=== PATIENT | female | born 1935 | race Caucasian/White ===

== ENCOUNTER 2019-12-19 10:36 | Outpatient (REF) | payer MEDICARE, OTHER, SELFPAY ==
[2019-12-19 11:14] LABS: MANUAL DIFF FLAG NO
[2019-12-19 11:33] LABS: Basophils Percent Auto 0.5 % (0-2); Eosinophils Absolute Auto 0.2 X10*3/uL (0.0-0.4); Eosinophils Percent Auto 2.1 % (0-4); Hematocrit 44.5 % (37-47); Hemoglobin 14.2 g/dl (12.0-16.0); Imm Gran Abs Auto 0.01 X10*3/uL (0.00-0.03); Imm Gran Pct Auto 0.1 % (0.0-0.4); Lymphocytes Absolute Auto 1.2 X10*3/uL (1.2-4.9); Lymphocytes Percent Auto 16.3 % (20-40); Mean Corpuscular HGB Conc 31.9 g/dl (31.0-35.0); Mean Corpuscular Hemoglobin 27.1 pg (27.0-33.0); Mean Corpuscular Volume 84.9 fL (80-98); Mean Platelet Volume 10.5 fL (9.4-12.3); Monocytes Absolute Auto 0.9 X10*3/uL (0.1-1.2); Monocytes Percent Auto 11.7 % (2-11); Neutrophils Absolute Auto 5.2 X10*3/uL (2.0-8.3); Neutrophils Percent Auto 69.3 % (45-73); Platelet Count 261 X10*3/uL (160-400); Red Blood Count 5.24 X10*6/uL (4.20-5.50); Red Cell Distribution Width 17.6 % (11.0-16.0); White Blood Count 7.5 X10*3/uL (4.8-10.8)
[2019-12-19 11:38] LABS: Glucose Urine UA NEG (NEG); Leukocyte Esterase Urine NEG (NEG); Nitrite Urine NEG (NEG); Specific Gravity - Urine 1.015 (1.005-1.025); Urine Blood NEG (NEG); Urine Ketones NEG (NEG); Urine Protein NEG (NEG-TRACE)
[2019-12-19 11:39] LABS: Appearance Urine CLEAR; Color Urine YELLOW
[2019-12-19 11:52] LABS: Alanine Aminotransferase 11 U/L (0-31); Albumin Level 3.8 g/dL (3.5-5.0); Alkaline Phosphatase 82 U/L (39-117); Anion Gap 15 (12-20); Aspartate Amino Transferase 18 U/L (5-31); Bilirubin Total 0.5 mg/dL (0.0-1.0); Blood Urea Nitrogen 15 mg/dL (9-16); Calcium 8.4 mg/dL (8.4-10.2); Carbon Dioxide 28 mmol/L (22-29); Chloride 102 mmol/L (96-108); Cholesterol 169 mg/dL; Estimated Glomerular Filt Rate > 60; Glucose Random 112 mg/dL (60-115); HDL Cholesterol 61 mg/dL; LDL Cholesterol Calculated 93 mg/dl; Potassium 4.5 mmol/l (3.3-5.1); Sodium 140 mmol/L (135-145); Total Protein 6.7 g/dL (6.5-8.0); Triglycerides 76 mg/dL
[2019-12-19 12:13] LABS: TSH reflex Free T4 1.93 mIU/mL (0.32-4.0); Vitamin D 25-OH Total 38.7 ng/mL (>30)
== END 2019-12-19 10:37 | disposition home or self-care (01) ==
LOC: HO.LAB 10:36
PROVIDERS: PCP Internal Medicine; Visit Provider Internal Medicine
DX: E78.00 Pure hypercholesterolemia, unspecified (principal); I10 Essential (primary) hypertension; J30.2 Other seasonal allergic rhinitis; E55.9 Vitamin D deficiency, unspecified; E66.01 Morbid (severe) obesity due to excess calories
CPT/HCPCS: 36415; 80053; 80061; 81003; 82306; 84443; 85025; 87086

== ENCOUNTER 2020-01-27 13:59 | Outpatient (REF) | payer MEDICARE, OTHER, SELFPAY | END 2020-01-27 14:00 | disposition home or self-care (01) | LOC: HO.LAB 13:59 | PROVIDERS: Visit Provider Internal Medicine | DX: Z20.828 Contact with and (suspected) exposure to other viral communicable diseases (principal) | CPT/HCPCS: C9803; U0003 ==

== ENCOUNTER 2020-04-23 10:48 | Outpatient (REF) | payer MEDICARE, OTHER, SELFPAY ==
[2020-04-23 11:39] LABS: MANUAL DIFF FLAG NO
[2020-04-23 11:45] LABS: Basophils Absolute Auto 0.1 X10*3/uL (0.0-0.2); Basophils Percent Auto 0.5 % (0-2); Eosinophils Absolute Auto 0.2 X10*3/uL (0.0-0.4); Eosinophils Percent Auto 2.3 % (0-4); Hematocrit 45.5 % (37-47); Hemoglobin 14.8 g/dl (12.0-16.0); Imm Gran Abs Auto 0.04 X10*3/uL (0.00-0.03); Imm Gran Pct Auto 0.4 % (0.0-0.4); Lymphocytes Absolute Auto 1.3 X10*3/uL (1.2-4.9); Mean Corpuscular HGB Conc 32.5 g/dl (31.0-35.0); Mean Corpuscular Hemoglobin 29.1 pg (27.0-33.0); Mean Corpuscular Volume 89.4 fL (80-98); Mean Platelet Volume 10.9 fL (9.4-12.3); Monocytes Absolute Auto 1.1 X10*3/uL (0.1-1.2); Monocytes Percent Auto 11.2 % (2-11); Neutrophils Absolute Auto 6.8 X10*3/uL (2.0-8.3); Neutrophils Percent Auto 71.6 % (45-73); Platelet Count 262 X10*3/uL (160-400); Red Blood Count 5.09 X10*6/uL (4.20-5.50); Red Cell Distribution Width 14.6 % (11.0-16.0); White Blood Count 9.4 X10*3/uL (4.8-10.8)
[2020-04-23 11:58] LABS: Glucose Urine UA NEG (NEG); Leukocyte Esterase Urine TRACE (NEG); Nitrite Urine NEG (NEG); PH 5.5 (5.0-8.0); UACC Culture Trigger YES; Urine Blood NEG (NEG); Urine Ketones NEG (NEG); Urine Protein NEG (NEG-TRACE)
[2020-04-23 12:00] LABS: Appearance Urine CLEAR; Color Urine YELLOW
[2020-04-23 12:12] LABS: Bacteria Urine TRACE /LPF; RBC Urine 0-2 /HPF (0); Squamous Epithelial Cell Urine 1+ /LPF
[2020-04-23 12:39] LABS: Alanine Aminotransferase 11 U/L (0-31); Albumin Level 3.9 g/dL (3.5-5.0); Alkaline Phosphatase 86 U/L (39-117); Anion Gap 16 (12-20); Aspartate Amino Transferase 16 U/L (5-31); Bilirubin Total 0.5 mg/dL (0.0-1.0); Blood Urea Nitrogen 21 mg/dL (9-16); Calcium 9.2 mg/dL (8.4-10.2); Carbon Dioxide 26 mmol/L (22-29); Chloride 103 mmol/L (96-108); Cholesterol 170 mg/dL; Estimated Glomerular Filt Rate > 60; Glucose Fasting 97 mg/dL (60-99); HDL Cholesterol 56 mg/dL; LDL Cholesterol Calculated 97 mg/dl; Sodium 141 mmol/L (135-145); Total Protein 6.9 g/dL (6.5-8.0); Triglycerides 88 mg/dL
[2020-04-23 12:44] LABS: TSH reflex Free T4 1.85 uIU/mL (0.32-4.0)
== END 2020-04-23 10:49 | disposition home or self-care (01) ==
LOC: HO.LAB 10:48
PROVIDERS: Visit Provider Internal Medicine
DX: I10 Essential (primary) hypertension (principal); E55.9 Vitamin D deficiency, unspecified; J30.2 Other seasonal allergic rhinitis; E78.00 Pure hypercholesterolemia, unspecified; R73.01 Impaired fasting glucose; E66.01 Morbid (severe) obesity due to excess calories; Z68.42 Body mass index [BMI] 45.0-49.9, adult
CPT/HCPCS: 36415; 80053; 80061; 81001; 81003; 82306; 84443; 85025; 87086

== ENCOUNTER 2020-09-28 11:02 | Outpatient (REF) | payer MEDICARE, OTHER, SELFPAY ==
[2020-09-28 11:44] LABS: MANUAL DIFF FLAG NO
[2020-09-28 11:51] LABS: Basophils Percent Auto 0.3 % (0-2); Eosinophils Absolute Auto 0.1 X10*3/uL (0.0-0.4); Eosinophils Percent Auto 1.6 % (0-4); Hematocrit 42.8 % (37-47); Hemoglobin 13.6 g/dl (12.0-16.0); Imm Gran Abs Auto 0.03 X10*3/uL (0.00-0.03); Imm Gran Pct Auto 0.3 % (0.0-0.4); Lymphocytes Percent Auto 10.6 % (20-40); Mean Corpuscular HGB Conc 31.8 g/dl (31.0-35.0); Mean Corpuscular Hemoglobin 28.8 pg (27.0-33.0); Mean Corpuscular Volume 90.5 fL (80-98); Mean Platelet Volume 10.5 fL (9.4-12.3); Monocytes Absolute Auto 1.1 X10*3/uL (0.1-1.2); Monocytes Percent Auto 12.5 % (2-11); Neutrophils Absolute Auto 6.7 X10*3/uL (2.0-8.3); Neutrophils Percent Auto 74.7 % (45-73); Platelet Count 282 X10*3/uL (160-400); Red Blood Count 4.73 X10*6/uL (4.20-5.50); Red Cell Distribution Width 14.2 % (11.0-16.0)
[2020-09-28 12:15] LABS: Alanine Aminotransferase 12 U/L (0-31); Albumin Level 3.6 g/dL (3.5-5.0); Alkaline Phosphatase 74 U/L (39-117); Anion Gap 16 (12-20); Aspartate Amino Transferase 16 U/L (5-31); Bilirubin Total 0.3 mg/dL (0.0-1.0); Blood Urea Nitrogen 14 mg/dL (9-16); Calcium 9.1 mg/dL (8.4-10.2); Carbon Dioxide 24 mmol/L (22-29); Chloride 105 mmol/L (96-108); Estimated Glomerular Filt Rate > 60; Glucose Random 115 mg/dL (60-115); Potassium 4.1 mmol/L (3.3-5.1); Sodium 141 mmol/L (135-145); Total Protein 6.3 g/dL (6.5-8.0)
[2020-09-28 12:30] LABS: Erythrocyte Sedimentation Rate 33 MM/HR (0-20)
[2020-09-28 13:07] LABS: Uric Acid 6.9 mg/dL (2.4-5.7)
== END 2020-09-28 11:03 | disposition home or self-care (01) ==
LOC: HO.LAB 11:02
PROVIDERS: PCP Internal Medicine; Visit Provider Internal Medicine
DX: M79.675 Pain in left toe(s) (principal); M79.89 Other specified soft tissue disorders
CPT/HCPCS: 36415; 80053; 84550; 85025; 85652

== ENCOUNTER 2020-12-10 10:49 | Outpatient (REF) | payer MEDICARE, OTHER, SELFPAY ==
[2020-12-10 11:00] LABS: MANUAL DIFF FLAG NO
[2020-12-10 11:30] LABS: Basophils Percent Auto 0.4 % (0-2); Eosinophils Absolute Auto 0.3 X10*3/uL (0.0-0.4); Eosinophils Percent Auto 2.6 % (0-4); Hematocrit 45.3 % (37-47); Hemoglobin 14.3 g/dl (12.0-16.0); Imm Gran Abs Auto 0.04 X10*3/uL (0.00-0.03); Imm Gran Pct Auto 0.4 % (0.0-0.4); Lymphocytes Absolute Auto 1.2 X10*3/uL (1.2-4.9); Lymphocytes Percent Auto 12.6 % (20-40); Mean Corpuscular HGB Conc 31.6 g/dl (31.0-35.0); Mean Corpuscular Hemoglobin 27.5 pg (27.0-33.0); Mean Corpuscular Volume 87.1 fL (80-98); Mean Platelet Volume 10.2 fL (9.4-12.3); Monocytes Absolute Auto 1.2 X10*3/uL (0.1-1.2); Monocytes Percent Auto 12.5 % (2-11); Neutrophils Absolute Auto 6.8 X10*3/uL (2.0-8.3); Neutrophils Percent Auto 71.5 % (45-73); Platelet Count 285 X10*3/uL (160-400); Red Cell Distribution Width 14.6 % (11.0-16.0); White Blood Count 9.5 X10*3/uL (4.8-10.8)
[2020-12-10 11:40] LABS: Estimated Average Glucose 100 mg/dL; Hemoglobin A1c % 5.1 %
[2020-12-10 11:52] LABS: Alanine Aminotransferase 12 U/L (0-31); Albumin Level 3.8 g/dL (3.5-5.0); Alkaline Phosphatase 77 U/L (39-117); Anion Gap 14 (12-20); Aspartate Amino Transferase 18 U/L (5-31); Bilirubin Total 0.4 mg/dL (0.0-1.0); Blood Urea Nitrogen 21 mg/dL (9-16); Calcium 9.8 mg/dL (8.4-10.2); Carbon Dioxide 30 mmol/L (22-29); Chloride 100 mmol/L (96-108); Cholesterol 187 mg/dL; Estimated Glomerular Filt Rate > 60; Glucose Fasting 121 mg/dL (60-99); HDL Cholesterol 57 mg/dL; LDL Cholesterol Calculated 113 mg/dl; Potassium 4.5 mmol/L (3.3-5.1); Sodium 139 mmol/L (135-145); Total Protein 6.7 g/dL (6.5-8.0); Triglycerides 85 mg/dL
[2020-12-10 11:54] LABS: Appearance Urine CLEAR; Color Urine YELLOW; Glucose Urine UA NEG (NEG); PH 5.5 (5.0-8.0); Specific Gravity - Urine > 1.030 (1.005-1.025); Urine Blood NEG (NEG)
[2020-12-10 11:55] LABS: Leukocyte Esterase Urine NEG (NEG); Nitrite Urine NEG (NEG); Urine Ketones NEG (NEG); Urine Protein NEG (NEG-TRACE)
[2020-12-10 12:13] LABS: TSH reflex Free T4 1.49 uIU/mL (0.32-4.0)
== END 2020-12-10 10:50 | disposition home or self-care (01) ==
LOC: HO.LAB 10:49
PROVIDERS: PCP Internal Medicine; Visit Provider Internal Medicine
DX: E78.00 Pure hypercholesterolemia, unspecified (principal); I10 Essential (primary) hypertension; R73.01 Impaired fasting glucose; R01.1 Cardiac murmur, unspecified; E66.01 Morbid (severe) obesity due to excess calories; Z68.42 Body mass index [BMI] 45.0-49.9, adult
CPT/HCPCS: 36415; 80053; 80061; 81003; 83036; 84443; 85025

== ENCOUNTER 2021-06-03 10:43 | Outpatient (REF) | payer MEDICARE, OTHER, SELFPAY ==
[2021-06-03 11:00] LABS: MANUAL DIFF FLAG NO
[2021-06-03 11:13] LABS: Basophils Percent Auto 0.5 % (0-2); Eosinophils Absolute Auto 0.2 X10*3/uL (0.0-0.4); Eosinophils Percent Auto 2.9 % (0-4); Hematocrit 46.1 % (37.0-47.0); Hemoglobin 15.2 g/dl (12.0-16.0); Imm Gran Abs Auto 0.03 X10*3/uL (0.00-0.03); Imm Gran Pct Auto 0.4 % (0.0-0.4); Lymphocytes Absolute Auto 1.3 X10*3/uL (1.2-4.9); Lymphocytes Percent Auto 17.5 % (20-40); Mean Corpuscular Hemoglobin 29.7 pg (27.0-33.0); Mean Corpuscular Volume 90.2 fL (80.0-98.0); Mean Platelet Volume 10.7 fL (9.4-12.3); Monocytes Percent Auto 13.2 % (2-11); Neutrophils Percent Auto 65.5 % (45-73); Platelet Count 233 X10*3/uL (160-400); Red Blood Count 5.11 X10*6/uL (4.20-5.50); Red Cell Distribution Width 13.9 % (11.0-16.0); White Blood Count 7.6 X10*3/uL (4.8-10.8)
[2021-06-03 11:17] LABS: Appearance Urine CLEAR; Color Urine YELLOW; Glucose Urine UA NEG (NEG); Leukocyte Esterase Urine 1+ (NEG); Nitrite Urine NEG (NEG); PH 5.5 (5.0-8.0); UACC Culture Trigger YES; Urine Blood NEG (NEG); Urine Ketones NEG (NEG); Urine Protein NEG (NEG-TRACE)
[2021-06-03 11:24] LABS: Amorphous Sediment Urine TRACE /LPF; Bacteria Urine TRACE /LPF; RBC Urine 0 /HPF (0); Squamous Epithelial Cell Urine TRACE /LPF
[2021-06-03 11:51] LABS: Alanine Aminotransferase 12 U/L (0-31); Albumin Level 3.8 g/dL (3.5-5.0); Alkaline Phosphatase 91 U/L (39-117); Anion Gap 16 (12-20); Aspartate Amino Transferase 17 U/L (5-31); Bilirubin Total 0.7 mg/dL (0.0-1.0); Blood Urea Nitrogen 21 mg/dL (9-16); Calcium 9.9 mg/dL (8.4-10.2); Carbon Dioxide 26 mmol/L (22-29); Chloride 106 mmol/L (96-108); Cholesterol 170 mg/dL; Estimated Glomerular Filt Rate > 60; Glucose Fasting 111 mg/dL (60-99); HDL Cholesterol 54 mg/dL; LDL Cholesterol Calculated 104 mg/dl; Potassium 4.9 mmol/L (3.3-5.1); Sodium 143 mmol/L (135-145); Total Protein 6.8 g/dL (6.5-8.0); Triglycerides 60 mg/dL
[2021-06-03 12:04] LABS: TSH reflex Free T4 2.54 uIU/mL (0.32-4.0)
[2021-06-03 12:36] LABS: Vitamin D 25-OH Total 73.8 ng/mL (>30)
== END 2021-06-03 10:44 | disposition home or self-care (01) ==
LOC: HO.LAB 10:43
PROVIDERS: PCP Internal Medicine; Visit Provider Internal Medicine
DX: I10 Essential (primary) hypertension (principal); E55.9 Vitamin D deficiency, unspecified; E78.00 Pure hypercholesterolemia, unspecified
CPT/HCPCS: 36415; 80053; 80061; 81001; 82306; 84443; 85025; 87086

== ENCOUNTER 2021-11-18 15:23 | Emergency (ER) | payer MEDICARE, OTHER, SELFPAY ==
--- NOTE | ~2021-11-18 | XR_ITS ---
EXAMINATION: LEFT ANKLE 2 VIEWS LEFT FOOT 3 VIEWS CLINICAL INFORMATION: Swelling and redness COMPARISON: None TECHNIQUE: As above nonweightbearing FINDINGS: Diffuse soft tissue swelling. Monckeberg calcifications suggesting diabetes. Ankle mortise anatomic. No discrete lesion. Bunion formation haustral valgus deformity midfoot. No acute findings of osteomyelitis. No periosteal bone formation. Bulky calcaneal plantar spurring. XR/XR foot LT min 3V IMPRESSION: Diffuse nonspecific soft tissue swelling as above. Chronic findings as above.
--- NOTE | ~2021-11-18 | US_ITS ---
EXAMINATION: US VENOUS ULTRASOUND WITH DOPPLER LOWER EXTREMITY, LEFT CLINICAL INFORMATION: Edema, pain COMPARISON: None TECHNIQUE: Ultrasound of the deep veins is performed from the hip to the calf with compression sonography and color and pulse Doppler assessment. Spectral analysis with color-flow imaging is performed. FINDINGS: Generalized edema limiting assessment. No acute DVT. There is normal venous compression and respiratory variation and augmented flow. The visualized common femoral vein, superficial femoral vein, profunda femoral vein, popliteal vein, and the trifurcation region shows no evidence of deep venous thrombosis. There is no significant popliteal fossa cyst. Of note is older appearing clot within the greater saphenous vein with question minimal acute thrombosis extending to within 1.7 cm from the saphenofemoral junction. If the patient's symptoms persist, followup ultrasound in 5 days 7 days might be of value to exclude proximal propagation from a non-visualized calf vein. US/US venous duplex LE IMPRESSION: No DVT demonstrated in the left lower extremity. Superficial thrombophlebitis involving the greater saphenous vein as above.
--- NOTE | ~2021-11-18 | XR_ITS ---
EXAMINATION: LEFT ANKLE 2 VIEWS LEFT FOOT 3 VIEWS CLINICAL INFORMATION: Swelling and redness COMPARISON: None TECHNIQUE: As above nonweightbearing FINDINGS: Diffuse soft tissue swelling. Monckeberg calcifications suggesting diabetes. Ankle mortise anatomic. No discrete lesion. Bunion formation haustral valgus deformity midfoot. No acute findings of osteomyelitis. No periosteal bone formation. Bulky calcaneal plantar spurring. XR/XR ankle LT min 3V IMPRESSION: Diffuse nonspecific soft tissue swelling as above. Chronic findings as above.
[2021-11-18 15:44] VITALS: BP 180/67; PULSE 80; RESP 18; TEMP 36.4; O2SAT 98; BMI 39.4
[2021-11-18 16:28] LABS: Basophils Percent Auto 0.4 % (0-2); Eosinophils Absolute Auto 0.2 X10*3/uL (0.0-0.4); Eosinophils Percent Auto 2.6 % (0-4); Hematocrit 43.2 % (37.0-47.0); Hemoglobin 14.2 g/dl (12.0-16.0); Imm Gran Abs Auto 0.05 X10*3/uL (0.00-0.03); Imm Gran Pct Auto 0.5 % (0.0-0.4); Lymphocytes Absolute Auto 1.5 X10*3/uL (1.2-4.9); Lymphocytes Percent Auto 15.8 % (20-40); MANUAL DIFF FLAG NO; Mean Corpuscular HGB Conc 32.9 g/dl (31.0-35.0); Mean Corpuscular Hemoglobin 30.2 pg (27.0-33.0); Mean Corpuscular Volume 91.9 fL (80.0-98.0); Mean Platelet Volume 10.6 fL (9.4-12.3); Monocytes Absolute Auto 0.9 X10*3/uL (0.1-1.2); Monocytes Percent Auto 9.4 % (2-11); Neutrophils Absolute Auto 6.5 x10*3/uL (2.0-8.3); Neutrophils Percent Auto 71.3 % (45-73); Platelet Count 227 X10*3/uL (160-400); Red Cell Distribution Width 13.8 % (11.0-16.0); White Blood Count 9.2 X10*3/uL (4.8-10.8)
[2021-11-18 16:34] LABS: Prothrombin Time 11.6 SEC (10.0-13.1)
[2021-11-18 16:36] LABS: D Dimer High Sensitivity 472 NG/ML
[2021-11-18 16:57] LABS: Alanine Aminotransferase 24 U/L (0-31); Albumin Level 3.7 g/dL (3.5-5.0); Alkaline Phosphatase 74 U/L (39-117); Anion Gap 19 (12-20); Aspartate Amino Transferase 22 U/L (5-31); Bilirubin Total 0.3 mg/dL (0.0-1.0); Blood Urea Nitrogen 25 mg/dL (9-16); Calcium 8.7 mg/dL (8.4-10.2); Carbon Dioxide 26 mmol/L (22-29); Chloride 102 mmol/L (96-108); Estimated Glomerular Filt Rate > 60; Glucose Random 113 mg/dL (60-115); Magnesium 1.8 mg/dL (1.6-2.6); Potassium 3.7 mmol/L (3.3-5.1); Sodium 143 mmol/L (135-145); Total Protein 6.7 g/dL (6.5-8.0)
--- NOTE | 2021-11-18 19:27 | ED.GENADULT ---
HPI - General Adult General Chief complaint: General Medical Stated complaint: r/o dvt sent from urgent care Time Seen by Provider: 11/18/21 15:52 Source: patient Mode of arrival: ambulatory Limitations: no limitations History of Present Illness HPI narrative: Patient complaining of pain and redness on the left lower extremity for last few days seen at urgent care center sent the patient here for ruling out DVT. Patient does have a small hole in the skin in between 1st and 2nd toes on the left foot for last few months no significant pus discharge noticed slight redness on the dorsum of the foot which progressed to the left lower extremity no fever no chills Related Data Home Medications Medication Instructions Recorded Confirmed aspirin 81 mg tablet,delayed 81 mg PO DAILY 12/28/19 06/13/21 release (Adult Low Dose Aspirin) bupropion HCl 300 mg 24 hr tablet, mg PO QAM 12/28/19 06/13/21 extended release melatonin 10 mg tablet 10 mg PO BEDTIME PRN 12/28/19 06/13/21 Previous Rx's Medication Instructions Recorded doxycycline monohydrate 100 mg 100 mg PO BID 10 days #20 caps 09/04/21 capsule simvastatin 40 mg tablet 40 mg PO DAILY #90 tabs 10/02/21 lisinopril 5 mg tablet 5 mg PO DAILY #90 tabs 10/11/21 furosemide 40 mg tablet 40 mg PO DAILY #90 tabs 11/12/21 cefuroxime axetil 500 mg tablet 500 mg PO BID #20 tabs 11/18/21 doxycycline hyclate 100 mg tablet 100 mg PO BID #20 tabs 11/18/21 Allergies Allergy/AdvReac Type Severity Reaction Status Date / Time penicillin G [Penicillin G] Allergy Severe Hives Verified 06/13/21 15:29 cucumber Allergy Unknown hives Verified 06/13/21 15:29 strawberry Allergy Unknown hives Verified 06/13/21 15:29 Review of Systems Review of Systems: Yes all other systems are reviewed and are negative PMFSH Past Medical History Medical History Benign essential hypertension Cardiac murmur Dementia Depression Impaired fasting glucose Morbid obesity with BMI of 40.0-44.9, adult Primary insomnia Pure hypercholesterolemia Seasonal allergic rhinitis Vitamin D deficiency Surgical History History of cataract surgery History of lumpectomy of right breast History of nasal surgery History of tonsillectomy Family History Family History Father Prostate cancer Mother Lung cancer Bone cancer Social History Social History Housing: House Alcohol intake: unknown Patient Tobacco Use Status: Former Tobacco user Second Hand Smoke Exposure: Yes Use of substances other than those prescribed or required for medical reasons: No Advance Directives: No service: No Current occupational status: retired Cognitive needs: No Hearing needs: No Vision needs: Yes Physical Exam ED Vital Signs: Vital Signs - 24 hr 11/18/21 15:44 11/18/21 20:00 Temperature 97.6 F 97.9 F Pulse Rate 80 81 Respiratory Rate 18 14 Blood Pressure 180/67 H 197/86 H Pulse Oximetry 98 100 Oxygen Delivery Method Room Air Room Air BMI result Body Mass Index 39.4 Appearance: Alert. Oriented X3. No acute distress. Eyes: PERRLA, No Nystagmus ENT: Pharynx normal. Oral Mucosa moist Neck: Normal inspection. Neck supple. CVS: Normal heart rate and rhythm. Pulses normal. Respiratory: No respiratory distress. Equal air entry bilateral, no wheezing/rales/rhonchi Abdomen: Soft and nontender. Bowel sounds are present, no mass palpable, no CVA tenderness Skin: Skin warm and dry. Normal skin color. Normal skin turgor. Extremities: No lower extremity edema. No calf tenderness erythema of the left lower extremity with slight warm macerated with small opening within the 1st and 2nd toe of left foot without any pus discharge Neuro: Oriented X 3. No motor deficit. No sensory deficit.No cerebellar signs , cranial nerves II-XII intact Medical Decision Making MDM Narrative Medical decision making narrative: Venous Doppler negative for DVT patient has cellulitis of left lower extremity will discharge patient home on doxycycline and Ceftin also patient advised to apply dressing between 1st and 2nd toe Lab Data Lab results reviewed: Yes I reviewed the patient's lab results. Result diagrams: 11/18/21 16:18 11/18/21 16:18 Labs: Lab Results 11/18/21 11/18/21 11/18/21 Range/Units 16:18 16:18 16:18 WBC 9.2 (4.8-10.8) X10*3/uL RBC 4.70 (4.20-5.50) X10*6/uL Hgb 14.2 (12.0-16.0) g/dl Hct 43.2 (37.0-47.0) % MCV 91.9 (80.0-98.0) fL MCH 30.2 (27.0-33.0) pg MCHC 32.9 (31.0-35.0) g/dl RDW 13.8 (11.0-16.0) % Plt Count 227 (160-400) X10*3/uL MPV 10.6 (9.4-12.3) fL Immature Gran % (Auto) 0.5 H (0.0-0.4) % Neut % (Auto) 71.3 (45-73) % Lymph % (Auto) 15.8 L (20-40) % Whitfield % (Auto) 9.4 (2-11) % Eos % (Auto) 2.6 (0-4) % Baso % (Auto) 0.4 (0-2) % Lymph # (Auto) 1.5 (1.2-4.9) X10*3/uL Whitfield # (Auto) 0.9 (0.1-1.2) X10*3/uL Eos # (Auto) 0.2 (0.0-0.4) X10*3/uL Baso # (Auto) 0.0 (0.0-0.2) X10*3/uL Abs Immat Gran (auto) 0.05 H (0.00-0.03) X10*3/uL Absolute Neuts (auto) 6.5 (2.0-8.3) x10*3/uL Absolute Nucleated RBC 0.000 (0.0-0.012) X10*3/uL Nucleated RBC % (auto) 0.0 (0.0-0.2) /100WBC ESR (0-20) MM/HR PT 11.6 (10.0-13.1) SEC INR 1.0 (0.9-1.1) D-Dimer High Sensitivty 472 NG/ML Sodium 143 (135-145) mmol/L Potassium 3.7 D (3.3-5.1) mmol/L Chloride 102 (96-108) mmol/L Carbon Dioxide 26 (22-29) mmol/L Anion Gap 19 (12-20) BUN 25 H (9-16) mg/dL Creatinine 0.83 (0.5-1.4) mg/dL Estim Creat Clear Calc 53.0 Estimated GFR > 60 Random Glucose 113 (60-115) mg/dL Lactic Acid (0.5-2.0) mmol/L Calcium 8.7 D (8.4-10.2) mg/dL Magnesium 1.8 (1.6-2.6) mg/dL Total Bilirubin 0.3 (0.0-1.0) mg/dL AST 22 (5-31) U/L ALT 24 (0-31) U/L Alkaline Phosphatase 74 (39-117) U/L C-Reactive Protein 7.96 H (< or = 0.50) mg/dL Total Protein 6.7 (6.5-8.0) g/dL Albumin 3.7 (3.5-5.0) g/dL 11/18/21 11/18/21 Range/Units 16:18 16:19 WBC (4.8-10.8) X10*3/uL RBC (4.20-5.50) X10*6/uL Hgb (12.0-16.0) g/dl Hct (37.0-47.0) % MCV (80.0-98.0) fL MCH (27.0-33.0) pg MCHC (31.0-35.0) g/dl RDW (11.0-16.0) % Plt Count (160-400) X10*3/uL MPV (9.4-12.3) fL Immature Gran % (Auto) (0.0-0.4) % Neut % (Auto) (45-73) % Lymph % (Auto) (20-40) % Whitfield % (Auto) (2-11) % Eos % (Auto) (0-4) % Baso % (Auto) (0-2) % Lymph # (Auto) (1.2-4.9) X10*3/uL Whitfield # (Auto) (0.1-1.2) X10*3/uL Eos # (Auto) (0.0-0.4) X10*3/uL Baso # (Auto) (0.0-0.2) X10*3/uL Abs Immat Gran (auto) (0.00-0.03) X10*3/uL Absolute Neuts (auto) (2.0-8.3) x10*3/uL Absolute Nucleated RBC (0.0-0.012) X10*3/uL Nucleated RBC % (auto) (0.0-0.2) /100WBC ESR 48 H (0-20) MM/HR PT (10.0-13.1) SEC INR (0.9-1.1) D-Dimer High Sensitivty NG/ML Sodium (135-145) mmol/L Potassium (3.3-5.1) mmol/L Chloride (96-108) mmol/L Carbon Dioxide (22-29) mmol/L Anion Gap (12-20) BUN (9-16) mg/dL Creatinine (0.5-1.4) mg/dL Estim Creat Clear Calc Estimated GFR Random Glucose (60-115) mg/dL Lactic Acid 1.0 (0.5-2.0) mmol/L Calcium (8.4-10.2) mg/dL Magnesium (1.6-2.6) mg/dL Total Bilirubin (0.0-1.0) mg/dL AST (5-31) U/L ALT (0-31) U/L Alkaline Phosphatase (39-117) U/L C-Reactive Protein (< or = 0.50) mg/dL Total Protein (6.5-8.0) g/dL Albumin (3.5-5.0) g/dL Discharge Plan Discharge Clinical Impression: Cellulitis of leg, right Patient Disposition: Home, Self-Care Instructions: Cellulitis (ED) Additional Instructions: Local care of the wound as advised Antibiotic as prescribed Follow with PCP Report to the ER if worsening of the redness or pain Prescriptions: New cefuroxime axetil 500 mg tablet 500 mg PO BID Qty: 20 0RF doxycycline hyclate 100 mg tablet 100 mg PO BID Qty: 20 0RF No Action doxycycline monohydrate 100 mg capsule 100 mg PO BID 10 Days Qty: 20 0RF simvastatin 40 mg tablet 40 mg PO DAILY Qty: 90 1RF lisinopril 5 mg tablet 5 mg PO DAILY Qty: 90 5RF furosemide 40 mg tablet 40 mg PO DAILY Qty: 90 3RF aspirin [Adult Low Dose Aspirin] 81 mg tablet,delayed release (DR/EC) 81 mg PO DAILY melatonin 10 mg tablet 10 mg PO BEDTIME PRN bupropion HCl 300 mg tablet extended release 24 hr PO QAM Interventions: ED Discharge Assessment Last Done: 11/18/21 20:51 Discharge Date/Time: 11/18/21 20:51
[2021-11-18 19:46] LABS: C Reactive Protein 7.96 mg/dL (< or = 0.50)
[2021-11-18 20:00] VITALS: BP 197/86; PULSE 81; RESP 14; TEMP 36.6; O2SAT 100
[2021-11-18] MEDS: cephALEXin 500 MG CAPSULE PO (20:09)
--- NOTE | 2021-11-18 20:13 | PC.NURSE ---
Left leg edema, red, warm and dry. Red area marked and dated. Pedal pulse present via doppler.
[2021-11-18 20:27] LABS: Erythrocyte Sedimentation Rate 48 MM/HR (0-20)
--- NOTE | 2021-11-18 20:39 | PC.NURSE ---
Reviewed discharge instruction. pt verbalized understanding. no distress at discharge. Wheeled pt out to car.
== END 2021-11-18 20:51 | disposition home or self-care (01) ==
PROVIDERS: Physician Assistant Medical; Emergency Provider Internal Medicine; PCP Internal Medicine
DX: L03.116 Cellulitis of left lower limb (principal); M79.662 Pain in left lower leg; I10 Essential (primary) hypertension; E78.00 Pure hypercholesterolemia, unspecified; E66.01 Morbid (severe) obesity due to excess calories; Z68.39 Body mass index [BMI] 39.0-39.9, adult; Z79.82 Long term (current) use of aspirin; Z79.899 Other long term (current) drug therapy; Z79.02 Long term (current) use of antithrombotics/antiplatelets
CPT/HCPCS: 36415; 73610; 73630; 80053; 83605; 83735; 85025; 85379; 85610; 85652; 86140; 87040; 93971; 99284

== ENCOUNTER 2021-12-09 10:49 | Outpatient (REF) | payer MEDICARE, OTHER, SELFPAY ==
[2021-12-09 11:05] LABS: MANUAL DIFF FLAG NO
[2021-12-09 11:29] LABS: Appearance Urine Clear; Color Urine Yellow; Glucose Urine UA Negative (Negative); Leukocyte Esterase Urine Moderate (2+) (Negative); Nitrite Urine Negative (Negative); Specific Gravity - Urine 1.015 (1.005-1.025); UMIC TRIGGER UACC YES; Urine Blood Negative (Negative); Urine Ketones Negative (Negative); Urine Protein Negative (Neg-Trace)
[2021-12-09 11:31] LABS: Basophils Percent Auto 0.4 % (0-2); Eosinophils Absolute Auto 0.2 X10*3/uL (0.0-0.4); Eosinophils Percent Auto 1.9 % (0-4); Hematocrit 42.8 % (37.0-47.0); Hemoglobin 13.9 g/dl (12.0-16.0); Imm Gran Abs Auto 0.03 X10*3/uL (0.00-0.03); Imm Gran Pct Auto 0.3 % (0.0-0.4); Lymphocytes Absolute Auto 1.4 X10*3/uL (1.2-4.9); Lymphocytes Percent Auto 15.4 % (20-40); Mean Corpuscular HGB Conc 32.5 g/dl (31.0-35.0); Mean Corpuscular Hemoglobin 29.6 pg (27.0-33.0); Mean Corpuscular Volume 91.3 fL (80.0-98.0); Mean Platelet Volume 10.7 fL (9.4-12.3); Monocytes Percent Auto 10.9 % (2-11); Neutrophils Absolute Auto 6.4 x10*3/uL (2.0-8.3); Neutrophils Percent Auto 71.1 % (45-73); Platelet Count 269 X10*3/uL (160-400); Red Blood Count 4.69 X10*6/uL (4.20-5.50); Red Cell Distribution Width 13.1 % (11.0-16.0)
[2021-12-09 11:35] LABS: Bacteria Urine None Seen (None Seen); Hyaline Casts Urine 0-2 /LPF (0-2); UACC Culture Trigger YES; WBC Urine 21-50 /HPF (0-5)
[2021-12-09 12:06] LABS: Estimated Average Glucose 97 mg/dL
[2021-12-09 12:52] LABS: Alanine Aminotransferase 11 U/L (0-31); Albumin Level 3.7 g/dL (3.5-5.0); Alkaline Phosphatase 85 U/L (39-117); Anion Gap 16 (12-20); Aspartate Amino Transferase 19 U/L (5-31); Bilirubin Total 0.3 mg/dL (0.0-1.0); Blood Urea Nitrogen 17 mg/dL (9-16); Calcium 9.3 mg/dL (8.4-10.2); Carbon Dioxide 30 mmol/L (22-29); Chloride 102 mmol/L (96-108); Cholesterol 168 mg/dL; Estimated Glomerular Filt Rate > 60; Glucose Fasting 99 mg/dL (60-99); HDL Cholesterol 55 mg/dL; LDL Cholesterol Calculated 99 mg/dl; Potassium 4.3 mmol/L (3.3-5.1); Sodium 144 mmol/L (135-145); Total Protein 6.6 g/dL (6.5-8.0); Triglycerides 71 mg/dL
[2021-12-09 12:54] LABS: TSH reflex Free T4 2.46 uIU/mL (0.32-4.0); Vitamin D 25-OH Total 62.8 ng/mL (>30)
== END 2021-12-09 10:50 | disposition home or self-care (01) ==
LOC: HO.LAB 10:49
PROVIDERS: PCP Internal Medicine; Visit Provider Internal Medicine
DX: I10 Essential (primary) hypertension (principal); E78.00 Pure hypercholesterolemia, unspecified; R73.01 Impaired fasting glucose; E55.9 Vitamin D deficiency, unspecified
CPT/HCPCS: 36415; 80053; 80061; 81001; 82306; 83036; 84443; 85025; 87086

== ENCOUNTER 2021-12-26 12:36 | Outpatient (RCR) | payer MEDICARE, OTHER, SELFPAY ==
--- NOTE | ~2021-12-26 | XR_ITS ---
EXAMINATION: XR FOOT, LEFT CLINICAL INFORMATION: Chronic ulcer in the left foot. COMPARISON: Radiograph of the left foot 11/18/2021. TECHNIQUE: AP, lateral, and oblique views of the left foot. FINDINGS: Diffuse soft tissue swelling. Radiodensities overlying the soft tissues adjacent to the first toe, nonspecific could be related with foreign bodies or overlying bandages. Scattered vascular calcifications. Decreased bone mineralization limiting evaluation of subtle osseous lesions. No discrete cortical disruption or erosive changes to suspect osteomyelitis. 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 No acute fractures or traumatic subluxation. XR/XR foot LT min 3V IMPRESSION: 1. Radiodensities overlying the soft tissues adjacent to the first toe, nonspecific, could be related with foreign bodies or overlying bandages. Recommend correlation with physical examination. 2. No definite evidence of osteomyelitis. However, early osteomyelitis can be radiographically occult, and if indicated correlation with an MR is recommended. 3. Hallux valgus. 4. 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
[2022-03-13 16:08] LABS: MANUAL DIFF FLAG NO
[2022-03-13 16:24] LABS: Basophils Absolute Auto 0.1 X10*3/uL (0.0-0.2); Basophils Percent Auto 0.5 % (0-2); Eosinophils Absolute Auto 0.3 X10*3/uL (0.0-0.4); Eosinophils Percent Auto 2.5 % (0-4); Hematocrit 41.4 % (37.0-47.0); Hemoglobin 13.4 g/dl (12.0-16.0); Imm Gran Abs Auto 0.04 X10*3/uL (0.00-0.03); Imm Gran Pct Auto 0.3 % (0.0-0.4); Lymphocytes Absolute Auto 1.7 X10*3/uL (1.2-4.9); Lymphocytes Percent Auto 13.8 % (20-40); Mean Corpuscular HGB Conc 32.4 g/dl (31.0-35.0); Mean Corpuscular Volume 92.8 fL (80.0-98.0); Mean Platelet Volume 10.3 fL (9.4-12.3); Monocytes Absolute Auto 1.5 X10*3/uL (0.1-1.2); Monocytes Percent Auto 12.8 % (2-11); Neutrophils Absolute Auto 8.4 x10*3/uL (2.0-8.3); Neutrophils Percent Auto 70.1 % (45-73); Platelet Count 329 X10*3/uL (160-400); Red Blood Count 4.46 X10*6/uL (4.20-5.50); Red Cell Distribution Width 14.7 % (11.0-16.0); SCAN SMEAR FLAG 1; White Blood Count 11.9 X10*3/uL (4.8-10.8)
[2022-03-13 16:38] LABS: Estimated Average Glucose 88 mg/dL; Hemoglobin A1c % 4.7 %
[2022-03-13 16:58] LABS: Anion Gap 16 (12-20); Blood Urea Nitrogen 37 mg/dL (9-16); C Reactive Protein 0.14 mg/dL (< or = 0.50); Calcium 9.3 mg/dL (8.4-10.2); Carbon Dioxide 29 mmol/L (22-29); Chloride 102 mmol/L (96-108); Estimated Glomerular Filt Rate 44; Glucose Random 107 mg/dL (60-115); Potassium 4.8 mmol/L (3.3-5.1); Sodium 142 mmol/L (135-145)
[2022-03-13 17:11] LABS: Erythrocyte Sedimentation Rate 38 MM/HR (0-20)
== END 2022-05-08 16:00 | disposition home or self-care (01) ==
LOC: HO.WCC 12:36
PROVIDERS: PCP Internal Medicine; Visit Provider Physician Assistant
DX: L97.522 Non-pressure chronic ulcer of other part of left foot with fat layer exposed (principal); G60.9 Hereditary and idiopathic neuropathy, unspecified; I87.2 Venous insufficiency (chronic) (peripheral); I10 Essential (primary) hypertension; M21.619 Bunion of unspecified foot; Z87.891 Personal history of nicotine dependence
CPT/HCPCS: 11042; 15275; 17250; 36415; 73630; 80048; 83036; 84134; 85025; 85652; 86140; 99212; 99213; Q4187

== ENCOUNTER 2022-04-03 17:12 | Outpatient (REF) | payer MEDICARE, OTHER, SELFPAY ==
--- NOTE | ~2022-04-03 | MR_ITS ---
EXAMINATION: MR FOOT WITHOUT AND WITH CONTRAST, LEFT CLINICAL INFORMATION: Nonhealing wound. Pain and swelling. Evaluate for osteomyelitis. COMPARISON: Most recent left foot radiographs dated 03/13/2022. TECHNIQUE: Multisequence MR imaging of the left foot was obtained before and after the IV administration of 7.5 mL Gadavist contrast on a high-field strength scanner. FINDINGS: Subcutaneous thickening with mild edema and probable ulceration along the medial aspect of the 1st metatarsal head. No associated abscess formation. Minimal if any postcontrast enhancement. No adjacent marrow edema or evidence of acute osteomyelitis. No stress reaction or fracture. No concerning lytic or blastic osseous lesion. First metatarsophalangeal hallux valgus angulation with lateral subluxation of the hallux sesamoids. Associated articular cartilage loss with marginal osteophytes and mild subchondral cystic change consistent with moderate osteoarthritis. Articular cartilage loss with subchondral cystic change throughout the tarsometatarsal joints, consistent with moderate osteoarthritis. The visualized muscles and tendons are intact. No transverse tendon tear or tendon retraction. Intact Lisfranc ligament. Dorsal subcutaneous edema. No abscess formation or soft tissue mass. MR/MR foot LT wo/w con IMPRESSION: 1. Probable ulceration along the medial aspect of the 1st metatarsal head with mild cellulitis. No abscess formation. No evidence of adjacent osteomyelitis. 2. 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 3. Moderate osteoarthritis throughout the tarsometatarsal joints. 4. Dorsal subcutaneous edema.
== END 2022-04-03 17:13 | disposition home or self-care (01) ==
LOC: HO.MRI 17:12
PROVIDERS: PCP Internal Medicine; Visit Provider Physician Assistant
DX: I87.2 Venous insufficiency (chronic) (peripheral) (principal); L97.502 Non-pressure chronic ulcer of other part of unspecified foot with fat layer exposed; L08.9 Local infection of the skin and subcutaneous tissue, unspecified
CPT/HCPCS: 73720; A9585

== ENCOUNTER 2022-06-09 10:44 | Outpatient (REF) | payer MEDICARE, OTHER, SELFPAY ==
[2022-06-09 10:53] LABS: MANUAL DIFF FLAG NO
[2022-06-09 11:03] LABS: Appearance Urine Clear; Color Urine Yellow; Glucose Urine UA Negative (Negative); Leukocyte Esterase Urine Small (1+) (Negative); Nitrite Urine Negative (Negative); Specific Gravity - Urine 1.015 (1.005-1.025); UMIC TRIGGER UACC YES; Urine Blood Negative (Negative); Urine Ketones Negative (Negative); Urine Protein Negative (Neg-Trace)
[2022-06-09 11:06] LABS: Bacteria Urine None Seen (None Seen); Hyaline Casts Urine 0-2 /LPF (0-2); RBC Urine 0-2 /HPF (0-2); UACC Culture Trigger YES
[2022-06-09 11:13] LABS: Basophils Percent Auto 0.5 % (0-2); Eosinophils Absolute Auto 0.2 X10*3/uL (0.0-0.4); Eosinophils Percent Auto 2.5 % (0-4); Hematocrit 37.7 % (37.0-47.0); Hemoglobin 11.4 g/dl (12.0-16.0); Imm Gran Abs Auto 0.02 X10*3/uL (0.00-0.03); Imm Gran Pct Auto 0.2 % (0.0-0.4); Lymphocytes Absolute Auto 1.5 X10*3/uL (1.2-4.9); Lymphocytes Percent Auto 16.7 % (20-40); Mean Corpuscular HGB Conc 30.2 g/dl (31.0-35.0); Mean Corpuscular Hemoglobin 23.2 pg (27.0-33.0); Mean Corpuscular Volume 76.8 fL (80.0-98.0); Mean Platelet Volume 10.1 fL (9.4-12.3); Neutrophils Absolute Auto 5.9 x10*3/uL (2.0-8.3); Neutrophils Percent Auto 68.1 % (45-73); Platelet Count 299 X10*3/uL (160-400); Red Blood Count 4.91 X10*6/uL (4.20-5.50); Red Cell Distribution Width 14.9 % (11.0-16.0); White Blood Count 8.7 X10*3/uL (4.8-10.8)
[2022-06-09 11:23] LABS: Alanine Aminotransferase 11 U/L (0-31); Albumin Level 3.9 g/dL (3.5-5.0); Alkaline Phosphatase 84 U/L (39-117); Anion Gap 15 (12-20); Aspartate Amino Transferase 14 U/L (5-31); Bilirubin Total 0.3 mg/dL (0.0-1.0); Blood Urea Nitrogen 23 mg/dL (9-16); Carbon Dioxide 25 mmol/L (22-29); Chloride 107 mmol/L (96-108); Cholesterol 176 mg/dL; Estimated Glomerular Filt Rate > 60; Glucose Fasting 92 mg/dL (60-99); HDL Cholesterol 55 mg/dL; LDL Cholesterol Calculated 109 mg/dl; Potassium 4.1 mmol/L (3.3-5.1); Sodium 143 mmol/L (135-145); Total Protein 6.7 g/dL (6.5-8.0); Triglycerides 61 mg/dL
[2022-06-09 11:40] LABS: TSH reflex Free T4 1.76 uIU/mL (0.32-4.0)
== END 2022-06-09 10:45 | disposition home or self-care (01) ==
LOC: HO.LAB 10:44
PROVIDERS: PCP Internal Medicine; Visit Provider Internal Medicine
DX: E78.00 Pure hypercholesterolemia, unspecified (principal); I10 Essential (primary) hypertension; E55.9 Vitamin D deficiency, unspecified; R30.0 Dysuria
CPT/HCPCS: 36415; 80053; 80061; 81001; 82306; 84443; 85025; 87086

== ENCOUNTER 2022-12-15 10:30 | Outpatient (REF) | payer MEDICARE, OTHER, SELFPAY ==
[2022-12-15 10:50] LABS: MANUAL DIFF FLAG NO
[2022-12-15 11:06] LABS: Basophils Absolute Auto 0.1 X10*3/uL (0.0-0.2); Basophils Percent Auto 0.7 % (0-2); Eosinophils Absolute Auto 0.1 X10*3/uL (0.0-0.4); Eosinophils Percent Auto 1.3 % (0-4); Hematocrit 43.7 % (37.0-47.0); Hemoglobin 14.1 g/dl (12.0-16.0); Imm Gran Abs Auto 0.02 X10*3/uL (0.00-0.03); Imm Gran Pct Auto 0.3 % (0.0-0.4); Lymphocytes Absolute Auto 1.2 X10*3/uL (1.2-4.9); Lymphocytes Percent Auto 15.7 % (20-40); Mean Corpuscular HGB Conc 32.3 g/dl (31.0-35.0); Mean Corpuscular Hemoglobin 26.8 pg (27.0-33.0); Mean Corpuscular Volume 82.9 fL (80.0-98.0); Mean Platelet Volume 10.2 fL (9.4-12.3); Monocytes Percent Auto 13.5 % (2-11); Neutrophils Absolute Auto 5.1 x10*3/uL (2.0-8.3); Neutrophils Percent Auto 68.5 % (45-73); Platelet Count 243 X10*3/uL (160-400); Red Blood Count 5.27 X10*6/uL (4.20-5.50); Red Cell Distribution Width 16.2 % (11.0-16.0); White Blood Count 7.4 X10*3/uL (4.8-10.8)
[2022-12-15 11:19] LABS: Appearance Urine Clear; Color Urine Yellow; Glucose Urine UA Negative (Negative); Leukocyte Esterase Urine Moderate (2+) (Negative); Nitrite Urine Negative (Negative); UMIC TRIGGER UACC YES; Urine Blood Negative (Negative); Urine Ketones Negative (Negative); Urine Protein Negative (Neg-Trace)
[2022-12-15 11:21] LABS: Bacteria Urine None Seen (None Seen); Hyaline Casts Urine 0-2 /LPF (0-2); RBC Urine 0-2 /HPF (0-2); UACC Culture Trigger YES; WBC Urine 21-50 /HPF (0-5)
[2022-12-15 11:42] LABS: Estimated Average Glucose 100 mg/dL; Hemoglobin A1c % 5.1 % (<6.0)
[2022-12-15 11:48] LABS: Alanine Aminotransferase 9 U/L (0-31); Albumin Level 3.9 g/dL (3.5-5.0); Alkaline Phosphatase 79 U/L (39-117); Anion Gap 14 (12-20); Aspartate Amino Transferase 17 U/L (5-31); Bilirubin Total 0.4 mg/dL (0.0-1.0); Blood Urea Nitrogen 24 mg/dL (9-16); Calcium 9.9 mg/dL (8.4-10.2); Carbon Dioxide 26 mmol/L (22-29); Chloride 104 mmol/L (96-108); Cholesterol 160 mg/dL (<200); Estimated Glomerular Filt Rate 57; Glucose Fasting 81 mg/dL (60-99); HDL Cholesterol 56 mg/dL (>40); Iron 60 mcg/dL (30-160); LDL Cholesterol Calculated 95 mg/dL (<100); Percent Iron Saturation 19 % (15-50); Sodium 140 mmol/L (135-145); Total Iron Binding Capacity 311 mcg/dL (228-428); Total Protein 7.5 g/dL (6.5-8.0); Triglycerides 46 mg/dL (<150); Unsaturated Iron Binding 251 ug/dL
[2022-12-15 11:54] LABS: TSH reflex Free T4 2.31 uIU/mL (0.32-4.0); Vitamin D 25-OH Total 67.4 ng/mL (>30)
[2022-12-15 12:06] LABS: Vitamin B12 692 pg/mL (200-900)
== END 2022-12-15 10:31 | disposition home or self-care (01) ==
LOC: HO.LAB 10:30
PROVIDERS: PCP Internal Medicine; Visit Provider Internal Medicine
DX: E55.9 Vitamin D deficiency, unspecified (principal); R73.01 Impaired fasting glucose; D50.9 Iron deficiency anemia, unspecified; I10 Essential (primary) hypertension; E78.00 Pure hypercholesterolemia, unspecified; E53.8 Deficiency of other specified B group vitamins; R30.0 Dysuria
CPT/HCPCS: 36415; 80053; 80061; 81001; 82306; 82607; 82746; 83036; 83540; 84443; 85025; 87086

== ENCOUNTER 2023-03-25 17:09 | Outpatient (AMB) | payer MEDICARE, OTHER, SELFPAY ==
[2023-03-25 17:13] VITALS: BP 120/78; PULSE 71; O2SAT 98; BMI 39.8
--- NOTE | 2023-03-25 17:13 | A.OFFPC_ITS ---
Vital Signs 03/25/23 17:13 Height 5 ft 1 in Weight 210 lb 8.663 oz BMI 39.8 BP 120/78 Blood Pressure Location Lt brachial Position Sitting Pulse 71 Pulse Source Pulse Oximeter Pulse Oximetry (%) 98 Oxygen Delivery Method Room Air Intake Visit Reasons: HTN, hyperlipidemia, IFG Glove Turner And Former Automatic Required: No Accompanied by: Self / Same As Patient Allergies penicillin G [Penicillin G] Allergy (Severe, Verified 03/25/23 17:51) Hives cucumber Allergy (Unknown, Verified 03/25/23 17:51) hives strawberry Allergy (Unknown, Verified 03/25/23 17:51) hives Medication List - Last Reconciled 03/25/23 by Roberto Kenney MD aspirin (Adult Low Dose Aspirin) 81 mg PO DAILY bupropion HCl mg PO QAM ferrous sulfate (Feosol) 325 mg PO Q OTHER DAY 90 days furosemide 40 mg PO DAILY lisinopril 5 mg PO DAILY melatonin 10 mg PO BEDTIME PRN simvastatin 40 mg PO DAILY [Transport Wheelchair As directed] Tobacco use date assessed: 03/25/23 Fall risk assessment: No Falls in past year Last assessed Fall Risk: 03/25/23 Dental Screening Dental Screen Date: 03/25/23 Did you have a dental visit in the last 12 months?: Yes Did you have a dental problem in the last 6 months where you did not have access to dental care?: No Was dental information given to patient?: Patient has dentist HPI HTN, hyperlipidemia, IFG HPI Details Patient comes in today for her follow up visit - was last seen in June 2022 as her appt in November 2022 was cancelled and rescheduled States that she feels okay She denies any headaches or dizziness Denies any chest pains, no SOB No nausea/vomiting, no abdominal pain No change in bowel habits noted Had some follow up labs done back in late November 2022 and would like to know how she did back then [facility] Medical History Morbid obesity with BMI of 40.0-44.9, adult Dementia Impaired fasting glucose Depression Primary insomnia Seasonal allergic rhinitis Vitamin D deficiency Cardiac murmur Pure hypercholesterolemia Benign essential hypertension Surgical History History of cataract surgery History of nasal surgery History of lumpectomy of right breast History of tonsillectomy Family History Father Prostate cancer Mother Lung cancer Bone cancer Social History Housing: House Alcohol intake: current Alcohol intake frequency: holidays/special occasions only Patient Tobacco Use Status: Former Tobacco user e-Cigarette/Vaping Use: Never Used Second Hand Smoke Exposure: Yes service: No Current occupational status: retired Cognitive needs: No Hearing needs: No Vision needs: Yes Questionnaire PHQ-9 Over the last 2 weeks, how often have you been bothered by any of the following problems? 1. Little interest or pleasure in doing things: not at all 2. Feeling down, depressed, or hopeless: not at all 3. Trouble falling or staying asleep, or sleeping too much: not at all 4. Feeling tired or having little energy: not at all 5. Poor appetite or overeating: not at all 6. Feeling bad about yourself - or that you are a failure or have let yourself or your family down: not at all 7. Trouble concentrating on things, such as reading the newspaper or watching television: not at all 8. Moving or speaking so slowly that other people could have noticed. Or the opposite - being so fidgety or restless that you have been moving around a lot more than usual: not at all 9. Thoughts that you would be better off or of hurting yourself in some way: not at all Total score: 0 Depression Screening Interpretation: Negative Depression Screening Done: Yes 70877 - PHQ-9 Billing: Yes Source: Developed by Drs. Gregorio Wallace, Leonor Kumar, Luciano Martinez and colleagues, with an educational daniel from [employer]. Thrive Questionnaire Date Thrive assessed: 03/25/23 I am a: Patient What is your living situation today?: I have a steady place to live Within the past 12 months, did the food you bought not last and you didn't have the money to get more?: Never true Within the past 12 months, did you worry whether your food would run out before you got money to buy more?: Never true Do you have trouble paying for medicines?: No Do you have trouble getting transportation to medical appointments?: No Do you have trouble paying your heating and electricity bill?: No Do you have trouble taking care of your child, family member or friend?: No Do you have trouble with day-to-day activities such as bathing, preparing meals, shopping, managing finances, etc.?: No Are you currently unemployed and looking for a job?: No Are you interested in more education?: No Please select the resources that you would like help with: None Currently or been in a relationship where the following occur: no concerns reported THRIVE Score: 0 AUDIT C Alcohol Use Questionnaire (AUDIT-C) 1. How often do you have a drink containing alcohol?: Monthly or less 2. How many drinks containing alcohol do you have on a typical day when you are drinking?: 1 or 2 3. How often do you have six or more drinks on one occasion?: Never Total Score: 1 Score Reviewed/Action Taken: Yes LISSETTE-7 AMB Questionnaire LISSETTE-7 Date LISSETTE - 7 assessed: 03/25/23 Feeling nervous, anxious, or on edge: 0 = Not at all Not being able to stop or control worryin = Not at all Worrying too much about different things: 0 = Not at all Trouble relaxin = Not at all Being so restless that it is hard to sit still: 0 = Not at all Becoming easily annoyed or irritable: 0 = Not at all Feeling afraid as if something awful might happen: 0 = Not at all Total LISSETTE-7 score (0-4 normal; 5-9 mild; 10-14 moderate; 15-21 severe): 0 Source: Developed by Drs. Gregorio Wallace, Leonor Kumar, Luciano Martinez and colleagues, with an educational daniel from [employer]. Review of Systems Const Denies chills, Denies difficulty sleeping (takes OTC Melatonin as needed), Bijan es fatigue, Denies fever(s) and Denies headache(s) ENT Denies dysphagia, Denies dizziness, Denies otalgia, Denies headache(s), Denies neck pain, Denies odynophagia and Denies sore throat Card Denies chest pain, Denies palpitations and Denies dyspnea Resp Denies chest congestion, Denies cough and Denies dyspnea GI Denies abdominal pain, Denies constipation, Denies dysphagia, Denies heartburn, Denies diarrhea, Denies nausea, Denies odynophagia and Denies vomiting Denies difficulty voiding, Denies nocturia, Denies dysuria and Denies urinary urgency Musc Denies back pain, Denies arthralgias and Denies neck pain Skin/Breast Denies rash Neuro Denies dizziness and Denies headache(s) Endo Denies fatigue and Denies palpitations Physical exam (Primary Care) Vital Signs: Last Vital Signs Pulse 71 03/25/23 17:13 BP 120/78 03/25/23 17:13 Pulse Ox 98 03/25/23 17:13 Oxygen Delivery Method Room Air 03/25/23 17:13 BMI result Body Mass Index 39.8 Tobacco/Smoking Status: Tobacco use Status Tobacco use date assessed 03/25/23 03/25/23 17:16 Patient Tobacco Use Status Former Tobacco user 03/25/23 17:16 e-Cigarette/Vaping Use Never Used 03/25/23 17:16 PHQ-9: PHQ-9 Score PHQ-9: Total score 0 03/25/23 17:16 Depression Screening Interpretation: Negative Thrive Assessment: Date of Thrive Assessment Date Thrive assessed 03/25/23 03/25/23 17:16 Currently or been in a relationship where the following occur: no concerns reported Const General: no acute distress and alert HENMT Ears: TM's normal bilaterally and EAC's normal Throat: Yes posterior oropharynx normal and Yes tonsils normal (no TP congestion) Neck Neck: Yes no lymphadenopathy and Yes supple Resp Auscultation: clear to auscultation bilaterally, no rales and no wheezes Cardio Rate: regular rate Rhythm: regular rhythm Heart sounds: Murmur heart sound present systolic II/ GI Palpation (GI): Soft to palpation and nontender Auscultation: normal bowel sounds Back/Spine/Pelvis Thoracic/Lumbar Spine: thoracic and lumbar spine normal to inspection Skin Rashes: no rashes Extrem General: Yes no clubbing, cyanosis or edema Results Reviewed Results Reviewed: Laboratory Tests 12/15/22 12/15/22 12/15/22 10:48 10:48 10:51 WBC 7.4 Hgb 14.1 D Hct 43.7 Plt Count 243 Sodium 140 Potassium 4.0 Creatinine 0.93 Estimated GFR 57 Fasting Glucose 81 Hemoglobin A1c % 5.1 Calcium 9.9 D AST 17 ALT 9 Triglycerides 46 Cholesterol 160 LDL Cholesterol, Calc 95 HDL Cholesterol 56 Vitamin B12 692 25-OH Vitamin D Total 67.4 TSH 2.31 Ur Specific [place] 1.020 Urine Protein Negative Urine Glucose (UA) Negative Urine Blood Negative Assessment and Plan Assessment & Plan (1) Benign essential hypertension: Code(s): I10 - Essential (primary) hypertension Plan: Reinforced low sodium diet - goal is systolic BP of at least 140 to 150 mm or less Continue Lisinopril 5 mg QD and Furosemide 40 mg Q AM (2) Pure hypercholesterolemia: Code(s): E78.00 - Pure hypercholesterolemia, unspecified Plan: Results of her labs done back in late November 2022 reviewed and discussed with patient Reinforced low cholesterol diet Continue Simvastatin 40 mg QD Will recheck her labs and fasting lipids in 6 months for follow up (3) Cardiac murmur: Code(s): R01.1 - Cardiac murmur, unspecified Plan: Echocardiogram done back in 2004 showed a slight mitral annular calcification and slight sclerosis of the aortic cusps with no significant aortic stenosis. There is mild tricuspid and trace mitral regurgitation.? The right and left ventricles are normal in size with normal systolic function, with a left ventricular ejection fraction of about 65%.? No left ventricular hypertrophy is noted.? The atria are slightly enlarged, with mild pulmonary hypertension and evidence of left ventricular diastolic dysfunction.? Will consider repeat echocardiogram for follow-up, especially if cardiac murmur changes or patient becomes?symptomatic. (4) Impaired fasting glucose: Code(s): R73.01 - Impaired fasting glucose Plan: HgbA1c was normal at 5.1% on his labs done back in November 2022; was also normal at 5.0% and 5.3% when previously checked Reinforced low calorie diet - will continue to monitor regularly (5) Hypochromic-microcytic anemia: Code(s): D50.9 - Iron deficiency anemia, unspecified Plan: Improved - H/H was normal at 14.1/43.7 back in November 2022 Continue FeSo4 325 mg QOD Will recheck her CBC in 6 months for follow up (6) Vitamin D deficiency: Code(s): E55.9 - Vitamin D deficiency, unspecified Plan: Corrected - continue Vitamin D3 2000 units QD (7) Seasonal allergic rhinitis: Code(s): J30.2 - Other seasonal allergic rhinitis Qualifiers: Allergic rhinitis trigger: unspecified Qualified Code(s): J30.2 - Other seasonal allergic rhinitis Plan: Continue OTC Benadryl Allergy 25 mg every 8 hours as needed (8) Primary insomnia: Code(s): F51.01 - Primary insomnia Plan: Sleep hygiene reinforced Continue OTC Melatonin Q HS PRN (9) Depression: Comment: (+) Hx of suicide attempt - sees Dr. Laurent Code(s): F32.9 - Major depressive disorder, single episode, unspecified Qualifiers: Depression Type: major depressive disorder Major depression recurrence: recurrent Active/Remission status: currently active Major depression episode severity: unspecified Qualified Code(s): F33.9 - Major depressive disorder, recurrent, unspecified Plan: Continue Bupropion ER 300 mg QD Follow up with Dr. Laurent as scheduled (10) Morbid obesity with BMI of 40.0-44.9, adult: Code(s): E66.01 - Morbid (severe) obesity due to excess calories; Z68.41 - Body mass index [BMI] 40.0-44.9, adult Plan: Reinforced diet; exercise and weight loss are unrealistic given patient's age and physical (gait) issues Plan Follow up in 6 months Orders: Orders Complete Blood Count Auto Diff 6 Months D64.9 - Anemia, unspecified Comprehensive [employer]. Panel Fast 6 Months E78.00 - Pure hypercholesterolemia, unspecified UA CC w/rflx Micro + Cult 6 Months R30.0 - Dysuria Vitamin D 25-OH Total 6 Months E55.9 - Vitamin D deficiency, unspecified Lipid Panel 6 Months E78.00 - Pure hypercholesterolemia, unspecified TSH reflex Free T4 6 Months E78.00 - Pure hypercholesterolemia, unspecified Coding Level of Care Code Est Pt Level 4 (34930) Diagnoses Benign essential hypertension I10 Pure hypercholesterolemia E78.00 Cardiac murmur R01.1 Impaired fasting glucose R73.01 Hypochromic-microcytic anemia D50.9 Vitamin D deficiency E55.9 Seasonal allergic rhinitis, unspecified trigger J30.2 Allergic rhinitis trigger: unspecified Primary insomnia F51.01 Episode of recurrent major depressive disorder, unspecified depression episode severity F33.9 Depression Type: major depressive disorder Major depression recurrence: recurrent Active/Remission status: currently active Major depression episode severity: unspecified Morbid obesity with BMI of 40.0-44.9, adult E66.01; Z68.41
== END 2023-03-25 18:05 | disposition home or self-care (01) ==
LOC: HO.HMGH 17:09
PROVIDERS: PCP Internal Medicine; Visit Provider Internal Medicine
DX: I10 Essential (primary) hypertension (principal); F33.9 Major depressive disorder, recurrent, unspecified; Z68.41 Body mass index [BMI] 40.0-44.9, adult; E66.01 Morbid (severe) obesity due to excess calories; E78.00 Pure hypercholesterolemia, unspecified; R01.1 Cardiac murmur, unspecified; R73.01 Impaired fasting glucose; D50.9 Iron deficiency anemia, unspecified; E55.9 Vitamin D deficiency, unspecified; J30.2 Other seasonal allergic rhinitis; F51.01 Primary insomnia
CPT/HCPCS: 99214

== ENCOUNTER 2023-09-27 22:12 | Emergency (ER) | payer MEDICARE, OTHER, SELFPAY ==
--- NOTE | ~2023-09-27 | CT_ITS ---
EXAMINATION: CT ANGIOGRAM BRAIN - HEAD AND NECK CLINICAL INFORMATION: Difficulty speaking. COMPARISON: None available. TECHNIQUE: Test bolus sequences followed by intravenous administration of 75 mL of Omnipaque 350 intravenous contrast. Helical imaging was performed in the axial plane from the aortic arch to the vertex. Delayed postcontrast imaging of the head was also performed. The data was processed at the cytogenetics technologist's workstation for generation of MIP sequences. Three-dimensional volume rendered reformatted images were also generated at an offline 3-D workstation. The degree of stenosis determined by NASCET criteria. This CT examination was performed using dose optimization techniques as appropriate, variously including the following: *Automated exposure control *Adjustment of mA and/or kV according to patient size (this includes techniques or standardized protocols for targeted exams where dose is matched to indication/reason for exam; i.e. extremities or head) *Use of iterative reconstruction technique DLP: 2199 mGy-cm FINDINGS: CT HEAD: There is cerebral volume loss with prominence of the lateral and the third ventricles. The cortical sulci are widened appropriately. The fourth ventricle and basal cisterns are normally outlined. There is mild bilateral periventricular and central white matter diminished aeration. There is no acute territorial defect, hemorrhage or midline shift. The extra-axial spaces are unremarkable. Calvarium/scalp: Intact. Maxillofacial sinuses and mastoids: Clear as visualized. CTA NECK AND HEAD: There is mild mixed atherosclerotic plaque of the aortic arch. There is a three-vessel branching pattern from the aortic arch. There is no significant plaque or narrowing of the aortic arch vessels. The common carotid arteries patent. There is calcific plaque origin of the internal carotid arteries with 70% or greater narrowing right internal carotid artery and less than 50% narrowing left internal carotid artery. The right vertebral artery is dominant and patent throughout. The left vertebral artery is diminutive in size and not well seen at the skull base. There is atherosclerotic plaque of the intracranial internal carotid arteries without significant stenosis. The anterior and middle cerebral arteries are patent. The distal vertebral arteries, basilar artery and branches as well as posterior cerebral arteries are also patent. There is no evidence for aneurysm. CT/CT angio head neck IMPRESSION: 1. No acute territorial infarct or hemorrhage. 2. Calcific plaque origin of the internal carotid arteries with 70% or greater narrowing right internal carotid artery and less than 50% narrowing left internal carotid artery. 3. Dominant right vertebral artery. Diminutive left vertebral artery at the skull base. 4. No intracranial large vessel occlusion.
--- NOTE | ~2023-09-27 | XR_ITS ---
EXAMINATION: XR CHEST CLINICAL INFORMATION: Difficulty speaking. COMPARISON: 04/28/2016. TECHNIQUE: Frontal view of the chest was obtained. FINDINGS: The lung volumes are low. The cardiomediastinal silhouette is within normal limits. There is an apparent moderate hiatal hernia. There appears to be atelectatic change or scarring at the lung bases. Lungs are otherwise clear. There are no significant pleural effusions. XR/XR chest 1V IMPRESSION: Low lung volumes. Bibasilar atelectasis or scarring. No evidence of acute disease in the chest.
[2023-09-27 22:23] VITALS: BP 155/74; PULSE 88; RESP 17; TEMP 36.6; O2SAT 96; BMI 39.4
[2023-09-27 22:49] LABS: Basophils Absolute Auto 0.1 X10*3/uL (0.0-0.2); Basophils Percent Auto 0.6 % (0-2); Eosinophils Absolute Auto 0.1 X10*3/uL (0.0-0.4); Eosinophils Percent Auto 1.1 % (0-4); Hematocrit 45.9 % (37.0-47.0); Hemoglobin 15.6 g/dl (12.0-16.0); Imm Gran Abs Auto 0.05 X10*3/uL (0.00-0.03); Imm Gran Pct Auto 0.4 % (0.0-0.4); Lymphocytes Absolute Auto 1.5 X10*3/uL (1.2-4.9); Lymphocytes Percent Auto 12.4 % (20-40); MANUAL DIFF FLAG SCAN; Mean Corpuscular Hemoglobin 30.5 pg (27.0-33.0); Mean Corpuscular Volume 89.8 fL (80.0-98.0); Mean Platelet Volume 10.1 fL (9.4-12.3); Monocytes Percent Auto 16.3 % (2-11); Neutrophils Absolute Auto 8.3 x10*3/uL (2.0-8.3); Neutrophils Percent Auto 69.2 % (45-73); Platelet Count 258 X10*3/uL (160-400); Red Blood Count 5.11 X10*6/uL (4.20-5.50); Red Cell Distribution Width 12.9 % (11.0-16.0); SCAN SMEAR FLAG 1; White Blood Count 12.1 X10*3/uL (4.8-10.8)
[2023-09-27 23:07] LABS: Alanine Aminotransferase 10 U/L (0-31); Albumin Level 3.7 g/dL (3.5-5.0); Alkaline Phosphatase 92 U/L (39-117); Anion Gap 14 (12-20); Aspartate Amino Transferase 16 U/L (5-31); Bilirubin Direct 0.1 mg/dL (0.0-0.5); Bilirubin Total 0.3 mg/dL (0.0-1.0); Blood Urea Nitrogen 17 mg/dL (9-16); Calcium 9.3 mg/dL (8.4-10.2); Carbon Dioxide 23 mmol/L (22-29); Chloride 105 mmol/L (96-108); Creatinine Clr Calc Pharmacy 50.9; Estimated Glomerular Filt Rate > 60; Glucose Random 137 mg/dL (60-115); Lipase 19 U/L (8-78); Potassium 3.5 mmol/L (3.3-5.1); Sodium 138 mmol/L (135-145); Total Protein 6.8 g/dL (6.5-8.0)
[2023-09-27 23:13] VITALS: BP 150/64; PULSE 80; RESP 17; TEMP 36.2; O2SAT 94
[2023-09-27 23:15] LABS: SLIDE REVIEW VERIFIED
--- NOTE | 2023-09-27 23:22 | ED_ITS ---
HPI - General Adult General Chief complaint: General Medical Stated complaint: possible dehydration, keeps losing voice Time Seen by Provider: 09/27/23 23:22 History of Present Illness ED Provider: Nohelia GOODMAN narrative: The patient is an 88-year-old woman who lives with her daughter. The daughter says that the patient was in her usual state of health at around 10:00 this morning when the daughter went to work. Apparently during the day the patient called the daughter and left a message saying she was not feeling well. When the daughter arrived home this evening at around 20:00 she thought the patient seemed weaker than usual and intermittently seemed to have some trouble speaking. Nevertheless the patient was able to eat some food. However after dinner the patient told the daughter that she was feeling unwell and wanted to come to the hospital. The patient says that she feels ?weird?. She is not really able to elaborate on what she means by this. She denies headache, she denies chest pain, she denies shortness of breath, she denies abdominal pain, nausea, vomiting, she denies any diarrhea, she denies any urinary symptoms. She says that she just does not feel right. The daughter feels the patient seems a little bit more ?out of it than usual. The patient has been fully vaccinated for COVID. She has never had COVID. Related Data Home Medications ?Medication ?Instructions ?Recorded ?Confirmed aspirin 81 mg tablet,delayed 81 mg PO DAILY 12/28/19 03/25/23 release (Adult Low Dose Aspirin) bupropion HCl 300 mg 24 hr tablet, mg PO QAM 12/28/19 03/25/23 extended release melatonin 10 mg tablet 10 mg PO BEDTIME PRN 12/28/19 03/25/23 Previous Rx's ?Medication ?Instructions ?Recorded Transport Wheelchair #1 ea 03/20/22 ferrous sulfate 325 mg (65 mg 325 mg PO Q OTHER DAY 90 days #45 06/18/22 iron) tablet (Feosol) tabs furosemide 40 mg tablet 40 mg PO DAILY #90 tabs 11/15/22 lisinopril 5 mg tablet 5 mg PO DAILY #90 tabs 01/13/23 simvastatin 40 mg tablet 40 mg PO DAILY #90 tabs 03/31/23 cefpodoxime 100 mg tablet 100 mg PO BID #10 tabs 09/28/23 Allergies Allergy/AdvReac Type Severity Reaction Status Date / Time penicillin G [Penicillin G] Allergy Severe Hives Verified 09/27/23 22:30 cucumber Allergy Unknown hives Verified 09/27/23 22:30 strawberry Allergy Unknown hives Verified 09/27/23 22:30 Review of Systems 2 Review of Systems: Yes all other systems are reviewed and are negative PMFSH Past Medical History Medical History Morbid obesity with BMI of 40.0-44.9, adult Dementia Impaired fasting glucose Depression Primary insomnia Seasonal allergic rhinitis Vitamin D deficiency Cardiac murmur Pure hypercholesterolemia Benign essential hypertension Surgical History History of cataract surgery History of nasal surgery History of lumpectomy of right breast History of tonsillectomy Family History Family History Father Prostate cancer Mother Lung cancer Bone cancer Social History Social History Housing: House Alcohol intake: current Alcohol intake frequency: holidays/special occasions only Patient Tobacco Use Status: Former Tobacco user Smoked in Last 30 Days: No e-Cigarette/Vaping Use: Never Used Second Hand Smoke Exposure: Yes Use of substances other than those prescribed or required for medical reasons: No Advance Directives: Yes Advance Directives Information Provided: No Advance Directives on File: No Do you have a plan to hurt others: No Plan service: No Current occupational status: retired Cognitive needs: No Hearing needs: No Vision needs: Yes Physical Exam ED Vital Signs: Vital Signs - 24 hr 09/27/23 22:23 09/27/23 23:13 09/28/23 02:37 Temperature 98 F 97.2 F 98.2 F Pulse Rate 88 80 92 Respiratory Rate 17 17 20 Blood Pressure 155/74 H 150/64 H 169/94 H Pulse Oximetry 96 94 95 Oxygen Delivery Method Room Air Room Air Room Air BMI result Body Mass Index 39.4 Const Other: The patient is a frail, chronically ill-appearing 88-year-old. She seemed sleepy but at times during our interview and evaluation she was quite alert and fears. She did not seem short of breath. HENMT Other: Face is symmetrical. Mucous membranes moist. Tongue is midline. Eyes Other: Pupils are round equal, conjunctivae clear, extraocular movements intact, visual mcneal are intact to confrontation. Neck Neck: Yes no JVD Resp Effort & Inspection: normal respiratory effort Auscultation: clear to auscultation bilaterally Cardio Rate: regular rate Rhythm: regular rhythm Heart sounds: S1 normal heart sound present and S2 normal heart sound present GI Other: Abdomen is soft and nontender Skin Other: Skin is pale and dry Neuro Other: The patient is awake and alert. She is appropriately oriented. She could tell me the her age and the month. She follows commands. Face is symmetrical. Eye movements are intact. Visual mcneal are intact to confrontation. She has symmetrical strength in her extremities. There is no pronator drift. Finger- nose is normal bilaterally. She normally ambulates with a walker. She was able to ambulate with assistance. Her daughter seemed to feel that she was ambulating at her baseline. NIH stroke scale is 0. Extrem Other: No calf swelling or tenderness. No asymmetry. Medications Administered Discontinued Medications Generic Name Dose Route Start Last Admin Trade Name Freq PRN Reason Stop Dose Admin Cefuroxime Axetil 500 mg 09/28/23 02:23 09/28/23 02:40 Cefuroxime Axetil 500 Mg Tablet PO 09/28/23 02:24 500 mg ONCE ONE Administration Sodium Chloride 1,000 mls @ 999 mls/hr 09/28/23 00:30 09/28/23 01:17 Ns IV 09/28/23 01:30 Infused .Q1H1M DIEGO Infusion Iohexol 75 ml 09/28/23 02:04 09/28/23 02:05 Iohexol 350 Mg/Ml 100 Ml Infus..Btl IV 09/28/23 02:05 75 ml ONCE ONE Administration Medical Decision Making Medical Decision Making MDM Narrative: The patient is an 88-year-old woman who was brought to the hospital by her daughter for evaluation of nonspecific complaints of feeling ?weird. ? Patient is a poor historian and could not really give a better or more specific description of her symptoms. She denied headache, chest pain, shortness of breath, cough, sputum, abdominal pain, nausea, vomiting. She could not really localize any symptoms to a particular part of her body. I do not appreciate any definite focal neurological deficits on exam. The patient's labs were fairly unremarkable although her urinalysis was possibly suggestive of a mild UTI. Although there were no focal neurological deficits appreciated in although she was able to walk at what I suspect was her baseline with a walker I ordered a CT angiogram of the head and neck as the daughter had felt that there had been possibly some speech difficulties earlier. Overall it was not entirely clear that the patient was in fact having a stroke or TIA like syndrome. The patient did not wish to wait for the results of the CT angiogram of the head and neck. She was adamant that she go home. Clinically she did not seem unsafe to go home. She was started on cefpodoxime for a possible UTI. She should follow up with the regular doctor or return if worse. The CT angiogram of the head and neck ultimately came back without definite acute findings. Lab Data 09/27/23 22:43 09/27/23 22:43 Labs: Lab Results 09/27/23 09/27/23 09/28/23 Range/Units 22:43 23:42 00:25 WBC 12.1 H (4.8-10.8) X10*3/uL RBC 5.11 (4.20-5.50) X10*6/uL Hgb 15.6 (12.0-16.0) g/dl Hct 45.9 (37.0-47.0) % MCV 89.8 (80.0-98.0) fL MCH 30.5 (27.0-33.0) pg MCHC 34.0 (31.0-35.0) g/dl RDW 12.9 (11.0-16.0) % Plt Count 258 (160-400) X10*3/uL MPV 10.1 (9.4-12.3) fL Immature Gran % (Auto) 0.4 (0.0-0.4) % Neut % (Auto) 69.2 (45-73) % Lymph % (Auto) 12.4 L (20-40) % [place] % (Auto) 16.3 H (2-11) % Eos % (Auto) 1.1 (0-4) % Baso % (Auto) 0.6 (0-2) % Lymph # (Auto) 1.5 (1.2-4.9) X10*3/uL [place] # (Auto) 2.0 H (0.1-1.2) X10*3/uL Eos # (Auto) 0.1 (0.0-0.4) X10*3/uL Baso # (Auto) 0.1 (0.0-0.2) X10*3/uL Abs Immat Gran (auto) 0.05 H (0.00-0.03) X10*3/uL Absolute Neuts (auto) 8.3 (2.0-8.3) x10*3/uL Absolute Nucleated RBC 0.000 (0.0-0.012) X10*3/uL Nucleated RBC % (auto) 0.0 (0.0-0.2) /100WBC Smear Tech's Comments VERIFIED Sodium 138 (135-145) mmol/L Potassium 3.5 (3.3-5.1) mmol/L Chloride 105 (96-108) mmol/L Carbon Dioxide 23 (22-29) mmol/L Anion Gap 14 (12-20) BUN 17 H (9-16) mg/dL Creatinine 0.80 (0.5-1.4) mg/dL Estim Creat Clear Calc 50.9 Estimated GFR > 60 Random Glucose 137 H (60-115) mg/dL Calcium 9.3 D (8.4-10.2) mg/dL Total Bilirubin 0.3 (0.0-1.0) mg/dL Direct Bilirubin 0.1 (0.0-0.5) mg/dL AST 16 (5-31) U/L ALT 10 (0-31) U/L Alkaline Phosphatase 92 (39-117) U/L Troponin I High Sens 3.9 (<3.5-17.0) ng/L C-Reactive Protein 0.49 (< or = 0.50) mg/dL B-Natriuretic Peptide 38 (<100) pg/mL Total Protein 6.8 (6.5-8.0) g/dL Albumin 3.7 (3.5-5.0) g/dL Lipase 19 (8-78) U/L Urine Color Yellow Urine Appearance Clear Urine pH 6.0 (5.0-9.0) Ur Specific [place] 1.010 (1.005-1.025) Urine Protein Negative (Neg-Trace) mg/dL Urine Glucose (UA) Negative (Negative) mg/dL Urine Ketones Negative (Negative) mg/dL Urine Blood Negative (Negative) Urine Nitrite Negative (Negative) Ur Leukocyte Esterase Moderate (2+) H (Negative) Urine RBC 0-2 (0-2) /HPF Urine WBC 11-20 H (0-5) /HPF Ur Squamous Epith Cells 3-5 (0-2) /HPF Urine Bacteria None Seen (None Seen) Hyaline Casts 0-2 (0-2) /LPF Influenza Type A (PCR) NEGATIVE (Negative) Influenza Type B (PCR) NEGATIVE (Negative) RSV RNA Qual (PCR) NEGATIVE (Negative) SARS-CoV-2 RNA (RT-PCR) NEGATIVE (Negative) Discharge Plan Discharge Clinical Impression: Weakness, Urinary tract infection Patient Disposition: Home, Self-Care Additional Instructions: Your urine test is possibly suggestive of a urinary tract infection. It is not entirely clear to me that you have a definite urinary tract infection. There is no other obvious explanation for the symptoms that you are having tonight. We have done a CT scan of your brain. The results are not available at the moment. I will call you if there are any problems apparent on the CT scan. In the meantime I have sent a prescription for additional antibiotics for a possible urinary tract infection. Please take these antibiotics 2 times a day, next dose later this morning. Please take it easy over the next couple of days. Follow up next week with your regular doctor. Return to the emergency room if you feel significantly worse. Prescriptions: New cefpodoxime 100 mg tablet 100 mg PO BID Qty: 10 0RF Rx Instructions: must administer with a meal/food No Action (DME) Transport Wheelchair See Rx Instructions .Route .MEDSUPPLY Qty: 1 0RF Rx Instructions: As directed furosemide 40 mg tablet 40 mg PO DAILY Qty: 90 3RF lisinopril 5 mg tablet 5 mg PO DAILY Qty: 90 5RF simvastatin 40 mg tablet 40 mg PO DAILY Qty: 90 1RF aspirin [Adult Low Dose Aspirin] 81 mg tablet,delayed release (DR/EC) 81 mg PO DAILY melatonin 10 mg tablet 10 mg PO BEDTIME PRN bupropion HCl 300 mg tablet extended release 24 hr PO QAM ferrous sulfate [Feosol] 325 mg (65 mg iron) tablet 325 mg PO Q OTHER DAY 90 Days Qty: 45 1RF Referrals: Pablito,Roberto S, MD [Primary Care Provider] - (generalized weakness, possible UTI) Interventions: ED Discharge Assessment Last Done: 09/28/23 02:37 Discharge Date/Time: 09/28/23 02:47 Print Language: Libyan
--- NOTE | 2023-09-27 23:44 | ECG_ITS ---
Test Reason : GEN MED Blood Pressure : / mmHG Vent. Rate : 079 BPM Atrial Rate : 079 BPM P-R Int : 166 ms QRS Dur : 140 ms QT Int : 416 ms P-R-T Axes : 026 -29 120 degrees QTc Int : 477 ms Normal sinus rhythm Left bundle branch block Abnormal ECG When compared with ECG of 14-MAY-2009 11:20, Left bundle branch block is now Present Referred By: Macario Pozo Electronically Signed By:MAXWELL DELEON MD
[2023-09-27 23:59] LABS: C Reactive Protein 0.49 mg/dL (< or = 0.50)
[2023-09-28 00:08] LABS: Troponin-I High Sensitivity 3.9 ng/L (<3.5-17.0)
[2023-09-28 00:13] LABS: B Type Natriuretic Peptide 38 pg/mL (<100)
[2023-09-28 00:30] LABS: Influenza A PCR NEGATIVE (Negative); Influenza B PCR NEGATIVE (Negative); Resp Syncy Virus RNA Qual PCR NEGATIVE (Negative); SARS COV2 PCR INHOUSE NEGATIVE (Negative)
[2023-09-28] MEDS: 0.9 % Sodium Chloride 1,000 ML 999 ML IV (00:32)
[2023-09-28 00:34] LABS: Appearance Urine Clear; Color Urine Yellow; Glucose Urine UA Negative (Negative); Leukocyte Esterase Urine Moderate (2+) (Negative); Nitrite Urine Negative (Negative); UMIC TRIGGER UACC YES; Urine Blood Negative (Negative); Urine Ketones Negative (Negative); Urine Protein Negative (Neg-Trace)
[2023-09-28 00:37] LABS: Bacteria Urine None Seen (None Seen); Hyaline Casts Urine 0-2 /LPF (0-2); RBC Urine 0-2 /HPF (0-2); UACC Culture Trigger YES
[2023-09-28] MEDS: iohexoL 350 MG/ML 100 ML INFUS..BTL 75 ML IV (02:05)
[2023-09-28 02:37] VITALS: BP 169/94; PULSE 92; RESP 20; TEMP 36.8; O2SAT 95
[2023-09-28] MEDS: cefuroxime axetiL 500 MG TABLET PO (02:40)
== END 2023-09-28 02:47 | disposition home or self-care (01) ==
PROVIDERS: Emergency Provider Emergency Medicine; PCP Internal Medicine
DX: R53.1 Weakness (principal); N39.0 Urinary tract infection, site not specified; Z03.818 Encounter for observation for suspected exposure to other biological agents ruled out; I10 Essential (primary) hypertension; E78.00 Pure hypercholesterolemia, unspecified; D50.9 Iron deficiency anemia, unspecified; E66.9 Obesity, unspecified; Z68.39 Body mass index [BMI] 39.0-39.9, adult; Z87.891 Personal history of nicotine dependence; Z79.82 Long term (current) use of aspirin; Z79.899 Other long term (current) drug therapy; Z79.02 Long term (current) use of antithrombotics/antiplatelets
CPT/HCPCS: 0241U; 36415; 70496; 70498; 71045; 80048; 80076; 81001; 83690; 83880; 84484; 85025; 86140; 87086; 93005; 96360; 99285; Q9967

== ENCOUNTER → 2023-09-27 23:44 | Outpatient (BNV) | payer MEDICARE, OTHER, SELFPAY | PROVIDERS: Emergency Provider Emergency Medicine; PCP Internal Medicine; Visit Provider Internal Medicine Cardiovascular Disease | DX: I44.7 Left bundle-branch block, unspecified (principal); R94.31 Abnormal electrocardiogram [ECG] [EKG] | CPT/HCPCS: 93010 ==

== ENCOUNTER 2023-09-30 20:53 | Emergency (ER) | payer MEDICARE, OTHER, SELFPAY ==
--- NOTE | ~2023-09-30 | XR_ITS ---
EXAMINATION: XR SOFT TISSUE NECK CLINICAL INDICATION: Difficulty swallowing. COMPARISON: None available. TECHNIQUE: Single lateral view of the soft tissue neck were obtained. FINDINGS: Soft tissue films of the neck demonstrate a normal larynx, pharynx and upper trachea. No soft tissue swelling or opaque foreign body is demonstrated. XR/XR soft tissue neck IMPRESSION: No significant abnormality identified
--- NOTE | ~2023-09-30 | XR_ITS ---
EXAMINATION: XR CHEST CLINICAL INFORMATION: Cough. COMPARISON: 09/27/2023 TECHNIQUE: 2 views of the chest were obtained. FINDINGS: Lung volumes are low. The cardiomediastinal silhouette is stable. A large hiatal hernia is again seen. Atelectatic change or scarring at the lung bases similar to previous. The lungs are otherwise clear. There are no definitive significant pleural effusions. XR/XR chest 2V IMPRESSION: Low lung volumes. Bibasilar atelectasis or scarring. Large hiatal hernia. No significant change.
[2023-09-30 21:19] VITALS: BP 120/69; PULSE 84; RESP 18; TEMP 36.8; O2SAT 95; BMI 39.1
[2023-10-01 00:29] VITALS: BP 149/64; PULSE 80; RESP 18; TEMP 36.5; O2SAT 97
[2023-10-01 02:27] VITALS: BP 161/80; PULSE 83; RESP 16; TEMP 37.1; O2SAT 96
[2023-10-01 04:33] VITALS: BP 148/72; PULSE 78; RESP 16; TEMP 36.3; O2SAT 95
--- NOTE | 2023-10-01 05:06 | ED.GENADULT ---
HPI - General Adult General Chief complaint: Altered Mental Status Stated complaint: feeling weird was seen here sat. for uti Time Seen by Provider: 10/01/23 05:06 History of Present Illness ED Provider: Nohelia GOODMAN narrative: The patient is an 88-year-old woman who was brought to the hospital by her daughter this evening because the patient said she was not feeling well. The patient was seen here 3 days ago on SaturdaySeptember 26. She presented with similar symptoms on that occasion. She describes feeling ?weird? and occasionally seemed to be making strange noises. Her workup in the emergency room including a head CT and a CT angiogram of the head and neck was negative. She had a mildly abnormal urinalysis and she was empirically put on cefpodoxime and she was discharged. The daughter says that she seemed much better the next day on Saturday and was pretty well on Saturday and during the day on Saturday as well. In the evening on Saturday the patient ate dinner normally. After dinner however the patient started to complaining of feeling ?weird? again. She complained that she was having trouble speaking and swallowing. Her daughter says that the patient has been continuously mumbling prayers for self soothing and this seems to help a lot. There has been no fever, sweats, chills. The patient denies headache. She denies chest pain. She denies abdominal pain. No nausea or vomiting. Related Data Home Medications ?Medication ?Instructions ?Recorded ?Confirmed aspirin 81 mg tablet,delayed 81 mg PO DAILY 12/28/19 03/25/23 release (Adult Low Dose Aspirin) bupropion HCl 300 mg 24 hr tablet, mg PO QAM 12/28/19 03/25/23 extended release melatonin 10 mg tablet 10 mg PO BEDTIME PRN 12/28/19 03/25/23 Previous Rx's ?Medication ?Instructions ?Recorded Transport Wheelchair #1 ea 03/20/22 ferrous sulfate 325 mg (65 mg 325 mg PO Q OTHER DAY 90 days #45 06/18/22 iron) tablet (Feosol) tabs furosemide 40 mg tablet 40 mg PO DAILY #90 tabs 11/15/22 lisinopril 5 mg tablet 5 mg PO DAILY #90 tabs 01/13/23 simvastatin 40 mg tablet 40 mg PO DAILY #90 tabs 02/11/24 cefpodoxime 100 mg tablet 100 mg PO BID #10 tabs 09/28/23 Allergies Allergy/AdvReac Type Severity Reaction Status Date / Time penicillin G [Penicillin G] Allergy Severe Hives Verified 09/30/23 21:22 cucumber Allergy Unknown hives Verified 09/30/23 21:22 strawberry Allergy Unknown hives Verified 09/30/23 21:22 Review of Systems Review of Systems: Yes all other systems are reviewed and are negative PMFSH Past Medical History Medical History Morbid obesity with BMI of 40.0-44.9, adult Dementia Impaired fasting glucose Depression Primary insomnia Seasonal allergic rhinitis Vitamin D deficiency Cardiac murmur Pure hypercholesterolemia Benign essential hypertension Surgical History History of cataract surgery History of nasal surgery History of lumpectomy of right breast History of tonsillectomy Family History Family History Father Prostate cancer Mother Lung cancer Bone cancer Social History Social History Housing: House Alcohol intake: former Patient Tobacco Use Status: Former Tobacco user Smoked in Last 30 Days: No e-Cigarette/Vaping Use: Never Used Second Hand Smoke Exposure: Yes Use of substances other than those prescribed or required for medical reasons: No Advance Directives: No Advance Directives Information Provided: Yes service: No Current occupational status: retired Cognitive needs: No Hearing needs: No Vision needs: Yes Physical Exam ED Vital Signs: Vital Signs - 24 hr 09/30/23 21:19 10/01/23 00:29 10/01/23 02:27 Temperature 98.2 F 97.7 F 98.7 F Pulse Rate 84 80 83 Respiratory Rate 18 18 16 Blood Pressure 120/69 149/64 H 161/80 H Pulse Oximetry 95 97 96 Oxygen Delivery Method Room Air Room Air Room Air 10/01/23 04:33 10/01/23 06:21 10/01/23 08:28 Temperature 97.4 F 97.5 F 97.4 F Pulse Rate 78 78 77 Respiratory Rate 16 18 16 Blood Pressure 148/72 H 166/71 H 144/65 H Pulse Oximetry 95 96 96 Oxygen Delivery Method Room Air Room Air Room Air BMI result Body Mass Index 39.1 Const Other: The patient is awake and alert. She seemed to be preoccupied with mumbling. She did not appear in obvious pain or respiratory distress otherwise however. Overall she had an anxious affect. HENMT Other: The patient's face has a somewhat asymmetric appearance of a very nonspecific variety. No clear facial asymmetry with active movements of the face. Mucous membranes are moist. The pharynx is normal. Eyes Other: Pupils are round equal, conjunctivae are clear, extraocular movements are intact, visual mcneal are intact to confrontation. Neck Other: No cervical adenopathy. No JVD. Resp Effort & Inspection: normal respiratory effort Auscultation: clear to auscultation bilaterally Cardio Rate: regular rate Rhythm: regular rhythm Heart sounds: S1 normal heart sound present and S2 normal heart sound present GI Other: Abdomen is soft and nontender Skin Other: Skin is dry and unremarkable Extrem Other: No pitting edema, no calf tenderness, no asymmetry Medications Administered Discontinued Medications Generic Name Dose Route Start Last Admin Trade Name Freq PRN Reason Stop Dose Admin Lactated Ringer's 1,000 mls @ 999 mls/hr 10/01/23 07:30 10/01/23 08:47 Lr IV 10/01/23 08:30 Infused .Q1H1M DIEGO Infusion Lorazepam 0.5 mg 10/01/23 05:32 10/01/23 06:21 Lorazepam 0.5 Mg Tablet PO 10/01/23 05:33 0.5 mg ONCE ONE Administration Medical Decision Making Medical Decision Making [facility] Narrative: The patient is an 88-year-old female who returns to the emergency department after being seen here by me 3 days ago. She had presented with a very nonspecific symptoms 3 days ago of feeling generally unwell and feeling ?weird. ? She has been empirically started on cefpodoxime for a mildly abnormal urinalysis. She apparently did well for 3 days but this evening fairly abruptly felt ?weird? again. She is here with her daughter who was here on the previous visit as well. The patient initially seemed somewhat preoccupied and apparently she was mumbling prayers. The daughter felt that the patient found this to be self soothing. On her neurological exam I did not find any focal findings. Her EKG is unchanged. Vital signs are unremarkable. She again refused a rectal temperature. Labs show a minimally elevated white count of 11.3. Hemoglobin is slightly elevated at 16.2 possibly suggesting some mild hemo concentration and dehydration. Differential shows 67% neutrophils, 15% lymphocytes, 14.9% monocytes, similar to previous values. Metabolic panel shows no significant change in her renal function. C-reactive protein is normal. Viral swab is negative. A review of the urine culture sent on September 27 showed mixed bacterial kristofer characteristic of urogenital contamination. Overall I did not find any definite acute process. Chest x-ray is negative. The patient seemed to suggest that she might have some slight difficulty swallowing. A soft tissue x-ray of the neck is unremarkable and the images of the soft tissues of the neck on her CT angio of the head and neck on her visit 3 days ago were also unremarkable. I had some sense that the patient's presentation might be some kind of an anxiety reaction. She was given 0.5 mg of lorazepam. She may have also been mildly dehydrated and she was given 500 mL of lactated Ringer's. On re-evaluation the patient seemed much better and the daughter confirmed that the patient seemed to be back to her normal self. The patient will be discharged to follow up with the regular doctor. Lab Data 10/01/23 06:18 10/01/23 06:18 Labs: Lab Results 10/01/23 Range/Units 06:18 WBC 11.3 H (4.8-10.8) X10*3/uL RBC 5.47 (4.20-5.50) X10*6/uL Hgb 16.2 H (12.0-16.0) g/dl Hct 48.8 H (37.0-47.0) % MCV 89.2 (80.0-98.0) fL MCH 29.6 (27.0-33.0) pg MCHC 33.2 (31.0-35.0) g/dl RDW 13.2 (11.0-16.0) % Plt Count 273 (160-400) X10*3/uL MPV 10.0 (9.4-12.3) fL Immature Gran % (Auto) 0.4 (0.0-0.4) % Neut % (Auto) 67.2 (45-73) % Lymph % (Auto) 15.7 L (20-40) % Pepin % (Auto) 14.9 H (2-11) % Eos % (Auto) 1.2 (0-4) % Baso % (Auto) 0.6 (0-2) % Lymph # (Auto) 1.8 (1.2-4.9) X10*3/uL Pepin # (Auto) 1.7 H (0.1-1.2) X10*3/uL Eos # (Auto) 0.1 (0.0-0.4) X10*3/uL Baso # (Auto) 0.1 (0.0-0.2) X10*3/uL Abs Immat Gran (auto) 0.04 H (0.00-0.03) X10*3/uL Absolute Neuts (auto) 7.6 (2.0-8.3) x10*3/uL Absolute Nucleated RBC 0.000 (0.0-0.012) X10*3/uL Nucleated RBC % (auto) 0.0 (0.0-0.2) /100WBC Smear Tech's Comments VERIFIED Sodium 140 (135-145) mmol/L Potassium 3.2 L (3.3-5.1) mmol/L Chloride 102 (96-108) mmol/L Carbon Dioxide 25 (22-29) mmol/L Anion Gap 16 (12-20) BUN 17 H (9-16) mg/dL Creatinine 0.85 (0.5-1.4) mg/dL Estim Creat Clear Calc 47.7 Estimated GFR > 60 Random Glucose 96 (60-115) mg/dL Calcium 9.8 (8.4-10.2) mg/dL Magnesium 2.1 (1.6-2.6) mg/dL Total Bilirubin 0.4 (0.0-1.0) mg/dL Direct Bilirubin 0.2 (0.0-0.5) mg/dL AST 17 (5-31) U/L ALT 13 (0-31) U/L Alkaline Phosphatase 93 (39-117) U/L Troponin I High Sens 6.8 D (<3.5-17.0) ng/L C-Reactive Protein 0.33 (< or = 0.50) mg/dL Total Protein 7.4 (6.5-8.0) g/dL Albumin 3.9 (3.5-5.0) g/dL Ethyl Alcohol < 10 mg/dL Influenza Type A (PCR) NEGATIVE (Negative) Influenza Type B (PCR) NEGATIVE (Negative) RSV RNA Qual (PCR) NEGATIVE (Negative) SARS-CoV-2 RNA (RT-PCR) NEGATIVE (Negative) Independent Interpretation I performed an independent interpretation of an: EKG Interpretation: EKG at 06:07 shows normal sinus rhythm at 77 beats per minute. There is an old left bundle branch block present. No significant change from previous. Discharge Plan Discharge Clinical Impression: Feeling unwell Patient Disposition: Home, Self-Care Additional Instructions: Please continue your regular medications. However please stop the antibiotic you have been taking. The urine sample that you submitted on Saturday did not ultimately grow any bacteria. Please contact your regular doctor's office today to discuss these episodes. Return to the emergency room if significantly worse. Prescriptions: No Action (DME) Transport Wheelchair See Rx Instructions .Route .MEDSUPPLY Qty: 1 0RF Rx Instructions: As directed furosemide 40 mg tablet 40 mg PO DAILY Qty: 90 3RF lisinopril 5 mg tablet 5 mg PO DAILY Qty: 90 5RF simvastatin 40 mg tablet 40 mg PO DAILY Qty: 90 1RF cefpodoxime 100 mg tablet 100 mg PO BID Qty: 10 0RF Rx Instructions: must administer with a meal/food aspirin [Adult Low Dose Aspirin] 81 mg tablet,delayed release (DR/EC) 81 mg PO DAILY melatonin 10 mg tablet 10 mg PO BEDTIME PRN bupropion HCl 300 mg tablet extended release 24 hr PO QAM ferrous sulfate [Feosol] 325 mg (65 mg iron) tablet 325 mg PO Q OTHER DAY 90 Days Qty: 45 1RF Referrals: Roberto Kenney MD [Primary Care Provider] - (Episodes of feeling unwell) Interventions: ED Discharge Assessment Last Done: 10/01/23 08:57 Discharge Date/Time: 10/01/23 08:58 Print Language: Tajik
--- NOTE | 2023-10-01 05:31 | ECG_ITS ---
Test Reason : AMS Blood Pressure : / mmHG Vent. Rate : 077 BPM Atrial Rate : 077 BPM P-R Int : 172 ms QRS Dur : 142 ms QT Int : 422 ms P-R-T Axes : 036 -48 116 degrees QTc Int : 477 ms Normal sinus rhythm Left axis deviation Left bundle branch block Abnormal ECG When compared with ECG of 28-SEP-2023 00:06, No significant change was found Referred By: Macario Pozo Electronically Signed By:NICHOLAS CHASE
[2023-10-01 06:21] VITALS: BP 166/71; PULSE 78; RESP 18; TEMP 36.4; O2SAT 96
[2023-10-01] MEDS: LORazepam 0.5 MG TABLET PO (06:21)
[2023-10-01 06:37] LABS: Basophils Absolute Auto 0.1 X10*3/uL (0.0-0.2); Basophils Percent Auto 0.6 % (0-2); Eosinophils Absolute Auto 0.1 X10*3/uL (0.0-0.4); Eosinophils Percent Auto 1.2 % (0-4); Hematocrit 48.8 % (37.0-47.0); Hemoglobin 16.2 g/dl (12.0-16.0); Imm Gran Abs Auto 0.04 X10*3/uL (0.00-0.03); Imm Gran Pct Auto 0.4 % (0.0-0.4); Lymphocytes Absolute Auto 1.8 X10*3/uL (1.2-4.9); Lymphocytes Percent Auto 15.7 % (20-40); MANUAL DIFF FLAG SCAN; Mean Corpuscular HGB Conc 33.2 g/dl (31.0-35.0); Mean Corpuscular Hemoglobin 29.6 pg (27.0-33.0); Mean Corpuscular Volume 89.2 fL (80.0-98.0); Monocytes Absolute Auto 1.7 X10*3/uL (0.1-1.2); Monocytes Percent Auto 14.9 % (2-11); Neutrophils Absolute Auto 7.6 x10*3/uL (2.0-8.3); Neutrophils Percent Auto 67.2 % (45-73); Platelet Count 273 X10*3/uL (160-400); Red Blood Count 5.47 X10*6/uL (4.20-5.50); Red Cell Distribution Width 13.2 % (11.0-16.0); SCAN SMEAR FLAG 1; White Blood Count 11.3 X10*3/uL (4.8-10.8)
[2023-10-01 06:54] LABS: Alanine Aminotransferase 13 U/L (0-31); Albumin Level 3.9 g/dL (3.5-5.0); Alkaline Phosphatase 93 U/L (39-117); Anion Gap 16 (12-20); Aspartate Amino Transferase 17 U/L (5-31); Bilirubin Direct 0.2 mg/dL (0.0-0.5); Bilirubin Total 0.4 mg/dL (0.0-1.0); Blood Urea Nitrogen 17 mg/dL (9-16); C Reactive Protein 0.33 mg/dL (< or = 0.50); Calcium 9.8 mg/dL (8.4-10.2); Carbon Dioxide 25 mmol/L (22-29); Chloride 102 mmol/L (96-108); Creatinine Clr Calc Pharmacy 47.7; Estimated Glomerular Filt Rate > 60; Ethanol < 10 mg/dL; Glucose Random 96 mg/dL (60-115); Magnesium 2.1 mg/dL (1.6-2.6); Potassium 3.2 mmol/L (3.3-5.1); Sodium 140 mmol/L (135-145); Total Protein 7.4 g/dL (6.5-8.0)
[2023-10-01 06:58] LABS: Troponin-I High Sensitivity 6.8 ng/L (<3.5-17.0)
[2023-10-01 07:07] LABS: SLIDE REVIEW VERIFIED
[2023-10-01 07:10] LABS: Influenza A PCR NEGATIVE (Negative); Influenza B PCR NEGATIVE (Negative); Resp Syncy Virus RNA Qual PCR NEGATIVE (Negative); SARS COV2 PCR INHOUSE NEGATIVE (Negative)
[2023-10-01] MEDS: Lactated Ringers 1,000 ML 999 ML IV (07:33)
--- NOTE | 2023-10-01 07:36 | PC.NURSE ---
Alert and oriented, denies pain or discomfort. Reports no longer feeling off . VSS Daughter at bedside
[2023-10-01 08:28] VITALS: BP 144/65; PULSE 77; RESP 16; TEMP 36.3; O2SAT 96
[2023-10-01 08:57] VITALS: BP 144/65; PULSE 77; RESP 18; TEMP 36.3; O2SAT 96
== END 2023-10-01 08:58 | disposition home or self-care (01) ==
PROVIDERS: Emergency Provider Emergency Medicine; PCP Internal Medicine
DX: R69 Illness, unspecified (principal); R41.82 Altered mental status, unspecified; Z03.818 Encounter for observation for suspected exposure to other biological agents ruled out
CPT/HCPCS: 0241U; 70360; 71046; 80048; 80076; 80307; 83735; 84484; 85025; 86140; 93005; 96360; 99284; 99285; J7120

== ENCOUNTER → 2023-10-01 05:31 | Outpatient (BNV) | payer MEDICARE, OTHER, SELFPAY | PROVIDERS: Emergency Provider Emergency Medicine; PCP Internal Medicine; Visit Provider Internal Medicine | DX: R06.02 Shortness of breath (principal); I44.7 Left bundle-branch block, unspecified; R94.31 Abnormal electrocardiogram [ECG] [EKG] | CPT/HCPCS: 93010 ==

== ENCOUNTER 2023-10-03 13:24 | Emergency (ER) | payer MEDICARE, OTHER, SELFPAY ==
[2023-10-03 13:55] VITALS: BP 113/60; PULSE 81; RESP 16; TEMP 35.9; O2SAT 98; BMI 39.6
--- NOTE | 2023-10-03 13:55 | ED.GENADULT ---
HPI - General Adult General Chief complaint: Weakness Stated complaint: unable to thrive Time Seen by Provider: 10/03/23 16:04 Source: patient Mode of arrival: ambulatory Limitations: no limitations History of Present Illness ED Provider: Melvin KAUFMAN HPI narrative: 88 year old female hx of anemia, dementia, depression, htn, hld presents feeling unwell was told to come in by psychiatrist Dr. Laurent. Patient reports last time she took ativan for this her symptoms improved. Her main complaint is SOB and difficulty breathing. She does seem to be more anxious than usual and all symptoms seem to improve w/ ativan. Here with daughter who states patient has been seen here 3X this week for similar complaint. Had a negative urine culture last vsits. Denies cp, fever, chills, nausea, vomiting, abd pain, headache, vision changes, dizziness, weaknesss. Related Data Home Medications ?Medication ?Instructions ?Recorded ?Confirmed aspirin 81 mg tablet,delayed 81 mg PO DAILY 12/28/19 03/25/23 release (Adult Low Dose Aspirin) bupropion HCl 300 mg 24 hr tablet, mg PO QAM 12/28/19 03/25/23 extended release melatonin 10 mg tablet 10 mg PO BEDTIME PRN 12/28/19 03/25/23 Previous Rx's ?Medication ?Instructions ?Recorded Transport Wheelchair #1 ea 03/20/22 ferrous sulfate 325 mg (65 mg 325 mg PO Q OTHER DAY 90 days #45 06/18/22 iron) tablet (Feosol) tabs furosemide 40 mg tablet 40 mg PO DAILY #90 tabs 11/15/22 lisinopril 5 mg tablet 5 mg PO DAILY #90 tabs 01/13/23 simvastatin 40 mg tablet 40 mg PO DAILY #90 tabs 03/31/23 cefpodoxime 100 mg tablet 100 mg PO BID #10 tabs 09/28/23 cefuroxime axetil 250 mg tablet 250 mg PO BID 5 days #10 tabs 10/03/23 Allergies Allergy/AdvReac Type Severity Reaction Status Date / Time penicillin G [Penicillin G] Allergy Severe Hives Verified 10/03/23 14:01 cucumber Allergy Unknown hives Verified 10/03/23 14:01 strawberry Allergy Unknown hives Verified 10/03/23 14:01 Review of Systems Review of Systems: Yes all other systems are reviewed and are negative PMFSH Past Medical History Attestation statement: The following information was validated with the patient. Source: old records reviewed and nursing notes reviewed Medical History Morbid obesity with BMI of 40.0-44.9, adult Dementia Impaired fasting glucose Depression Primary insomnia Seasonal allergic rhinitis Vitamin D deficiency Cardiac murmur Pure hypercholesterolemia Benign essential hypertension Surgical History History of cataract surgery History of nasal surgery History of lumpectomy of right breast History of tonsillectomy Family History Family History Father Prostate cancer Mother Lung cancer Bone cancer Social History Social History Housing: House Alcohol intake: former Patient Tobacco Use Status: Former Tobacco user Smoked in Last 30 Days: No e-Cigarette/Vaping Use: Never Used Second Hand Smoke Exposure: Yes Advance Directives: Yes Advance Directives Information Provided: No Advance Directives on File: No service: No Current occupational status: retired Cognitive needs: No Hearing needs: No Vision needs: Yes Physical Exam ED Vital Signs: Vital Signs - 24 hr 10/03/23 13:55 10/03/23 15:54 Temperature 96.6 F L Pulse Rate 81 77 Respiratory Rate 16 16 Blood Pressure 113/60 132/71 Pulse Oximetry 98 99 Oxygen Delivery Method Room Air Room Air BMI result Body Mass Index 39.6 vss Appearance: Alert.? Oriented X3.? No acute distress.? Head: Normocephalic, atraumatic, no step-offs or deformities Eyes: Pupils equal, round and reactive to light.? Neck: Normal inspection.? Neck supple.? CVS: Normal heart rate and rhythm.? Pulses normal.? Respiratory: No respiratory distress.? Breath sounds normal.? Abdomen: Soft and nontender.? Skin: Skin warm and dry.? Normal skin color.? Normal skin turgor.? Extremities: No lower extremity edema.? No calf ttp. 5/5 strength to bilateral upper and lower extremities Back: No midline tenderness, no C-spine tenderness, full range of motion, no CVA tenderness bilaterally Neuro: Oriented X 3.? No motor deficit.? No sensory deficit. CN 2-12 intact. Course Course Course Narrative: This is a Rapid Medical Examination (RME) performed by Jake Diaz PA-C in triage. Full HPI, ROS, assessment and treatment plan per primary provider in the Main ED. 88 yo female with history of dementia, depression, HTN, HLD who presents to the ER for evaluation of feeling weird. Patient seen here recently twice for IV hydration, UTI and stress that improved with ativan. Daughter who she lives with reports she has been very weak & lethargic today - couldn't eat, hold her food, walk, which she usually does herself at home. Not eating or drinking well at home. Antibiotics were stopped on 09/30 after urine culture was negative. Daughter reports she is better now, was given Ativan 0.5mg from her psychiatrist at noon. Plan: repeat UA, labs ?PT/CM Reevaluation(s) Reevaluation #1: CBC with leukocytosis 11.2 with neutrophil predominance 74.9%. Chemistry with no acute findings needing intervention. Patient's BUN slightly elevated 17 however this appears to be her baseline likely secondary to poor p.o. intake/dehydration. COVID negative. UA still pending. Time: 16:29 Reevaluation #2: Urine now showing large leukocyte esterases and trace bacteria will start treating for UTI. Will treat patient with Ceftin. Daughter and patient aware of plan. She reports she is swallowing just fine. She does reiterate that swallowing issues become improved/better with Ativan. She will follow-up for anxiety with her psychiatrist she has a telephone phone call in a few days. Educated patient on diagnosis and treatment plan, answered all question, patient verbalizes understanding. At this time patient will be discharged home, advised to return with new or worsening symptoms. Educated on worrisome signs and symptoms and when to return. At this time I feel comfortable discharge home. Time: 16:59 Medical Decision Making Medical Decision Making MDM Narrative: 88 year old female presents feeling unwell. Chart review shows three seperate visits for similar complaints. 09/26,09/30 & today. PE benign Hx and pe concerning for anxiety vs depression vs UTI vs electrolyte abnormalities. Unlikely ICH, stroke, posterior stroke, meningitis, encephalitis. Other differential includes viral illness. No signs of acs, pe, dissection, ards . 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 I do not suspect acute stricture, foreign body in throat, respiratory distress Plan- labs, urine Differential Diagnosis Differential Diagnoses: The differential diagnosis associated with the presentation includes Hx and pe concerning for anxiety vs depression vs UTI vs electrolyte abnormalities. Unlikely ICH, stroke, posterior stroke, meningitis, encephalitis. Other differential includes viral illness. No signs of acs, pe, dissection, ards. 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 I do not suspect acute stricture, foreign body in throat, respiratory distress Admission/Observation Consideration of admission/observation: Escalation of care including admission/observation considered Lab Data MDM Lab Attestation statement: I reviewed the patient's lab results. 10/03/23 14:33 10/03/23 14:33 Labs: Lab Results 10/03/23 10/03/23 Range/Units 14:33 16:30 WBC 11.2 H (4.8-10.8) X10*3/uL RBC 5.48 (4.20-5.50) X10*6/uL Hgb 16.4 H (12.0-16.0) g/dl Hct 48.4 H (37.0-47.0) % MCV 88.3 (80.0-98.0) fL MCH 29.9 (27.0-33.0) pg MCHC 33.9 (31.0-35.0) g/dl RDW 13.0 (11.0-16.0) % Plt Count 285 (160-400) X10*3/uL MPV 9.6 (9.4-12.3) fL Immature Gran % (Auto) 0.4 (0.0-0.4) % Neut % (Auto) 74.9 H (45-73) % Lymph % (Auto) 9.0 L (20-40) % Crane % (Auto) 14.4 H (2-11) % Eos % (Auto) 0.9 (0-4) % Baso % (Auto) 0.4 (0-2) % Lymph # (Auto) 1.0 L (1.2-4.9) X10*3/uL Crane # (Auto) 1.6 H (0.1-1.2) X10*3/uL Eos # (Auto) 0.1 (0.0-0.4) X10*3/uL Baso # (Auto) 0.1 (0.0-0.2) X10*3/uL Abs Immat Gran (auto) 0.04 H (0.00-0.03) X10*3/uL Absolute Neuts (auto) 8.4 H (2.0-8.3) x10*3/uL Absolute Nucleated RBC 0.000 (0.0-0.012) X10*3/uL Nucleated RBC % (auto) 0.0 (0.0-0.2) /100WBC Smear Tech's Comments VERIFIED Sodium 141 (135-145) mmol/L Potassium 3.8 (3.3-5.1) mmol/L Chloride 100 (96-108) mmol/L Carbon Dioxide 31 H (22-29) mmol/L Anion Gap 14 (12-20) BUN 17 H (9-16) mg/dL Creatinine 0.95 (0.5-1.4) mg/dL Estim Creat Clear Calc 43.0 Estimated GFR 56 Random Glucose 120 H (60-115) mg/dL Calcium 9.9 (8.4-10.2) mg/dL Magnesium 2.0 (1.6-2.6) mg/dL Total Bilirubin 0.4 (0.0-1.0) mg/dL Direct Bilirubin 0.2 (0.0-0.5) mg/dL AST 20 (5-31) U/L ALT 16 (0-31) U/L Alkaline Phosphatase 89 (39-117) U/L Total Protein 7.3 (6.5-8.0) g/dL Albumin 4.1 (3.5-5.0) g/dL Urine Color Yellow Urine Appearance Clear Urine pH 6.0 (5.0-9.0) Ur Specific [place] 1.015 (1.005-1.025) Urine Protein Negative (Neg-Trace) mg/dL Urine Glucose (UA) Negative (Negative) mg/dL Urine Ketones Trace (Negative) mg/dL Urine Blood Negative (Negative) Urine Nitrite Negative (Negative) Ur Leukocyte Esterase Moderate (2+) H (Negative) Urine RBC 0-2 (0-2) /HPF Urine WBC 11-20 H (0-5) /HPF Ur Squamous Epith Cells 6-10 (0-2) /HPF Urine Bacteria Trace (None Seen) Hyaline Casts 0-2 (0-2) /LPF COVID-19 (NICOLLE) Negative (Negative) COVID-19 Clin Com See Note Independent Interpretation I performed an independent interpretation of an: Plain X-Ray and CT Scan Interpretation: Reviewed from previous recent visits CXR 09/26 - low lung volumes bibasilar atelectasis or scarring no evidence of acute disease Head and neck CTA - 09/28/23 - no acute territorial infarct or hemorrhage calcific plaque origin of the internal carotid artery with 70% or greater narrowing right internal carotid artery and less than 50% narrowing in the left internal carotid. Dominant right vertebral artery diminutive left vertebral artery at the skull base. No intracranial large vessel occlusion. CXR 10/01/23- low lung volumes bibasilar atelectasis or scarring large hiatal hernia noted. Soft tissue neck xray 10/01/23- no significant abnormality identified Radiology Impression Discussion of test interpretation with radiology: I have reviewed the radiologist's reading. Independent Historian Clinical information obtained from an independent historian. History obtained from or confirmed by: Other (daughter ) External Record Review External record reviewed: Inpatient record, Office record, Outpatient record, Prior outpatient labs, Prior outpatient radiology, Primary care record and Outside ED record Chronic Conditions Patient?s care impacted by: Other (Cardiac murmur, depression, dementia, hypertension, hyperlipidemia.) Discharge Plan Discharge Clinical Impression: Anxiety, Foreign body sensation in throat, UTI (urinary tract infection) Patient Disposition: Home, Self-Care Instructions: Urinary Tract Infection in Women (ED), Anxiety (ED) Additional Instructions: Take your medications as prescribed. If you were prescribed antibiotics today, it is important that you take your medication to their entirety, do not skip any doses, do not finish them early. Follow-up with your primary care provider this week. Return to the emergency department with new or worsening symptoms. Such as fevers, chills, chest pain, shortness of breath, nausea, vomiting, dizziness, headache, vision changes, lethargy In case of emergency call 911 I tried reaching out to your psychiatrist however he did not answer. His office closes at 3. You can speak to him about what we discussed today in the hospital. I will also give you follow-up with gastroenterology who can follow-up with foreign body sensation in throat on an outpatient basis. Follow-up with psychiatry. If symptoms and throat persist follow-up with GI. Prescriptions: New cefuroxime axetil 250 mg tablet 250 mg PO BID 5 Days Qty: 10 0RF No Action (DME) Transport Wheelchair See Rx Instructions .Route .MEDSUPPLY Qty: 1 0RF Rx Instructions: As directed furosemide 40 mg tablet 40 mg PO DAILY Qty: 90 3RF lisinopril 5 mg tablet 5 mg PO DAILY Qty: 90 5RF simvastatin 40 mg tablet 40 mg PO DAILY Qty: 90 1RF cefpodoxime 100 mg tablet 100 mg PO BID Qty: 10 0RF Rx Instructions: must administer with a meal/food aspirin [Adult Low Dose Aspirin] 81 mg tablet,delayed release (DR/EC) 81 mg PO DAILY melatonin 10 mg tablet 10 mg PO BEDTIME PRN bupropion HCl 300 mg tablet extended release 24 hr PO QAM ferrous sulfate [Feosol] 325 mg (65 mg iron) tablet 325 mg PO Q OTHER DAY 90 Days Qty: 45 1RF Referrals: [facility] [place] Gastroenterology Services [Provider Group] - 2 days ED Physician,Generic [Emergency Provider] - 2 days Stand Alone Forms: Work/School Release Print Language: Anguillan
[2023-10-03 14:43] LABS: Basophils Absolute Auto 0.1 X10*3/uL (0.0-0.2); Basophils Percent Auto 0.4 % (0-2); Eosinophils Absolute Auto 0.1 X10*3/uL (0.0-0.4); Eosinophils Percent Auto 0.9 % (0-4); Hematocrit 48.4 % (37.0-47.0); Hemoglobin 16.4 g/dl (12.0-16.0); Imm Gran Abs Auto 0.04 X10*3/uL (0.00-0.03); Imm Gran Pct Auto 0.4 % (0.0-0.4); MANUAL DIFF FLAG SCAN; Mean Corpuscular HGB Conc 33.9 g/dl (31.0-35.0); Mean Corpuscular Hemoglobin 29.9 pg (27.0-33.0); Mean Corpuscular Volume 88.3 fL (80.0-98.0); Monocytes Absolute Auto 1.6 X10*3/uL (0.1-1.2); Monocytes Percent Auto 14.4 % (2-11); Neutrophils Absolute Auto 8.4 x10*3/uL (2.0-8.3); Neutrophils Percent Auto 74.9 % (45-73); Platelet Count 285 X10*3/uL (160-400); Red Blood Count 5.48 X10*6/uL (4.20-5.50); SCAN SMEAR FLAG 1; White Blood Count 11.2 X10*3/uL (4.8-10.8)
[2023-10-03 14:46] LABS: Mean Platelet Volume 9.6 fL (9.4-12.3)
[2023-10-03 14:51] LABS: COVID-19 Test Negative (Negative); IDNOW Serial# 08D9AD1C
[2023-10-03 14:56] LABS: Alanine Aminotransferase 16 U/L (0-31); Albumin Level 4.1 g/dL (3.5-5.0); Alkaline Phosphatase 89 U/L (39-117); Anion Gap 14 (12-20); Aspartate Amino Transferase 20 U/L (5-31); Bilirubin Direct 0.2 mg/dL (0.0-0.5); Bilirubin Total 0.4 mg/dL (0.0-1.0); Blood Urea Nitrogen 17 mg/dL (9-16); Calcium 9.9 mg/dL (8.4-10.2); Carbon Dioxide 31 mmol/L (22-29); Chloride 100 mmol/L (96-108); Estimated Glomerular Filt Rate 56; Glucose Random 120 mg/dL (60-115); Potassium 3.8 mmol/L (3.3-5.1); Sodium 141 mmol/L (135-145); Total Protein 7.3 g/dL (6.5-8.0)
[2023-10-03 15:16] LABS: SLIDE REVIEW VERIFIED
[2023-10-03 15:54] VITALS: BP 132/71; PULSE 77; RESP 16; TEMP 36.4; O2SAT 99
--- NOTE | 2023-10-03 16:30 | ECG_ITS ---
Test Reason : SOB Blood Pressure : / mmHG Vent. Rate : 073 BPM Atrial Rate : 073 BPM P-R Int : 182 ms QRS Dur : 136 ms QT Int : 434 ms P-R-T Axes : 034 -41 082 degrees QTc Int : 478 ms Normal sinus rhythm Left axis deviation Left bundle branch block Abnormal ECG When compared with ECG of 01-OCT-2023 06:07, No significant change was found Referred By: Omayra Sanchez Electronically Signed By:NBA MYERS
[2023-10-03 16:37] LABS: Appearance Urine Clear; Color Urine Yellow; Glucose Urine UA Negative (Negative); Leukocyte Esterase Urine Moderate (2+) (Negative); Nitrite Urine Negative (Negative); Specific Gravity - Urine 1.015 (1.005-1.025); UMIC TRIGGER UACC YES; Urine Blood Negative (Negative); Urine Ketones Trace mg/dL (Negative); Urine Protein Negative (Neg-Trace)
[2023-10-03 16:48] LABS: Bacteria Urine Trace (None Seen); Hyaline Casts Urine 0-2 /LPF (0-2); RBC Urine 0-2 /HPF (0-2); UACC Culture Trigger YES
[2023-10-03 17:05] LABS: Troponin-I High Sensitivity 7.3 ng/L (<3.5-17.0)
[2023-10-03 17:11] LABS: B Type Natriuretic Peptide 83 pg/mL (<100)
[2023-10-03 17:15] VITALS: BP 132/71; PULSE 77; RESP 16; TEMP 36.4; O2SAT 99
== END 2023-10-03 17:15 | disposition home or self-care (01) ==
PROVIDERS: Physician Assistant; Emergency Provider Internal Medicine; PCP Internal Medicine
DX: F41.1 Generalized anxiety disorder (principal); R09.A2 Foreign body sensation, throat; N39.0 Urinary tract infection, site not specified; R06.02 Shortness of breath; I44.7 Left bundle-branch block, unspecified; F43.0 Acute stress reaction; R53.1 Weakness; I10 Essential (primary) hypertension; Z11.52 Encounter for screening for COVID-19; Z79.899 Other long term (current) drug therapy
CPT/HCPCS: 80048; 80076; 81001; 83735; 83880; 84484; 85025; 87086; 87635; 93005; 99283; 99284

== ENCOUNTER 2023-10-07 09:25 | Inpatient (IN) | payer MEDICARE, OTHER, SELFPAY ==
[2023-10-07] VITALS (8 sets, daily range): BP systolic 145–198; BP diastolic 64–112; PULSE 68–84; RESP 18–23; TEMP 36.4–37.1; O2SAT 94–97; BMI 34.1
--- NOTE | ~2023-10-07 | MR_ITS ---
EXAMINATION: MR BRAIN WITHOUT CONTRAST CLINICAL INFORMATION: Aphasia. Rule out stroke. COMPARISON: Head CT dated 10/07/2023. TECHNIQUE: Multiplanar, multisequence imaging of the brain was performed without contrast. FINDINGS: No diffusion abnormalities are identified to suggest an acute infarct. No midline shift shift is seen. Generalized brain parenchymal volume loss noted with [id number] ex vacuo dilatation of the ventricles. Mild chronic white matter microangiopathic changes are visible. A small arachnoid cyst is visible in the left lateral aspect of the posterior fossa mildly distorting the lateral left cerebellar hemisphere. The brainstem is normal. The gradient refocused acquisition demonstrates no pathologic magnetic susceptibility artifact to indicate underlying acute or chronic blood products. The craniovertebral junction, marrow signal, and midline structures are normal. The major intracranial flow voids at the level of the [place] are preserved. The dural venous sinus flow voids are maintained. The mastoid air cells and paranasal sinuses are well aerated. MR/MR head/brain wo con IMPRESSION: No acute intracranial process. Generalized brain parenchymal volume loss and mild chronic white matter microangiopathy.
--- NOTE | ~2023-10-07 | US_ITS ---
EXAMINATION: US EXTRACRANIAL CAROTID DUPLEX, BILATERAL CLINICAL INFORMATION: Aphasia. Query TIA COMPARISON: Carotid ultrasound 05/25/2005 TECHNIQUE: Real-time ultrasound and Doppler techniques (integrating B-mode 2-D vascular images, Doppler spectral analysis and color-flow Doppler imaging) were utilized to interrogate the extracranial carotid arteries, the vertebral arteries and proximal subclavian arteries bilaterally. The degree of stenosis is determined by criteria similar to NASCET. FINDINGS: Right Side: 1. There is moderate atherosclerotic plaque seen in the bifurcation/proximal ICA region. 2. The common carotid artery PSV proximally is 95.7 cm/s and distally 86.2 cm/s. 3. The proximal internal carotid artery velocities are 261 cm/s systolic and 52.7 cm/s diastolic. 4. The proximal external carotid artery PSV is 180 cm/s. 5. The vertebral artery shows antegrade flow. 6. The subclavian artery waveforms are normal. Left Side: 1. There is mild atherosclerotic plaque seen in the bifurcation/proximal ICA region. 2. The common carotid artery PSV proximally is 95.7 cm/s and distally 60.5 cm/s. 3. The proximal internal carotid artery velocities are 127 cm/s systolic and 36.8 cm/s diastolic. 4. The proximal external carotid artery PSV is 148 cm/s. 5. The vertebral artery shows antegrade flow. 6. The subclavian artery waveforms are elevated consistent with stenosis. US/US carotid duplex BI IMPRESSION: 1. RIGHT: Moderate, hemodynamically significant stenosis of the proximal right internal carotid artery corresponding to a 50-79% stenosis by velocity criteria. 2. LEFT: Minimal, non-hemodynamically significant stenosis of the proximal left internal carotid artery corresponding to a 0-49% stenosis by velocity criteria. 3. There is no change in the category severity of disease when compared to the previous study dated 05/25/2005. 4. Elevated velocities in the left subclavian artery consistent with stenosis.
--- NOTE | ~2023-10-07 | CT_ITS ---
EXAMINATION: CT HEAD WITHOUT CONTRAST (STROKE PROTOCOL) CLINICAL INFORMATION: Stroke protocol. Patient unable to speak. COMPARISON: CT imaging from 09/28/2023 TECHNIQUE: Contiguous axial imaging was performed from the skull base to vertex without intravenous administration of contrast. This CT examination was performed using dose optimization techniques as appropriate, variously including the following: *Automated exposure control *Adjustment of mA and/or kV according to patient size (this includes techniques or standardized protocols for targeted exams where dose is matched to indication/reason for exam; i.e. extremities or head) *Use of iterative reconstruction technique DLP: 605 mGy-cm FINDINGS: No intracranial hemorrhage, extra-axial surface collection, focal mass effect or midline shift. The leblanc-white matter differentiation is maintained. Mild parenchymal volume loss with commensurate prominence of ventricles and sulci. No acute findings within the posterior fossa. The cerebellar tonsils are in normal position. The calvarium is intact. The visualized paranasal sinuses and mastoid air cells are well aerated. Mild osteoarthrosis of temporomandibular joints. CT/CT head for stroke IMPRESSION: No evidence of acute hemorrhage, infarction or other intracranial pathology. This critical result was discussed with Dr. Romeo at 9:45 AM on 10/07/2023. It was ascertained that the content and urgency of the report was understood at the time of direct communication.
--- NOTE | ~2023-10-07 | XR_ITS ---
EXAMINATION: XR CHEST CLINICAL INFORMATION: Mental status change. COMPARISON: 10/01/2023, 09/27/2023, 04/28/2006. TECHNIQUE: Frontal view of the chest was obtained. FINDINGS: Lung volumes are low. There is no gross pneumothorax. Stable cardiomediastinal silhouette. Redemonstration of retrocardiac air fluid levels which may represent hiatal hernias. CT scan recommended for confirmation. Redemonstration of bibasilar opacities which may represent atelectasis/scar, although an infectious/inflammatory process should also be considered in the appropriate clinical setting. Small left pleural effusion. XR/XR chest 1V IMPRESSION: 1. Redemonstration of retrocardiac air fluid levels which may represent hiatal hernias. CT scan recommended for confirmation. 2. Redemonstration of bibasilar opacities which may represent atelectasis/scar, although an infectious/inflammatory process should also be considered in the appropriate clinical setting. Small left pleural effusion. This study was presented today October 07, 2023 for interpretation. Stat results provided at this time as requested by referring provider.
--- NOTE | 2023-10-07 09:31 | ECG_ITS ---
Test Reason : STROKE Blood Pressure : / mmHG Vent. Rate : 074 BPM Atrial Rate : 074 BPM P-R Int : 178 ms QRS Dur : 142 ms QT Int : 432 ms P-R-T Axes : 030 -37 089 degrees QTc Int : 479 ms Sinus rhythm with Premature supraventricular complexes Left axis deviation Left bundle branch block Abnormal ECG When compared with ECG of 03-OCT-2023 16:38, Premature supraventricular complexes are now Present Referred By: Mario Romeo Electronically Signed By:NBA MYERS
--- NOTE | 2023-10-07 09:34 | ED_ITS ---
HPI - Altered Mental Status General Chief Complaint: Stroke Stated Complaint: STROKE ALERT,LKWT [id number],FULL WEAK PER EMS Time Seen by Provider: 10/07/23 09:31 Source: patient, family (Daughter), EMS and old records reviewed Mode of arrival: EMS Limitations: no limitations History of Present Illness ED Provider: DR. Romeo HPI narrative: This is a 88-year-old female brought in by ambulance for evaluation of mental status change and acting strange. Patient had multiple episodes similar to her current presentation today, evaluated 09/26, 09/30, 10/02, and today for patient is making strange noise, patient is mute but follow command on exam, had stroke workup in the emergency department including head CT and CT angiogram of the head which was unremarkable, recently was treated for UTI last week. Last known at her normal status with last night at 23:30 as per daughter, reportedly by EMS patient also walked to the living this morning. Related Data Home Medications ?Medication ?Instructions ?Recorded ?Confirmed bupropion HCl 300 mg 24 hr tablet, 300 mg PO DAILY 12/28/19 10/07/23 extended release melatonin 10 mg tablet 10 mg PO BEDTIME PRN Sleep 12/28/19 10/07/23 acetaminophen 500 mg tablet 500 mg PO BID 10/07/23 10/07/23 (Tylenol Extra Strength) ascorbic acid (vitamin C) 500 mg 500 mg PO DAILY 10/07/23 10/07/23 tablet (Vitamin C) cholecalciferol (vitamin D3) 25 25 mcg PO DAILY 10/07/23 10/07/23 mcg (1,000 unit) tablet (Vitamin D3) diphenhydramine HCl 25 mg capsule 25 mg PO BEDTIME PRN Sleep 10/07/23 10/07/23 (Benadryl) lorazepam 0.5 mg tablet 0.5 mg PO DAILY PRN Anxiety 10/07/23 10/07/23 Previous Rx's ?Medication ?Instructions ?Recorded Transport Wheelchair #1 ea 03/20/22 furosemide 40 mg tablet 40 mg PO DAILY #90 tabs 11/15/22 lisinopril 5 mg tablet 5 mg PO DAILY #90 tabs 01/13/23 cefuroxime axetil 250 mg tablet 250 mg PO BID 5 days #10 tabs 10/03/23 simvastatin 40 mg tablet 40 mg PO DAILY #90 tabs 10/05/23 Allergies Allergy/AdvReac Type Severity Reaction Status Date / Time penicillin G [Penicillin G] Allergy Severe Hives Verified 10/07/23 09:41 cucumber Allergy Unknown hives Verified 10/07/23 09:41 strawberry Allergy Unknown hives Verified 10/07/23 09:41 Review of Systems 2 Review of Systems: All other systems are reviewed and are negative Constitutional: Reports as per HPI and Reports no additional constitutional complaints Eyes: Reports as per HPI and Reports no additional eye complaints Reports system reviewed and no additional complaints, except as documented Cardiovascular: Reports as per HPI and Reports no additional cardiovascular complaints Respiratory: Reports as per HPI and Reports no additional respiratory complaints Gastrointestinal: Reports as per HPI and Reports no additional gastrointestinal complaints Genitourinary: Reports no additional female genitourinary complaints Musculoskeletal: Reports no additional musculoskeletal complaints Skin/Breast: Reports system reviewed and no additional complaints, except as docu Psychiatric: Reports no additional psychiatric complaints Endocrine: Reports no additional endocrine complaints Hematologic/Lymphatic: Reports no additional hematologic/lymphatic complaints Allergic/Immunologic: Reports no additional allergic/immunologic complaints Reports system reviewed and no additional complaints, except as documented and Reports Abnormal speech present [facility] Past Medical History Medical History Morbid obesity with BMI of 40.0-44.9, adult Dementia Impaired fasting glucose Depression Primary insomnia Seasonal allergic rhinitis Vitamin D deficiency Cardiac murmur Pure hypercholesterolemia Benign essential hypertension Surgical History History of cataract surgery History of nasal surgery History of lumpectomy of right breast History of tonsillectomy Family History Family History Father Prostate cancer Mother Lung cancer Bone cancer Social History Social History Housing: House Alcohol intake: former Patient Tobacco Use Status: Former Tobacco user e-Cigarette/Vaping Use: Never Used Second Hand Smoke Exposure: Yes Advance Directives: Yes Advance Directives Information Provided: Yes Advance Directives on File: No service: No Current occupational status: retired Cognitive needs: No Hearing needs: No Vision needs: Yes Physical Exam ED Vital Signs: Vital Signs - 24 hr 10/07/23 09:55 10/07/23 11:04 Temperature 97.6 F Pulse Rate 71 71 Respiratory Rate 18 18 Blood Pressure 198/77 H 170/69 H Pulse Oximetry 97 97 Oxygen Delivery Method Room Air Room Air BMI result Body Mass Index 34.1 Vital signs have been reviewed and appear to be correct. Blood pressure elevated. Heart rate normal. Respiratory rate normal. Temperature normal. Oxygen saturation normal. Appearance: Alert, patient is mumbling with non understandable words, regards examiner and follow simple commands, No acute distress. Head: Normal external exam. Normocephalic. Atraumatic. No Xavier signs noted. No raccoon eyes noted Eyes: PERRLA. EOMI. Conjunctiva and sclera normal. Eyelids normal. ENT: TM's Normal. Pharynx normal. Uvula midline. Moist mucous membranes. No trismus noted. No drooling noted. No muffled voice noted. Neck: Normal inspection. Neck supple. FROM. No adenopathy. Thyroid Normal. No meningeal signs. No neck mass noted. CVS: Normal heart rate and rhythm. Heart sound normal. No murmurs noted. Pulses normal throughout. Respiratory: No respiratory distress. Painless inspiration. Breath sounds normal. No wheezes/rales/rhonchi noted. Chest nontender. No accessory muscle usage noted or decreased air movement noted. Abdomen: Soft and nontender. Bowel sounds normal in all 4 quadrants. No distention noted. No organomegaly noted. No visible injury noted. Back: No CVA tenderness. Full range of motion noted. Skin: Skin warm and dry. Normal skin color. Normal skin turgor. No rashes/lesions/lacerations noted. Extremities: No lower extremity edema. Extremities exhibit normal range of motion. Extremities nontender. Neuro: Cranial nerve exam: II-XII are grossly intact No motor deficit. No sensory deficit. Reflexes normal. NIH Stroke Scale Level of Consciousness: Alert Level of Consciousness Questions: Answers both questions correctly Level of Consciousness Commands: Performs both tasks correctly Best Gaze: Normal Visual: No visual loss Facial Palsy: Normal Motor Arm (Right): No drift Motor Arm (Left): No drift Motor Leg (Right): No drift Motor Leg (Left): No drift Limb Ataxia: Absent Sensory: Normal Best Language: Mute, global aphasia Dysarthia: Normal Extinction and Inattention: No abnormality Score: 3 Course Reevaluation(s) Reevaluation #1: Patient now is able to communicate with me, daughter at the bedside reported that the patient back to her normal speech, no focal weakness at this point, head CT is unremarkable will admit the patient for TIA/aspirin/further neuro evaluation. Time: 10:53 Medications Administered Discontinued Medications Generic Name Dose Route Start Last Admin Trade Name Gil PRN Reason Stop Dose Admin Aspirin 81 mg 10/07/23 10:52 10/07/23 11:04 Aspirin Enteric Coated 81 Mg Tablet.Dr CARUSO 10/07/23 10:53 81 mg ONCE ONE Administration Medical Decision Making Differential Diagnosis Differential Diagnoses: The differential diagnosis associated with the presentation includes (Hemorrhagic stroke, ischemic stroke, TIA, electrolyte derangement, severe anemia) Admission/Observation Consideration of admission/observation: Escalation of care including admission/observation considered Consult Healthcare Provider Management of the patient was discussed with: Hospitalist (Dr. Storey) Lab Data MDM Lab Attestation statement: I reviewed the patient's lab results. 10/07/23 10:07 10/07/23 10:07 Labs: Lab Results 10/07/23 10/07/23 10/07/23 Range/Units 09:45 10:07 11:21 WBC 12.1 H (4.8-10.8) X10*3/uL RBC 5.45 (4.20-5.50) X10*6/uL Hgb 16.6 H (12.0-16.0) g/dl Hct 49.3 H (37.0-47.0) % MCV 90.5 (80.0-98.0) fL MCH 30.5 (27.0-33.0) pg MCHC 33.7 (31.0-35.0) g/dl RDW 13.1 (11.0-16.0) % Plt Count 241 (160-400) X10*3/uL MPV 9.6 (9.4-12.3) fL Immature Gran % (Auto) 0.3 (0.0-0.4) % Neut % (Auto) 76.6 H (45-73) % Lymph % (Auto) 9.5 L (20-40) % [place] % (Auto) 12.2 H (2-11) % Eos % (Auto) 1.0 (0-4) % Baso % (Auto) 0.4 (0-2) % Lymph # (Auto) 1.2 (1.2-4.9) X10*3/uL [place]pp # (Auto) 1.5 H (0.1-1.2) X10*3/uL Eos # (Auto) 0.1 (0.0-0.4) X10*3/uL Baso # (Auto) 0.1 (0.0-0.2) X10*3/uL Abs Immat Gran (auto) 0.04 H (0.00-0.03) X10*3/uL Absolute Neuts (auto) 9.3 H (2.0-8.3) x10*3/uL Absolute Nucleated RBC 0.000 (0.0-0.012) X10*3/uL Nucleated RBC % (auto) 0.0 (0.0-0.2) /100WBC PT 11.9 (11.1-13.3) SEC INR 1.0 (0.9-1.1) APTT 35.3 (26.0-36.8) SEC Sodium 141 (135-145) mmol/L Potassium 3.3 (3.3-5.1) mmol/L Chloride 104 (96-108) mmol/L Carbon Dioxide 25 (22-29) mmol/L Anion Gap 15 (12-20) BUN 14 (9-16) mg/dL Creatinine 0.78 (0.5-1.4) mg/dL Estim Creat Clear Calc 58.3 Estimated GFR > 60 POC Glucose 119 H (60-115) mg/dL Random Glucose 116 H (60-115) mg/dL Calcium 9.7 (8.4-10.2) mg/dL Troponin I High Sens 6.0 (<3.5-17.0) ng/L Triglycerides 81 (<150) mg/dL Cholesterol 179 (<200) mg/dL LDL Cholesterol, Calc 107 H (<100) mg/dL HDL Cholesterol 56 (>40) mg/dL Urine Color Yellow Urine Appearance Clear Urine pH 6.0 (5.0-9.0) Ur Specific [place] 1.015 (1.005-1.025) Urine Protein Negative (Neg-Trace) mg/dL Urine Glucose (UA) Negative (Negative) mg/dL Urine Ketones Trace (Negative) mg/dL Urine Blood Negative (Negative) Urine Nitrite Negative (Negative) Ur Leukocyte Esterase Negative (Negative) Independent Interpretation I performed an independent interpretation of an: Plain X-Ray (Chest:1. Redemonstration of retrocardiac air fluid levels which may represent hiatal hernias. CT scan recommended for confirmation. 2. Redemonstration of bibasilar opacities which may represent atelectasis/scar, although an infectious/inflammatory process should also be considered in the appropria) and CT Scan (head:No evidence of acute hemorrhage, infarction or other intracranial pathology. ) Radiology Impression Discussion of test interpretation with radiology: I have reviewed the radiologist's reading. Discharge Plan Discharge Clinical Impression: Brain TIA Patient Disposition: Admitted As Inpatient Print Language: [place]
[2023-10-07 09:52] LABS: Glucose, Whole Blood 119 mg/dL (60-115)
[2023-10-07 10:11] LABS: MANUAL DIFF FLAG NO
[2023-10-07 10:13] LABS: Basophils Absolute Auto 0.1 X10*3/uL (0.0-0.2); Basophils Percent Auto 0.4 % (0-2); Eosinophils Absolute Auto 0.1 X10*3/uL (0.0-0.4); Hematocrit 49.3 % (37.0-47.0); Hemoglobin 16.6 g/dl (12.0-16.0); Imm Gran Abs Auto 0.04 X10*3/uL (0.00-0.03); Imm Gran Pct Auto 0.3 % (0.0-0.4); Lymphocytes Absolute Auto 1.2 X10*3/uL (1.2-4.9); Lymphocytes Percent Auto 9.5 % (20-40); Mean Corpuscular HGB Conc 33.7 g/dl (31.0-35.0); Mean Corpuscular Hemoglobin 30.5 pg (27.0-33.0); Mean Corpuscular Volume 90.5 fL (80.0-98.0); Mean Platelet Volume 9.6 fL (9.4-12.3); Monocytes Absolute Auto 1.5 X10*3/uL (0.1-1.2); Monocytes Percent Auto 12.2 % (2-11); Neutrophils Absolute Auto 9.3 x10*3/uL (2.0-8.3); Neutrophils Percent Auto 76.6 % (45-73); Platelet Count 241 X10*3/uL (160-400); Red Blood Count 5.45 X10*6/uL (4.20-5.50); Red Cell Distribution Width 13.1 % (11.0-16.0); White Blood Count 12.1 X10*3/uL (4.8-10.8)
[2023-10-07 10:18] LABS: Prothrombin Time 11.9 SEC (11.1-13.3)
[2023-10-07 10:21] LABS: Partial Thromboplastin Time 35.3 SEC (26.0-36.8)
[2023-10-07 10:22] LABS: Stroke Lab Use COMPLETE
[2023-10-07 10:27] LABS: Anion Gap 15 (12-20); Blood Urea Nitrogen 14 mg/dL (9-16); Calcium 9.7 mg/dL (8.4-10.2); Carbon Dioxide 25 mmol/L (22-29); Chloride 104 mmol/L (96-108); Cholesterol 179 mg/dL (<200); Creatinine Clr Calc Pharmacy 58.3; Estimated Glomerular Filt Rate > 60; Glucose Random 116 mg/dL (60-115); HDL Cholesterol 56 mg/dL (>40); LDL Cholesterol Calculated 107 mg/dL (<100); Potassium 3.3 mmol/L (3.3-5.1); Sodium 141 mmol/L (135-145); Triglycerides 81 mg/dL (<150)
--- NOTE | 2023-10-07 10:49 | P.HPHOSP_ITS ---
History of Present Illness Date of Service: 10/07/23 Attending physician on admission: [facility] Chief Complaint: Altered Mental Status This is an 88 yo F who lives at home w/ daughter hx anxiety, anemia, dementia, depression, htn, hld, obesity, cardiac murmur, primary insomnia, depression presenting to the ED with AMS LKWT 11:30 pm last night, daughter noted that she was staring off in space, making strange noises, daughter then gave ativan that usually helps with these symptoms without relief of symptoms. Patient was noted to be following commands in the ED but was mute on arrival later noted to be verbal and told ED attending she was able to understand what was going on but was unable to speak. She had presented multiple times , 09/30, 10/02 for similar CC however at those times negative stroke work ups. Noted to possibly have UTIs recently however unclear. Patient not on blood thinners. States she doesnt think she is anxious and has intermittent depression, last psych admission years ago at [facility] for severe depression. Patient was a former smoker 40 years ago. Denies cp, sob, nausea, vomiting, hedache, trauma, vision changes, dizziness, weakness, abd pain, fevers, chills. In the ED today patient noted to have leukocytosis 12.1 w/ no shift. Chemistry unremarkable. Trop negative X 1, non ischemic EKG (SR w/ premature supraventricular complexes, LAD, LBBB) . Patient had a negative Head CT in the ED today no evidence of acute hemorrhage, infarction or other intracranial pathology. No CTA done today or UA. MRI will be ordered by this PA-C prior to admission. Stroke cordinator and Neuro aware of case and will follow not TNK candidate Review of Systems 2 Review of Systems: Yes all other systems are reviewed and are negative [facility] Medical History Morbid obesity with BMI of 40.0-44.9, adult Dementia Impaired fasting glucose Depression Primary insomnia Seasonal allergic rhinitis Vitamin D deficiency Cardiac murmur Pure hypercholesterolemia Benign essential hypertension Functional capacity: independent ambulation Family History Father Prostate cancer Mother Lung cancer Bone cancer Surgical History History of cataract surgery History of nasal surgery History of lumpectomy of right breast History of tonsillectomy Social History Household Members: Family Housing: House Unable to assess alcohol history related to: Unknown Alcohol intake: former Patient Tobacco Use Status: Former Tobacco user e-Cigarette/Vaping Use: Never Used Second Hand Smoke Exposure: Yes Advance Directives Date on File: 10/07/23 service: No Current occupational status: retired Cognitive needs: No Hearing needs: No Vision needs: Yes Meds Allergies Allergy/AdvReac Type Severity Reaction Status Date / Time penicillin G [Penicillin G] Allergy Severe Hives Verified 10/07/23 09:41 cucumber Allergy Unknown hives Verified 10/07/23 09:41 strawberry Allergy Unknown hives Verified 10/07/23 09:41 Home Medications ?Medication ?Instructions ?Recorded ?Confirmed ?Last Taken ?Type bupropion HCl 300 mg 24 hr tablet, 300 mg PO DAILY 12/28/19 10/07/23 10/06/23 History extended release melatonin 10 mg tablet 10 mg PO BEDTIME PRN Sleep 12/28/19 10/07/23 Unknown History acetaminophen 500 mg tablet 500 mg PO BID 10/07/23 10/07/23 10/06/23 History (Tylenol Extra Strength) ascorbic acid (vitamin C) 500 mg 500 mg PO DAILY 10/07/23 10/07/23 10/06/23 History tablet (Vitamin C) cholecalciferol (vitamin D3) 25 25 mcg PO DAILY 10/07/23 10/07/23 10/06/23 History mcg (1,000 unit) tablet (Vitamin D3) diphenhydramine HCl 25 mg capsule 25 mg PO BEDTIME PRN Sleep 10/07/23 10/07/23 Unknown History (Benadryl) lorazepam 0.5 mg tablet 0.5 mg PO DAILY PRN Anxiety 10/07/23 10/07/23 10/07/23 History Physical Exam 2 Vital Signs and Narrative: Vital Signs: Last Vital Signs Temp 97.6 F 10/07/23 09:55 Pulse 71 10/07/23 09:55 Resp 18 10/07/23 09:55 BP 198/77 H 10/07/23 09:55 Pulse Ox 97 10/07/23 09:55 O2 Del Method Room Air 10/07/23 09:55 BMI result Body Mass Index 34.1 Appearance: Alert.? Oriented X3.? No acute cardiopulmonary distress distress.? Head: Normocephalic, atraumatic, no step-offs or deformities Neck: Normal inspection.? Neck supple.? CVS: Pulses normal.? Respiratory: No respiratory distress.? Abdomen: Soft and nontender.? Skin: ? Normal skin color. Extremities: Global weakness, no focal neuro deficits. Back: No midline tenderness, no C-spine tenderness, full range of motion, No CVA tenderness bilaterally Neuro: Oriented X 3.? No motor deficit.? No sensory deficit. Results Labs 10/08/23 05:52 10/07/23 12:22 Labs: Laboratory Results - last 24 hr 10/07/23 10/07/23 09:45 10:07 MCV 90.5 MCH 30.5 MCHC 33.7 RDW 13.1 Plt Count 241 MPV 9.6 Immature Gran % (Auto) 0.3 Neut % (Auto) 76.6 H Lymph % (Auto) 9.5 L [place] % (Auto) 12.2 H Eos % (Auto) 1.0 Baso % (Auto) 0.4 Lymph # (Auto) 1.2 [place] # (Auto) 1.5 H Eos # (Auto) 0.1 Baso # (Auto) 0.1 Abs Immat Gran (auto) 0.04 H Absolute Neuts (auto) 9.3 H Absolute Nucleated RBC 0.000 Nucleated RBC % (auto) 0.0 PT 11.9 INR 1.0 APTT 35.3 Anion Gap 15 Estim Creat Clear Calc 58.3 Estimated GFR > 60 POC Glucose 119 H Random Glucose 116 H Calcium 9.7 Troponin I High Sens 6.0 Triglycerides 81 Cholesterol 179 LDL Cholesterol, Calc 107 H HDL Cholesterol 56 Imaging Radiologist's Impressions: Impressions Head CT 10/07/23 09:36 IMPRESSION: No evidence of acute hemorrhage, infarction or other intracranial pathology. This critical result was discussed with Dr. Romeo at 9:45 AM on 10/07/2023. It was ascertained that the content and urgency of the report was understood at the time of direct communication. Assessment and Plan (1) Brain TIA: Status: Acute Plan Assessment: 88 yo F anxiety, anemia, dementia, depression, htn, hld, obesity, cardiac murmur, primary insomnia, depression presneted w/ AMS ( following commands but mute) LKWT 11:30 pm last night 10/06/2023 which has since resolved, patient appears to be around normal baseline at this time speaking and following commands w/o neuro deficits. Admission for TIA Plan TIA: LKWT last night was aphasic/ mute however has resolved no current neuro sx - Swallow eval done and passed - MRI ordered - Continue asa 81 mg po daily as well as statin - Neuro consult Apasia: initial presentation likely d/t TIA now resolved - See above Hypertension: chronic - Continue home Lisinopril 5 mg po daily Hyperlipidemia: chronic - Continue simvastatin 40 mg po daily Anxiety: chronic - Continue 0.5 mg po ativan PRN anxiety - Psych consult ? depression vs catatonia Depression: chronic/ stable - Patient followed by out patient psych - Psych consult depression vs catatonia Code status: Full Code DVT prophylaxis: heparin Attending: Dr. Murdock Quality Stroke Does the patient have a stroke diagnosis?: No VTE Prior VTE?: No VTE Risk Level:: Medical - moderate - high VTE Device Contraindication: Treatment Not Indicated VTE Drug Contraindication: N/A - Med Ordered
[2023-10-07] MEDS: Aspirin Enteric Coated 81 MG TABLET.DR PO (11:04)
--- NOTE | 2023-10-07 11:07 | PC.NURSE ---
Patient/daughter states patient fell in may and had back pain at the time. Patients back without obvious deformity and patient currently denies pain
--- NOTE | 2023-10-07 11:22 | PHA.MEDREC ---
Addendum entered by Tonya Zazueta manuel 10/07/23 11:30: reviewed Original Note: Pharmacy Consult ? Medication Reconciliation Pharmacy has completed the medication reconciliation. Spoke to patients daughter at bedside. Daughter had a list of patients medication with her. Daughter states patient is no longer on Aspirin 81 mg daily, Ferrous sulfate 325 mg Q48H.
[2023-10-07 11:27] LABS: Appearance Urine Clear; Color Urine Yellow; Glucose Urine UA Negative (Negative); Leukocyte Esterase Urine Negative (Negative); Nitrite Urine Negative (Negative); Specific Gravity - Urine 1.015 (1.005-1.025); Urine Blood Negative (Negative); Urine Ketones Trace mg/dL (Negative); Urine Protein Negative (Neg-Trace)
--- NOTE | 2023-10-07 11:44 | PC.NURSE ---
MRI screening form completed with daughter and patient and faxed to MRI
[2023-10-07] MEDS: Heparin Sodium,Porcine 5,000 UNIT/ML VIAL 5000 UNIT SUBCUT ×2 (12:35→23:02)
[2023-10-07 12:45] LABS: Anion Gap 18 (12-20); Blood Urea Nitrogen 13 mg/dL (9-16); Calcium 9.3 mg/dL (8.4-10.2); Carbon Dioxide 24 mmol/L (22-29); Chloride 103 mmol/L (96-108); Creatinine Clr Calc Pharmacy 60.7; Estimated Glomerular Filt Rate > 60; Glucose Random 108 mg/dL (60-115); Potassium 4.3 mmol/L (3.3-5.1); Sodium 141 mmol/L (135-145)
--- NOTE | 2023-10-07 14:27 | P.CNPS_ITS ---
History of Present Illness Date of Service: 10/07/2023 <Marisa Clark NP - Last Filed: 10/07/23 16:07> Chief Complaint: AMS <Marisa Clark NP - Last Filed: 10/07/23 16:07> Reason for Consult: depression versus catatonia <Marisa Clark NP - Last Filed: 10/07/23 16:07> Requesting physician: Marisa Clark <Marisa Clark NP - Last Filed: 10/07/23 16:07> Omayra Sanchez <Chava Moreno MD - Last Filed: 10/14/23 17:02> Discussed with referring provider: Yes <Marisa Clark NP - Last Filed: 10/07/23 16:07> Sources of Information: patient interviewed, chart reviewed and crisis/core team assessment reviewed <Marisa Clark NP - Last Filed: 10/07/23 16:07> HPI Narrative: Mrs. Chavez is an 88 year-old woman who has been seen in the ED 4 times (09/26;09/30;10/02 and 10/06) for symptoms including difficulty speaking, feeling weird, difficulty swallowing. First ED visit on 09/26, CT and CTA was negative. CBC with elevation in WBC 12, afebrile. Chest XR negative. CMP without electrolyte abnormalities. UA with moderate leukocytes. She was started on cefpodoxime for 5 days. Pt returned on 09/30- with similar complaint of feeling weird, experienced trouble speaking and swallowing after dinner and came to ED. CBC with slightly elevated WBC 11. afebrile. EKG with old LBBB, neg troponin. Chest XR negative. Xray of neck negative. She was given fluids and ativan and presented much improved after it. viral panel was negative. She returned on 10/02- but main c/o was SOB, difficulty breathing. Chest XR negative, UA negative. She was sent back home She came in this morning with daughter, reporting difficulty talking- per ED attending note- pt following commands, trying to speak but not able to do so. She later was able to speak. She did received one dose of ativan prior to coming to the hospital which daughter reports did not have much therapeutic benefits and she decided to call EMS. Psychiatry asked to assess for depression and/or catatonia. Pt seen with daughter by bedside. Pt reports feeling better, when asked to elaborate in what way she feels better, she states I don't know. She is able to talk. Not much information provided by pt, most details provided by daughter. She reports this morning pt was trying to talk but not able to do so instead making sounds but not enunciating. She reports she also at the time had difficulty swallowing. Pt seen eating now with some assistance from daughter, which daughter reports is not her usual. Pt is oriented to place, month, year and situation. She is noted not to be able to provide much information or description of her symptoms which makes it more difficult to assess. <Marisa Clark NP - Last Filed: 10/07/23 16:07> Past Psychiatric History: OP: Dr. Neftaly Reed Past trials: wellbutrin <Marisa Clark NP - Last Filed: 10/07/23 16:07> Medical Evaluation Reviewed: Yes <Marisa Clark NP - Last Filed: 10/07/23 16:07> [facility] Medical History: Medical History Morbid obesity with BMI of 40.0-44.9, adult Dementia Impaired fasting glucose Depression Primary insomnia Seasonal allergic rhinitis Vitamin D deficiency Cardiac murmur Pure hypercholesterolemia Benign essential hypertension <Marisa Clark NP - Last Filed: 10/07/23 16:07> Surgical History: Surgical History History of cataract surgery History of nasal surgery History of lumpectomy of right breast History of tonsillectomy <Marisa Clark NP - Last Filed: 10/07/23 16:07> Diagnostics Vital Signs (24Hr): Vital Signs - 24 hr 10/07/23 09:55 10/07/23 11:04 10/07/23 11:49 Temperature 97.6 F Pulse Rate 71 71 68 Respiratory Rate 18 18 20 Blood Pressure 198/77 H 170/69 H 172/67 H Pulse Oximetry 97 97 96 Oxygen Delivery Method Room Air Room Air Room Air 10/07/23 12:37 Temperature 98.7 F Pulse Rate 70 Respiratory Rate 18 Blood Pressure 160/68 H Pulse Oximetry 96 Oxygen Delivery Method Room Air BMI result Body Mass Index 34.1 <Marisa Clark NP - Last Filed: 10/07/23 16:07> Labs Results: 10/09/23 12:25 10/09/23 12:25 <Marisa Clark NP - Last Filed: 10/07/23 16:07> Labs: Laboratory Results - last 48 hr 10/07/23 10/07/23 10/07/23 09:45 10:07 11:21 WBC 12.1 H RBC 5.45 Hgb 16.6 H Hct 49.3 H MCV 90.5 MCH 30.5 MCHC 33.7 RDW 13.1 Plt Count 241 MPV 9.6 Immature Gran % (Auto) 0.3 Neut % (Auto) 76.6 H Lymph % (Auto) 9.5 L [place] % (Auto) 12.2 H Eos % (Auto) 1.0 Baso % (Auto) 0.4 Lymph # (Auto) 1.2 [place] # (Auto) 1.5 H Eos # (Auto) 0.1 Baso # (Auto) 0.1 Abs Immat Gran (auto) 0.04 H Absolute Neuts (auto) 9.3 H Absolute Nucleated RBC 0.000 Nucleated RBC % (auto) 0.0 PT 11.9 INR 1.0 APTT 35.3 Sodium 141 Potassium 3.3 Chloride 104 Carbon Dioxide 25 Anion Gap 15 BUN 14 Creatinine 0.78 Estim Creat Clear Calc 58.3 Estimated GFR > 60 POC Glucose 119 H Random Glucose 116 H Calcium 9.7 Troponin I High Sens 6.0 Triglycerides 81 Cholesterol 179 LDL Cholesterol, Calc 107 H HDL Cholesterol 56 Urine Color Yellow Urine Appearance Clear Urine pH 6.0 Ur Specific [place] 1.015 Urine Protein Negative Urine Glucose (UA) Negative Urine Ketones Trace Urine Blood Negative Urine Nitrite Negative Ur Leukocyte Esterase Negative 10/07/23 12:22 WBC RBC Hgb Hct MCV MCH MCHC RDW Plt Count MPV Immature Gran % (Auto) Neut % (Auto) Lymph % (Auto) [place] % (Auto) Eos % (Auto) Baso % (Auto) Lymph # (Auto) [place] # (Auto) Eos # (Auto) Baso # (Auto) Abs Immat Gran (auto) Absolute Neuts (auto) Absolute Nucleated RBC Nucleated RBC % (auto) PT INR APTT Sodium 141 Potassium 4.3 D Chloride 103 Carbon Dioxide 24 Anion Gap 18 BUN 13 Creatinine 0.75 Estim Creat Clear Calc 60.7 Estimated GFR > 60 POC Glucose Random Glucose 108 Calcium 9.3 Troponin I High Sens Triglycerides Cholesterol LDL Cholesterol, Calc HDL Cholesterol Urine Color Urine Appearance Urine pH Ur Specific [place] Urine Protein Urine Glucose (UA) Urine Ketones Urine Blood Urine Nitrite Ur Leukocyte Esterase <Marisa Clark NP - Last Filed: 10/07/23 16:07> Imaging Radiology Impressions: ITS Impressions Head CT 10/07/23 09:36 IMPRESSION: No evidence of acute hemorrhage, infarction or other intracranial pathology. This critical result was discussed with Dr. Romeo at 9:45 AM on 10/07/2023. It was ascertained that the content and urgency of the report was understood at the time of direct communication. Chest X-Ray 10/07/23 09:44 IMPRESSION: 1. Redemonstration of retrocardiac air fluid levels which may represent hiatal hernias. CT scan recommended for confirmation. 2. Redemonstration of bibasilar opacities which may represent atelectasis/scar, although an infectious/inflammatory process should also be considered in the appropriate clinical setting. Small left pleural effusion. This study was presented today October 07, 2023 for interpretation. Stat results provided at this time as requested by referring provider. Carotid Doppler Study 10/07/23 13:02 IMPRESSION: 1. RIGHT: Moderate, hemodynamically significant stenosis of the proximal right internal carotid artery corresponding to a 50-79% stenosis by velocity criteria. 2. LEFT: Minimal, non-hemodynamically significant stenosis of the proximal left internal carotid artery corresponding to a 0-49% stenosis by velocity criteria. 3. There is no change in the category severity of disease when compared to the previous study dated 05/25/2005. 4. Elevated velocities in the left subclavian artery consistent with stenosis. <Marisa Clark NP - Last Filed: 10/07/23 16:07> Mental Status Exam Mental Status Exam Narrative: Appearance: wearing hospital gown, fair hygiene, in NAD Behavior; cooperative Psychomotor: no agitation or retardation noted Speech: mostly clear, regular rate/rhythm/volume, spontaneous TP: mostly linear TC: feeling better Mood: better Affect: constricted but congruent SI: none HI: none VH/AH: none Delusions: none Insight/judgment: fair x 2. memory/cog: alert, oriented x 3. may benefit from MOCA. <Marisa Clark NP - Last Filed: 10/07/23 16:07> Medications Medications Current Medications Acetaminophen (Acetaminophen 325 Mg Tablet) 650 mg PO Q6H PRN PRN Reason: Pain, Mild (Pain Scale 1-3), fever or headache Aspirin (Aspirin Enteric Coated 81 Mg Tablet.Dr) 81 mg PO DAILY [facility] Atorvastatin Calcium (Atorvastatin Calcium 80 Mg Tablet) 80 mg PO DAILY [facility] Calcium Carbonate (Calcium Carbonate 750 Mg Tab.Chew) 750 mg PO Q4H PRN PRN Reason: Heartburn Heparin Sodium (Porcine) (Heparin Sodium,Porcine 5,000 Unit/Ml Vial) 5,000 unit SUBCUT Q12H [facility] Last Admin: 10/07/23 12:35 Dose: 5,000 unit Magnesium Hydroxide (Milk Of Magnesia 30 Ml Oral.Susp) 30 ml PO DAILY PRN PRN Reason: Constipation Melatonin (Melatonin 3 Mg Tablet) 6 mg PO BEDTIME PRN PRN Reason: Insomnia Sodium Chloride (0.9 % Sodium Chloride Flush 3 Ml Syringe) 3 ml IVFLUSH QSHIFT [facility] <Marisa Clark NP - Last Filed: 10/07/23 16:07> Allergies Allergies Allergy/AdvReac Type Severity Reaction Status Date / Time penicillin G [Penicillin G] Allergy Severe Hives Verified 10/07/23 09:41 cucumber Allergy Unknown hives Verified 10/07/23 09:41 strawberry Allergy Unknown hives Verified 10/07/23 09:41 <Marisa Clark NP - Last Filed: 10/07/23 16:07> Assessment & Plan Assessment & Plan (1) Depression: Qualifiers: Active/Remission status: currently active Depression Type: major depressive disorder Major depression episode severity: unspecified Major depression recurrence: recurrent Qualified Code(s): F33.9 - Major depressive disorder, recurrent, unspecified <Marisa Clrak NP - Last Filed: 10/07/23 16:07> Status: Acute <Marisa Clark NP - Last Filed: 10/07/23 16:07> Code(s): F32.9 - Major depressive disorder, single episode, unspecified < Marisa Clark NP - Last Filed: 10/07/23 16:07> Assessment and Plan: Mrs. Chavez is an 88 year-old woman with has presented in past 2 weeks, 4 times to the ED with c/o of difficulty speaking, difficulty swallowing, feeling weird, SOB. Head CT, CTA, CBC, CMP, EKG and troponins grossly unremarkable. Pt admitted for r/o TIA. Description of episodes of difficulty swallowing, unable to talk but able to follow commands, attempts to talk which only leads to some odd sounds, are not s/s of catatonia, especially as she is attempting to do so, able to follow commands (usually in catatonia one see person with negativism, which is actually not following commands and shifting attention from person trying to interact to them). consider Speech Therapy,and/or intermittent pharyngeal dystonia that may be relieved by benzodiazepine, if CVA is r/o. Do not suspect symptoms primarily of psychiatric nature. <Marisa Clark NP - Last Filed: 10/07/23 16:07> Total time managing care of this patient today ____ minutes. <Marisa Clark NP - Last Filed: 10/07/23 16:07>
--- NOTE | 2023-10-07 17:27 | P.CNNE_ITS ---
History of Present Illness Data of Consult Service Date: 10/07/23 Primary Care Provider: Roberto Kenney MD HPI This is an 88 yo female who lives at home w/ daughter and has a hx of anxiety, anemia, dementia, depression, htn, hld, obesity, cardiac murmur, primary insomnia, presented to the ED with AMS. Around 11:30 pm last night, daughter noted that she was staring off in space, making strange noises, daughter then gave ativan that usually helps with these symptoms without relief of symptoms. Patient was noted to be following commands in the ED but was mute on arrival later noted to be verbal and told ED attending she was able to understand what was going on but was unable to speak. She has presented multiple times , 09/30, 10/02 for similar presentation with negative stroke work ups, but CTA on 09/28/23 showing greater than 70% right ICA stenosis also confirmed on Carotid doppler earlier today. CT negative for acute stroke. She also has a UTI. Patient not on blood thinners. Patient was a former smoker 40 years ago. Poor historian. In the ED she was noted to have leukocytosis 12.1 w/ no shift. Chemistry unremarkable. Trop negative X 1, non ischemic EKG (SR w/ premature supraventricular complexes, LAD, LBBB) . Patient had a negative Head CT in the ED today no evidence of acute hemorrhage, infarction or other intracranial pathology. [facility] Past Medical History Medical History Morbid obesity with BMI of 40.0-44.9, adult Dementia Impaired fasting glucose Depression Primary insomnia Seasonal allergic rhinitis Vitamin D deficiency Cardiac murmur Pure hypercholesterolemia Benign essential hypertension Family History Family History Father Prostate cancer Mother Lung cancer Bone cancer Surgical History Surgical History History of cataract surgery History of nasal surgery History of lumpectomy of right breast History of tonsillectomy Social History Social History Housing: House Unable to assess alcohol history related to: Unknown Alcohol intake: former Patient Tobacco Use Status: Former Tobacco user e-Cigarette/Vaping Use: Never Used Second Hand Smoke Exposure: Yes Use of substances other than those prescribed or required for medical reasons: No Advance Directives: Yes Advance Directives Information Provided: Yes Advance Directives on File: No service: No Current occupational status: retired Cognitive needs: No Hearing needs: No Vision needs: Yes Meds Allergies Allergy/AdvReac Type Severity Reaction Status Date / Time penicillin G [Penicillin G] Allergy Severe Hives Verified 10/07/23 09:41 cucumber Allergy Unknown hives Verified 10/07/23 09:41 strawberry Allergy Unknown hives Verified 10/07/23 09:41 Active Medications: Current Medications Acetaminophen (Acetaminophen 325 Mg Tablet) 650 mg PO Q6H PRN PRN Reason: Pain, Mild (Pain Scale 1-3), fever or headache Acetaminophen (Acetaminophen 325 Mg Tablet) 325 mg PO BID [facility] Ascorbic Acid (Ascorbic Acid 500 Mg Tablet) 500 mg PO DAILY [facility] Aspirin (Aspirin Enteric Coated 81 Mg Tablet.Dr) 81 mg PO DAILY [facility] Atorvastatin Calcium (Atorvastatin Calcium 80 Mg Tablet) 80 mg PO DAILY [facility] Bupropion HCl (Bupropion Hcl Xl 300 Mg Tab.Er.24h) 300 mg PO DAILY [facility] Calcium Carbonate (Calcium Carbonate 750 Mg Tab.Chew) 750 mg PO Q4H PRN PRN Reason: Heartburn Cefuroxime Axetil (Cefuroxime Axetil 250 Mg Tablet) 250 mg PO BID [facility] Diphenhydramine HCl (Diphenhydramine Hcl 25 Mg Capsule) 25 mg PO BEDTIME PRN PRN Reason: Sleep Furosemide (Furosemide 40 Mg Tablet) 40 mg PO DAILY [facility]; Protocol Heparin Sodium (Porcine) (Heparin Sodium,Porcine 5,000 Unit/Ml Vial) 5,000 unit SUBCUT Q12H [facility] Last Admin: 10/07/23 12:35 Dose: 5,000 unit Lisinopril (Lisinopril 5 Mg Tablet) 5 mg PO DAILY [facility]; Protocol Lorazepam (Lorazepam 0.5 Mg Tablet) 0.5 mg PO DAILY PRN PRN Reason: Anxiety Magnesium Hydroxide (Milk Of Magnesia 30 Ml Oral.Susp) 30 ml PO DAILY PRN PRN Reason: Constipation Melatonin (Melatonin 3 Mg Tablet) 6 mg PO BEDTIME PRN PRN Reason: Insomnia Melatonin (Melatonin 3 Mg Tablet) 9 mg PO BEDTIME PRN PRN Reason: Sleep Sodium Chloride (0.9 % Sodium Chloride Flush 3 Ml Syringe) 3 ml IVFLUSH QSHIFT [facility] Vitamin D (Cholecalciferol (Vitamin D3) 25 Mcg Tablet) 25 mcg PO DAILY [facility] Home Medications ?Medication ?Instructions ?Recorded ?Confirmed ?Last Taken ?Type bupropion HCl 300 mg 24 hr tablet, 300 mg PO DAILY 12/28/19 10/07/23 10/06/23 History extended release melatonin 10 mg tablet 10 mg PO BEDTIME PRN Sleep 12/28/19 10/07/23 Unknown History acetaminophen 500 mg tablet 500 mg PO BID 10/07/23 10/07/23 10/06/23 History (Tylenol Extra Strength) ascorbic acid (vitamin C) 500 mg 500 mg PO DAILY 10/07/23 10/07/23 10/06/23 History tablet (Vitamin C) cholecalciferol (vitamin D3) 25 25 mcg PO DAILY 10/07/23 10/07/23 10/06/23 History mcg (1,000 unit) tablet (Vitamin D3) diphenhydramine HCl 25 mg capsule 25 mg PO BEDTIME PRN Sleep 10/07/23 10/07/23 Unknown History (Benadryl) lorazepam 0.5 mg tablet 0.5 mg PO DAILY PRN Anxiety 10/07/23 10/07/23 10/07/23 History Physical Exam 2 Vital Signs: Vital Signs: Last Vital Signs Temp 97.5 F 10/07/23 15:53 Pulse 81 10/07/23 15:53 Resp 23 H 10/07/23 15:53 BP 163/76 H 10/07/23 15:53 Pulse Ox 95 10/07/23 15:53 O2 Del Method Room Air 10/07/23 15:53 BMI result Body Mass Index 34.1 Neuro: Other: She is cooperative but has dementia and is unreliable. She follows simple commands. Her speech is fluent. There is no cranial nerve deficits. She moves all 4 extremities against gravity. No major drift of the upper extremity. Gait was not tested. Neck is supple. Plantar responses flexor Results Labs 10/07/23 10:07 10/07/23 12:22 Labs: Short CBC 10/07/23 Range/Units 10:07 WBC 12.1 H (4.8-10.8) X10*3/uL Hgb 16.6 H (12.0-16.0) g/dl Hct 49.3 H (37.0-47.0) % Plt Count 241 (160-400) X10*3/uL BMP 10/07/23 10/07/23 10:07 12:22 Sodium 141 141 Potassium 3.3 4.3 D Chloride 104 103 Carbon Dioxide 25 24 BUN 14 13 Creatinine 0.78 0.75 Calcium 9.7 9.3 Urine 10/07/23 Range/Units 11:21 Urine Color Yellow Urine Appearance Clear Urine pH 6.0 (5.0-9.0) Ur Specific [place] 1.015 (1.005-1.025) Urine Protein Negative (Neg-Trace) mg/dL Urine Glucose (UA) Negative (Negative) mg/dL Assessment and Plan (1) Brain TIA: Status: Acute It is unclear if she had a TIA or the symptoms are related to possibly a UTI superimposed on the baseline dementia. She is known to have right internal carotid stenosis confirmed on recent CTA and carotid Doppler. Degree of stenosis is greater than 70%. Recommendation MRI of the brain to rule out a small acute stroke. Vascular surgery consultation for the carotid stenosis. If the patient and family are willing to undergo intervention such as stenting or endarterectomy. In the meantime, I would add aspirin 81 mg a day and clopidogrel 75 mg a day. Procedures Date of Service Date of Service: 10/07/23
--- NOTE | 2023-10-07 17:51 | PC.NURSE ---
Patient at MRI
--- NOTE | 2023-10-07 18:09 | PC.NURSE ---
88 yo F anxiety, anemia, dementia, depression, htn, hld, obesity, cardiac murmur, primary insomnia, depression presented w/ AMS ( following commands but mute) LKWT 11:30 pm last night 10/06/2023 which has since resolved, patient appears to be around normal baseline at this time speaking and following commands w/o neuro deficits. Has had multiple recent trips to ED for same symptoms. Admission for TIA . CT in ED negative , went to MRI this evening. 20g in left AC, denies pain or discomfort. Passed swallow eval, ate well for lunch. Purewick in place draining moderate amount of clear yellow urine
[2023-10-07] MEDS: Melatonin 3 MG TABLET 6 MG PO (21:51)
[2023-10-07] MEDS: Acetaminophen 325 MG TABLET PO (21:52)
[2023-10-07] MEDS: cefuroxime axetiL 250 MG TABLET PO (21:52)
[2023-10-07] MEDS: diphenhydrAMINE HCL 25 MG CAPSULE PO (21:52)
[2023-10-07] MEDS: 0.9 % Sodium Chloride Flush 3 ML SYRINGE IVFLUSH ×2 (21:56→23:04)
[2023-10-08] VITALS (8 sets, daily range): BP systolic 114–163; BP diastolic 56–71; PULSE 64–110; RESP 15–18; TEMP 36.5–37.3; O2SAT 93–96
[2023-10-08] MEDS: Acetaminophen 325 MG TABLET 650 MG PO (04:13)
[2023-10-08 06:35] LABS: Basophils Absolute Auto 0.1 X10*3/uL (0.0-0.2); Basophils Percent Auto 0.3 % (0-2); Eosinophils Absolute Auto 0.1 X10*3/uL (0.0-0.4); Eosinophils Percent Auto 0.3 % (0-4); Hematocrit 44.4 % (37.0-47.0); Imm Gran Abs Auto 0.07 X10*3/uL (0.00-0.03); Imm Gran Pct Auto 0.4 % (0.0-0.4); Lymphocytes Absolute Auto 0.9 X10*3/uL (1.2-4.9); Lymphocytes Percent Auto 5.1 % (20-40); MANUAL DIFF FLAG SCAN; Mean Corpuscular HGB Conc 33.8 g/dl (31.0-35.0); Mean Corpuscular Hemoglobin 30.2 pg (27.0-33.0); Mean Corpuscular Volume 89.3 fL (80.0-98.0); Mean Platelet Volume 10.3 fL (9.4-12.3); Monocytes Absolute Auto 2.1 X10*3/uL (0.1-1.2); Monocytes Percent Auto 11.8 % (2-11); Neutrophils Absolute Auto 14.5 x10*3/uL (2.0-8.3); Neutrophils Percent Auto 82.1 % (45-73); Platelet Count 247 X10*3/uL (160-400); Red Blood Count 4.97 X10*6/uL (4.20-5.50); Red Cell Distribution Width 12.9 % (11.0-16.0); SCAN SMEAR FLAG 1; White Blood Count 17.6 X10*3/uL (4.8-10.8)
[2023-10-08 07:22] LABS: SLIDE REVIEW VERIFIED
[2023-10-08 07:30] LABS: Glucose, Whole Blood 114 mg/dL (60-115)
[2023-10-08] MEDS: Acetaminophen 325 MG TABLET PO ×2 (08:20→21:56)
[2023-10-08] MEDS: Aspirin Enteric Coated 81 MG TABLET.DR PO (08:20)
[2023-10-08] MEDS: buPROPion HCl XL 300 MG TAB.ER.24H PO (08:21)
[2023-10-08] MEDS: Cholecalciferol (Vitamin D3) 25 MCG TABLET PO (08:21)
[2023-10-08] MEDS: Ascorbic Acid 500 MG TABLET PO (08:21)
[2023-10-08] MEDS: Atorvastatin Calcium 80 MG TABLET PO (08:21)
[2023-10-08] MEDS: lisinopriL 5 MG TABLET PO (08:21)
[2023-10-08] MEDS: Furosemide 40 MG TABLET PO (08:21)
[2023-10-08] MEDS: cefuroxime axetiL 250 MG TABLET PO ×2 (08:21→21:56)
--- NOTE | 2023-10-08 08:57 | MHC.CM.PN ---
CM MET W/PT WHO REPORTS SHE NEEDS TO USE THE BR, CM NOTIFIED RN CLINICAL COORDINATOR AND CM TO REVISIT
[2023-10-08 11:04] LABS: Glucose, Whole Blood 156 mg/dL (60-115)
[2023-10-08] MEDS: Heparin Sodium,Porcine 5,000 UNIT/ML VIAL 5000 UNIT SUBCUT (11:07)
--- NOTE | 2023-10-08 11:17 | MHC.SL.SWA ---
Speech Pathologist Impression: Risk of Aspiration Due to: Neurological Condition Reduced Cognition Dysphasia Diet Status: Liquid Consistency and Strategies for Safe Swallow: Liquid Intake Recommendation: Thin Liquid Intake Strategies: Unrestricted Solid Food Consistency: Dietary Recommendations: Regular Additional Modifications to Solid Foods: No further CASTING OPERATOR HELPER intervention is indicated at this time. Please re-refer if her status changes. Recommend CONTINUE REGULAR SOLIDS and THIN LIQUIDS. MEDS WHOLE with PUREE, or LIQUID - as preferred. Oral Medication Intake: Whole with Liquid Please contact the pharmacy regarding appropriate crushable or liquid drug formulations that are available whenever modified delivery is recommended. Compensatory Strategies and Precautions to be Taken for Safe Swallow: Sitting Upright (90 deg) Small Bites and Sips Alternate Liquids/Solids Rate of Ingestion Change Oral Check Supervision While Eating and Drinking for Safe Swallow: Intermittent Supervision Swallowing Recommended Treatments: Compens. Strategy Educat. Recommendation for Speech: NA:Typical Evaluation Further Testing Needed Comment: No further CASTING OPERATOR HELPER intervention is indicated at this time. Please re-refer if her status changes. Recommend CONTINUE REGULAR SOLIDS and THIN LIQUIDS. MEDS WHOLE with PUREE, or LIQUID - as preferred. \ Timeline to reassess: NA Detective And Intelligence Analyst Clinican/Clinical Fellow: No Supervisory Statement: I have reviewed and agree with the student/clinical fellow's documentation: N/A Speech Language Pathologist: Tony Robins M.A., CCC-CASTING OPERATOR HELPER
--- NOTE | 2023-10-08 11:33 | MHC.CM.PN ---
Addendum entered by Pippa Dai RN 10/08/23 14:57: PT NOW INPT AND IMM 10/08/23 DELIVERED TO PT/DTR AT BEDSIDE. CM RECEIVED COPY OF PT'S HCP VIA EMAIL FROM PT'S [employer] OFFICE, COPY UPLOADED TO [employer] AND PLACED IN PAPER CHART. Original Note: ROMAN 10/08/23, EMR REVIEWED PT W/AMS TIA W/WORK UP NEG FOR STROKE, CM MET W/PT WHO REPORTS SHE LIVES W/HER DTR BRIE, USES A WALKER AT [employer]ELINE HOWEVER DOES HAVE A WC AT HOME. PT AND DTR BRIE DENY PT HAS HOME SERVICES AND BRIE ASSISTS PT WITH ANY NEEDS HOWEVER DOES WORK 10AM-7PM DURING THE DAY AND PT DOES NOT WANT ANYONE IN HOUSE WHEN BRIE IS NOT HOME HOWEVER BRIE IS WILLING TO TAKE TIME OFF OF WORK ON DAYS PT WILL RECEIVE P.T. SO SHE WILL BE HOME. PT VERIFIES PCP IS DR. WHITLEY
--- NOTE | 2023-10-08 12:11 | HO.PM.IMPN ---
Subjective Subjective Date of Service: 10/08/23 Interval History: f/u tia, uti aphasia resolved, still with confusion and weakness Physical Exam Vital Signs: Vital Signs: Last Vital Signs Temp 98.1 F 10/08/23 11:26 Pulse 87 10/08/23 11:26 Resp 18 10/08/23 11:26 BP 114/56 L 10/08/23 11:26 Pulse Ox 93 10/08/23 11:26 O2 Del Method Room Air 10/08/23 11:26 BMI result Body Mass Index 34.1 General: AO X 3, no acute distress Resp: CTA bilateral CVS: S1,S2,RRR GI: +BS, NT, no distention Skin: No rash Neuro: motor grossly intact, NF deficit Psych: appropriate affect Objective Data Active Medications Acetaminophen (Acetaminophen 325 Mg Tablet) 650 mg PO Q6H PRN PRN Reason: Pain, Mild (Pain Scale 1-3), fever or headache Last Admin: 10/08/23 04:13 Dose: 650 mg Documented By: JOB Acetaminophen (Acetaminophen 325 Mg Tablet) 325 mg PO BID [facility] Last Admin: 10/08/23 08:20 Dose: 325 mg Documented By: SUSAN Ascorbic Acid (Ascorbic Acid 500 Mg Tablet) 500 mg PO DAILY [facility] Last Admin: 10/08/23 08:21 Dose: 500 mg Documented By: SUSAN Aspirin (Aspirin Enteric Coated 81 Mg Tablet.Dr) 81 mg PO DAILY [facility] Last Admin: 10/08/23 08:20 Dose: 81 mg Documented By: SUSAN Atorvastatin Calcium (Atorvastatin Calcium 80 Mg Tablet) 80 mg PO DAILY [facility] Last Admin: 10/08/23 08:21 Dose: 80 mg Documented By: SUSAN Bupropion HCl (Bupropion Hcl Xl 300 Mg Tab.Er.24h) 300 mg PO DAILY [facility] Last Admin: 10/08/23 08:21 Dose: 300 mg Documented By: SUSAN Calcium Carbonate (Calcium Carbonate 750 Mg Tab.Chew) 750 mg PO Q4H PRN PRN Reason: Heartburn Cefuroxime Axetil (Cefuroxime Axetil 250 Mg Tablet) 250 mg PO BID [facility] Last Admin: 10/08/23 08:21 Dose: 250 mg Documented By: SUSAN Diphenhydramine HCl (Diphenhydramine Hcl 25 Mg Capsule) 25 mg PO BEDTIME PRN PRN Reason: Sleep Last Admin: 10/07/23 21:52 Dose: 25 mg Documented By: JOB Furosemide (Furosemide 40 Mg Tablet) 40 mg PO DAILY [facility]; Protocol Last Admin: 10/08/23 08:21 Dose: 40 mg Documented By: SUSAN Heparin Sodium (Porcine) (Heparin Sodium,Porcine 5,000 Unit/Ml Vial) 5,000 unit SUBCUT Q12H [facility] Last Admin: 10/08/23 11:07 Dose: 5,000 unit Documented By: SUSAN Ceftriaxone Sodium 1 gm/ (Sodium Chloride) 50 mls @ 100 mls/hr IV Q24H [facility] Lisinopril (Lisinopril 5 Mg Tablet) 5 mg PO DAILY [facility]; Protocol Last Admin: 10/08/23 08:21 Dose: 5 mg Documented By: SUSAN Lorazepam (Lorazepam 0.5 Mg Tablet) 0.5 mg PO DAILY PRN PRN Reason: Anxiety Magnesium Hydroxide (Milk Of Magnesia 30 Ml Oral.Susp) 30 ml PO DAILY PRN PRN Reason: Constipation Melatonin (Melatonin 3 Mg Tablet) 6 mg PO BEDTIME PRN PRN Reason: Insomnia Last Admin: 10/07/23 21:51 Dose: 6 mg Documented By: JOB Melatonin (Melatonin 3 Mg Tablet) 9 mg PO BEDTIME PRN PRN Reason: Sleep Sodium Chloride (0.9 % Sodium Chloride Flush 3 Ml Syringe) 3 ml IVFLUSH QSHIFT [facility] Last Admin: 10/08/23 11:48 Dose: Not Given Documented By: SUSAN Non-Admin Reason: Previously Administered Vitamin D (Cholecalciferol (Vitamin D3) 25 Mcg Tablet) 25 mcg PO DAILY [facility] Last Admin: 10/08/23 08:21 Dose: 25 mcg Documented By: SUSAN Labs 10/08/23 05:52 10/07/23 12:22 Labs: Laboratory Results - last 24 hr 10/07/23 10/08/23 10/08/23 12:22 05:52 07:27 MCV 89.3 MCH 30.2 MCHC 33.8 RDW 12.9 Plt Count 247 MPV 10.3 Immature Gran % (Auto) 0.4 Neut % (Auto) 82.1 H Lymph % (Auto) 5.1 L Glenn % (Auto) 11.8 H Eos % (Auto) 0.3 Baso % (Auto) 0.3 Lymph # (Auto) 0.9 L Glenn # (Auto) 2.1 H Eos # (Auto) 0.1 Baso # (Auto) 0.1 Abs Immat Gran (auto) 0.07 H Absolute Neuts (auto) 14.5 H Absolute Nucleated RBC 0.000 Nucleated RBC % (auto) 0.0 Smear Tech's Comments VERIFIED Anion Gap 18 Estim Creat Clear Calc 60.7 Estimated GFR > 60 POC Glucose 114 Random Glucose 108 Calcium 9.3 10/08/23 11:00 MCV MCH MCHC RDW Plt Count MPV Immature Gran % (Auto) Neut % (Auto) Lymph % (Auto) Glenn % (Auto) Eos % (Auto) Baso % (Auto) Lymph # (Auto) Glenn # (Auto) Eos # (Auto) Baso # (Auto) Abs Immat Gran (auto) Absolute Neuts (auto) Absolute Nucleated RBC Nucleated RBC % (auto) Smear Tech's Comments Anion Gap Estim Creat Clear Calc Estimated GFR POC Glucose 156 H Random Glucose Calcium Assessment and Plan (1) Brain TIA: Status: Acute Plan 88 yo F anxiety, anemia, dementia, depression, htn, hld, obesity, cardiac murmur, primary insomnia, depression presneted w/ AMS ( following commands but mute) LKWT 11:30 pm last night 10/06/2023 which has since resolved, patient appears to be around normal baseline at this time speaking and following commands w/o neuro deficits. Admission for TIA TIA both CT and MR no acute finding, aphasia resolved, still with some weakness which could be realted to UTI, seen by neur -preventative measures with ASA, statin UTI--continue cefuroxime Hypertension: chronic - Continue home Lisinopril 5 mg po daily Hyperlipidemia: chronic - Continue simvastatin 40 mg po daily Anxiety: chronic - Continue 0.5 mg po ativan PRN anxiety - Psych consult ? depression vs catatonia -seen by Psych no catatonia Depression: chronic/ stable - continue bupropion and lorazepam Code status: Full Code DVT prophylaxis: heparin Quality Stroke Does the patient have a stroke diagnosis?: No VTE Prior VTE?: No VTE Risk Level:: Medical - moderate - high VTE Device Contraindication: Treatment Not Indicated VTE Drug Contraindication: N/A - Med Ordered
[2023-10-08 16:07] LABS: Glucose, Whole Blood 105 mg/dL (60-115)
--- NOTE | 2023-10-08 16:20 | MHC.STROKE ---
This junior technical writer met with patient and family to discuss stroke/tia education. All questions answered. Pt/daughter aware and agreeable to care plan. Will continue to assist as needed.
[2023-10-08] MEDS: Milk of Magnesia 30 ML ORAL.SUSP PO (17:52)
[2023-10-08 20:18] LABS: Glucose, Whole Blood 116 mg/dL (60-115)
[2023-10-08] MEDS: diphenhydrAMINE HCL 25 MG CAPSULE PO (21:59)
[2023-10-09] VITALS (7 sets, daily range): BP systolic 106–134; BP diastolic 53–88; PULSE 74–78; RESP 16–77; TEMP 36–37.3; O2SAT 92–97
[2023-10-09] MEDS: Heparin Sodium,Porcine 5,000 UNIT/ML VIAL 5000 UNIT SUBCUT ×3 (03:24→22:58)
[2023-10-09 07:05] LABS: Glucose, Whole Blood 103 mg/dL (60-115)
--- NOTE | 2023-10-09 08:46 | MHC.CM.PN ---
EMR REVIEWED, CM DISCUSSED DISPO W/DTR/HCP BRIE [phone] WHO REPORTS SHE WOULD LIKE PT TO GO TO STR, [facility] PREFERRED [facility]ACILITIES, BRIE WILL LET CM KNOW IF SHE HAS OTHER PREFERENCES, CM WILL CONT TO FOLLOW DC NEEDS.
[2023-10-09] MEDS: 0.9 % Sodium Chloride Flush 3 ML SYRINGE IVFLUSH ×3 (09:22→21:36)
[2023-10-09] MEDS: Acetaminophen 325 MG TABLET PO ×2 (09:23→21:35)
[2023-10-09] MEDS: cefuroxime axetiL 250 MG TABLET PO ×2 (09:23→21:35)
[2023-10-09] MEDS: Aspirin Enteric Coated 81 MG TABLET.DR PO (09:23)
[2023-10-09] MEDS: Atorvastatin Calcium 80 MG TABLET PO (09:23)
[2023-10-09] MEDS: Cholecalciferol (Vitamin D3) 25 MCG TABLET PO (09:24)
[2023-10-09] MEDS: buPROPion HCl XL 300 MG TAB.ER.24H PO (09:24)
[2023-10-09] MEDS: lisinopriL 5 MG TABLET PO (09:24)
[2023-10-09] MEDS: Furosemide 40 MG TABLET PO (09:24)
[2023-10-09] MEDS: Ascorbic Acid 500 MG TABLET PO (09:24)
[2023-10-09 11:00] LABS: Glucose, Whole Blood 109 mg/dL (60-115)
--- NOTE | 2023-10-09 11:45 | HO.PM.IMPN ---
Subjective Subjective Date of Service: 10/09/23 Interval History: f/u tia, uti aphasia resolved, no longer confused, still generally week Physical Exam Vital Signs: Vital Signs: Last Vital Signs Temp 96.9 F 10/09/23 11:42 Pulse 75 10/09/23 11:42 Resp 20 10/09/23 11:42 BP 106/53 L 10/09/23 11:42 Pulse Ox 94 10/09/23 11:42 O2 Del Method Room Air 10/09/23 11:42 BMI result Body Mass Index 34.1 General: AO X 3, no acute distress Resp: CTA bilateral CVS: S1,S2,RRR GI: +BS, NT, no distention Skin: No rash Neuro: motor grossly intact, NF deficit Psych: appropriate affect Objective Data Active Medications Acetaminophen (Acetaminophen 325 Mg Tablet) 650 mg PO Q6H PRN PRN Reason: Pain, Mild (Pain Scale 1-3), fever or headache Last Admin: 10/08/23 04:13 Dose: 650 mg Documented By: JOB Acetaminophen (Acetaminophen 325 Mg Tablet) 325 mg PO BID [facility] Last Admin: 10/09/23 09:23 Dose: 325 mg Documented By: SAMIR Ascorbic Acid (Ascorbic Acid 500 Mg Tablet) 500 mg PO DAILY [facility] Last Admin: 10/09/23 09:24 Dose: 500 mg Documented By: SAMIR Aspirin (Aspirin Enteric Coated 81 Mg Tablet.Dr) 81 mg PO DAILY [facility] Last Admin: 10/09/23 09:23 Dose: 81 mg Documented By: SAMIR Atorvastatin Calcium (Atorvastatin Calcium 80 Mg Tablet) 80 mg PO DAILY [facility] Last Admin: 10/09/23 09:23 Dose: 80 mg Documented By: SAMIR Bupropion HCl (Bupropion Hcl Xl 300 Mg Tab.Er.24h) 300 mg PO DAILY [facility] Last Admin: 10/09/23 09:24 Dose: 300 mg Documented By: SAMIR Calcium Carbonate (Calcium Carbonate 750 Mg Tab.Chew) 750 mg PO Q4H PRN PRN Reason: Heartburn Cefuroxime Axetil (Cefuroxime Axetil 250 Mg Tablet) 250 mg PO BID [facility] Last Admin: 10/09/23 09:23 Dose: 250 mg Documented By: SAMIR Diphenhydramine HCl (Diphenhydramine Hcl 25 Mg Capsule) 25 mg PO BEDTIME PRN PRN Reason: Sleep Last Admin: 10/08/23 21:59 Dose: 25 mg Documented By: ZEENAT Furosemide (Furosemide 40 Mg Tablet) 40 mg PO DAILY [facility]; Protocol Last Admin: 10/09/23 09:24 Dose: 40 mg Documented By: SAMIR Heparin Sodium (Porcine) (Heparin Sodium,Porcine 5,000 Unit/Ml Vial) 5,000 unit SUBCUT Q12H [facility] Last Admin: 10/09/23 03:24 Dose: 5,000 unit Documented By: ZEENAT Lisinopril (Lisinopril 5 Mg Tablet) 5 mg PO DAILY [facility]; Protocol Last Admin: 10/09/23 09:24 Dose: 5 mg Documented By: SAMIR Lorazepam (Lorazepam 0.5 Mg Tablet) 0.5 mg PO DAILY PRN PRN Reason: Anxiety Magnesium Hydroxide (Milk Of Magnesia 30 Ml Oral.Susp) 30 ml PO DAILY PRN PRN Reason: Constipation Last Admin: 10/08/23 17:52 Dose: 30 ml Documented By: SUSAN Melatonin (Melatonin 3 Mg Tablet) 6 mg PO BEDTIME PRN PRN Reason: Insomnia Last Admin: 10/07/23 21:51 Dose: 6 mg Documented By: JOB Melatonin (Melatonin 3 Mg Tablet) 9 mg PO BEDTIME PRN PRN Reason: Sleep Sodium Chloride (0.9 % Sodium Chloride Flush 3 Ml Syringe) 3 ml IVFLUSH QSHIFT [facility] Last Admin: 10/09/23 09:22 Dose: 3 ml Documented By: SAMIR Vitamin D (Cholecalciferol (Vitamin D3) 25 Mcg Tablet) 25 mcg PO DAILY [facility] Last Admin: 10/09/23 09:24 Dose: 25 mcg Documented By: SAMIR Labs 10/08/23 05:52 10/07/23 12:22 Labs: Laboratory Results - last 24 hr 10/08/23 10/08/23 10/09/23 15:56 20:14 07:00 POC Glucose 105 116 H 103 10/09/23 10:56 POC Glucose 109 Assessment and Plan (1) Brain TIA: Status: Acute Plan 88 yo F anxiety, anemia, dementia, depression, htn, hld, obesity, cardiac murmur, primary insomnia, depression presneted w/ AMS ( following commands but mute) LKWT 11:30 pm last night 10/06/2023 which has since resolved, patient appears to be around normal baseline at this time speaking and following commands w/o neuro deficits. Admission for TIA TIA both CT and MR no acute finding, aphasia resolved, still with some weakness which could be realted to UTI, seen by neur -preventative measures with ASA, statin, PT/OT UTI--continue cefuroxime, repeat UA was unremarkable, repeat WBC if stil high consider changing to iv abx Hypertension - Continue home Lisinopril 5 mg po daily Hyperlipidemia: chronic - Continue simvastatin 40 mg po daily Anxiety: chronic - Continue 0.5 mg po ativan PRN anxiety - Psych consult ? depression vs catatonia -seen by Psych no catatonia Depression: chronic/ stable - continue bupropion and lorazepam Code status: Full Code DVT prophylaxis: heparin Quality Stroke Does the patient have a stroke diagnosis?: No VTE Prior VTE?: No VTE Risk Level:: Medical - moderate - high VTE Device Contraindication: Treatment Not Indicated VTE Drug Contraindication: N/A - Med Ordered
--- NOTE | 2023-10-09 12:06 | HO.WOUND ---
Wound Consult: Initial 88yr old?female [place] [facility] - See progress notes and H&P for detailed history.? Wound consult placed for buttock and abdominal skin fold.? Patient agreeable to assessment and photo documentation.? Abdominal Skin Fold Etiology: ??MASD (Moisture Associated Skin Damage - Intertrigo) Present on Admission Wound Bed: linear area along base of fold with red moist partial thickness tissue loss Drainage / Odor: none noted Edges: ? linear Delia wound: Intact ? No Induration, Fluctuance or Warmth noted Pain: tenderness reported Goals of Treatment: ? Moist wound healing and protect from friction and moisture ? Sacrum and Gluteal Fold Etiology: ??MASD (Moisture Associated Skin Damage - Intertrigo) Present on Admission Wound Bed: linear area along base of fold with red moist partial thickness tissue loss - red pink hyperpigmented tissue remains intact and blanchable Drainage / Odor: none noted Edges: ? linear and irregular Delia wound: Intact ? No Induration, Fluctuance or Warmth noted Pain: tenderness reported Goals of Treatment: ? Moist wound healing and protect from friction and moisture Recommendations: 1. Turn and Reposition every 2 hours and as needed for patient comfort.? Use pillows or wedges to support off loading positions. 2. Off Load all bony prominences with use of pillows and heel boots if needed.? Apply Preventative foams where needed. ? 3. Monitor for incontinence and moisture control, use barrier creams when needed for prevention and treatment. 4. Provide adequate and supplemental nutrition.? 5. Order low air loss mattress. 6. When applicable maintain blood glucose levels per Providers order. 7. Sacrum and Gluteal Fold - Off Load Pressure? - Cleanse with PH balance spray or wipes, pat dry. ?Apply thin layer of Triad to wound bed. Do not remove all of paste between applications as this may cause further skin damage.? Reapply thin layer PRN after each episode of incontinence. 8. Abdominal Skin Fold - Cleanse with PH balance spray or wipes, pat dry. ?Apply thin layer of Triad to wound bed. Do not remove all of paste between applications as this may cause further skin damage.? Reapply thin layer twice daily. Re-consult wound care Nurse for wound deterioration or wound changes.
[2023-10-09 12:35] LABS: Hematocrit 43.4 % (37.0-47.0); Hemoglobin 14.5 g/dl (12.0-16.0); Mean Corpuscular HGB Conc 33.4 g/dl (31.0-35.0); Mean Corpuscular Hemoglobin 30.4 pg (27.0-33.0); Mean Platelet Volume 10.5 fL (9.4-12.3); Platelet Count 199 X10*3/uL (160-400); Red Blood Count 4.77 X10*6/uL (4.20-5.50); Red Cell Distribution Width 13.2 % (11.0-16.0); White Blood Count 15.6 X10*3/uL (4.8-10.8)
[2023-10-09 12:59] LABS: Anion Gap 13 (12-20); Blood Urea Nitrogen 15 mg/dL (9-16); Calcium 8.7 mg/dL (8.4-10.2); Carbon Dioxide 24 mmol/L (22-29); Chloride 103 mmol/L (96-108); Creatinine Clr Calc Pharmacy 59.1; Estimated Glomerular Filt Rate > 60; Glucose Random 103 mg/dL (60-115); Potassium 3.6 mmol/L (3.3-5.1); Sodium 136 mmol/L (135-145)
[2023-10-09 14:56] LABS: Prothrombin Time Whole Bld POC 12.7 sec (11.1-13.5); ~PT, ~INR - Anti Coag Clinic 1.1 (0.9-1.1)
[2023-10-09] MEDS: Melatonin 3 MG TABLET 6 MG PO (21:35)
[2023-10-09] MEDS: diphenhydrAMINE HCL 25 MG CAPSULE PO (21:35)
[2023-10-10 04:00] VITALS: BP 138/65; PULSE 73; RESP 18; TEMP 36.7; O2SAT 93
[2023-10-10 07:25] VITALS: BP 153/70; PULSE 77; RESP 18; TEMP 36.6; O2SAT 93
[2023-10-10] MEDS: Atorvastatin Calcium 80 MG TABLET PO (09:00)
[2023-10-10] MEDS: Cholecalciferol (Vitamin D3) 25 MCG TABLET PO (09:00)
[2023-10-10] MEDS: Acetaminophen 325 MG TABLET PO ×2 (09:00→20:24)
[2023-10-10] MEDS: Furosemide 40 MG TABLET PO (09:00)
[2023-10-10] MEDS: cefuroxime axetiL 250 MG TABLET PO ×2 (09:00→20:25)
[2023-10-10] MEDS: Aspirin Enteric Coated 81 MG TABLET.DR PO (09:00)
[2023-10-10] MEDS: buPROPion HCl XL 300 MG TAB.ER.24H PO (09:00)
[2023-10-10] MEDS: Ascorbic Acid 500 MG TABLET PO (09:00)
[2023-10-10] MEDS: lisinopriL 5 MG TABLET PO (09:46)
[2023-10-10] MEDS: 0.9 % Sodium Chloride Flush 3 ML SYRINGE IVFLUSH ×3 (09:47→20:25)
--- NOTE | 2023-10-10 11:52 | P.PNIM_ITS ---
Subjective Subjective Date of Service: 10/10/23 Interval History: f/u tia, uti aphasia resolved, no longer confused, still generally week Physical Exam 2 Vital Signs: Vital Signs: Last Vital Signs Temp 97.8 F 10/10/23 07:25 Pulse 77 10/10/23 07:25 Resp 18 10/10/23 07:25 BP 153/70 H 10/10/23 07:25 Pulse Ox 93 10/10/23 07:25 O2 Del Method Room Air 10/10/23 07:25 BMI result Body Mass Index 34.1 Objective Data Active Medications Acetaminophen (Acetaminophen 325 Mg Tablet) 650 mg PO Q6H PRN PRN Reason: Pain, Mild (Pain Scale 1-3), fever or headache Last Admin: 10/08/23 04:13 Dose: 650 mg Documented By: JOB Acetaminophen (Acetaminophen 325 Mg Tablet) 325 mg PO BID [facility] Last Admin: 10/10/23 09:00 Dose: 325 mg Documented By: RICARDO Ascorbic Acid (Ascorbic Acid 500 Mg Tablet) 500 mg PO DAILY [facility] Last Admin: 10/10/23 09:00 Dose: 500 mg Documented By: RICARDO Aspirin (Aspirin Enteric Coated 81 Mg Tablet.) 81 mg PO DAILY [facility] Last Admin: 10/10/23 09:00 Dose: 81 mg Documented By: RICARDO Atorvastatin Calcium (Atorvastatin Calcium 80 Mg Tablet) 80 mg PO DAILY [facility] Last Admin: 10/10/23 09:00 Dose: 80 mg Documented By: RICARDO Bupropion HCl (Bupropion Hcl Xl 300 Mg Tab.Er.24h) 300 mg PO DAILY [facility] Last Admin: 10/10/23 09:00 Dose: 300 mg Documented By: RICARDO Calcium Carbonate (Calcium Carbonate 750 Mg Tab.Chew) 750 mg PO Q4H PRN PRN Reason: Heartburn Cefuroxime Axetil (Cefuroxime Axetil 250 Mg Tablet) 250 mg PO BID [facility] Last Admin: 10/10/23 09:00 Dose: 250 mg Documented By: RICARDO Diphenhydramine HCl (Diphenhydramine Hcl 25 Mg Capsule) 25 mg PO BEDTIME PRN PRN Reason: Sleep Last Admin: 10/09/23 21:35 Dose: 25 mg Documented By: LAFLAMC Furosemide (Furosemide 40 Mg Tablet) 40 mg PO DAILY [facility]; Protocol Last Admin: 10/10/23 09:00 Dose: 40 mg Documented By: RICARDO Heparin Sodium (Porcine) (Heparin Sodium,Porcine 5,000 Unit/Ml Vial) 5,000 unit SUBCUT Q12H [facility] Last Admin: 10/09/23 22:58 Dose: 5,000 unit Documented By: LORI Lisinopril (Lisinopril 5 Mg Tablet) 5 mg PO DAILY [facility]; Protocol Last Admin: 10/10/23 09:46 Dose: 5 mg Documented By: RICARDO Lorazepam (Lorazepam 0.5 Mg Tablet) 0.5 mg PO DAILY PRN PRN Reason: Anxiety Magnesium Hydroxide (Milk Of Magnesia 30 Ml Oral.Susp) 30 ml PO DAILY PRN PRN Reason: Constipation Last Admin: 10/08/23 17:52 Dose: 30 ml Documented By: SUSAN Melatonin (Melatonin 3 Mg Tablet) 6 mg PO BEDTIME PRN PRN Reason: Insomnia Last Admin: 10/09/23 21:35 Dose: 6 mg Documented By: LORI Melatonin (Melatonin 3 Mg Tablet) 9 mg PO BEDTIME PRN PRN Reason: Sleep Sodium Chloride (0.9 % Sodium Chloride Flush 3 Ml Syringe) 3 ml IVFLUSH QSHIFT [facility] Last Admin: 10/10/23 09:47 Dose: 3 ml Documented By: RICARDO Vitamin D (Cholecalciferol (Vitamin D3) 25 Mcg Tablet) 25 mcg PO DAILY [facility] Last Admin: 10/10/23 09:00 Dose: 25 mcg Documented By: RICARDO Labs 10/09/23 12:25 10/09/23 12:25 Labs: Laboratory Results - last 24 hr 10/07/23 10/09/23 09:47 12:25 MCV 91.0 MCH 30.4 MCHC 33.4 RDW 13.2 Plt Count 199 MPV 10.5 Absolute Nucleated RBC 0.000 Nucleated RBC % (auto) 0.0 Whole Blood PT 12.7 Whole Blood INR 1.1 Anion Gap 13 Estim Creat Clear Calc 59.1 Estimated GFR > 60 Random Glucose 103 Calcium 8.7 D Assessment and Plan (1) Brain TIA: Status: Acute Plan 88 yo F anxiety, anemia, dementia, depression, htn, hld, obesity, cardiac murmur, primary insomnia, depression presneted w/ AMS ( following commands but mute) LKWT 11:30 pm last night 10/06/2023 which has since resolved, patient appears to be around normal baseline at this time speaking and following commands w/o neuro deficits. Admission for TIA TIA both CT and MR no acute finding, aphasia resolved, still with some weakness which could be realted to UTI, seen by neur -preventative measures with ASA, statin, PT/OT UTI--continue cefuroxime, repeat UA was unremarkable, wbc treanding juma Hypertension - Continue home Lisinopril 5 mg po daily Hyperlipidemia: chronic - Continue simvastatin 40 mg po daily Anxiety: chronic - Continue 0.5 mg po ativan PRN anxiety - Psych consult ? depression vs catatonia -seen by Psych no catatonia Depression: chronic/ stable - continue bupropion and lorazepam Code status: Full Code DVT prophylaxis: heparin anticiapated dc to rehab tomorrow Quality Stroke Does the patient have a stroke diagnosis?: No VTE Prior VTE?: No VTE Risk Level:: Medical - moderate - high VTE Device Contraindication: Treatment Not Indicated VTE Drug Contraindication: N/A - Med Ordered
[2023-10-10 12:00] VITALS: BP 119/58; PULSE 80; RESP 20; TEMP 36.2; O2SAT 94
[2023-10-10] MEDS: Heparin Sodium,Porcine 5,000 UNIT/ML VIAL 5000 UNIT SUBCUT ×2 (12:13→23:20)
[2023-10-10 15:17] VITALS: BP 116/56; PULSE 76; RESP 20; TEMP 36.3; O2SAT 94
[2023-10-10 20:00] VITALS: BP 130/63; PULSE 78; RESP 20; TEMP 36.3; O2SAT 94
[2023-10-10] MEDS: diphenhydrAMINE HCL 25 MG CAPSULE PO (20:25)
[2023-10-10 23:42] VITALS: BP 126/58; PULSE 77; RESP 20; TEMP 36.1; O2SAT 94
[2023-10-11 03:46] VITALS: BP 123/57; PULSE 74; RESP 20; TEMP 36.2; O2SAT 94
[2023-10-11 07:58] VITALS: BP 143/65; PULSE 80; RESP 20; TEMP 36.3; O2SAT 94
[2023-10-11] MEDS: Furosemide 40 MG TABLET PO (08:09)
[2023-10-11] MEDS: cefuroxime axetiL 250 MG TABLET PO (08:09)
[2023-10-11] MEDS: lisinopriL 5 MG TABLET PO (08:09)
[2023-10-11] MEDS: Aspirin Enteric Coated 81 MG TABLET.DR PO (08:09)
[2023-10-11] MEDS: Ascorbic Acid 500 MG TABLET PO (08:09)
[2023-10-11] MEDS: Cholecalciferol (Vitamin D3) 25 MCG TABLET PO (08:09)
[2023-10-11] MEDS: Atorvastatin Calcium 80 MG TABLET PO (08:09)
[2023-10-11] MEDS: Acetaminophen 325 MG TABLET PO (08:10)
[2023-10-11] MEDS: 0.9 % Sodium Chloride Flush 3 ML SYRINGE IVFLUSH (08:10)
[2023-10-11] MEDS: buPROPion HCl XL 300 MG TAB.ER.24H PO (08:10)
--- NOTE | 2023-10-11 10:35 | MHC.CM.PN ---
IMM 10/11/23, CM MET W/PT'S DTR OUTSIDE OF ROOM, BRIE AGREEABLE TO STR AT [facility] AT 1:30PMMIGUEL FOR BLS TRANSPORT
[2023-10-11 10:43] VITALS: BP 143/65; PULSE 80; O2SAT 94
--- NOTE | 2023-10-11 10:50 | PM.DS ---
DS: Providers Provider Date of Service: 10/11/23 Date of admission: 10/08/23 12:14 Date of discharge: 10/11/23 Primary care physician: Roberto Kenney MD Consults: 10/07/23 11:17 Consult to Neurology Routine Consulting Provider: [facility] [place] [facility] Reason for consultation: Aphasia ? TIA 10/07/23 11:39 Consult to Psychiatry Stat Consulting Provider: Psych Covering Reason for consultation: depression vs catatonia 10/08/23 18:59 Consult to Wound Care Routine Reason for consultation: Redness to buttocks, skin tear to abd folds DS: Diagnosis Discharge Diagnosis (1) Brain TIA: Status: Acute DS: Summary Hospital Course Hospital Course: admission hpi Chief Complaint: Altered Mental Status This is an 88 yo F who lives at home w/ daughter hx anxiety, anemia, dementia, depression, htn, hld, obesity, cardiac murmur, primary insomnia, depression presenting to the ED with AMS LKWT 11:30 pm last night, daughter noted that she was staring off in space, making strange noises, daughter then gave ativan that usually helps with these symptoms without relief of symptoms. Patient was noted to be following commands in the ED but was mute on arrival later noted to be verbal and told ED attending she was able to understand what was going on but was unable to speak. She had presented multiple times 09/26/, 09/30, 10/02 for similar CC however at those times negative stroke work ups. Noted to possibly have UTIs recently however unclear. Patient not on blood thinners. States she doesnt think she is anxious and has intermittent depression, last psych admission years ago at [facility] for severe depression. Patient was a former smoker 40 years ago. Denies cp, sob, nausea, vomiting, hedache, trauma, vision changes, dizziness, weakness, abd pain, fevers, chills. In the ED today patient noted to have leukocytosis 12.1 w/ no shift. Chemistry unremarkable. Trop negative X 1, non ischemic EKG (SR w/ premature supraventricular complexes, LAD, LBBB) . Patient had a negative Head CT in the ED today no evidence of acute hemorrhage, infarction or other intracranial pathology. No CTA done today or UA. MRI will be ordered by this PA-C prior to admission. Stroke cordinator and Neuro aware of case and will follow not TNK candidate hospital course: TIA. Patient presented with confusion with initial concern of stroke or TIA. She had a CT of the head and an MRI of the head which both showed no acute stroke. The aphasia has resolved and no further occurance while in the hospital. She was seen by Neurology with recommendation for MRI and vascular surgery evaluation for assessment of carotid stenosis. For now she is on ASA, Statin, PT and OT has seen her and recommend STR Carotid stenosis 1. RIGHT: Moderate, hemodynamically significant stenosis of the proximal right internal carotid artery corresponding to a 50-79% stenosis by velocity criteria. 2. LEFT: Minimal, non-hemodynamically significant stenosis of the proximal left internal carotid artery corresponding to a 0-49% stenosis by velocity criteria. 3. There is no change in the category severity of disease when compared to the previous study dated 05/25/2005. 4. Elevated velocities in the left subclavian artery consistent with stenosis. Findings discussed with Dr. Boogie Vascular surgeon, unlikely cause of symptoms but will see in the office UTI--culture negaive, cefuroxime for 5 days Hypertension - Continue home Lisinopril 5 mg po daily Hyperlipidemia: chronic - Continue simvastatin 40 mg po daily Anxiety: chronic - Continue 0.5 mg po ativan PRN anxiety - Psych consult ? depression vs catatonia -seen by Psych no catatonia Depression: chronic/ stable - continue bupropion and lorazepam Time Attestation Discharge Coordination Time (in mins): 45 Quality: Safe Use of Opioids Does Pt have an Active Cancer Diagnosis on the Problem List?: No Quality: Stroke Does the patient have a stroke diagnosis?: No Physical Exam Vital Signs: Vital Signs: Last Vital Signs Temp 97.3 F 10/11/23 07:58 Pulse 80 10/11/23 10:43 Resp 20 10/11/23 07:58 BP 143/65 H 10/11/23 10:43 Pulse Ox 94 10/11/23 10:43 O2 Del Method Room Air 10/11/23 07:58 BMI result Body Mass Index 34.1 General: AO X 3, no acute distress Resp: CTA bilateral CVS: S1,S2,RRR GI: +BS, NT, no distention Skin: No rash Neuro: motor grossly intact, NF deficit Psych: appropriate affect Discharge Plan Discharge Anticipated Discharge Date/Time: 10/11/23 11:07 Patient Disposition: Xfer SNF Discharge Diagnosis: TIA, UTI Referrals: [facility] [Outside] - 1 Day (SHORT TERM REHAB) Roberto Kenney MD [Primary Care Provider] - 1 Week [place] Boogie MD [Physician] - 1 Week Discharge Medications: New cefuroxime axetil 250 mg Tablet 250 mg PO BID Qty: 4 0RF aspirin 81 mg capsule 81 mg PO DAILY Qty: 30 0RF Continued (DME) Transport Wheelchair See Rx Instructions .Route .MEDSUPPLY Qty: 1 0RF Rx Instructions: As directed furosemide 40 mg tablet 40 mg PO DAILY Qty: 90 3RF lisinopril 5 mg tablet 5 mg PO DAILY Qty: 90 5RF simvastatin 40 mg tablet 40 mg PO DAILY Qty: 90 1RF lorazepam 0.5 mg tablet 0.5 mg PO DAILY PRN (Reason: Anxiety) acetaminophen [Tylenol Extra Strength] 500 mg Tablet 500 mg PO BID ascorbic acid (vitamin C) [Vitamin C] 500 mg Tablet 500 mg PO DAILY diphenhydramine HCl [Benadryl] 25 mg Capsule 25 mg PO BEDTIME PRN (Reason: Sleep) cholecalciferol (vitamin D3) [Vitamin D3] 25 mcg (1,000 unit) Tablet 25 mcg PO DAILY cefuroxime axetil 250 mg tablet 250 mg PO BID 5 Days Qty: 10 0RF Rx Instructions: End date 10-09-23 melatonin 10 mg tablet 10 mg PO BEDTIME PRN (Reason: Sleep) bupropion HCl 300 mg tablet extended release 24 hr 300 mg PO DAILY Discharge Orders: Discharge Order (Routine); Ordered 10/11/23 Ordered By: Reymundo Murdock Diet: Advance to usual diet Activity on Discharge: As tolerated Stand Alone Forms: Patient Portal Discharge page Print Language: Yemeni Care Plan Goals: Recovery from TIA, UTI, weakness Health Concerns: TIA, carotid stenosis, UTI, weakness Plan of Treatment: take cefuroxime as directed to short term rehab follow up with Dr. Boogie for carotid stenosis Assessment: see
[2023-10-11] MEDS: Heparin Sodium,Porcine 5,000 UNIT/ML VIAL 5000 UNIT SUBCUT (10:59)
[2023-10-11 11:48] VITALS: BP 126/65; PULSE 79; RESP 12; TEMP 37; O2SAT 92
== END 2023-10-11 13:45 | disposition skilled nursing facility (03) | DRG 69 ==
LOC: HO.ED 10:55 → HO.EDOVER 12:09 → HO.IMC 19:39
PROVIDERS: Admitting Provider Physician Assistant; Emergency Provider Emergency Medicine; PCP Internal Medicine; Visit Provider Internal Medicine
DX: G45.9 Transient cerebral ischemic attack, unspecified (principal); N39.0 Urinary tract infection, site not specified; R47.01 Aphasia; F33.9 Major depressive disorder, recurrent, unspecified; F03.90 Unspecified dementia, unspecified severity, without behavioral disturbance, psychotic disturbance, mood disturbance, and anxiety; E78.5 Hyperlipidemia, unspecified; I65.21 Occlusion and stenosis of right carotid artery; I10 Essential (primary) hypertension; F41.9 Anxiety disorder, unspecified; Z87.891 Personal history of nicotine dependence; Z79.82 Long term (current) use of aspirin; Z79.899 Other long term (current) drug therapy
CPT/HCPCS: 36415; 70450; 70551; 71045; 80048; 80061; 81003; 82947; 84484; 85025; 85027; 85610; 85730; 92610; 93005; 93880; 97110; 97116; 97162; 97166; 97530; 97535; 99222; 99223; 99285; J1644

== ENCOUNTER → 2023-10-07 12:03 | Outpatient (BNV) | payer MEDICARE, OTHER, SELFPAY | PROVIDERS: Admitting Provider Physician Assistant; Emergency Provider Emergency Medicine; PCP Internal Medicine; Visit Provider Psychiatry & Neurology Neurology | DX: I65.21 Occlusion and stenosis of right carotid artery (principal); F03.918 Unspecified dementia, unspecified severity, with other behavioral disturbance | CPT/HCPCS: 99222 ==

== ENCOUNTER → 2023-10-08 12:14 | Outpatient (BNV) | payer MEDICARE, OTHER, SELFPAY | PROVIDERS: Admitting Provider Physician Assistant; Emergency Provider Emergency Medicine; PCP Internal Medicine; Visit Provider Internal Medicine | DX: G45.9 Transient cerebral ischemic attack, unspecified (principal) | CPT/HCPCS: 99232; 99239 ==

== ENCOUNTER 2023-11-28 14:02 | Outpatient (AMB) | payer MEDICARE, OTHER, SELFPAY ==
--- NOTE | 2023-11-28 14:05 | A.OFFVIS_ITS ---
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 She had been s ubsequently worked up by the emergency room and was noted to have carotid stenosis. She was negative for stroke. The family did indicate that whenever she had a UTI she develops these aphasia type symptoms. Since her hospitalization she reports no further recurrent events. She now presents for follow-up with carotid ultrasound and CT angio. Upon discussion with her she denies any lateralizing signs or symptoms weakness in arm or leg or evidence of any garbled speech. COUNTS INCLUDE 234 BEDS AT THE [facility] Medical History Morbid obesity with BMI of 40.0-44.9, adult Dementia Impaired fasting glucose Depression Primary insomnia Seasonal allergic rhinitis Vitamin D deficiency Cardiac murmur Pure hypercholesterolemia Benign essential hypertension Surgical History History of cataract surgery History of nasal surgery History of lumpectomy of right breast History of tonsillectomy Family History Father Prostate cancer Mother Lung cancer Bone cancer Social History Household Members: Family Housing: House Unable to assess alcohol history related to: Unknown Alcohol intake: former Patient Tobacco Use Status: Former Tobacco user e-Cigarette/Vaping Use: Never Used Second Hand Smoke Exposure: Yes Advance Directives Date on File: 10/07/23 service: No Current occupational status: retired Cognitive needs: No Hearing needs: No Vision needs: Yes Review of Systems Const All systems reviewed & are unremarkable except as noted in HPI and below Reports no additional complaints ENT Reports Normal hearing present Card Denies chest pain, Denies chest pain at rest, Denies chest pain with activity and Denies pedal edema Resp Denies cough GI Denies abdominal pain Musc Denies abnormal gait, Denies muscle cramps and Denies radiating pain into limb Skin/Breast Denies skin ulcer and Denies wounds Neuro Reports Normal hearing present and Denies abnormal gait Psych Reports no additional complaints Physical Exam Const General: cooperative, healthy appearing and comfortable Orientation/consciousness: oriented to person, oriented to place and oriented to time HEENT Head: Yes normal to inspection Neck Neck: Yes normal visual inspection Carotids: no bruits Chest Chest palpation & inspection: normal inspection of the chest Resp Effort & Inspection: normal respiratory effort and able to speak in complete sentences Auscultation: clear to auscultation bilaterally, no crackles, no rales, no rhonchi and no wheezes Cardio Rate: regular rate Rhythm: regular rhythm Heart sounds: S1 normal heart sound present and S2 normal heart sound present Bruits: no carotid bruits Peripheral pulses: Peripheral pulses 2+ throughout GI Inspection: Yes normal to inspection Skin Wounds: no wounds Hair: normal Neuro General: oriented to person, oriented to place and oriented to time Cranial nerves: Yes CN's II-XII intact bilaterally and Yes Normal hearing present Cognition (Neuro): normal cognition Motor exam (neuro): 5/5 motor strength present throughout Extrem Other: venous exam: No significant superficial varicosities or spider telangiectasias , minimal edema General: No clubbing, No cyanosis and No edema Psych Appearance: grossly normal Mental Status: mental status grossly normal Speech and movement: Normal speech and movement present Results Reviewed Results Reviewed: Carotid ultrasound on 10/07/2023 demonstrates right side 50-79% left-sided 0-49% stenosis. CTA of head and neck on 09/28/2023 demonstrates right side of 70% and left-sided less than 50%. Written report and images were reviewed. Assessment & Plan Assessment & Plan (1) Bilateral carotid artery stenosis: Code(s): I65.23 - Occlusion and stenosis of bilateral carotid arteries Category: Medical Plan: In short I believe this patient has asymptomatic carotid stenosis. I do not believe her aphasic event is related to her carotid disease. I did have an extensive discussion about the pathophysiology of carotid disease and a discussion about stroke. She will continue on aspirin and statin. I have taken the liberty of ordering a surveillance carotid ultrasound in approximately 6 months time. Would like to manage her as conservatively as possible due to her overall age and comorbid conditions. Thank you for allowing us to assist in her care. If there are any questions or concerns please do not hesitate to contact us. Please note a longitudinal relationship has been created with the patient and we have been following and surveillance this chronic condition. Orders: Orders US carotid duplex BI 6 Months I65.23 - Occlusion and stenosis of bilateral car otid arteries Coding Level of Care Code Est Pt Level 4 (24114) Complex EM visit Add On G2211 Diagnoses Bilateral carotid artery stenosis I65.23
== END 2023-11-28 14:29 | disposition home or self-care (01) ==
PROVIDERS: PCP Internal Medicine; Visit Provider Surgery Vascular Surgery
DX: I65.23 Occlusion and stenosis of bilateral carotid arteries (principal)
CPT/HCPCS: 99214; G2211

== ENCOUNTER → 2023-11-28 14:02 | Outpatient (BNVA) | payer MEDICARE, OTHER, SELFPAY | PROVIDERS: PCP Internal Medicine; Visit Provider Surgery Vascular Surgery | DX: I65.23 Occlusion and stenosis of bilateral carotid arteries (principal) | CPT/HCPCS: 99212 ==

== ENCOUNTER 2023-11-29 10:52 | Outpatient (REF) | payer MEDICARE, OTHER, SELFPAY | END 2023-11-29 10:53 | disposition home or self-care (01) | LOC: HO.LAB 10:52 | PROVIDERS: PCP Internal Medicine; Visit Provider Nurse Practitioner Family | DX: E87.6 Hypokalemia (principal) | CPT/HCPCS: 36415; 84132; 99212 ==

== ENCOUNTER 2023-11-29 10:52 | Outpatient (AMB) | payer MEDICARE, OTHER, SELFPAY ==
--- NOTE | 2023-11-29 10:53 | MHC.PC.OV ---
Vital Signs 11/29/23 10:54 Height 5 ft 5 in BMI Reason not done Patient refused/unable BP 110/64 Blood Pressure Location Lt brachial Position Sitting Pulse 87 Pulse Source Pulse Oximeter Pulse Oximetry (%) 96 Oxygen Delivery Method Room Air Intake Visit Reasons: Discharge 11/18 [facility] Intake Note: [facility], out of both, looking to see if Dr. Kenney will be taking the prescription over or if she no longer needs to take them. Early Intervention Specialist Required: No Accompanied by: Self / Same As Patient Allergies penicillin G [Penicillin G] Allergy (Severe, Verified 11/29/23 10:55) Hives cucumber Allergy (Unknown, Verified 11/29/23 10:55) hives strawberry Allergy (Unknown, Verified 11/29/23 10:55) hives Tobacco use date assessed: 03/25/23 Fall risk assessment: 2 + Falls in past year (Has fallen 4 times) Last assessed Fall Risk: 11/29/23 Dental Screening Dental Screen Date: 03/25/23 HPI HPI Comments History of Present Illness Details 88 y/o female patient who presents to the clinic for SNF discharged. She was admitted at [facility] on 10/11/23 after she was found to have UTI and TIA symptoms. She was discharged home on 11/20/23. 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 She was seen and evaluated by Vascular surgery - they are monitoring symptoms for now, and in 6 months they will repeat U/S Neck. Today she is accompanied by daughter who provides history. Pt had low Potassium serum levels while in Rehab, and was discharged home on Potassium Oral x 7 days. Daughter asking if she will need more Potassium Pills. [facility] Medical History Morbid obesity with BMI of 40.0-44.9, adult Dementia Impaired fasting glucose Depression Primary insomnia Seasonal allergic rhinitis Vitamin D deficiency Cardiac murmur Pure hypercholesterolemia Benign essential hypertension Surgical History History of cataract surgery History of nasal surgery History of lumpectomy of right breast History of tonsillectomy Family History Father Prostate cancer Mother Lung cancer Bone cancer Social History Household Members: Family Housing: House Unable to assess alcohol history related to: Unknown Alcohol intake: former Patient Tobacco Use Status: Former Tobacco user Tobacco use type: Cigarette e-Cigarette/Vaping Use: Never Used Second Hand Smoke Exposure: Yes Advance Directives Date on File: 10/07/23 service: No Current occupational status: retired Cognitive needs: No Hearing needs: No Vision needs: Yes Questionnaire PHQ-9 Over the last 2 weeks, how often have you been bothered by any of the following problems? 1. Little interest or pleasure in doing things: not at all 2. Feeling down, depressed, or hopeless: not at all 3. Trouble falling or staying asleep, or sleeping too much: not at all 4. Feeling tired or having little energy: not at all 5. Poor appetite or overeating: not at all 6. Feeling bad about yourself - or that you are a failure or have let yourself or your family down: not at all 7. Trouble concentrating on things, such as reading the newspaper or watching television: not at all 8. Moving or speaking so slowly that other people could have noticed. Or the opposite - being so fidgety or restless that you have been moving around a lot more than usual: not at all 9. Thoughts that you would be better off or of hurting yourself in some way: not at all Total score: 0 Depression Screening Interpretation: Negative Depression Screening Done: Yes 36907 - PHQ-9 Billing: Yes Source: Developed by Drs. Gregorio Wallace, Leonor Kumar, Luciano Martinez and colleagues, with an educational daniel from [email or web address]. Thrive Questionnaire Date Thrive assessed: 10/08/23 Are you currently unemployed and looking for a job?: No AUDIT C Alcohol Use Questionnaire (AUDIT-C) 1. How often do you have a drink containing alcohol?: Monthly or less 2. How many drinks containing alcohol do you have on a typical day when you are drinking?: 1 or 2 3. How often do you have six or more drinks on one occasion?: Never Total Score: 1 Score Reviewed/Action Taken: Yes LISSETTE-7 AMB Questionnaire LISSETTE-7 Date LISSETTE - 7 assessed: 03/25/23 Source: Developed by Drs. Gregorio Wallace, Leonor Kumar, Luciano Martinez and colleagues, with an educational daniel from [email or web address]. Review of Systems Const All systems reviewed & are unremarkable except as noted in HPI and below Physical exam (Primary Care) Vital Signs: Last Vital Signs Pulse 87 11/29/23 10:54 BP 110/64 11/29/23 10:54 Pulse Ox 96 11/29/23 10:54 Oxygen Delivery Method Room Air 11/29/23 10:54 Tobacco/Smoking Status: Tobacco use Status Tobacco use date assessed 03/25/23 11/29/23 10:59 Patient Tobacco Use Status Former Tobacco user 11/29/23 10:59 Tobacco use type Cigarette 11/29/23 10:59 e-Cigarette/Vaping Use Never Used 11/29/23 10:59 PHQ-9: PHQ-9 Score PHQ-9: Total score 0 11/29/23 10:59 Depression Screening Interpretation: Negative Thrive Assessment: Date of Thrive Assessment Date Thrive assessed 10/08/23 11/29/23 10:59 Const General: cooperative and no acute distress Nutritional Appearance: obese Orientation/consciousness: patient oriented x3 Limitations: wheelchair (Pt prefers wheelchair for ambulation due to LE weakness. ) Resp Effort & Inspection: normal respiratory effort Auscultation: clear to auscultation bilaterally Cardio Heart sounds: S1 normal heart sound present and S2 normal heart sound present Neuro Other: Prefers to use Wheelchair for Ambulation. She uses walker in doors only. General: patient oriented x3 and moves all extremities Coding Level of Care Code Est Pt Level 4 (62598) Diagnoses Low serum potassium level E87.6 Time Spent (min) 20 Comment Spent reviewing Hospital notes and Patient education. Assessment & Plan Assessment & Plan (1) Low serum potassium level: Code(s): E87.6 - Hypokalemia Plan: Ordered Potassium levels, Pt to get labs done today before leaving. If levels still low will order Potassium Discussed Diets high in Potassium such as Bananas. Orders: Orders Potassium, Serum Today E87.6 - Hypokalemia
[2023-11-29 10:54] VITALS: BP 110/64; PULSE 87; O2SAT 96
== END 2023-11-29 11:20 | disposition home or self-care (01) ==
PROVIDERS: PCP Internal Medicine; Visit Provider Nurse Practitioner Family
DX: E87.6 Hypokalemia (principal)

== ENCOUNTER 2024-01-18 10:18 | Outpatient (REF) | payer MEDICARE, OTHER, SELFPAY ==
[2024-01-18 10:35] LABS: MANUAL DIFF FLAG NO
[2024-01-18 10:39] LABS: Basophils Absolute Auto 0.1 X10*3/uL (0.0-0.2); Basophils Percent Auto 0.5 % (0-2); Eosinophils Absolute Auto 0.2 X10*3/uL (0.0-0.4); Eosinophils Percent Auto 2.3 % (0-4); Hemoglobin 14.5 g/dl (12.0-16.0); Imm Gran Abs Auto 0.04 X10*3/uL (0.00-0.03); Imm Gran Pct Auto 0.4 % (0.0-0.4); Lymphocytes Absolute Auto 1.3 X10*3/uL (1.2-4.9); Lymphocytes Percent Auto 13.6 % (20-40); Mean Corpuscular HGB Conc 32.2 g/dl (31.0-35.0); Mean Corpuscular Hemoglobin 29.6 pg (27.0-33.0); Mean Corpuscular Volume 91.8 fL (80.0-98.0); Mean Platelet Volume 9.6 fL (9.4-12.3); Monocytes Absolute Auto 1.3 X10*3/uL (0.1-1.2); Monocytes Percent Auto 14.3 % (2-11); Neutrophils Absolute Auto 6.3 x10*3/uL (2.0-8.3); Neutrophils Percent Auto 68.9 % (45-73); Platelet Count 248 X10*3/uL (160-400); Red Cell Distribution Width 13.7 % (11.0-16.0); White Blood Count 9.2 X10*3/uL (4.8-10.8)
[2024-01-18 10:49] LABS: Appearance Urine Clear; Color Urine Yellow; Glucose Urine UA Negative (Negative); Leukocyte Esterase Urine Small (1+) (Negative); Nitrite Urine Negative (Negative); UMIC TRIGGER UACC YES; Urine Blood Negative (Negative); Urine Ketones Negative (Negative); Urine Protein Negative (Neg-Trace)
[2024-01-18 11:08] LABS: Alanine Aminotransferase 14 U/L (0-31); Albumin Level 3.7 g/dL (3.5-5.0); Alkaline Phosphatase 86 U/L (39-117); Anion Gap 15 (12-20); Aspartate Amino Transferase 23 U/L (5-31); Bilirubin Total 0.5 mg/dL (0.0-1.0); Blood Urea Nitrogen 19 mg/dL (9-16); Calcium 9.6 mg/dL (8.4-10.2); Carbon Dioxide 26 mmol/L (22-29); Chloride 103 mmol/L (96-108); Cholesterol 160 mg/dL (<200); Estimated Glomerular Filt Rate > 60; Glucose Fasting 96 mg/dL (60-99); HDL Cholesterol 58 mg/dL (>40); LDL Cholesterol Calculated 90 mg/dL (<100); Potassium 4.2 mmol/L (3.3-5.1); Sodium 140 mmol/L (135-145); Total Protein 6.9 g/dL (6.5-8.0); Triglycerides 64 mg/dL (<150)
[2024-01-18 11:26] LABS: TSH reflex Free T4 2.72 uIU/mL (0.32-4.0)
[2024-01-18 12:19] LABS: Bacteria Urine None Seen (None Seen); Hyaline Casts Urine 0-2 /LPF (0-2); RBC Urine 0-2 /HPF (0-2); UACC Culture Trigger YES
== END 2024-01-18 10:19 | disposition home or self-care (01) ==
LOC: HO.LAB 10:18
PROVIDERS: PCP Internal Medicine; Visit Provider Internal Medicine
DX: D64.9 Anemia, unspecified (principal); E78.00 Pure hypercholesterolemia, unspecified; E55.9 Vitamin D deficiency, unspecified; R30.0 Dysuria
CPT/HCPCS: 36415; 80053; 80061; 81001; 82306; 84443; 85025; 87086

== ENCOUNTER 2024-01-31 16:42 | Outpatient (AMB) | payer MEDICARE, OTHER, SELFPAY ==
[2024-01-31 16:48] VITALS: BP 100/76; PULSE 76; O2SAT 99; BMI 33.0
--- NOTE | 2024-01-31 16:48 | A.OFFPC_ITS ---
Vital Signs 01/31/24 16:48 Height 5 ft 5 in Weight 198 lb 6.656 oz BMI 33.0 BP 100/76 Blood Pressure Location Lt brachial Position Sitting Pulse 76 Pulse Source Pulse Oximeter Pulse Oximetry (%) 99 Oxygen Delivery Method Room Air Intake Visit Reasons: follow up Pile Driving Technician Required: No Accompanied by: Self / Same As Patient Allergies penicillin G [Penicillin G] Allergy (Severe, Verified 01/31/24 17:05) Hives cucumber Allergy (Unknown, Verified 01/31/24 17:05) hives strawberry Allergy (Unknown, Verified 01/31/24 17:05) hives Medication List - Last Reconciled 01/31/24 by Roberto Kenney MD acetaminophen (Tylenol Extra Strength) 500 mg PO BID ascorbic acid (vitamin C) (Vitamin C) 500 mg PO DAILY aspirin 81 mg PO DAILY bupropion HCl XL 300 mg PO DAILY cholecalciferol (vitamin D3) (Vitamin D3) 25 mcg PO DAILY diphenhydramine HCl (Benadryl) 25 mg PO BEDTIME PRN furosemide 40 mg PO DAILY lisinopril 5 mg PO DAILY lorazepam 0.5 mg PO DAILY PRN melatonin 10 mg PO BEDTIME PRN simvastatin 40 mg PO DAILY [Transport Wheelchair As directed] [Walker with wheels As directed] Tobacco use date assessed: 01/31/24 Fall risk assessment: 2 + Falls in past year Last assessed Fall Risk: 01/31/24 Dental Screening Dental Screen Date: 01/31/24 Did you have a dental visit in the last 12 months?: Yes Did you have a dental problem in the last 6 months where you did not have access to dental care?: No Was dental information given to patient?: Patient has dentist HPI follow up HPI Details Patient comes in today for her follow-up She was just discharged from short-term rehab a few weeks ago, where she spent some time following a brief admission [facility] in September 2023 for TIA symptoms and UTI Her UTI was treated and her work ups for her TIA all came back negative States that she currently feels okay She denies any headaches or dizziness Denies any chest pains, no SOB No nausea/vomiting, no abdominal pain No change in bowel habits noted She had her follow up labs done a couple of weeks ago - to discuss her results Adds that she has been experiencing frequent pain in her left wrist lately - her daughter thinks that this is because she has been holding her Ipad with her left hand for long periods of time everyday while playing on it She initially was hesitant about getting a flu shot - states that she has not gotten a flu shot in years as she recalls one of her friends contracted GBS after getting a flu shot Have explained to patient that GBS is caused by one's immune system attacking his or her own nervous system and can be triggered by anything that stimulates the immune system, including any vaccines as well as any bacterial or viral infection and is not accurately cause by the flu vaccine as she was led to believe - patient eventually agreed to get her flu shot today [facility] Medical History (Updated 01/31/24 @ 19:03 by Roberto Kenney MD) Transient ischemic attack (TIA) Depression Morbid obesity with BMI of 40.0-44.9, adult Dementia Impaired fasting glucose Primary insomnia Seasonal allergic rhinitis Vitamin D deficiency Cardiac murmur Pure hypercholesterolemia Benign essential hypertension Surgical History History of cataract surgery History of nasal surgery History of lumpectomy of right breast History of tonsillectomy Family History Father Prostate cancer Mother Lung cancer Bone cancer Social History Household Members: Family Housing: House Unable to assess alcohol history related to: Unknown Alcohol intake: former Patient Tobacco Use Status: Former Tobacco user Tobacco use type: Cigarette e-Cigarette/Vaping Use: Never Used Second Hand Smoke Exposure: Yes Advance Directives Date on File: 10/07/23 service: No Current occupational status: retired Cognitive needs: No Hearing needs: No Vision needs: Yes Questionnaire PHQ-9 Over the last 2 weeks, how often have you been bothered by any of the following problems? 1. Little interest or pleasure in doing things: not at all 2. Feeling down, depressed, or hopeless: not at all 3. Trouble falling or staying asleep, or sleeping too much: not at all 4. Feeling tired or having little energy: not at all 5. Poor appetite or overeating: not at all 6. Feeling bad about yourself - or that you are a failure or have let yourself or your family down: not at all 7. Trouble concentrating on things, such as reading the newspaper or watching television: not at all 8. Moving or speaking so slowly that other people could have noticed. Or the opposite - being so fidgety or restless that you have been moving around a lot more than usual: not at all 9. Thoughts that you would be better off or of hurting yourself in some way: not at all Total score: 0 Depression Screening Interpretation: Negative Depression Screening Done: Yes 11804 - PHQ-9 Billing: Yes Source: Developed by Drs. Gregorio Wallace, Leonor Kumar, Luciano Martinez and colleagues, with an educational daniel from [employer]. Thrive Questionnaire Date Thrive assessed: 01/31/24 I am a: Patient What is your living situation today?: I have a steady place to live Within the past 12 months, did the food you bought not last and you didn't have the money to get more?: Never true Within the past 12 months, did you worry whether your food would run out before you got money to buy more?: Never true Do you have trouble paying for medicines?: No Do you have trouble getting transportation to medical appointments?: No Do you have trouble paying your heating and electricity bill?: No Do you have trouble taking care of your child, family member or friend?: No Do you have trouble with day-to-day activities such as bathing, preparing meals, shopping, managing finances, etc.?: No Are you currently unemployed and looking for a job?: No Are you interested in more education?: No Please select the resources that you would like help with: None Currently or been in a relationship where the following occur: No concerns reported THRIVE Score: 0 AUDIT C Alcohol Use Questionnaire (AUDIT-C) 1. How often do you have a drink containing alcohol?: Monthly or less 2. How many drinks containing alcohol do you have on a typical day when you are drinking?: 1 or 2 3. How often do you have six or more drinks on one occasion?: Never Total Score: 1 Score Reviewed/Action Taken: Yes LISSETTE-7 AMB Questionnaire LISSETTE-7 Date LISSETTE - 7 assessed: 01/31/24 Feeling nervous, anxious, or on edge: 0 = Not at all Not being able to stop or control worryin = Not at all Worrying too much about different things: 0 = Not at all Trouble relaxin = Not at all Being so restless that it is hard to sit still: 0 = Not at all Becoming easily annoyed or irritable: 0 = Not at all Feeling afraid as if something awful might happen: 0 = Not at all Total LISSETTE-7 score (0-4 normal; 5-9 mild; 10-14 moderate; 15-21 severe): 0 Source: Developed by Drs. Gregorio Wallace, Leonor Kumar, Luciano Martinez and colleagues, with an educational daniel from [employer]. Review of Systems Const Denies chills, Denies difficulty sleeping (takes OTC Melatonin as needed), Denies fatigue, Denies fever(s) and Denies headache(s) ENT Denies dysphagia, Denies dizziness, Denies otalgia, Denies headache(s), Denies neck pain, Denies odynophagia and Denies sore throat Card Denies chest pain, Denies palpitations and Denies dyspnea Resp Denies chest congestion, Denies cough and Denies dyspnea GI Denies abdominal pain, Denies constipation, Denies dysphagia, Denies heartburn, Denies diarrhea, Denies nausea, Denies odynophagia and Denies vomiting Denies difficulty voiding, Denies nocturia, Denies dysuria and Denies urinary urgency Musc Denies back pain, Denies arthralgias and Denies neck pain Skin/Breast Denies rash Neuro Denies dizziness and Denies headache(s) Endo Denies fatigue and Denies palpitations Physical exam (Primary Care) Vital Signs: Last Vital Signs Pulse 76 01/31/24 16:48 BP 100/76 01/31/24 16:48 Pulse Ox 99 01/31/24 16:48 Oxygen Delivery Method Room Air 01/31/24 16:48 BMI result Body Mass Index 33.0 Tobacco/Smoking Status: Tobacco use Status Tobacco use date assessed 01/31/24 01/31/24 16:53 Patient Tobacco Use Status Former Tobacco user 01/31/24 16:48 Tobacco use type Cigarette 01/31/24 16:48 e-Cigarette/Vaping Use Never Used 01/31/24 16:48 PHQ-9: PHQ-9 Score PHQ-9: Total score 0 01/31/24 17:25 Depression Screening Interpretation: Negative Thrive Assessment: Date of Thrive Assessment Date Thrive assessed 01/31/24 01/31/24 16:53 Currently or been in a relationship where the following occur: No concerns reported Const General: no acute distress and alert HENMT Ears: TM's normal bilaterally and EAC's normal Throat: Yes posterior oropharynx normal and Yes tonsils normal (no TP congestion) Neck Neck: Yes supple and No lymphadenopathy Thyroid: Thyroid normal Resp Auscultation: clear to auscultation bilaterally, no rales and no wheezes Cardio Rate: regular rate Rhythm: regular rhythm Heart sounds: Murmur heart sound present systolic II/ GI Palpation (GI): Soft to palpation and nontender Auscultation: normal bowel sounds General: Yes no CVA tenderness Back/Spine/Pelvis Back: no CVA tenderness Thoracic/Lumbar Spine: thoracic and lumbar spine normal to inspection Skin Rashes: no rashes Extrem General: Yes no clubbing, cyanosis or edema Office Procedures Flu Questionnaire Does the patient have a severe egg allergy?: No Does the patient have severe life threatening allergies?: No Does the patient have a fever or illness today?: No Has the patient ever had Guillain-[place] Syndrome?: No Has the patient ever had any past reaction to a flu shot?: No Immunizations Fluarix Triv [id number] (PF) 45 mcg (15 mcg x 3)/0.5 mL IM syringe Performing Provider: Roberto Kenney MD [facility] Administered by: DUSTIN Loya on 01/31/24 17:25 Dose Route Admin Location Dispensed Lot Number Expiration Date [facility] Anesthesiology Faculty 0.5 mL IM Left Deltoid 0.5 mL [id number] 08/17/24 [id number] [employer] VIS Given Date VIS Provided VIS Publication Date 01/31/24 Single Vaccine 20 Eligibility Eligibility Date Funding Source Not [facility] Eligible 01/31/24 Private Results Reviewed Results Reviewed: Laboratory Tests 01/18/24 01/18/24 08:00 10:32 WBC 9.2 Hgb 14.5 Hct 45.0 Plt Count 248 Sodium 140 Potassium 4.2 Creatinine 0.88 Estimated GFR > 60 Fasting Glucose 96 Calcium 9.6 D AST 23 ALT 14 Total Protein 6.9 Albumin 3.7 Triglycerides 64 Cholesterol 160 LDL Cholesterol, Calc 90 HDL Cholesterol 58 25-OH Vitamin D Total 48.0 TSH 2.72 Ur Specific [place] 1.010 Urine Protein Negative Urine Glucose (UA) Negative Urine Blood Negative Urine Nitrite Negative Ur Leukocyte Esterase Small (1+) H Coding Level of Care Code Est Pt Level 4 (32421) Diagnoses Benign essential hypertension I10 Pure hypercholesterolemia E78.00 Cardiac murmur R01.1 Transient ischemic attack (TIA) G45.9 Impaired fasting glucose R73.01 Hypochromic-microcytic anemia D50.9 Vitamin D deficiency E55.9 Seasonal allergic rhinitis, unspecified trigger J30.2 Allergic rhinitis trigger: unspecified Primary insomnia F51.01 Anxiety F41.9 Episode of recurrent major depressive disorder, unspecified depression episode severity F33.9 Depression Type: major depressive disorder Major depression recurrence: recurrent Active/Remission status: currently active Major depression episode severity: unspecified Morbid obesity with BMI of 40.0-44.9, adult E66.01; Z68.41 Additional Codes PHQ-9 - 91050 - PHQ-9 Billing: Yes ([id number]) Assessment & Plan Assessment & Plan (1) Benign essential hypertension: Code(s): I10 - Essential (primary) hypertension Category: Medical Plan: Reinforced low sodium diet - goal is systolic BP of at least 140 to 150 mm or less Continue Lisinopril 5 mg QD and Furosemide 40 mg Q AM (2) Pure hypercholesterolemia: Code(s): E78.00 - Pure hypercholesterolemia, unspecified Category: Medical Plan: Results of her labs done a couple of weeks ago reviewed and discussed with patient Reinforced low cholesterol diet Continue Simvastatin 40 mg QD Will recheck her labs and fasting lipids in 6 months for follow up (3) Cardiac murmur: Code(s): R01.1 - Cardiac murmur, unspecified Category: Medical Plan: Echocardiogram done back in 2004 showed a slight mitral annular calcification and slight sclerosis of the aortic cusps with no significant aortic stenosis. There is mild tricuspid and trace mitral regurgitation.? The right and left ventricles are normal in size with normal systolic function, with a left ventricular ejection fraction of about 65%.? No left ventricular hypertrophy is noted.? The atria are slightly enlarged, with mild pulmonary hypertension and evidence of left ventricular diastolic dysfunction.? Will consider repeat echocardiogram for follow-up, especially if cardiac murmur changes or patient becomes?symptomatic. (4) Transient ischemic attack (TIA): Code(s): G45.9 - Transient cerebral ischemic attack, unspecified Category: Medical Plan: Patient appeared to have suffered a TIA back in September 2023 when she was brought to the hospital but work ups done back then were all negative She was seen by neurology and was advised to start taking Aspirin 81 mg QD, which she is still currently on and should continue on lifetime (5) Impaired fasting glucose: Code(s): R73.01 - Impaired fasting glucose Category: Medical Plan: Her FBS was normal at 96 mg/dl on her recent labs; her HgbA1c was normal at 5.1% on his labs done back in November 2022; it was also normal at 5.0% and 5.3% when previously checked Reinforced low calorie diet - will continue to monitor regularly (6) Hypochromic-microcytic anemia: Code(s): D50.9 - Iron deficiency anemia, unspecified Category: Medical Plan: Improved - H/H was normal at 14.5/45.0 on her labs done a couple of weeks ago Continue FeSo4 325 mg QOD Will recheck her CBC in 6 months for follow up (7) Vitamin D deficiency: Code(s): E55.9 - Vitamin D deficiency, unspecified Category: Medical Plan: Continue Vitamin D3 1000 units QD (8) Seasonal allergic rhinitis: Code(s): J30.2 - Other seasonal allergic rhinitis Category: Medical Qualifiers: Allergic rhinitis trigger: unspecified Qualified Code(s): J30.2 - Other seasonal allergic rhinitis Plan: Continue OTC Benadryl Allergy 25 mg every 8 hours as needed (9) Primary insomnia: Code(s): F51.01 - Primary insomnia Category: Medical Plan: Sleep hygiene reinforced Continue OTC Melatonin 10 mg Q HS PRN (10) Anxiety: Code(s): F41.9 - Anxiety disorder, unspecified Category: Medical Plan: Continue Lorazepam 0.5 mg QD PRN (11) Depression: Comment: (+) Hx of suicide attempt - sees Dr. Laurent Code(s): F32.9 - Major depressive disorder, single episode, unspecified Category: Medical Qualifiers: Depression Type: major depressive disorder Major depression recurrence: recurrent Active/Remission status: currently active Major depression episode severity: unspecified Qualified Code(s): F33.9 - Major depressive disorder, recurrent, unspecified Plan: Continue Bupropion XL 300 mg QD Follow up with Dr. Laurent as scheduled (12) Morbid obesity with BMI of 40.0-44.9, adult: Code(s): E66.01 - Morbid (severe) obesity due to excess calories; Z68.41 - Body mass index [BMI] 40.0-44.9, adult Category: Medical Plan: Reinforced diet; exercise and weight loss are unrealistic given patient's age and physical (gait) issues Plan As requested, flu vaccine given to the patient today To return as scheduled in July 2024 for her annual physical examination Orders: Orders Comprehensive Wood. Panel Fast 07/11/24 E78.00 - Pure hypercholesterolemia, unspecified, Z00.00 - Encounter for general adult medical examination without abnormal findings Hemoglobin A1c 07/11/24 E11.9 - Type 2 diabetes mellitus without complications, Z00.00 - Encounter for general adult medical examination without abnormal findings TSH reflex Free T4 07/11/24 E78.00 - Pure hypercholesterolemia, unspecified, Z00.00 - Encounter for general adult medical examination without abnormal findings XR wrist LT 2V Today M25.532 - Pain in left wrist Influenza [id number] Immunization Today Z23 - Encounter for immunization Complete Blood Count Auto Diff 07/11/24 D64.9 - Anemia, unspecified, Z00.00 - Encounter for general adult medical examination without abnormal findings Lipid Panel 07/11/24 E78.00 - Pure hypercholesterolemia, unspecified, Z00.00 - Encounter for general adult medical examination without abnormal findings UA CC w/rflx Micro + Cult 07/11/24 R30.0 - Dysuria, Z00.00 - Encounter for general adult medical examination without abnormal findings Vitamin D 25-OH Total 07/11/24 E55.9 - Vitamin D deficiency, unspecified, Z00.00 - Encounter for general adult medical examination without abnormal findings Vitamin B12 and Folate 07/11/24 E53.8 - Deficiency of other specified B group vitamins, Z00.00 - Encounter for general adult medical examination without abnormal findings
--- OUTSIDE RECORDS SUMMARY | 2024-01-31 16:50 | XMS_ITS | Continuity of Care Document ---
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 Plan of Treatment Reminders Order Date Submit Date Provider Last Modified By Organization Details Last Modified Time Details Appointments None record ed. Lab None record ed. Referral None record ed. Procedures None record ed. Surgeries None record ed. Imaging None record ed. Medication Orders None record ed. Patient TargetsNo targets recorded. Patient InstructionsNo instructions recorded. Reason for Referral None Reported. Problems Name Problem SNOMED Code Status Onset Date Resolution Date Notes Provider Name and Address Organization Details Recorded Time Altered mental status 101657081 Active 2023 Nadja Cantrell [address] , [address], [place], [address], [facility] Contents [facility] 4 12:53:24 Urinary tract infectious disease 99336210 Active 2023 AJumana Cantrell [address] , [address], [place], [address], [facility] Contents [facility] 4 12:53:28 Carotid artery stenosis 78324087 Active 2023 AJumana Cantrell [address], [address], [place], [address], [facility] [employer] 4 12:53:55 Transient cerebral ischemia 992634597 Active 2023 AKiraa Tamia [address], [address], [place], [address], [facility] [employer] 4 12:54:02 Asthenia 42865294 Active 2023 AKiraa Tamia [address], [address], [place], [address], [facility] 4 12:54:07 Mixed anxiety and depressive disorder 005393544 Active 2023 Nadja Cantrell [address] [facility], [address], [place], [address], [facility] 4 13:04:07 Dementia 48665296 Active 2023 Nadja Cantrell [address] [facility], [address], [place], [address], [facility] 4 13:04:08 Essential hypertension 28719390 Active 2023 Nadja Cantrell [address] [facility], [address], [place], [address], [facility] 4 13:04:09 Primary insomnia 8083522 Active 2023 Nadja Cantrell [address] [facility], [address], [place], [address], [facility] 4 13:07:11 Hyperlipidemia 16647680 Active 2023 Nadja Cantrell [address] [facility], [address], [place], [address], [facility] 4 13:39:41 Problem Notes None recorded. Procedures Surgical History Date Name Laterality Status Provider Name and Address Organization Details Recorded Time ligation of fallopian tube completed [facility] [address] [facility], [address], [place], [address], [facility] 10/12/2023 13:35:08 lumpectomy of breast completed [facility] [address] [facility], [address], [place], [address], [facility] 10/12/2023 13:35:24 manipulation of displaced nasal septum completed [facility] [address] [facility], [address], [place], [address], [facility] 10/12/2023 13:35:41 Imaging Results None recorded. Procedure Notes None recorded. Medical Equipment None Reported. Allergies Allergen ID Allergen Name Allergen Category Reaction Reaction Severity Criticality Documentation Date Start Date Code Code System Note Provider Name and Address Organization Details Recorded Time 20335 penicilli n G Not available Not available Not available Not available 10/12/2023 7980 RxNorm Nadja Cantrell [address] [facility], [address], [place], [address], [facility] [employer] [facility] [facility] 4 12:53:04 73259 cucumber extract food Not available Not available Not available 10/12/2023 68411 19 RxNorm Prasada Tamia [address] [facility] [facility], [address], [place], [address], [facility] 4 12:53:11 53054 strawberr y allergeni c extract food Not available Not available Not available 10/12/2023 02691 4 RxNorm Nadja Cantrell [address] [facility], [address], [place], [address], [facility] [employer] 4 12:53:17 Vitals Date Recorded Body height Body weight Heart rate Respiratory rate Body temperature Oxygen saturation Oxygen saturation in Arterial blood by Pulse oximetry Systolic blood pressure Diastolic blood pressure Provider Name and Address Organization Details Last Updated DateTime 4 162.56 cm 26355.1 8 g 72 /min 18 /min 98 [degF] 98 % 98 % 125 mm[Hg] 78 mm[Hg] Zamzam Mccarthy NP [address] [facility], [facility] [address], [place], [address], [facility] [employer] 4 12:23:59 Social History Question Answer Notes LastModified by Organizat ion Details LastModified Time Tobacco Smoking Status Former Smoker quit in her 30s Alicia Maurer MD [address] [facility], [facility] [address], [place], [address], [facility] [employer] 10/22/2023 18:54:01 Do You Have An Advance Directive? Yes Information not available 10/22/2023 What Is Your Level Of Alcohol Consumption? None Information not available 10/12/2023 What Is Your Code Status? Full Code Information not available 10/12/2023 Where Do You Live? Apartment [address] Floor Of [facility], [address], With Daughter. Information not available 10/22/2023 Legal Guardian? No Informati on not available 10/22/2023 Do You Have A Medical Power Of Mems Process Engineer? Yes Information not available 10/22/2023 What Was The Date Of Your Most Recent Tobacco Screening? 10/22/2023 Information not available 10/22/2023 Do You Have An Out Of Hospital DNR? No Information not available 10/22/2023 What Is Your Relationship Status? Information not available 10/22/2023 How Much Tobacco Do You Smoke? No Information not available 10/22/2023 Do You Use Any Illicit Or Recreational Drugs? No Information not available 10/12/2023 Has Tobacco Cessation Counseling Been Provided? No N/a As Pt No Longer Smokes Information not available 10/22/2023 Do You Or Have You Ever Used Any Other Forms Of Tobacco Or Nicotine? No Information not available 10/22/2023 Sex: Unknown Functional Status None recorded. Mental Status None recorded. Family History Nothing Reported Notes:n/c Medical History No medical history recorded. Gynecological HistoryNo gynecological history recorded. Obstetrics History GPAL:G 0 P 0 0 0 0 Immunizations Vaccine Type Date Status Note Provider Nam e and Address Organization Details Recorded Time SARS-COV-2 (COVID-19) vaccine, UNSPECIFIED 04/30/2020 completed Fox Alfred [facility] 10/31/2023 10:19:23 SARS-COV-2 (COVID-19) vaccine, UNSPECIFIED 05/21/2020 completed Fox Alfred [facility] 10/31/2023 10:19:33 SARS-COV-2 (COVID-19) vaccine, UNSPECIFIED 12/03/2020 completed Fox Alfred [facility] 10/31/2023 10:19:45 SARS-COV-2 (COVID-19) vaccine, UNSPECIFIED 07/01/2021 completed Fox Alfred [facility] 10/31/2023 10:19:58 SARS-COV-2 (COVID-19) vaccine, UNSPECIFIED 12/23/2021 completed Fox mckenzie, [facility] 10/31/2023 10:20:18 SARS-COV-2 (COVID-19) vaccine, UNSPECIFIED 11/17/2022 completed Fox mckenzie, [facility] 10/31/2023 10:20:31 Past Encounters Encounter ID Performer Location Encounter Start Date Encounter Closed Date Diagnosis/Indication Diagnosis SNOMED-CT Code Diagnosis ICD10 Code [id number] Enrico Murrell [address] [address] 10/12/2023 12:52:46 10/23/2023 10:33:18 Carotid artery stenosis 79499708 I65.29 Asthenia 10403884 R53.1 Transient cerebral ischemia 895891187 G45.9 Urinary tr act infectious disease 28582687 N39.0 Hyperlipidemia 46449113 E78.5 Essential hypertension 40333466 I10 Dementia 85364533 F03.90 Mixed anxi ety and depressive disorder 642940446 F41.8 Primary insomnia 9102951 F51.01 [id number] HINA ANTONIO NP [facility] [address] [address] 10/17/2023 11:35:12 10/23/2023 11:16:25 Transient cerebral ischemia 292730848 G45.9 Carotid ar bita stenosis 18502651 I65.29 Asthenia 30081601 R53.1 Urinary tr act infectious disease 98755857 N39.0 Hyperlipidemia 60451828 E78.5 Essential hypertension 54541725 I10 Dementia 88619189 F03.90 Mixed anxi ety and depressive disorder 722471206 F41.8 Primary insomnia 4284188 F51.01 Leukocytosis 229335646 D 72.829 Hypokalemia 92498140 E87 .6 [id number] HINA ANTONIO NP [place] [address] [address] 10/22/2023 10:13:56 10/23/2023 03:50:14 Transient cerebral ischemia 650492997 G45.9 Carotid ar bita stenosis 00938890 I65.29 Asthenia 74278702 R53.1 Urinary tr act infectious disease 62671319 N39.0 Hypokalemia 27873912 E87 .6 Leukocytosis 117630073 D 72.829 Hyperlipidemia 58760855 E78.5 Essential hypertension 17706822 I10 Dementia 51012010 F03.90 Mixed anxi ety and depressive disorder 900696789 F41.8 Primary insomnia 7416357 F51.01 Paronychia of finger 444 622566 L03.019 [id number] Alicia Maurer MD [address] [address] 10/22/2023 14:42:34 10/23/2023 11:51:07 Leukocytosis 536546788 D72.828 Hypokalemia 46166768 E87 .6 Urinary tr act infectious disease 25381120 N30.80 Primary insomnia 8881482 F51.01 Mixed anxi ety and depressive disorder 270689845 F41.8 Transient cerebral ischemia 498522170 G45.8 Carotid ar bita stenosis 90863616 I65.21 Asthenia 01523142 R53.1 Hyperlipidemia 18871551 E78.49 Essential hypertension 90422787 I10 Dementia 41789557 F03.90 Cellulitis of finger of right hand 5921218191 9272898 L03.011 [id number] HINA ANTONIO NP [address] [address] 10/29/2023 08:25:51 10/30/2023 13:58:40 Leukocytosis 353896531 D72.829 Hypokalemia 69612970 E87 .6 Paronychia of finger 444 668480 L03.019 Urinary tr act infectious disease 62252715 N39.0 Mixed anxi ety and depressive disorder 692576160 F41.8 Transient cerebral ischemia 803811907 G45.9 Carotid ar bita stenosis 37388679 I65.29 Asthenia 02746501 R53.1 Hyperlipidemia 30843522 E78.5 Essential hypertension 26411150 I10 Dementia 98984420 F03.90 [id number] Zamzam Mccarthy NP [address] [address] 11/01/2023 11:31:16 11/05/2023 12:48:56 Leukocytosis 566338151 D72.829 Hypokalemia 46588861 E87 .6 Paronychia of finger 444 422323 L03.019 Urinary tr act infectious disease 63979998 N39.0 Mixed anxi ety and depressive disorder 808473405 F41.8 Transient cerebral ischemia 439816320 G45.9 Carotid ar bita stenosis 98036703 I65.29 Asthenia 40269450 R53.1 Hyperlipidemia 31696502 E78.5 Essential hypertension 50817268 I10 Dementia 65361626 F03.90 Health Concerns Section Related Observation LastModified by Organization Detai ls LastModified Time None Recorded Concern Status LastModified by Organization Details LastModified Time None Recorded Payers Encounter Date Sequence Insurance Name Policy Number Policy Benjamin Covered Member ID Benjamin Member ID Guarantor Name 11/01/2023 1 MEDICARE B-[place]: [facility] [employer] Mary Beth R Counter [id number] Mary Beth Counter 11/01/2023 2 [facility] IN[employer]MNITY [employer] - [employer] [id number] Mary Beth Counter [id number] Mary Beth Counter Notes Date Note Type Note Provider Name and Address Organization Details Recorded Time 11/01/2023 text/html Mary Beth is seen today for an acute rounding visit today. PMH remarkable for dementia, depression, HTN, HLD, obesity, cardiac murmur, primary insomnia, UTI, TIA, Carotid stenosis and weakness She is an 88 yo lady recently admitted here for rehab and continued care after an ED stay due to altered MS. of note:She was seen in the ED for AMS and making strange noises, DTR reports ativan usually helpful during these times. She has had multiple ED visits 09/26, 09/30 and 10/02 for similar c/o, work up negative stroke.Initial concerns for stroke or TIA. CTH and MRI results neg for acute stroke. Aphasia resolved. Neuro recs MRI and vascular surgery eval for carotid stenosis. She is currently on ASA, statin.Carotid stenosis R internal 50-79% stenosis, left minimal, non-hemodynamicall y significant stenosis. Findings discussed with vascular surgeon and unlikely cause of symptoms but plans to see her outpatient.She was received a course of cefuroxime for 5 days, now completed. While here Mary Beth has been getting stronger and working with rehab. She reports using her walker and getting farther each day. Her paronychia was resolved to the right middle finger and urine negative for infection s/p recheck after keflex. She remains asymptomatic. She has some confusion intermittent at times but seems to improve. Therapy reports that she has been participating, however has lacked initiative and has been exhibiting poor insight. They are continuing to work on decreasing her fall risk. She is ambulating short distances. On exam, Mary Beth is alert and hungry eating all of her lunch. She denies any concerns today. Denies any urgency, frequency, burning, or pain today. GREEN 50BIMS 15MOLST FULL CODE Zamzam Mccarthy NP [address] [facility], [address], [place], [address], [facility] - [facility] 11/01/2023 12:37:29 OBGyn Episode No OBEpisode recorded.
--- OUTSIDE RECORDS SUMMARY | 2024-01-31 16:50 | XMS_ITS | Data Portability ---
Author Organization [facility], Main Office Address [address], [address] [place] [address] Care Team Providers Care Blade Filer Name Role Phone RONNIE BROUSSARD - 2ND FLOOR OTHER Assessment Encounter Date Assessment Date Assessment LastModified by Organization Details LastModified Time 11/12/2023 11/12/2023 I have seen and examined the patient independently and confirmed the findings above with the PRIVATE INVESTIGATOR student note. Management plan discussed with the PRIVATE INVESTIGATOR student personally. [email or web address] Not available 11/12/2023 12:35:08 11/19/2023 11/19/2023 45 minutes spent on coordination of discharge. [email or web address] Not available 11/19/2023 12:18:18 Plan of Treatment Reminders Order Date Submit [...] Organization Details Recorded Time Altered mental status 048305550 Active 2023 Nadja Cantrell [address], [address], [place], [address], [employer] 4 12:53:24 Urinary tract infectious disease 06170031 Active 2023 Nadja Cantrell [address], [address], [place], [address], [facility] [employer] 4 12:53:28 Carotid artery stenosis 22428199 Active 2023 Nadja Cantrell [address], [address], [place], [address], [employer] 4 12:53:55 Transient cerebral ischemia 818832662 Active 2023 Nadja Cantrell [address], [address], [place], [address], [employer] 4 12:54:02 Asthenia 19449815 Active 2023 AKiraa Tamia [address], [address], [place], [address], [facility] 4 12:54:07 Mixed anxiety and depressive disorder 408521045 Active 2023 AKiraa Tamia [address] [facility], [address], [place], [address], [employer] 4 13:04:07 Dementia 38960528 Active 2023 AKiraa Tamia [address] [facility], [address], [place], [place], [address], [employer] 4 13:04:08 Essential hypertension 61547720 Active 2023 AKiraa Tamia [address], [address], [place], [address], [employer] 4 13:04:09 Primary insomnia 0528382 Active 2023 AJumana Cantrell [address], [address], [place], [address], [employer] 4 13:07:11 Hyperlipidemia 55217978 Active 2023 AKiraa Tamia [address] [facility], [address], [place], [address], [employer] 4 13:39:41 Problem Notes None recorded. Procedures Surgical History Date Name Laterality Status Provider Name and Address Organization Details Recorded Time ligation of fallopian tube completed A_Tremblay-Da vis [address], [place], [place], [address], [facility] 10/12/2023 13:35:08 lumpectomy of breast completed A_Tremblay-Da vis [address] [facility], [address], [place], [address], [facility] [employer] [facility] 10/12/2023 13:35:24 manipulation of displaced nasal septum completed A_Tremblay-Da vis [address], [address], [place], [address], [facility] [employer] [facility] 10/12/2023 13:35:41 Imaging Results None recorded. Procedure Notes None recorded. Medical Equipment None Reported. Allergies Allergen ID Allergen Name Allergen Category Reaction Reaction Severity Criticality Documentation Date Start Date Code Code System Note Provider Name and Address Organization Details Recorded Time 00905 penicilli n G Not available Not available Not available Not available 10/12/2023 7980 RxNorm A_Selama agnes-Shimon [address], [address], [place], [address], [facility] [employer] 4 12:53:04 52519 cucumber extract food Not available Not available Not available 10/12/2023 69261 19 RxNorm A_Fredericbla y-Shimon [address], [address], [place], [address], [facility] [employer] [facility] 4 12:53:11 48605 strawberr y allergeni c extract food Not available Not available Not available 10/12/2023 80911 4 RxNorm A_Selama y-Shimon [address], [address], [place], [address], [facility] 4 12:53:17 Vitals Date Recorded Body height Body weight Heart rate Respiratory rate Body temperature Oxygen saturation Oxygen saturation in Arterial blood by Pulse oximetry Systolic blood pressure Diastolic blood pressure Provider Name and Address Organization Details Last Updated DateTime 4 162.56 cm 72035.1 8 g 72 /min 18 /min 98 [degF] 98 % 98 % 125 mm[Hg] 78 mm[Hg] Zamzam Mccarthy NP [address], [address], [place], [address], [facility] 4 12:23:59 Date Recorded Body height Body weight Heart rate Respiratory rate Body temperature Oxygen saturation Oxygen saturation in Arterial blood by Pulse oximetry Systolic blood pressure Diastolic blood pressure Provider Name and Address Organization Details Last Updated DateTime 4 162.56 cm 01567.8 8 g 74 /min 18 /min 98 [degF] 98 % 98 % 122 mm[Hg] 72 mm[Hg] Zamzam Mccarthy NP [address], [address], [place], [address], [facility] 4 17:35:25 Date Recorded Body height Heart rate Respiratory rate Body temperature Oxygen saturation Oxygen saturation in Arterial blood by Pulse oximetry Systolic blood pressure Diastolic blood pressure Provider Name and Address Organization Details Last Updated DateTime 4 162.56 cm 72 /min 18 /min 98 [degF] 98 % 98 % 122 mm[Hg] 72 mm[Hg] [facility] 4 12:22:47 Date Recorded Body height Body mass index (BMI) Body weight Heart rate Respiratory rate Body temperature Oxygen saturation Oxygen saturation in Arterial blood by Pulse oximetry Systolic blood pressure Diastolic blood pressure Provider Name and Address Organization Details Last Updated DateTime 4 162.56 cm 33.3 kg/m2 27107.9 2 g 73 /min 18 /min 98 [degF] 98 % 98 % 122 mm[Hg] 72 mm[Hg] Zamzam Mccarthy NP [address] [facility], [address], [place], [address], [facility] 4 12:03:27 Date Recorded Body height Heart rate Respiratory rate Body temperature Oxygen saturation Oxygen saturation in Arterial blood by Pulse oximetry Systolic blood pressure Diastolic blood pressure Provider Name and Address Organization Details Last Updated DateTime 4 162.56 cm 70 /min 18 /min 98 [degF] 98 % 98 % 122 mm[Hg] 72 mm[Hg] HINA ANTONIO NP [address], [place], [address], [facility] 4 11:52:50 Social History Question Answer Notes LastModified by Organizat ion Details LastModified Time Tobacco Smoking Status Former Smoker quit in her 30s Alicia Maurer MD [address], [address], [place], [address], [facility] 10/22/2023 18:54:01 Do You Have An Advance [...] Do You Have A Medical Power Of Assembler Corncob Pipes? Yes Information not available 10/22/2023 What Was [...] (COVID-19) vaccine, UNSPECIFIED 04/30/2020 completed Fox [facility] 10/31/2023 10:19:23 SARS-COV-2 (COVID-19) vaccine, UNSPECIFIED 05/21/2020 margo mckenzie [facility] 10/31/2023 10:19:33 SARS-COV-2 (COVID-19) vaccine, UNSPECIFIED 12/03/2020 margo Vides-Hector null, [facility] 10/31/2023 10:19:45 SARS-COV-2 (COVID-19) vaccine, UNSPECIFIED 07/01/2021 completed Fox Alfred null, [facility] 10/31/2023 10:19:58 SARS-COV-2 (COVID-19) vaccine, UNSPECIFIED 12/23/2021 completed Fox Alfred null, [facility] 10/31/2023 10:20:18 SARS-COV-2 (COVID-19) vaccine, UNSPECIFIED 11/17/2022 completed Fox Tima null, [facility] 10/31/2023 10:20:31 Past Encounters Encounter ID Performer Location Encounter Start Date Encounter Closed Date Diagnosis/Indication Diagnosis SNOMED-CT Code Diagnosis ICD10 Code [id number] Enrico Murrell [facility] [address] 10/12/2023 12:52:46 10/23/2023 10:33:18 Carotid artery stenosis 21816295 I65.29 Asthenia 44509845 R53.1 Transient cerebral ischemia 368096003 G45.9 Urinary tr act infectious disease 43042182 N39.0 Hyperlipidemia 50782856 E78.5 Essential hypertension 38812922 I10 Dementia 28278990 F03.90 Mixed anxi ety and depressive disorder 102825566 F41.8 Primary insomnia 8230735 F51.01 [id number] HINA ANTONIO NP [facility] [address] [address] 10/17/2023 11:35:12 10/23/2023 11:16:25 Transient cerebral ischemia 440926443 G45.9 Carotid ar bita stenosis 24994676 I65.29 Asthenia 55652059 R53.1 Urinary tr act infectious disease 29978471 N39.0 Hyperlipidemia 28686137 E78.5 Essential hypertension 27012508 I10 Dementia 98480828 F03.90 Mixed anxi ety and depressive disorder 105654160 F41.8 Primary insomnia 0025391 F51.01 Leukocytosis 989216391 D 72.829 Hypokalemia 16479062 E87 .6 [id number] HINA ANTONIO NP [facility] [address] [place] [address] 10/22/2023 10:13:56 10/23/2023 03:50:14 Transient cerebral ischemia 670279734 G45.9 Carotid ar bita stenosis 59249737 I65.29 Asthenia 95253686 R53.1 Urinary tr act infectious disease 30199455 N39.0 Hypokalemia 84482452 E87 .6 Leukocytosis 520180766 D 72.829 Hyperlipidemia 31356868 E78.5 Essential hypertension 65676137 I10 Dementia 91404012 F03.90 Mixed anxi ety and depressive disorder 540543943 F41.8 Primary insomnia 2449120 F51.01 Paronychia of finger 444 721276 L03.019 [id number] Alicia Maurer MD [address] [address] 10/22/2023 14:42:34 10/23/2023 11:51:07 Leukocytosis 646792532 D72.828 Hypokalemia 74086997 E87 .6 Urinary tr act infectious disease 82802299 N30.80 Primary insomnia 2049405 F51.01 Mixed anxi ety and depressive disorder 877395564 F41.8 Transient cerebral ischemia 794253990 G45.8 Carotid ar bita stenosis 11279549 I65.21 Asthenia 86902753 R53.1 Hyperlipidemia 98304339 E78.49 Essential hypertension 99386584 I10 Dementia 35864536 F03.90 Cellulitis of finger of right hand 1521057640 7366190 L03.011 [id number] HINA ANTONIO NP [address] [address] 10/29/2023 08:25:51 10/30/2023 13:58:40 Leukocytosis 716918756 D72.829 Hypokalemia 59139470 E87 .6 Paronychia of finger 444 419921 L03.019 Urinary tr act infectious disease 28213047 N39.0 Mixed anxi ety and depressive disorder 097468078 F41.8 Transient cerebral ischemia 312315671 G45.9 Carotid ar bita stenosis 00775884 I65.29 Asthenia 25735860 R53.1 Hyperlipidemia 65104020 E78.5 Essential hypertension 66264360 I10 Dementia 73559164 F03.90 [id number] Zamzam Mccarthy NP [facility] [address] [address] 11/01/2023 11:31:16 11/05/2023 12:48:56 Leukocytosis 221450910 D72.829 Hypokalemia 14869534 E87 .6 Paronychia of finger 444 987022 L03.019 Urinary tr act infectious disease 32269467 N39.0 Mixed anxi ety and depressive disorder 729619470 F41.8 Transient cerebral ischemia 565012379 G45.9 Carotid ar bita stenosis 36732506 I65.29 Asthenia 98436036 R53.1 Hyperlipidemia 28959804 E78.5 Essential hypertension 03938397 I10 Dementia 62082234 F03.90 [id number] Zamzam Mccarthy NP [facility] [address] [address] 11/07/2023 08:26:43 11/11/2023 14:42:50 Dementia 83529217 F03.90 Asthenia 75178501 R53.1 Hypokalemia 11049448 E87 .6 Mixed anxi ety and depressive disorder 743823322 F41.8 Transient cerebral ischemia 110389009 G45.9 Carotid ar bita stenosis 05653156 I65.29 Essential hypertension 71091598 I10 [id number] HINA ANTONIO NP [facility] [address] [address] 11/12/2023 08:47:14 11/13/2023 11:39:55 Dementia 24931228 F03.90 Asthenia 23378620 R53.1 Hypokalemia 31995209 E87 .6 Mixed anxi ety and depressive disorder 770174750 F41.8 Transient cerebral ischemia 729724833 G45.9 Carotid ar bita stenosis 22266600 I65.29 Essential hypertension 09729878 I10 [id number] Zamzam Mccarthy NP [facility] [address] [address] 11/14/2023 11:32:35 11/18/2023 09:33:08 Dementia 13564615 F03.90 Asthenia 25022326 R53.1 Hypokalemia 70396433 E87 .6 Mixed anxi ety and depressive disorder 325981352 F41.8 Transient cerebral ischemia 354431331 G45.9 Carotid ar bita stenosis 58104208 I65.29 Essential hypertension 42598500 I10 [id number] HINA ANTONIO NP [address] [address] 11/19/2023 11:51:26 11/20/2023 10:46:32 Transient cerebral ischemia 577400293 G45.8 Dementia 20643452 F03.90 Mixed anxi ety and depressive disorder 839362654 F41.8 Asthenia 10164222 R53.1 Essential hypertension 62511382 I10 Hypokalemia 39183380 E87 .6 Cellulitis of finger of right hand 7951820043 3896024 L03.011 Urinary tr act infectious disease 53671912 N30.80 Primary insomnia 4639949 F51.01 Carotid ar bita stenosis 76875903 I65.21 Hyperlipidemia 08436600 E78.49 Health Concerns Section Related Observation LastModified by Organization Detai ls LastModified Time None Recorded Concern Status LastModified by Organization Details LastModified Time None Recorded Advance Directives Directive Y: Payers Encounter Date Sequence Insurance Name Policy Number Policy Benjamin Covered Member ID Benjamin Member ID Guarantor Name 11/01/2023 1 [place] [employer] Mary Beth R Counter [id number] Mary Beth Counter 11/01/2023 2 [facility] INDEMNITY PLAN - UNICARE [id number] Mary Beth Counter [id number] Mary Beth Counter 11/07/2023 1 [place] [employer] Mary Beth R Counter [id number] Mary Beth Counter 11/07/2023 2 [facility] UNICARE [id number] Mary Beth Counter [id number] Mary Beth Counter 11/12/2023 1 [place] [employer] Mary Beth R Counter [id number] Mary Beth Counter 11/12/2023 2 [facility] INDEMNITY PLAN - [employer] [id number] Mary Beth Counter [id number] Mary Beth Counter 11/14/2023 1 [place]: [employer] Mary Beth R Counter [id number] Mary Beth Counter 11/14/2023 2 [facility] [id number] Mary Beth Counter [id number] Mary Beth Counter 11/19/2023 1 MEDICARE B-[place]: [employer] Mary Beth R Counter [id number] Mary Beth Counter 11/19/2023 2 [facility] [id number] Mary Beth Counter [id number] Mary Beth Counter Notes Date Note Type Note Provider Name and Address Organization Details Recorded Time 11/01/2023 text/html Mary Beth is seen t vilma for an acute rounding visit today. PMH [...] stenosis R internal 50-79% stenosis, left minimal, non-hemodynamically significant stenosis. Findings discussed with vascular surgeon [...] any urgency, frequency, burning, or pain today. NORMA 50BIMS 15MOLST FULL CODE Zamzam Mccarthy NP [address], [address], [place], [address], [facility] [employer] 11/01/2023 12:37:29 11/07/2023 text/html Pt is seen today for an acute rounding visit today. PMH remarkable for dementia, depression, HTN, HLD, obesity, cardiac murmur, primary insomnia, UTI, TIA, Carotid stenosis and weakness She is an 88 yo lady recently admitted here for rehab and continued care after an ED stay due to altered MS. [facility] working with therapy more and walking with walker down the [place]cino per pt. and noted unsteady gait on therapy eval. She is has finished her course of abx for a UTI and paronychia. On exam, She denies any symptoms of frequency, urgency, or dysuria. Her finger paryonichia resolved. She is eating and drinking well and notes she lost a few pounds but states that might be good . of note:She was seen in the ED [...] stenosis R internal 50-79% stenosis, left minimal, non-hemodynamically significant stenosis. Findings discussed with vascular surgeon and unlikely cause of symptoms but plans to see her outpatient.She was received a course of cefuroxime for 5 days, now completed. NORMA 50BIMS 15MOLST FULL CODE Zamzam Mccarthy NP [address], [address], [place], [address], [facility] [employer] 11/07/2023 18:00:28 11/12/2023 text/html Mary Beth is seen t vilma for a routine, 30 day visit. She is an 88 yo female admitted to [facility] on 10/11/23 for rehab and continued care after an ED stay due to altered MS. Since here she has working with rehab more and walking with walker, noted unsteady gait on therapy eval. She completed abx for paronychia on 10/13/23.She has had some episodes of confusion while here, but is currently doing quite well.VSS. On exam, Mary Beth is up in her w/c, alert, NAD. She reports that she is doing good , she offers no complaints, she denies any pain or disc, she states she is eating and drinking good, no c/o GI/ issues. Of note:She was seen in the ED for AMS and making strange noises, DTR reports ativan usually helpful during these times. She has had multiple ED visits 09/26, 09/30 and 10/02 for similar c/o, work up negative stroke. Initial concerns for stroke or TIA. CTH and MRI results neg for acute stroke. Aphasia resolved. Neuro recs MRI and vascular surgery eval for carotid stenosis. She is currently on ASA, statin.Carotid stenosis R internal 50-79% stenosis, left minimal, non-hemodynamically significant stenosis. Findings discussed with vascular surgeon and unlikely cause of symptoms but plans to see her outpatient.She received a course of cefuroxime for 5 days, now completed. GREEN 50BIMS 15MOLST FULL CODE PMH significant for dementia, depression, HTN, HLD, obesity, cardiac murmur, primary insomnia, UTI, TIA, Carotid stenosis and weakness HINA ANTONIO NP [address], [address], [place], [address], [facility] 11/12/2023 14:20:39 11/14/2023 text/html Mary Beth is seen t vilam for an acute rounding visit. PMH significant for dementia, depression, HTN, HLD, obesity, cardiac murmur, primary insomnia, UTI, TIA, Carotid stenosis and weakness Pt is an 88 yo female admitted to [facility] on 10/11/23 for rehab and continued care after an ED stay due to altered MS. Overall, doing much better and working with rehab daily using walker. On exam,she is sitting up in her wheelchair, alert, NAD. She denies any concerns today and states she wants a good report . No concerns per staff. Of note:She was seen in the ED for AMS and making strange noises, DTR reports ativan usually helpful during these times. She has had multiple ED visits 09/26, 09/30 and 10/02 for similar c/o, work up negative stroke. Initial concerns for stroke or TIA. CTH and MRI results neg for acute stroke. Aphasia resolved. Neuro recs MRI and vascular surgery eval for carotid stenosis. She is currently on ASA, statin.Carotid stenosis R internal 50-79% stenosis, left minimal, non-hemodynamically significant stenosis. Findings discussed with vascular surgeon and unlikely cause of symptoms but plans to see her outpatient.She received a course of cefuroxime for 5 days, now completed. NORMA 50BIMS 15MOLST FULL CODE Zamzam Mccarthy NP [address], [address], [place], [address], [facility] [employer] 11/15/2023 12:08:57 11/19/2023 text/html Mary Beth is seen t vilma for discharge.She is planning to go home tomorrow 11/19 with support of family and services. She is an 88 yo woman who was admitted to [facility] for rehab after an acute hospitalization for an aphasic episode, presumed TIA.She has had several recent ED visits at [facility].09/26-for not feeling well , txed with cefpodoxime for possible UTI-cx ended up growing 50-100,[address]/CTA, CXR and other labs non-acute.09/30for similar sxs, and also making strange noises . Daughter said she had been feeling better 09/28-, then worse again. W/U was unrevealing and it was thought some of this might be anxiety and she might be mildly dehydrated. So given 500 ml of LR and 0.5 mg lorazepam. She improved and was d/c home.10/02she returned to the ED. Her daughter reported she was very weak & lethargic today - couldn't eat, hold her food, walk, which she usually does herself at home. WBC was 11.2, urine looked +, other labs non-acute.She was started on cefuroxime for possible UTI. (urine cx grew >100,000 mixed kristofer)Improved with lorazepam. Advised to f/u with psych as outpt.10/06returned again. This time with aphasia and making strange noises. Initial eval neg. Admitted for further stroke w/u.Started on ASA and neuro consult ordered.Sxs improved.MRI non-acute, with mild chronic microangiopathy.Carot id u/s showed: 1. RIGHT: Moderate, hemodynamically significant stenosis of theproximal right internal carotid artery corresponding to a 50-79%stenosis by velocity criteria.2. LEFT: Minimal, non-hemodynamically significant stenosis of theproximal left internal carotid artery corresponding to a 0-49% stenosisby velocity criteria. No change from 2005. Vascular said they would see her as outpt.Continued on lorazepam for anxiety and cefuroxime for UTI coverage, despite neg cx.Of note, WBC bumped to 17.6 on 10/07, trended down to 15.6 on 10/08.Transferred here on 10/10. While here, Mary Beth has done well.Working with rehab, meeting rehab goals for d/c home with support of family and services.[facility] stable.Stay complicated by:Hypokalemia - 3.1 - started KCL 20 meq po daily, repeat level 4.3Paronychia right middle finger - resolved with Keflex.Concern of altered MS. UA C&S checked, result negative, no further issues with behaviors or cognition. Upon exam, Mary Beth is up inher w/c, alert, NAD. Happy to be going home tomorrow. Feels fine , denies any complaints. Her PMH includes HTN, dementia, TIAs, anxiety/depression, HLD, obesity, insomnia, L carotid stenosis, insulin resistance, allergic rhinitis, and vitamin D deficiency. HINA ANTONIO NP [address], [address], [place], [address], [employer] [facility] [employer] 11/19/2023 12:18:31 OBGyn Episode No OBEpisode recorded.
--- OUTSIDE RECORDS SUMMARY | 2024-01-31 16:50 | XMS_ITS | Continuity of Care Document ---
Author Organization [facility], [facility] Address [address] [place] [address] Care Team Providers Care Drone Operator Name Role Phone RONNIE BROUSSARD - 2ND FLOOR OTHER Assessment Encounter Date Assessment Date Assessment LastModified by Organization Details LastModified Time 11/12/2023 11/12/2023 I have seen and examined the patient independently and confirmed the findings above with the PSYCHOLOGY LECTURER student note. Management plan discussed with the PSYCHOLOGY LECTURER student personally. [email or web address] Not available 11/12/2023 12:35:08 Plan of Treatment Reminders Order Date Submit [...] Organization Details Recorded Time Altered mental status 365361542 Active 2023 Nadja Cantrell [address] , [address], [place], [address], [facility] [employer] 4 12:53:24 Urinary tract infectious disease 36395623 Active 2023 Nadja Cantrell [address] , [address], [place], [address], [facility] [employer] 4 12:53:28 Carotid artery stenosis 94966450 Active 2023 Nadja Cantrell [address] , [address], [place], [address], [facility] [employer] [facility] 4 12:53:55 Transient cerebral ischemia 781301910 Active 2023 Nadja Cantrell [address], [address], [place], [address], [facility] 4 12:54:02 Asthenia 70565235 Active 2023 Nadja Cantrell [address], [address], [place], [address], [facility] 4 12:54:07 Mixed anxiety and depressive disorder 121278610 Active 2023 Nadja Cantrell [address], [address], [place], [address], [facility] 4 13:04:07 Dementia 52719265 Active 2023 Nadja Cantrell [address], [address], [place], [address], [facility] 4 13:04:08 Essential hypertension 66085022 Active 2023 Nadja Cantrell [address], [address], [place], [address], [facility] 4 13:04:09 Primary insomnia 5157134 Active 2023 Nadja Cantrell [address] [facility], [address], [place], [address], [facility] 4 13:07:11 Hyperlipidemia 94340236 Active 2023 Nadja Cantrell [address] [facility], [address], [place], [address], [facility] 4 13:39:41 Problem Notes None recorded. Procedures Surgical History Date Name Laterality Status Provider Name and Address Organization Details Recorded Time ligation of fallopian tube completed A_Tremblay-Da vis [address] [facility], [address], [place], [address], [facility] 10/12/2023 13:35:08 lumpectomy of breast completed A_Tremblay-Da vis [address] [facility], [address], [place], [address], [facility] 10/12/2023 13:35:24 manipulation of displaced nasal septum completed A_Tremblay-Da vis [address] [facility], [address], [place], [address], [facility] [employer] [facility] 10/12/2023 13:35:41 Imaging Results None recorded. Procedure Notes None recorded. Medical Equipment None Reported. Allergies Allergen ID Allergen Name Allergen Category Reaction Reaction Severity Criticality Documentation Date Start Date Code Code System Note Provider Name and Address Organization Details Recorded Time 67198 penicilli n G Not available Not available Not available Not available 10/12/2023 7980 RxNorm A_Trembla y-Shimon [address] [facility], [address], [place], [address], [facility] 4 12:53:04 31511 cucumber extract food Not available Not available Not available 10/12/2023 61368 19 RxNorm A_Trembla y-Shimon [address] [facility], [address], [place], [address], [facility] 4 12:53:11 73163 strawberr y allergeni c extract food Not available Not available Not available 10/12/2023 03921 4 RxNorm A_Trembla y-Shimon [address] [facility], [address], [place], [address], [facility] 4 12:53:17 Vitals Date Recorded Body height Heart rate Respiratory rate Body temperature Oxygen saturation Oxygen saturation in Arterial blood by Pulse oximetry Systolic blood pressure Diastolic blood pressure Provider Name and Address Organization Details Last Updated DateTime 4 162.56 cm 72 /min 18 /min 98 [degF] 98 % 98 % 122 mm[Hg] 72 mm[Hg] Colette branch [facility] [employer] [facility] 4 12:22:47 Social History Question Answer Notes LastModified by Organizat ion Details LastModified Time Tobacco Smoking Status Former Smoker quit in her 30s Alicia Maurer MD [address] [facility], [address], [place], [address], [facility] 10/22/2023 18:54:01 Do You Have An Advance Directive? Yes [email or web address] Information not available 10/22/2023 What Is Your Level Of Alcohol Consumption? None Information not available 10/12/2023 What Is Your Code Status? Full Code Information not available 10/12/2023 Where Do You Live? Apartment [address]st Floor Of [facility], [address] To [address], With Daughter. Information not available 10/22/2023 Legal Guardian? No Informati on not available 10/22/2023 Do You Have A Medical Power Of Count Team Member? Yes Information not available 10/22/2023 What Was [...] SARS-COV-2 (COVID-19) vaccine, UNSPECIFIED 04/30/2020 completed Fox mckenzie [facility] 10/31/2023 10:19:23 SARS-COV-2 (COVID-19) vaccine, UNSPECIFIED 05/21/2020 completed Fox mckenzie [facility] 10/31/2023 10:19:33 SARS-COV-2 (COVID-19) vaccine, UNSPECIFIED 12/03/2020 margo mckenzie [facility] 10/31/2023 10:19:45 SARS-COV-2 (COVID-19) vaccine, UNSPECIFIED 07/01/2021 completed Fox Alfred null, [facility] 10/31/2023 10:19:58 SARS-COV-2 (COVID-19) vaccine, UNSPECIFIED 12/23/2021 completed Fox Alfred null, [facility] 10/31/2023 10:20:18 SARS-COV-2 (COVID-19) vaccine, UNSPECIFIED 11/17/2022 completed Fox Alfred null, [facility] 10/31/2023 10:20:31 Past Encounters Encounter ID Performer Location Encounter Start Date Encounter Closed Date Diagnosis/Indication Diagnosis SNOMED-CT Code Diagnosis ICD10 Code [id number] Enrico Murrell [address] [address] 10/12/2023 12:52:46 10/23/2023 10:33:18 Carotid artery stenosis 44626066 I65.29 Asthenia 04086538 R53.1 Transient cerebral ischemia 580312117 G45.9 Urinary tr act infectious disease 10720907 N39.0 Hyperlipidemia 51976206 E78.5 Essential hypertension 17891959 I10 Dementia 87313844 F03.90 Mixed anxi ety and depressive disorder 821610954 F41.8 Primary insomnia 7063978 F51.01 [id number] HINA ANTONIO NP [address] [address] 10/17/2023 11:35:12 10/23/2023 11:16:25 Transient cerebral ischemia 031839738 G45.9 Carotid ar bita stenosis 16298025 I65.29 Asthenia 49882179 R53.1 Urinary tr act infectious disease 94786612 N39.0 Hyperlipidemia 57218513 E78.5 Essential hypertension 11479068 I10 Dementia 39017083 F03.90 Mixed anxi ety and depressive disorder 942548807 F41.8 Primary insomnia 3467916 F51.01 Leukocytosis 655978838 D 72.829 Hypokalemia 25859109 E87 .6 [id number] HINA ANTONIO NP [address] [place] [address] 10/22/2023 10:13:56 10/23/2023 03:50:14 Transient cerebral ischemia 874673764 G45.9 Carotid ar bita stenosis 56350875 I65.29 Asthenia 52805809 R53.1 Urinary tr act infectious disease 41623362 N39.0 Hypokalemia 46650525 E87 .6 Leukocytosis 951344114 D 72.829 Hyperlipidemia 97049678 E78.5 Essential hypertension 39050950 I10 Dementia 79346929 F03.90 Mixed anxi ety and depressive disorder 496736395 F41.8 Primary insomnia 9606101 F51.01 Paronychia of finger 444 597154 L03.019 [id number] Alicia Maurer MD [facility] [address] [place] [address] 10/22/2023 14:42:34 10/23/2023 11:51:07 Leukocytosis 085000660 D72.828 Hypokalemia 67092723 E87 .6 Urinary tr act infectious disease 84768455 N30.80 Primary insomnia 7697014 F51.01 Mixed anxi ety and depressive disorder 903259656 F41.8 Transient cerebral ischemia 722858867 G45.8 Carotid ar bita stenosis 08542788 I65.21 Asthenia 43206364 R53.1 Hyperlipidemia 64648560 E78.49 Essential hypertension 79759440 I10 Dementia 10906473 F03.90 Cellulitis of finger of right hand 5738295251 4013272 L03.011 [id number] HINA ANTONIO NP [address] [address] 10/29/2023 08:25:51 10/30/2023 13:58:40 Leukocytosis 265145958 D72.829 Hypokalemia 56153490 E87 .6 Paronychia of finger 444 010423 L03.019 Urinary tr act infectious disease 13763680 N39.0 Mixed anxi ety and depressive disorder 713629185 F41.8 Transient cerebral ischemia 373888739 G45.9 Carotid ar bita stenosis 27122844 I65.29 Asthenia 59080983 R53.1 Hyperlipidemia 26036391 E78.5 Essential hypertension 44661167 I10 Dementia 09997209 F03.90 [id number] Zamzam Mccarthy, LEFTY [facility] [address] [address] 11/01/2023 11:31:16 11/05/2023 12:48:56 Leukocytosis 077023084 D72.829 Hypokalemia 69165281 E87 .6 Paronychia of finger 444 795121 L03.019 Urinary tr act infectious disease 86707904 N39.0 Mixed anxi ety and depressive disorder 716271132 F41.8 Transient cerebral ischemia 180740322 G45.9 Carotid ar bita stenosis 25873553 I65.29 Asthenia 35884370 R53.1 Hyperlipidemia 86877341 E78.5 Essential hypertension 77459546 I10 Dementia 53029844 F03.90 [id number] Zamzam Mccarthy NP [facility] [address] [address] 11/07/2023 08:26:43 11/11/2023 14:42:50 Dementia 01086667 F03.90 Asthenia 68497481 R53.1 Hypokalemia 14428632 E87 .6 Mixed anxi ety and depressive disorder 375994601 F41.8 Transient cerebral ischemia 522093549 G45.9 Carotid ar bita stenosis 41816070 I65.29 Essential hypertension 06688330 I10 [id number] HINA ANTONIO NP [facility] [address] [address] 11/12/2023 08:47:14 11/13/2023 11:39:55 Dementia 41813738 F03.90 Asthenia 15727653 R53.1 Hypokalemia 45505297 E87 .6 Mixed anxi ety and depressive disorder 616876074 F41.8 Transient cerebral ischemia 693824133 G45.9 Carotid ar bita stenosis 33477431 I65.29 Essential hypertension 06739193 I10 Health Concerns Section Related Observation LastModified by Organization Detai ls LastModified Time None Recorded Concern Status LastModified by Organization Details LastModified Time None Recorded Payers Encounter Date Sequence Insurance Name Policy Number Policy Benjamin Covered Member ID Benjamin Member ID Guarantor Name 11/12/2023 1 [place] [employer] Mary Beth R Counter [id number] Mary Beth Counter 11/12/2023 2 [facility] [id number] Mary Beth Counter [id number] Mary Beth Counter Notes Date Note Type Note Provider Name and Address Organization Details Recorded Time 11/12/2023 text/html Mary Beth is seen today for a routine, 30 day visit. She is an 88 yo female admitted to [facility] on 10/11/23 for rehab and continued care [...] stenosis and weakness HINA ANTONIO NP [address] [facility], [address], [place], [address], [facility] [employer] 11/12/2023 14:20:39 OBGyn Episode No OBEpisode recorded.
--- OUTSIDE RECORDS SUMMARY | 2024-01-31 16:50 | XMS_ITS | Continuity of Care Document ---
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 Not available 11/19/2023 12:18:18 Plan of Treatment [...] Organization Details Recorded Time Altered mental status 161268122 Active 2023 Nadja Cantrell [address] [facility], [address], [place], [address], [facility] 4 12:53:24 Urinary tract infectious disease 78050958 Active 2023 Nadja Cantrell [address] [facility], [address], [place], [address], [facility] 4 12:53:28 Carotid artery stenosis 83260961 Active 2023 Nadja Cantrell [address] [facility], [address], [place], [address], [facility] 4 12:53:55 Transient cerebral ischemia 053769401 Active 2023 Nadja Cantrell [address] [facility], [address], [place], [address], [facility] 4 12:54:02 Asthenia 19818267 Active 2023 Nadja Cantrell [address], [address], [place], [address], [facility] 4 12:54:07 Mixed anxiety and depressive disorder 180963302 Active 2023 Nadja Cantrell [address], [address], [place], [address], [facility] 4 13:04:07 Dementia 97406612 Active 2023 Nadja Cantrell [address], [address], [place], [address], [facility] 4 13:04:08 Essential hypertension 76745102 Active 2023 Nadja Cantrell [address], [address], [place], [address], [facility] 4 13:04:09 Primary insomnia 0228206 Active 2023 Nadja Cantrell [address], [address], [place], [address], [facility] 4 13:07:11 Hyperlipidemia 62456863 Active 2023 Nadja Cantrell [address], [place], [address], [facility] 4 13:39:41 Problem Notes None recorded. Procedures Surgical History Date Name Laterality Status Provider Name and Address Organization Details Recorded Time ligation of fallopian tube completed A_Tremblay-Da vis [address], [address], [place], [address], [facility] 10/12/2023 13:35:08 lumpectomy of breast completed A_Tremblay-Da vis [address], [address], [place], [address], [facility] 10/12/2023 13:35:24 manipulation of displaced nasal septum completed A_Tremblay-Da vis [address], [address], [place], [address], [facility] 10/12/2023 13:35:41 Imaging Results None recorded. Procedure Notes None recorded. Medical Equipment None Reported. Allergies Allergen ID Allergen Name Allergen Category Reaction Reaction Severity Criticality Documentation Date Start Date Code Code System Note Provider Name and Address Organization Details Recorded Time 52480 penicilli n G Not available Not available Not available Not available 10/12/2023 7980 RxNorm A_Selama agnes-Shimon [address] [place] [address], [place], [address], [facility] 4 12:53:04 63685 cucumber extract food Not available Not available Not available 10/12/2023 02896 19 RxNorm A_Selama agnes-Shimon [address] [place] [address], [facility] [address], [place], [address], [facility] 4 12:53:11 60206 strawberr y allergeni c extract food Not available Not available Not available 10/12/2023 31112 4 RxNorm A_Selama agnes-Shimon [address] [place] [address], [facility] [address], [place], [address], [facility] 4 12:53:17 Vitals Date Recorded Body height Heart rate Respiratory rate Body temperature Oxygen saturation Oxygen saturation in Arterial blood by Pulse oximetry Systolic blood pressure Diastolic blood pressure Provider Name and Address Organization Details Last Updated DateTime 4 162.56 cm 70 /min 18 /min 98 [degF] 98 % 98 % 122 mm[Hg] 72 mm[Hg] HINA ANTONIO NP [address] [place] [address], [place], [address], [facility] 4 11:52:50 Social History Question Answer Notes LastModified by Organizat ion Details LastModified Time Tobacco Smoking Status Former Smoker quit in her 30s Alicia Maurer MD [address] [facility], [facility] [address], [place], [address], [facility] 10/22/2023 18:54:01 Do You Have An [...] Do You Have A Medical Power Of Banquet Chef? Yes Information not available 10/22/2023 What Was [...] SARS-COV-2 (COVID-19) vaccine, UNSPECIFIED 04/30/2020 completed Fox mckenzie, [facility] 10/31/2023 10:19:23 SARS-COV-2 (COVID-19) vaccine, UNSPECIFIED 05/21/2020 completed Fox mckenzie, [facility] 10/31/2023 10:19:33 SARS-COV-2 (COVID-19) vaccine, UNSPECIFIED 12/03/2020 margo mckenzie [facility] 10/31/2023 10:19:45 SARS-COV-2 (COVID-19) vaccine, UNSPECIFIED 07/01/2021 completed Fox Tima [facility], [facility] 10/31/2023 10:19:58 SARS-COV-2 (COVID-19) vaccine, UNSPECIFIED 12/23/2021 completed Fox Tima null, [facility] 10/31/2023 10:20:18 SARS-COV-2 (COVID-19) vaccine, UNSPECIFIED 11/17/2022 completed Fox Tima [facility], [facility] 10/31/2023 10:20:31 Past Encounters Encounter ID Performer Location Encounter Start Date Encounter Closed Date Diagnosis/Indication Diagnosis SNOMED-CT Code Diagnosis ICD10 Code [id number] HINA ANTONIO NP [address] [place] [address] 10/22/2023 10:13:56 10/23/2023 03:50:14 Transient cerebral ischemia 581585323 G45.9 Carotid ar bita stenosis 65058313 I65.29 Asthenia 48035012 R53.1 Urinary tr act infectious disease 51308176 N39.0 Hypokalemia 27840066 E87 .6 Leukocytosis 814766262 D 72.829 Hyperlipidemia 51209005 E78.5 Essential hypertension 31009127 I10 Dementia 01420948 F03.90 Mixed anxi ety and depressive disorder 895310279 F41.8 Primary insomnia 5960425 F51.01 Paronychia of finger 444 975417 L03.019 [id number] Alicia Maurer MD [address] [address] 10/22/2023 14:42:34 10/23/2023 11:51:07 Leukocytosis 044488234 D72.828 Hypokalemia 99311127 E87 .6 Urinary tr act infectious disease 90019906 N30.80 Primary insomnia 3186516 F51.01 Mixed anxi ety and depressive disorder 491783928 F41.8 Transient cerebral ischemia 392042833 G45.8 Carotid ar bita stenosis 56339223 I65.21 Asthenia 12341890 R53.1 Hyperlipidemia 44580955 E78.49 Essential hypertension 66921710 I10 Dementia 72942917 F03.90 Cellulitis of finger of right hand 4847947329 2051012 L03.011 [id number] HINA ANTONIO NP [facility] [address] [address] 10/29/2023 08:25:51 10/30/2023 13:58:40 Leukocytosis 941919693 D72.829 Hypokalemia 13312094 E87 .6 Paronychia of finger 444 169249 L03.019 Urinary tr act infectious disease 70417479 N39.0 Mixed anxi ety and depressive disorder 987413357 F41.8 Transient cerebral ischemia 181675763 G45.9 Carotid ar bita stenosis 80536583 I65.29 Asthenia 14338861 R53.1 Hyperlipidemia 66364166 E78.5 Essential hypertension 51205231 I10 Dementia 52577160 F03.90 [id number] Zamzam Mccarthy NP [facility] [address] [address] 11/01/2023 11:31:16 11/05/2023 12:48:56 Leukocytosis 043501409 D72.829 Hypokalemia 91415725 E87 .6 Paronychia of finger 444 784104 L03.019 Urinary tr act infectious disease 41224537 N39.0 Mixed anxi ety and depressive disorder 697954192 F41.8 Transient cerebral ischemia 689696316 G45.9 Carotid ar bita stenosis 94503845 I65.29 Asthenia 83716197 R53.1 Hyperlipidemia 29306834 E78.5 Essential hypertension 37159894 I10 Dementia 19248724 F03.90 [id number] Zamzam Mccarthy NP [facility] [address] [address] 11/07/2023 08:26:43 11/11/2023 14:42:50 Dementia 75978488 F03.90 Asthenia 26535552 R53.1 Hypokalemia 53543745 E87 .6 Mixed anxi ety and depressive disorder 566034080 F41.8 Transient cerebral ischemia 323765690 G45.9 Carotid ar bita stenosis 58407637 I65.29 Essential hypertension 19357668 I10 [id number] HINA ANTONIO NP [facility] [address] [place] [address] 11/12/2023 08:47:14 11/13/2023 11:39:55 Dementia 34864014 F03.90 Asthenia 03194481 R53.1 Hypokalemia 44365067 E87 .6 Mixed anxi ety and depressive disorder 369865744 F41.8 Transient cerebral ischemia 669423111 G45.9 Carotid ar bita stenosis 09272352 I65.29 Essential hypertension 68355634 I10 [id number] Zamzam Mccarthy NP [facility] [address] [place] [address] 11/14/2023 11:32:35 11/18/2023 09:33:08 Dementia 86740908 F03.90 Asthenia 43307555 R53.1 Hypokalemia 79485441 E87 .6 Mixed anxi ety and depressive disorder 167979440 F41.8 Transient cerebral ischemia 830960586 G45.9 Carotid ar bita stenosis 18446181 I65.29 Essential hypertension 86910401 I10 [id number] HINA ANTONIO NP [facility] [address] [place] [address] 11/19/2023 11:51:26 11/20/2023 10:46:32 Transient cerebral ischemia 270146254 G45.8 Dementia 18699135 F03.90 Mixed anxi ety and depressive disorder 785243743 F41.8 Asthenia 88123242 R53.1 Essential hypertension 37040107 I10 Hypokalemia 14438721 E87 .6 Cellulitis of finger of right hand 5763857183 9968952 L03.011 Urinary tr act infectious disease 35336322 N30.80 Primary insomnia 9272940 F51.01 Carotid ar bita stenosis 03948087 I65.21 Hyperlipidemia 30374051 E78.49 Health Concerns Section Related Observation LastModified by Organization Detai ls LastModified Time None Recorded Concern Status LastModified by Organization Details LastModified Time None Recorded Payers Encounter Date Sequence Insurance Name Policy Number Policy Benjamin Covered Member ID Benjamin Member ID Guarantor Name 11/19/2023 1 [place] [employer] Mary Beth R Counter [id number] Mary Beth Counter 11/19/2023 2 [facility] [id number] Mary Beth Counter [id number] Mary Beth Counter Notes Date Note Type Note Provider Name and Address Organization Details Recorded Time 11/19/2023 text/html Mary Beth is seen t [facility] for discharge.She is planning to go home tomorrow 11/19 with support of family and services. She is an 88 yo woman who was admitted to [facility] for rehab after an acute hospitalization for an aphasic episode, presumed TIA.She has had several recent ED visits at [facility].09/26-for not feeling well , txed with cefpodoxime [...] allergic rhinitis, and vitamin D deficiency. HINA ANTNOIO NP [address] [facility], [address], [place], [address], [facility] 11/19/2023 12:18:31 OBGyn Episode No OBEpisode recorded.
--- OUTSIDE RECORDS SUMMARY | 2024-01-31 16:50 | XMS_ITS | Continuity of Care Document ---
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 [facility] 4 12:53:24 Urinary tract infectious disease 13040027 Active 2023 AJumana Cantrell [address] , [address], [place], [address], [facility] [facility] 4 12:53:28 Carotid artery stenosis 08273976 Active 2023 AJumana Cantrell [address], [address], [place], [address], [facility] 4 12:53:55 Transient cerebral ischemia 240546635 Active 2023 AKiraa Tamia [address], [address], [place], [address], [facility] 4 12:54:02 Asthenia 48848237 Active 2023 AKiraa Tamia [address], [address], [place], [address], [facility] 4 12:54:07 Mixed anxiety and depressive disorder 307721053 Active 2023 Nadja Cantrell [address], [address], [place], [address], [facility] 4 13:04:07 Dementia 84128035 Active 2023 Nadja Cantrell [address], [address], [place], [address], [facility] 4 13:04:08 Essential hypertension 63925409 Active 2023 Nadja Cantrell [address], [address], [place], [address], [facility] 4 13:04:09 Primary insomnia 7586882 Active 2023 Nadja Cantrell [address], [address], [place], [address], [facility] 4 13:07:11 Hyperlipidemia 72783010 Active 2023 Nadja Cantrell [address], [address], [place], [address], [facility] 4 13:39:41 Problem Notes None recorded. Procedures Surgical History Date Name Laterality Status Provider Name and Address Organization Details Recorded Time ligation of fallopian tube completed A_Tremblay-Da vis [address], [address], [place], [address], [facility] 10/12/2023 13:35:08 lumpectomy of breast completed [facility] [address], [address], [place], [address], [facility] 10/12/2023 13:35:24 manipulation of displaced nasal septum completed A[facility]Tremblay[facility] [address], [address], [place], [address], [facility] 10/12/2023 13:35:41 Imaging Results None recorded. Procedure Notes None recorded. Medical Equipment None Reported. Allergies Allergen ID Allergen Name Allergen Category Reaction Reaction Severity Criticality Documentation Date Start Date Code Code System Note Provider Name and Address Organization Details Recorded Time 15260 penicilli n G Not available Not available Not available Not available 10/12/2023 7980 RxNorm Nadja Cantrell [address], [address], [place], [address], [facility] [facility] 4 12:53:04 99640 cucumber extract food Not available Not available Not available 10/12/2023 84997 19 RxNorm AKiraa agnes-Shimon [address], [address], [place], [address], [facility] 4 12:53:11 75994 strawberr y allergeni c extract food Not available Not available Not available 10/12/2023 80373 4 RxNorm Nadja Cantrell [address], [address], [place], [address], [facility] 4 12:53:17 Vitals Date Recorded Body height Body mass index (BMI) Body weight Heart rate Respiratory rate Body temperature Oxygen saturation Oxygen saturation in Arterial blood by Pulse oximetry Systolic blood pressure Diastolic blood pressure Provider Name and Address Organization Details Last Updated DateTime 4 162.56 cm 33.3 kg/m2 82527.9 2 g 73 /min 18 /min 98 [degF] 98 % 98 % 122 mm[Hg] 72 mm[Hg] Zamzam Mccarthy NP [address], [facility] [address], [place], [address], [facility] [employer] [facility] 4 12:03:27 Social History Question Answer Notes LastModified by Organizat ion Details LastModified Time Tobacco Smoking Status Former Smoker quit in her 30s Alicia Maurer MD [address], [facility] [address], [place], [address], [facility] 10/22/2023 18:54:01 Do You Have An Advance [...] You Have A 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 Yes Information not available 10/22/2023 What Was [...] Recorded Time SARS-COV-2 (COVID-19) vaccine, UNSPECIFIED 04/30/2020 margo mckenzie, [facility] 10/31/2023 10:19:23 SARS-COV-2 (COVID-19) vaccine, UNSPECIFIED 05/21/2020 margo mckenzie, [facility] 10/31/2023 10:19:33 SARS-COV-2 (COVID-19) vaccine, UNSPECIFIED 12/03/2020 margo Alfred null, [facility] 10/31/2023 10:19:45 SARS-COV-2 (COVID-19) vaccine, UNSPECIFIED 07/01/2021 margo mckenzie, [facility] 10/31/2023 10:19:58 SARS-COV-2 (COVID-19) vaccine, UNSPECIFIED 12/23/2021 completed Fox Alfred null, [facility] 10/31/2023 10:20:18 SARS-COV-2 (COVID-19) vaccine, UNSPECIFIED 11/17/2022 completed Fox Alfred null, [facility] 10/31/2023 10:20:31 Past Encounters Encounter ID Performer Location Encounter Start Date Encounter Closed Date Diagnosis/Indication Diagnosis SNOMED-CT Code Diagnosis ICD10 Code [id number] HINA ANTONIO NP [address] [address] 10/17/2023 11:35:12 10/23/2023 11:16:25 Transient cerebral ischemia 502290675 G45.9 Carotid ar bita stenosis 97586708 I65.29 Asthenia 39221038 R53.1 Urinary tr act infectious disease 30951583 N39.0 Hyperlipidemia 33059998 E78.5 Essential hypertension 79084937 I10 Dementia 60341348 F03.90 Mixed anxi ety and depressive disorder 673817505 F41.8 Primary insomnia 9890757 F51.01 Leukocytosis 701928661 D 72.829 Hypokalemia 94894639 E87 .6 [id number] HINA ANTONIO NP [address] [address] 10/22/2023 10:13:56 10/23/2023 03:50:14 Transient cerebral ischemia 151034397 G45.9 Carotid ar bita stenosis 80909831 I65.29 Asthenia 16976904 R53.1 Urinary tr act infectious disease 29035661 N39.0 Hypokalemia 33094296 E87 .6 Leukocytosis 090459010 D 72.829 Hyperlipidemia 81080423 E78.5 Essential hypertension 12227946 I10 Dementia 84292016 F03.90 Mixed anxi ety and depressive disorder 539542814 F41.8 Primary insomnia 1552632 F51.01 Paronychia of finger 444 773059 L03.019 [id number] Alicia Maurer MD [address] [address] 10/22/2023 14:42:34 10/23/2023 11:51:07 Leukocytosis 713190103 D72.828 Hypokalemia 98333213 E87 .6 Urinary tr act infectious disease 40280729 N30.80 Primary insomnia 8590855 F51.01 Mixed anxi ety and depressive disorder 359355112 F41.8 Transient cerebral ischemia 736418287 G45.8 Carotid ar bita stenosis 64637897 I65.21 Asthenia 14717854 R53.1 Hyperlipidemia 85161575 E78.49 Essential hypertension 89770016 I10 Dementia 66165038 F03.90 Cellulitis of finger of right hand 8077661256 8963847 L03.011 [id number] [facility] [address] 10/29/2023 08:25:51 10/30/2023 13:58:40 Leukocytosis 019122359 D72.829 Hypokalemia 77264596 E87 .6 Paronychia of finger 444 884151 L03.019 Urinary tr act infectious disease 65079555 N39.0 Mixed anxi ety and depressive disorder 073456217 F41.8 Transient cerebral ischemia 032821939 G45.9 Carotid ar bita stenosis 60003193 I65.29 Asthenia 10820309 R53.1 Hyperlipidemia 49710973 E78.5 Essential hypertension 28136925 I10 Dementia 75675665 F03.90 [id number] Zamzam Mccarthy NP [facility] [address] 11/01/2023 11:31:16 11/05/2023 12:48:56 Leukocytosis 899014158 D72.829 Hypokalemia 92903796 E87 .6 Paronychia of finger 444 356205 L03.019 Urinary tr act infectious disease 50808484 N39.0 Mixed anxi ety and depressive disorder 822770576 F41.8 Transient cerebral ischemia 495458986 G45.9 Carotid ar bita stenosis 31505382 I65.29 Asthenia 74497397 R53.1 Hyperlipidemia 32852593 E78.5 Essential hypertension 32170074 I10 Dementia 03313829 F03.90 [id number] Zamzam Mccarthy NP [facility] [address] [address] 11/07/2023 08:26:43 11/11/2023 14:42:50 Dementia 77960128 F03.90 Asthenia 79255243 R53.1 Hypokalemia 29319332 E87 .6 Mixed anxi ety and depressive disorder 995334707 F41.8 Transient cerebral ischemia 657022483 G45.9 Carotid ar bita stenosis 85723829 I65.29 Essential hypertension 99097835 I10 [id number] HINA ANTONIO NP [facility] [address] [address] 11/12/2023 08:47:14 11/13/2023 11:39:55 Dementia 85378663 F03.90 Asthenia 07994634 R53.1 Hypokalemia 17246679 E87 .6 Mixed anxi ety and depressive disorder 889479671 F41.8 Transient cerebral ischemia 971922588 G45.9 Carotid ar bita stenosis 55986113 I65.29 Essential hypertension 18716491 I10 [id number] Zamzam Mccarthy NP [facility] [address] [address] 11/14/2023 11:32:35 11/18/2023 09:33:08 Dementia 60566137 F03.90 Asthenia 50357819 R53.1 Hypokalemia 48505626 E87 .6 Mixed anxi ety and depressive disorder 174026652 F41.8 Transient cerebral ischemia 349614892 G45.9 Carotid ar bita stenosis 22700505 I65.29 Essential hypertension 23955722 I10 Health Concerns Section Related Observation LastModified by Organization Detai ls LastModified Time None Recorded Concern Status LastModified by Organization Details LastModified Time None Recorded Payers Encounter Date Sequence Insurance Name Policy Number Policy Benjamin Covered Member ID Benjamin Member ID Guarantor Name 11/14/2023 1 [place]IC[place]: [employer] Mary Beth R Counter [id number] Mary Beth Counter 11/14/2023 2 [employer] - [facility] [id number] Mary Beth Counter [id number] Mary Beth Counter Notes Date Note Type Note Provider Name and Address Organization Details Recorded Time 11/14/2023 text/html Mary Beth is seen today for an acute rounding visit. PMH significant for dementia, depression, HTN, HLD, obesity, cardiac murmur, primary insomnia, UTI, TIA, Carotid stenosis and weakness Michael is an 88 yo female admitted to [facility] on 10/11/23 for rehab and continued care [...] now completed. GREEN 50BIMS 15MOLST FULL CODE Zamzam Mccarthy, LEFTY [address], [address], [place], [address], [facility] [employer] 11/15/2023 12:08:57 OBGyn Episode No OBEpisode recorded.
== END 2024-01-31 17:28 | disposition home or self-care (01) ==
PROVIDERS: PCP Internal Medicine; Visit Provider Internal Medicine
DX: I10 Essential (primary) hypertension (principal); F33.9 Major depressive disorder, recurrent, unspecified; E66.01 Morbid (severe) obesity due to excess calories; Z68.41 Body mass index [BMI] 40.0-44.9, adult; E78.00 Pure hypercholesterolemia, unspecified; R01.1 Cardiac murmur, unspecified; G45.9 Transient cerebral ischemic attack, unspecified; R73.01 Impaired fasting glucose; D50.9 Iron deficiency anemia, unspecified; E55.9 Vitamin D deficiency, unspecified; J30.2 Other seasonal allergic rhinitis; F51.01 Primary insomnia; F41.9 Anxiety disorder, unspecified; Z23 Encounter for immunization

== ENCOUNTER → 2024-01-31 16:42 | Outpatient (BNVA) | payer MEDICARE, OTHER, SELFPAY | PROVIDERS: PCP Internal Medicine; Visit Provider Internal Medicine | DX: Z23 Encounter for immunization (principal); I10 Essential (primary) hypertension; E78.00 Pure hypercholesterolemia, unspecified; R01.1 Cardiac murmur, unspecified; G45.9 Transient cerebral ischemic attack, unspecified; R73.01 Impaired fasting glucose; D50.9 Iron deficiency anemia, unspecified; E55.9 Vitamin D deficiency, unspecified; J30.2 Other seasonal allergic rhinitis; F51.01 Primary insomnia; F41.9 Anxiety disorder, unspecified; F33.9 Major depressive disorder, recurrent, unspecified; E66.01 Morbid (severe) obesity due to excess calories; Z68.41 Body mass index [BMI] 40.0-44.9, adult; Z71.3 Dietary counseling and surveillance | CPT/HCPCS: 90471; 90656; 96127; 99212 ==

== ENCOUNTER 2024-07-02 15:16 | Outpatient (REF) | payer MEDICARE, OTHER, SELFPAY ==
--- NOTE | ~2024-07-02 | US_ITS ---
EXAMINATION: BILATERAL CAROTID ULTRASOUND WITH DOPPLER HISTORY: I65.23 - Occlusion and stenosis of bilateral carotid arteries COMPARISON: Comparison is made with the prior examination dated 10/06/2023. TECHNIQUE: Real time and Color and Spectral doppler ultrasonography of the carotid and vertebral arteries was performed in multiple planes. FINDINGS: There is a moderate amount of plaque at the right carotid bulb and a small amount on the left. VERTEBRAL FLOW DIRECTION: Antegrade bilaterally. PEAK SYSTOLIC VELOCITIES (in cm/sec): RIGHT: CCA: Prox: 86 Dist: 74 ICA: Prox: 332 Mid: 101 Dist: 105 ICA/CCA Ratio: 3.86 ECA: 172 Peak ICA end diastolic velocity (EDV): 82 LEFT: CCA: Prox: 90 Dist: 79 ICA: Prox: 153 Mid: 92 Dist: 107 ICA/CCA Ratio: 1.7 ECA: 146 Peak ICA end diastolic velocity (EDV): 39 US/US carotid duplex BI IMPRESSION: 1. Findings consistent with 50-79% stenosis of the right internal carotid artery. 2. Findings consistent with 50-79% stenosis of the left internal carotid artery. Electronically signed by: Gregorio Mathew MD 07/03/2024 07:09 AM EDT
--- OUTSIDE RECORDS SUMMARY | 2024-07-02 15:48 | XMS_ITS | Data Portability ---
Author Organization [facility] [employer] [facility], Main Office Address [address] [place] [address] Care Team Providers Care Shellacker Name Role Phone RONNIE BROUSSARD - 2ND FLOOR OTHER Assessment Encounter Date Assessment Date Assessment LastModified by Organization Details LastModified Time 11/12/2023 11/12/2023 I have seen and examined the patient independently and confirmed the findings above with the [employer] student note. Management plan discussed with the [employer] student personally. [email or web address] Not available 11/12/2023 12:35:08 11/19/2023 11/19/2023 45 minutes spent on coordination of discharge. [email or web address] Not available 11/19/2023 12:18:18 Plan of Treatment [...] Organization Details Recorded Time Altered mental status 762045041 Active 2023 Nadja Cantrell [address] [facility] [facility], [address], [place], [address], [employer] [facility] 4 12:53:24 Urinary tract infectious disease 28366350 Active 2023 Nadja Cantrell [address], [address], [place], [address], [facility] 4 12:53:28 Carotid artery stenosis 79271696 Active 2023 Nadja Cantrell [address], [address], [place], [address], [facility] 4 12:53:55 Transient cerebral ischemia 205904276 Active 2023 Nadja Cantrell [address], [address], [place], [address], [facility] 4 12:54:02 Asthenia 16464298 Active 2023 AKiraa Tamia [address], [address], [place], [address], [facility] 4 12:54:07 Mixed anxiety and depressive disorder 947323720 Active 2023 AKiraa Tamia [address], [address], [place], [address], [employer] 4 13:04:07 Dementia 21061419 Active 2023 AKiraa Tamia [address], [address], [place], [place], [address], [facility] 4 13:04:08 Essential hypertension 59917647 Active 2023 AKiraa Tamia [address], [address], [place], [address], [employer] 4 13:04:09 Primary insomnia 7784953 Active 2023 AJumana Cantrell [address], [address], [place], [address], [employer] 4 13:07:11 Hyperlipidemia 49559696 Active 2023 AKiraa Tamia [address] [facility] [facility], [address], [place], [address], [employer] 4 13:39:41 Problem Notes None recorded. Procedures Surgical History Date Name Laterality Status Provider Name and Address Organization Details Recorded Time ligation of fallopian tube completed A_Tremblay-Da vis [address], [place], [place], [address], [facility] 10/12/2023 13:35:08 lumpectomy of breast completed A_Tremblay-Da vis [address] [facility] [facility], [address], [place], [address], [facility] 10/12/2023 13:35:24 manipulation of displaced nasal septum completed A_Tremblay-Da vis [address] [facility] [facility], [address], [place], [address], [facility] 10/12/2023 13:35:41 Imaging Results None recorded. Procedure Notes None recorded. Medical Equipment None Reported. Allergies Allergen ID Allergen Name Allergen Category Reaction Reaction Severity Criticality Documentation Date Start Date Code Code System Note Provider Name and Address Organization Details Recorded Time 09569 penicilli n G Not available Not available Not available Not available 10/12/2023 7980 RxNorm A_Selama agnes-Shimon [address] [facility], [address], [place], [address], [facility] 4 12:53:04 70894 cucumber extract food Not available Not available Not available 10/12/2023 93234 19 RxNorm A_Fredericbla y-Shimon [address], [address], [place], [address], [facility] 4 12:53:11 10300 strawberr y allergeni c extract food Not available Not available Not available 10/12/2023 00265 4 RxNorm A_Selama y-Shimon [address] [facility] [facility], [address], [place], [address], [facility] 4 12:53:17 Vitals Date Recorded Body height Body weight Heart rate Respiratory rate Body temperature Oxygen saturation Oxygen saturation in Arterial blood by Pulse oximetry Systolic blood pressure Diastolic blood pressure Provider Name and Address Organization Details Last Updated DateTime 4 162.56 cm 69579.1 8 g 72 /min 18 /min 98 [degF] 98 % 98 % 125 mm[Hg] 78 mm[Hg] Zamzam Mccarthy NP [address] [facility] [facility], [address], [place], [address], [facility] 4 12:23:59 Date Recorded Body height Body weight Heart rate Respiratory rate Body temperature Oxygen saturation Oxygen saturation in Arterial blood by Pulse oximetry Systolic blood pressure Diastolic blood pressure Provider Name and Address Organization Details Last Updated DateTime 4 162.56 cm 64128.8 8 g 74 /min 18 /min 98 [degF] 98 % 98 % 122 mm[Hg] 72 mm[Hg] Zamzam Mccarthy NP [address] [facility] [facility], [address], [place], [address], [facility] 4 17:35:25 Date Recorded Body height Heart rate Respiratory rate Body temperature Oxygen saturation Oxygen saturation in Arterial blood by Pulse oximetry Systolic blood pressure Diastolic blood pressure Provider Name and Address Organization Details Last Updated DateTime 4 162.56 cm 72 /min 18 /min 98 [degF] 98 % 98 % 122 mm[Hg] 72 mm[Hg] Colette branch [facility] 4 12:22:47 Date Recorded Body height Body mass index (BMI) Body weight Heart rate Respiratory rate Body temperature Oxygen saturation Oxygen saturation in Arterial blood by Pulse oximetry Systolic blood pressure Diastolic blood pressure Provider Name and Address Organization Details Last Updated DateTime 4 162.56 cm 33.3 kg/m2 47991.9 2 g 73 /min 18 /min 98 [degF] 98 % 98 % 122 mm[Hg] 72 mm[Hg] Zamzam Mccarthy NP [address] [facility], [address], [place], [address], [facility] 4 12:03:27 Date Recorded Body height Heart rate Respiratory rate Body temperature Oxygen saturation Oxygen saturation in Arterial blood by Pulse oximetry Systolic blood pressure Diastolic blood pressure Provider Name and Address Organization Details Last Updated DateTime 4 162.56 cm 70 /min 18 /min 98 [degF] 98 % 98 % 122 mm[Hg] 72 mm[Hg] HINA ANTONIO NP [address], [place], [address], [facility] 4 11:52:50 Social History Question Answer Notes LastModified by Organizat ion Details LastModified Time Tobacco Smoking Status Former Smoker quit in her 30s Alicia Maurer MD [address] [facility], [address], [place], [address], [facility] 10/22/2023 18:54:01 Do You Have An Advance Directive? Yes Information not available 10/22/2023 What Is Your Code Status? Full Code Information not available 10/12/2023 Where Do You Live? Apartment [address]st Floor Of [facility] House, [address] To [address], With Daughter. Information not available 10/22/2023 Legal Guardian? 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 10/22/2023 Information not available 10/22/2023 Do You Have An Out Of Hospital DNR? No Information not available 10/22/2023 What Is Your Relationship Status? Information not available 10/22/2023 How Much Tobacco Do You Smoke? No Information not available 10/22/2023 Has Tobacco Cessation Counseling Been Provided? No N/a As Pt No Longer Smokes Information not available 10/22/2023 Sex: Unknown Functional Status Question Answer Note LastModified by Organizat ion Details LastModified Time Do you use any illicit or recreational drugs? No Information not available 10/12/2023 Do you or have you ever used any other forms of tobacco or nicotine? No Information not available 10/22/2023 What is your level of alcohol consumption? None Information not available 10/12/2023 Mental Status None recorded. Family History Nothing Reported Notes:n/c Medical History No medical history recorded. Gynecological HistoryNo gynecological history recorded. Obstetrics History GPAL:G 0 P 0 0 0 0 Immunizations Vaccine Type Date Status Note Provider Nam e and Address Organization Details Recorded Time SARS-COV-2 (COVID-19) vaccine, UNSPECIFIED 04/30/2020 [facility] 10:19:23 SARS-COV-2 (COVID-19) vaccine, UNSPECIFIED 05/21/2020 completed Fox mckenzie [facility] 10/31/2023 10:19:33 SARS-COV-2 (COVID-19) vaccine, UNSPECIFIED 12/03/2020 completed Fox Alfred null, [facility] 10/31/2023 10:19:45 SARS-COV-2 (COVID-19) vaccine, UNSPECIFIED 07/01/2021 completed Fox Alfred null, [facility] 10/31/2023 10:19:58 SARS-COV-2 (COVID-19) vaccine, UNSPECIFIED 12/23/2021 completed Fox Alfred null, [facility] 10/31/2023 10:20:18 SARS-COV-2 (COVID-19) vaccine, UNSPECIFIED 11/17/2022 completed Fox Alfred [facility] 10/31/2023 10:20:31 Past Encounters Encounter ID Performer Location Encounter Start Date Encounter Closed Date Diagnosis/Indication Diagnosis SNOMED-CT Code Diagnosis ICD10 Code Diagnosis Note [id number] Chemo_Stephanie Murrell [address] [address] 10/12/2023 12:52:46 10/23/2023 10:33:18 Carotid artery stenosis 37585582 I65.29 R carotid stenosisAS A 81mg qdsimvasta tin 40mg qdf/u vascular with Dr. Boogie outpatient in the next week Asthenia 33815000 R53.1 Admit to services PT/OT/STRm onitor and support as needed Transient cerebral ischemia 008354914 G45.9 CTH and MRI without acute strokeASA 81mg qdsimvasta tin 40mg qdmonitor neurologic al status Urinary tr act infectious disease 93656655 N39.0 urine culture negativece furoxime 250mg BID x 2 days (total 5 days) Hyperlipidemia 46760873 E78.5 simvastati n 40mg qdmonitor lipids outpatient Essential hypertension 58136134 I10 lisinopril 5mg qdfurosemi de 40mg qdmonitor labs and BP Dementia 26322816 F03.90 expect declinemon itor insight and need to invoke HCPBIMS 15see meds for mixed anxiety/de pressive d/omonitor and support as needed Mixed anxi ety and depressive disorder 350473664 F41.8 ativan 0.5mg qd prnbupropi on HCL 300mg ER qdmonitor mood and consult [facility] if needed Primary insomnia 1381527 F51.01 melatonin 10mg qHS prndiphenh ydramine 25mg qHS prnmonitor sleep [id number] HINA ANTONIO NP [address] [address] 10/17/2023 11:35:12 10/23/2023 11:16:25 Transient cerebral ischemia 926548837 G45.9 ?CTH and MRI without acute strokeCont inue:ASA 81mg qdsimvasta tin 40mg qdmonitor neurologic al status Carotid ar bita stenosis 49558071 I65.29 R carotid stenosis noted on scanContin ue:ASA 81mg qdsimvasta tin 40mg qdNeeds outpt. f/u with Vasc. Dr. Boogie Asthenia 12778580 R53.1 Admit to services PT/OT/STRm onitor and support as neededgoal is to return home Urinary tr act infectious disease 76108455 N39.0 urine culture negative, but....cef uroxime 250mg BID x 5 days now complete.M ild elevation in wbcs - repeating CBC in am.Monitor sx., VSEncourag e fluids Hyperlipidemia 76500143 E78.5 simvastati n 40mg qdmonitor lipids outpatient Essential hypertension 22455091 I10 lisinopril 5mg qdfurosemi de 40mg qdmonitor labs and BP Dementia 63649892 F03.90 expect declinemon itor insight and need to invoke HCPBIMS 15see meds for mixed anxiety/de pressive d/omonitor and support as needed Mixed anxi ety and depressive disorder 216494683 F41.8 ativan 0.5mg qd prnbupropi on HCL 300mg ER qdmonitor mood and consult [facility] if needed Primary insomnia 7534196 F51.01 melatonin 10mg qHS prndiphenh ydramine 25mg qHS prnmonitor sleep Leukocytosis 161694050 D 72.829 Mild elevation on admit.Kathy james for UTI despite neg. cx.Monitor ing VS and s/s infectionR epeat CBC in am to trend. Hypokalemia 38962852 E87 .6 K 3.1, no labs for comparison .On lasix 40 mg qd and lisinopril 5 mg qd.Added 20 meq KCL qd, repeating BMP in amMonitor [id number] HINA ANTONIO NP [place] [address] [place], [place] [address] 10/22/2023 10:13:56 10/23/2023 03:50:14 Transient cerebral ischemia 781239562 G45.9 ?CTH and MRI without acute strokeCont inue:ASA 81mg qdsimvasta tin 40mg qdmonitor neurologic al status Carotid ar bita stenosis 47402176 I65.29 R carotid stenosis noted on scanContin ue:ASA 81mg qdsimvasta tin 40mg qdNeeds outpt. f/u with Vasc. Dr. Boogie - HCP trying to get appt., will continue to call office Asthenia [id number] R53.1 Admit to services PT/OT/STRm onitor and support as neededgoal is to return home Urinary tr act infectious disease 80919681 N39.0 urine culture negative, but....cef uroxime 250mg BID x 5 days starterd in hosp., now complete.M ild leukocytos is - repeat UA C&S and CBC in am.Monitor sx., VSEncourag e fluids Hypokalemia 01044004 E87 .6 K 3.1, no labs for comparison .On lasix 40 mg qd and lisinopril 5 mg qd.Added 20 meq KCL qd, repeat BMP in amMonitor Leukocytosis 078126811 D 72.829 Mild elevation on admit.Kathy james for UTI despite neg. cx. Repeat UA C&S and CBC in am, then start keflex 500 mg qid x 5 days and probiotic as also a concern for right middle finger paronychia . Hyperlipidemia 86467735 E78.5 simvastati n 40mg qdmonitor lipids outpatient Essential hypertension 18175039 I10 lisinopril 5mg qdfurosemi de 40mg qdmonitor labs and BP Dementia 57885769 F03.90 expect declinemon itor insight and need to invoke HCPBIMS 15see meds for mixed anxiety/de pressive d/omonitor and support as needed Mixed anxi ety and depressive disorder 232586846 F41.8 ativan 0.5mg qd prn - staff says very helpful with mood and behaviors if dosed q am.bupropi on HCL 300mg ER qdmonitor mood and consult [facility] if needed Primary insomnia 4186041 F51.01 Discussed with HCPmelaton in 10mg qHS prn -> scheduledi phenhydram ine 25mg qHS prn -> schedule (also uses for allergy sx.)monito r sleep Paronychia of finger 444 878812 L03.019 Suspicion, right middle finger.Mil d leukocytos is last week.Plan -CBC, ESR, Uric Acid in am, then start keflex 500 mg qid x 5 days plus probiotic. [id number] Alicia Maurer MD [address] [address] 10/22/2023 14:42:34 10/23/2023 11:51:07 Leukocytosis 991493464 D72.828 WBC on 10/08 was 15.6, down to 11.1 on 10/13, then 12.4 on 10/17Will be rechecked in AM and U/A being rechecked. Monitor. Hypokalemia 78091819 E87 .6 K 3.1 on 10/13, upt to 3.6 on 10/17, had been 3.2 on 09/30, but otherwise has been WNL inpt.Arun nue 20 meq KCL qd.Recheck BMP in AMMonitor Urinary tr act infectious disease 72715933 N30.80 With 2 recent courses of txs for borderline U/As with neg cxs.Will recheck U/A in AM.Encoura ge fluids Primary insomnia 1212512 F51.01 Continue melatonin 10 mg qhs and diphenhydr amine 25 mg qhs.Monito r sleep patterns. Mixed anxi ety and depressive disorder 886564532 F41.8 As above.Thou ght anxiety is possible causing some sxs.Monito r. Transient cerebral ischemia 089267708 G45.8 Possible dx after recent episodes.C ontinue ASA 81mg qd and simvastati n 40 mg qdMonitor neuro sxs.F/U prn. Carotid ar bita stenosis 87228303 I65.21 No change from 2006Contin ue ASA 81 mg qd and simvastati n 40 mg qd.Needs outpt. f/u with Vasc. Dr. Boogie - HCP trying to get appt., will continue to call office Asthenia [id number] R53.1 Is deconditio maranda due to recent poor intake at home.Needs PT/OT for strengthen ing, balance, gait training, safety and function.C ontinue fall precaution s.Monitor for safety. Hyperlipidemia 50312533 E78.49 Continue simvastati n 40 mg qdMonitor labs as outpt. Essential hypertension 99458269 I10 In good control since here.Arun nue lisinopril 5 mg qd and furosemide 40 mg qdMonitor BP and labs. Dementia 86596668 F03.90 Scored 15/15 on BIMs on admission. But hx of intermitte nt confusion. Continue buproprion 300 mg qd and lorazepam 0.5 mg qd prn.Contin ue supportive care.HCP not invoked, monitor for need to invoke.Mon itor mood and behaviors. Psych consult prn. Cellulitis of finger of right hand [id number] 4626961 L03.011 Looks like either cellulitis or gout.Will check CBC, ESR, Uric Acid in AM, then start keflex 500 mg qid x 5 days plus probiotic. Monitor [id number] HINA ANTONIO NP [address] [address] 10/29/2023 08:25:51 10/30/2023 13:58:40 Leukocytosis 827171328 D72.829 More recent mild elevation, now resolved.R epeat UA C&S neg.Contin ues on keflex for concern of paronychia Continue to monitor Labs Hypokalemia 83227381 E87 .6 K 4.3 (10/24)Curre ntly on lasix 40 mg qd and lisinopril 5 mg qd.Continu e with KCL 20 meq qdMonitor Labs, sxs Paronychia of finger 444 232247 L03.019 ResolvedMi ld leukocytos is last week-nl this week 10.1Plan -Complete keflex on 10/30Monito r sxs Urinary tr act infectious disease 15588993 N39.0 Asymptomat icurine culture negative Monitor sx., VSEncourag e fluids Mixed anxi ety and depressive disorder 174971922 F41.8 Continue with ativan 0.5mg qd prn and bupropion HCL 300mg ER qdmonitor mood and consult [facility] prn Transient cerebral ischemia 983839218 G45.9 ?CTH and MRI without acute strokeCont inue with:ASA 81mg qdsimvasta tin 40mg qdmonitor neurologic al status, sxs Carotid ar bita stenosis 48430096 I65.29 R carotid stenosis noted on scanContin ue:ASA 81mg qdsimvasta tin 40mg qdfollow up with Vasc. Dr. Boogie in place Asthenia 02099907 R53.1 Continue with PT/OT/STRE ncourage participat ionmonitor and support as neededgoal is to return home Hyperlipidemia 70527455 E78.5 Asymptomat icsimvasta tin 40mg qdmonitor labs, VS Essential hypertension 10237022 I10 Continueli sinopril 5mg qdfurosemi de 40mg qdmonitor labs and BP Dementia 90681767 F03.90 expect declinemon itor insight and need to invoke HCPBIMS 15Continue withSuppor tive careativan 0.5mg qd prnbupropi on HCL 300mg ER qdMonitor sxs [id number] Zamzam Mccarthy NP [address] [address] 11/01/2023 11:31:16 11/05/2023 12:48:56 Leukocytosis 436539495 D72.829 resolvedMo re recent mild elevation, now resolved.R epeat UA C&S neg.Comple james bennett for concern of paronychia Continue to monitor Labs Hypokalemia 13254593 E87 .6 K 4.3 as above stableCurr ently on lasix 40 mg qd and lisinopril 5 mg qd.Continu e with KCL 20 meq qdMonitor Labs, sxs Paronychia of finger 444 001080 L03.019 ResolvedMi ld leukocytos is last week-nl this week 10.1Plan -Complete keflex on 10/30Monito r sxs Urinary tr act infectious disease 29958328 N39.0 Asymptomat iccomplete d keflexMoni tor sx., VSEncourag e fluids Mixed anxi ety and depressive disorder 902352510 F41.8 Continue withativan 0.5mg qd prnbupropi on HCL 300mg ER qdmonitor mood and consult [facility] prn Transient cerebral ischemia 378573612 G45.9 ?see hpiCTH and MRI without acute strokeCont inue with:ASA 81mg qdsimvasta tin 40mg qdmonitor neurologic al status, sxs Carotid ar bita stenosis 41268527 I65.29 R carotid stenosis noted on scanContin ue:ASA 81mg qdsimvasta tin 40mg qdfollow up with Vasc. Dr. Boogie in place outpt Asthenia 91115000 R53.1 Continue with PT/OT/STRE ncourage participat ionmonitor and support as neededgoal is to return home Hyperlipidemia 52727579 E78.5 Asymptomat icsimvasta tin 40mg qdmonitor labs, VS Essential hypertension 50113839 I10 Continueli sinopril 5mg qdfurosemi de 40mg qdmonitor labs and BP Dementia 49381846 F03.90 expect decline, currently pleasant and a x o [id number] insight and need to invoke HCPBIMS 15Continue withSuppor tive careativan 0.5mg qd prnbupropi on HCL 300mg ER qdMonitor sxs [id number] Zamzam Mccarthy NP [address] [address] 11/07/2023 08:26:43 11/11/2023 14:42:50 Dementia 10981106 F03.90 expect decline, currently pleasant and a x o a0wectefe insight and need to invoke HCPBIMS 15Continue withSuppor tive careativan 0.5mg qd prnbupropi on HCL 300mg ER qdMonitor sxs Asthenia 82221619 R53.1 Continue with PT/OT/STRE ncourage participat ion with pt otmonitor and support as neededgoal is to return home Hypokalemia 71149018 E87 .6 K 4.3 as above stableCurr ently on lasix 40 mg qd and lisinopril 5 mg qd.Continu e with KCL 20 meq qdMonitor Labs, sxs Mixed anxi ety and depressive disorder 029717099 F41.8 Continue withativan 0.5mg qd prnbupropi on HCL 300mg ER qdmonitor mood and consult [facility] prn Transient cerebral ischemia 036939534 G45.9 per HPI not likely stroke but can follow up with neuro outpt for fuCTH and MRI without acute strokeCont inue with:ASA 81mg qdsimvasta tin 40mg qdmonitor neurologic al status, sxs Carotid ar bita stenosis 02941435 I65.29 R carotid stenosis noted on scanContin ue:ASA 81mg qdsimvasta tin 40mg qdfollow up with Vasc. Dr. Boogie in place outpt Essential hypertension 17778190 I10 Continueli sinopril 5mg qdfurosemi de 40mg qdmonitor labs and BP [id number] HINA ANTONIO NP [facility] [address] 11/12/2023 08:47:14 11/13/2023 11:39:55 Dementia 01351729 F03.90 Pleasantly confused at times, quite clear todayBIMS 15Continue withSuppor tive care- expect declineati van 0.5mg qd prnbupropi on HCL 300mg ER qdmonitor insight and need to invoke HCPMonitor sxs Asthenia 21724384 R53.1 deconditio maranda to multiple hospitaliz ationsCont inue with PT/OT - encourage participat ionmonitor and support as neededgoal is to return home Hypokalemia 13919919 E87 .6 K 4.3 on KCL 20 meq qdAsymptom aticCurren tly on lasix 40 mg qd and lisinopril 5 mg qd.Monitor Labs, sxs Mixed anxi ety and depressive disorder 702035826 F41.8 Asymptomat icContinue with bupropion HCL 300mg ER qdNo longer on prn ativanmoni tor mood and consult [facility] prn Transient cerebral ischemia 572425920 G45.9 per HPI not likely stroke but can follow up with neuro outptCTH and MRI without acute strokeCont inue with:ASA 81mg qdsimvasta tin 40mg qdmonitor neurologic al status, sxsFollow up with Neuro as planned on 11/27 Carotid ar bita stenosis 26376923 I65.29 R carotid stenosis noted on scanContin ue:ASA 81mg qdsimvasta tin 40mg qdfollow up with Vasc. Dr. Boogie in place outpt Essential hypertension 28896855 I10 BP's stable since hereContin uelisinopr il 5mg qdfurosemi de 40mg qdmonitor labs and BP [id number] Zamzam Mccarthy NP [facility] [address] 11/14/2023 11:32:35 11/18/2023 09:33:08 Dementia 80805062 F03.90 Pleasantly confused at times, quite clear todayBIMS 15Continue withSuppor tive care- expect declinebup ropion HCL 300mg ER qdmonitor insight and need to invoke HCPMonitor sxs Asthenia 19377081 R53.1 deconditio maranda to multiple hospitaliz ationsCont inue with PT/OT - encourage participat ionmonitor and support as neededgoal is to return home Hypokalemia 88857200 E87 .6 K 4.3 on KCL 20 meq qdAsymptom aticCurren tly on lasix 40 mg qd and lisinopril 5 mg qd.Monitor Labs, sxs Mixed anxi ety and depressive disorder 108450315 F41.8 Asymptomat icContinue with bupropion HCL 300mg ER qdNo longer on prn ativanmoni tor mood and consult [facility] prn Transient cerebral ischemia 600176373 G45.9 per HPI not likely stroke but can follow up with neuro outptCTH and MRI without acute strokeCont inue with:ASA 81mg qdsimvasta tin 40mg qdmonitor neurologic al status, sxsFollow up with Neuro as planned on 11/27 Carotid ar bita stenosis 52931764 I65.29 R carotid stenosis noted on scanContin ue:ASA 81mg qdsimvasta tin 40mg qdfollow up with Vasc. Dr. Boogie in place outpt Essential hypertension 38507157 I10 BP's stable since here on belowConti nuelisinop ril 5mg qdfurosemi de 40mg qdmonitor labs and BP [id number] HINA ANTONIO NP [facility] [address] [place] [address] 11/19/2023 11:51:26 11/20/2023 10:46:32 Transient cerebral ischemia 750814860 G45.8 Possible dx after recent episodes.C ontinue ASA 81mg qd and simvastati n 40 mg qdMonitor neuro sxs.F/U with neuro, vascular as outpt. Dementia 32939422 F03.90 Scored 15/15 on BIMs on admission. But hx of intermitte nt confusion. Continue buproprion 300 mg qdContinue supportive care.HCP not invoked, monitor for need to invoke.Mon itor mood and behaviors as outpt.As above, can follow up with Neuro for further assessment as outpt. Mixed anxi ety and depressive disorder 538021887 F41.8 As above.Thou ght anxiety is possible causing some sxs.Monito r. Asthenia 32026964 R53.1 Deconditio maranda due to recent poor intake at home.Has worked with PT/OT for strengthen ing, balance, gait training, safety and function.M eeting goals for d/c home tomorrow with support of services.C ontinue fall precaution s.Monitor for safety. Essential hypertension [id number] I10 In good control since here.Arun nue lisinopril 5 mg qd and furosemide 40 mg qdMonitor BP and labs. Hypokalemia [id number] E87 .6 K 3.1 on 10/13, now 4.3Continu e 20 meq KCL qd.Recheck BMP as outpt.Mireya tor Cellulitis of finger of right hand [id number] L03.011 Right middle finger - ? panonychia Resolved with KeflexMoni tor Urinary tr act infectious disease [id number] N30.80 With 2 recent courses of txs for borderline U/As with neg cxs.Encour age fluidsMoni tor as outpt. Primary insomnia 1935809 F51.01 Continue melatonin 10 mg qhs and diphenhydr amine 25 mg qhs.Monito r sleep patterns. Carotid ar bita stenosis [id number] I65.21 No change from 2006Contin ue ASA 81 mg qd and simvastati n 40 mg qd.Needs outpt. f/u with V[facility]. Dr[facility] Boogie - [facility] to get appt. Hyperlipidemia [id number] E78.49 Continue simvastati n 40 mg qdMonitor labs as outpt. Health Concerns Section Related Observation LastModified by Organization Detai ls LastModified Time None Recorded Concern Status LastModified by Organization Details LastModified Time None Recorded Advance Directives Directive Y: Payers Encounter Date Sequence Insurance Name Policy Number Policy Benjamin Covered Member ID Benjamin Member ID Guarantor Name 11/01/2023 1 [place] [employer] Mary Beth R Counter [id number] Mary Beth Counter 11/01/2023 2 [facility] IN[facility] UNICARE [id number] Mary Beth Counter [id number] Mary Beth Counter 11/07/2023 1 [place] [employer]ATIONAL [employer] Mary Beth R Counter [id number] Mary Beth Counter 11/07/2023 2 [facility] INDEMNITY PLAN - UNICARE [id number] Mary Beth Counter [id number] Mary Beth Counter 11/12/2023 1 [place] [employer] Mary Beth R Counter [id number] Mary Beth Counter 11/12/2023 2 [facility] IN[facility] - [employer]ICARE [id number] Mary Beth Counter [id number] Mary Beth Counter 11/14/2023 1 [place] [employer]ATIONAL [employer] Mary Beth R Counter [id number] Mary Beth Counter 11/14/2023 2 [facility] INDEMNITY PLAN - UNICARE [id number] Mary Beth Counter [id number] Mary Beth Counter 11/19/2023 1 [place] [employer]ATIONAL [employer] Mary Beth R Counter [id number] Mary Beth Counter 11/19/2023 2 [facility] INDEMNITY PLAN - [employer]ICARE [id number] Mary Beth Counter [id number] Mary Beth Counter Notes Date Note Type [...] today. GREEN 50BIMS 15MOLST FULL CODE Zamzam Mccarthy, LEFTY [address], [address], [place], [address], [facility] - [facility] 11/01/2023 12:37:29 11/07/2023 text/html Pt is seen today for an acute rounding visit today. PMH remarkable for dementia, depression, HTN, HLD, obesity, cardiac murmur, primary insomnia, UTI, TIA, Carotid stenosis and weakness She is an 88 yo lady recently admitted here for rehab and continued care after an ED stay due to altered MS. Since [facility] she is working with therapy more and [...] 15MOLST FULL CODE Zamzam Mccarthy, LEFTY [address], [address], [place], [address], [facility] 11/07/2023 18:00:28 11/12/2023 text/html Mary Beth is seen t vilma for a routine, 30 day visit. She is an 88 yo female admitted to [facility] on 10/11/23 for rehab and continued care [...] stenosis and weakness HINA ANTONIO NP [address], [address], [place], [address], [facility] 11/12/2023 14:20:39 11/14/2023 text/html Mary Beth is seen meenakshi esparza for an acute rounding visit. PMH significant for dementia, depression, HTN, HLD, obesity, cardiac murmur, primary insomnia, UTI, TIA, Carotid stenosis and weakness Pt is an 88 yo female admitted to [facility] on 10/11/23 for rehab and continued care [...] completed. GREEN 50BIMS 15MOLST FULL CODE Zamzam Mccarthy NP [address], [address], [place], [address], [facility] 11/15/2023 12:08:57 11/19/2023 text/html Mary Beth is seen t vilma for discharge.She is planning to go home tomorrow 11/19 with support of family and services. She is an 88 yo woman who was admitted to [facility] for rehab after an acute hospitalization for an aphasic episode, presumed TIA.She has had several recent ED visits at [facility].09/26-for not feeling well , txed with [...] mg lorazepam. She improved and was d/c home.10/02rosalee returned to the ED. Her daughter reported [...] vitamin D deficiency. HINA ANTONIO NP [address], [address], [place], [address], [facility] 11/19/2023 12:18:31 OBGyn Episode No OBEpisode recorded.
== END 2024-07-02 15:17 | disposition home or self-care (01) ==
LOC: HO.US 15:16
PROVIDERS: PCP Internal Medicine; Visit Provider Surgery Vascular Surgery
DX: I65.23 Occlusion and stenosis of bilateral carotid arteries (principal)
CPT/HCPCS: 93880

== ENCOUNTER → 2024-07-02 15:19 | Outpatient (BNV) | payer MEDICARE, OTHER, SELFPAY | PROVIDERS: PCP Internal Medicine; Visit Provider Radiology Diagnostic Radiology | DX: I65.23 Occlusion and stenosis of bilateral carotid arteries (principal) | CPT/HCPCS: 93880 ==

== ENCOUNTER 2024-07-11 10:01 | Outpatient (REF) | payer MEDICARE, OTHER, SELFPAY ==
[2024-07-11 10:23] LABS: MANUAL DIFF FLAG NO
[2024-07-11 10:25] LABS: Basophils Absolute Auto 0.1 X10*3/uL (0.0-0.2); Basophils Percent Auto 0.7 % (0-2); Eosinophils Absolute Auto 0.2 X10*3/uL (0.0-0.4); Eosinophils Percent Auto 2.4 % (0-4); Hematocrit 43.9 % (37.0-47.0); Hemoglobin 14.7 g/dl (12.0-16.0); Imm Gran Abs Auto 0.03 X10*3/uL (0.00-0.03); Imm Gran Pct Auto 0.4 % (0.0-0.4); Lymphocytes Absolute Auto 1.1 X10*3/uL (1.2-4.9); Lymphocytes Percent Auto 12.9 % (20-40); Mean Corpuscular HGB Conc 33.5 g/dl (31.0-35.0); Mean Corpuscular Hemoglobin 29.9 pg (27.0-33.0); Mean Corpuscular Volume 89.4 fL (80.0-98.0); Mean Platelet Volume 9.7 fL (9.4-12.3); Monocytes Absolute Auto 1.2 X10*3/uL (0.1-1.2); Monocytes Percent Auto 13.9 % (2-11); Neutrophils Absolute Auto 5.9 x10*3/uL (2.0-8.3); Neutrophils Percent Auto 69.7 % (45-73); Platelet Count 224 X10*3/uL (160-400); Red Blood Count 4.91 X10*6/uL (4.20-5.50); Red Cell Distribution Width 13.5 % (11.0-16.0); White Blood Count 8.5 X10*3/uL (4.8-10.8)
[2024-07-11 10:32] LABS: Appearance Urine Clear; Color Urine Yellow; Glucose Urine UA Negative (Negative); Leukocyte Esterase Urine Trace (Negative); Nitrite Urine Negative (Negative); UMIC TRIGGER UACC YES; Urine Blood Negative (Negative); Urine Ketones Negative (Negative); Urine Protein Negative (Neg-Trace)
[2024-07-11 10:36] LABS: Estimated Average Glucose 100 mg/dL; Hemoglobin A1C 125.8737 umol/L; Hemoglobin A1c % 5.1 % (<6.0); Total Hemoglobin (HGBA1C) 3856.0803 umol/L
[2024-07-11 10:37] LABS: Bacteria Urine None Seen (None Seen); Hyaline Casts Urine 0-2 /LPF (0-2); RBC Urine 0-2 /HPF (0-2); Squamous Epithelial Cell Urine 0-2 /HPF (0-2); WBC Urine 0-5 /HPF (0-5)
[2024-07-11 11:03] LABS: Alanine Aminotransferase 10 U/L (0-31); Albumin Level 3.8 g/dL (3.5-5.0); Alkaline Phosphatase 84 U/L (39-117); Anion Gap 13 (12-20); Aspartate Amino Transferase 19 U/L (5-31); Bilirubin Total 0.5 mg/dL (0.0-1.0); Blood Urea Nitrogen 18 mg/dL (9-16); Calcium 9.2 mg/dL (8.4-10.2); Carbon Dioxide 27 mmol/L (22-29); Chloride 99 mmol/L (96-108); Cholesterol 168 mg/dL (<200); Estimated Glomerular Filt Rate > 60; Glucose Fasting 96 mg/dL (60-99); HDL Cholesterol 58 mg/dL (>40); LDL Cholesterol Calculated 101 mg/dL (<100); Potassium 4.1 mmol/L (3.3-5.1); Sodium 135 mmol/L (135-145); Triglycerides 49 mg/dL (<150)
[2024-07-11 11:11] LABS: TSH reflex Free T4 2.43 uIU/mL (0.32-4.0); Vitamin D 25-OH Total 49.3 ng/mL (>30)
[2024-07-11 11:30] LABS: Folate 5.4 ng/mL (> or = 4.0); Vitamin B12 743 pg/mL (200-900)
== END 2024-07-11 10:02 | disposition home or self-care (01) ==
LOC: HO.LAB 10:01
PROVIDERS: PCP Internal Medicine; Visit Provider Internal Medicine
DX: Z00.00 Encounter for general adult medical examination without abnormal findings (principal); E78.00 Pure hypercholesterolemia, unspecified; E11.9 Type 2 diabetes mellitus without complications; E53.8 Deficiency of other specified B group vitamins; D64.9 Anemia, unspecified; E55.9 Vitamin D deficiency, unspecified
CPT/HCPCS: 36415; 80053; 80061; 81001; 82306; 82607; 82746; 83036; 84443; 85025

== ENCOUNTER 2024-07-30 14:07 | Outpatient (AMB) | payer MEDICARE, OTHER, SELFPAY ==
--- NOTE | 2024-07-30 14:10 | A.OFFVIS_ITS ---
Vital Signs 07/30/24 14:11 Height 5 ft 5 in Weight 198 lb BMI 32.9 Intake Visit Reasons: 6m follow up s/p Carotid US Intake Note: 6 mo follow up Carotid US 07/02/24. Pt has no complaints [employer] Room Operator Required: No Accompanied by: Daughter Allergies penicillin G [Penicillin G] Allergy (Severe, Verified 07/30/24 14:13) Hives cucumber Allergy (Unknown, Verified 07/30/24 14:13) hives strawberry Allergy (Unknown, Verified 07/30/24 14:13) hives HPI HPI 6m follow up s/p Carotid US: Details: Very pleasant 89-year-old female presents for routine carotid surveillance. It began with concerns of aphasia and question of TIA. She at that time had a UTI and appears to have resolved. She appears to be doing fairly well and has had no interval episodes or incidents. She now presents for routine surveillance follow-up with carotid ultrasound. [facility] Medical History Transient ischemic attack (TIA) Depression Morbid obesity with BMI of 40.0-44.9, adult Dementia Impaired fasting glucose Primary insomnia Seasonal allergic rhinitis Vitamin D deficiency Cardiac murmur Pure hypercholesterolemia Benign essential hypertension Surgical History History of cataract surgery History of nasal surgery History of lumpectomy of right breast History of tonsillectomy Family History Father Prostate cancer Mother Lung cancer Bone cancer Social History Household Members: Family Housing: House Unable to assess alcohol history related to: Unknown Alcohol intake: former Patient Tobacco Use Status: Former Tobacco user Tobacco use type: Cigarette e-Cigarette/Vaping Use: Never Used Second Hand Smoke Exposure: Yes Advance Directives Date on File: 10/07/23 service: No Current occupational status: retired Cognitive needs: No Hearing needs: No Vision needs: Yes Review of Systems Const All systems reviewed & are unremarkable except as noted in HPI and below Reports no additional complaints ENT Reports Normal hearing present Card Denies chest pain, Denies chest pain at rest, Denies chest pain with activity and Denies pedal edema Resp Denies cough GI Denies abdominal pain Musc Denies abnormal gait, Denies muscle cramps and Denies radiating pain into limb Skin/Breast Denies skin ulcer and Denies wounds Neuro Reports Normal hearing present and Denies abnormal gait Psych Reports no additional complaints Physical Exam Vital Signs: BMI result Body Mass Index 32.9 Const General: cooperative, healthy appearing and comfortable Orientation/consciousness: oriented to person, oriented to place and oriented to time HEENT Head: Yes normal to inspection Neck Neck: Yes normal visual inspection Carotids: no bruits Chest Chest palpation & inspection: normal inspection of the chest Resp Effort & Inspection: normal respiratory effort and able to speak in complete sentences Auscultation: clear to auscultation bilaterally, no crackles, no rales, no rhonchi and no wheezes Cardio Rate: regular rate Rhythm: regular rhythm Heart sounds: S1 normal heart sound present and S2 normal heart sound present Bruits: no carotid bruits Peripheral pulses: Peripheral pulses 2+ throughout GI Inspection: Yes normal to inspection Skin Wounds: no wounds Hair: normal Neuro General: oriented to person, oriented to place and oriented to time Cranial nerves: Yes CN's II-XII intact bilaterally and Yes Normal hearing present Cognition (Neuro): normal cognition Motor exam (neuro): 5/5 motor strength present throughout Extrem Other: venous exam: No significant superficial varicosities or spider telangiectasias, minimal edema General: No clubbing, No cyanosis and No edema Psych Appearance: grossly normal Mental Status: mental status grossly normal Speech and movement: Normal speech and movement present Results Reviewed Results Reviewed: Carotid ultrasound dated 07/02/2024 demonstrates right side 50-79 with peak systolic of 332 left side 50-79 with peak systolic of 153. CT angio on 09/28/2023 right side 70% left side less than 50%. Assessment & Plan Assessment & Plan (1) Bilateral carotid artery stenosis: Code(s): I65.23 - Occlusion and stenosis of bilateral carotid arteries Category: Medical Plan: In short patient has asymptomatic carotid stenosis at the current time. She appears to be doing fairly well and I would like to manage this as conservatively as possible due to her comorbid condition and overall age. Continue with aspirin and statin. Will plan for annual surveillance regarding her carotids. Thank you for allowing us to assist in her care. If there are any questions or concerns please do not hesitate to contact us. Orders: Orders US carotid duplex BI 1 Year I65.23 - Occlusion and stenosis of bilateral carotid arteries Coding Level of Care Code Est Pt Level 4 (74678) Complex EM visit Add On G2211 Diagnoses Bilateral carotid artery stenosis I65.23
[2024-07-30 14:11] VITALS: BMI 32.9
--- OUTSIDE RECORDS SUMMARY | 2024-07-30 16:42 | XMS_ITS | Data Portability ---
Author Organization [facility], Main Office Address [address], [address] [place] [address] Care Team Providers Care Is Project Manager Name Role Phone RONNIE BROUSSARD - 2ND FLOOR OTHER Assessment Encounter Date Assessment Date Assessment LastModified by Organization Details LastModified Time 11/12/2023 11/12/2023 I have seen and examined the patient independently and confirmed the findings above with the MEDICAL IMAGING SPECIALIST student note. Management plan discussed with the MEDICAL IMAGING SPECIALIST student personally. [email or web address] Not available 11/12/2023 12:35:08 11/19/2023 11/19/2023 45 minutes spent on coordination of discharge. [email or web address] Not available 11/19/2023 12:18:18 Plan of Treatment [...] Organization Details Recorded Time Altered mental status 094192668 Active 2023 Nadja Cantrell [address], [address], [place], [address], [employer] 4 12:53:24 Urinary tract infectious disease 17731219 Active 2023 Nadja Cantrell [address], [address], [place], [address], [facility] [employer] 4 12:53:28 Carotid artery stenosis 97107088 Active 2023 Nadja Cantrell [address], [address], [place], [address], [facility] 4 12:53:55 Transient cerebral ischemia 748646048 Active 2023 Nadja Cantrell [address], [address], [place], [address], [facility] 4 12:54:02 Asthenia 48076457 Active 2023 AKiraa Tamia [address], [address], [place], [address], [facility] 4 12:54:07 Mixed anxiety and depressive disorder 710242421 Active 2023 AKiraa Tamia [address], [address], [place], [address], [facility] 4 13:04:07 Dementia 64098397 Active 2023 AKiraa Tamia [address], [address], [place], [place], [address], [facility] 4 13:04:08 Essential hypertension 42533252 Active 2023 AKiraa Tamia [address], [address], [place], [address], [facility] 4 13:04:09 Primary insomnia 8295790 Active 2023 AJumana Cantrell [address], [address], [place], [address], [facility] 4 13:07:11 Hyperlipidemia 60200634 Active 2023 AKiraa Tamia [address], [address], [place], [address], [facility] 4 13:39:41 Problem Notes None recorded. Procedures Surgical History Date Name Laterality Status Provider Name and Address Organization Details Recorded Time ligation of fallopian tube completed A_Tremblay-Da vis [address] , [address], [place], [place], [address], [facility] 10/12/2023 13:35:08 lumpectomy of breast completed A_Tremblay-Da vis [address], [address], [place], [address], [facility] 10/12/2023 13:35:24 manipulation of displaced nasal septum completed A_Tremblay-Da vis [address], [address], [place], [address], [facility] 10/12/2023 13:35:41 Imaging Results None recorded. Procedure Notes None recorded. Medical Equipment None Reported. Allergies Allergen ID Allergen Name Allergen Category Reaction Reaction Severity Criticality Documentation Date Start Date Code Code System Note Provider Name and Address Organization Details Recorded Time 28458 penicilli n G Not available Not available Not available Not available 10/12/2023 7980 RxNorm A_Selama agnes-Shimon [address], [address], [place], [address], [facility] 4 12:53:04 05923 cucumber extract food Not available Not available Not available 10/12/2023 28535 19 RxNorm A_Fredericbla y-Shimon [address], [address], [place], [address], [facility] 4 12:53:11 97563 strawberr y allergeni c extract food Not available Not available Not available 10/12/2023 14458 4 RxNorm A_Selama y-Shimon [address], [address], [place], [address], [facility] 4 12:53:17 Vitals Date Recorded Body height Body weight Heart rate Respiratory rate Body temperature Oxygen saturation Oxygen saturation in Arterial blood by Pulse oximetry Systolic blood pressure Diastolic blood pressure Provider Name and Address Organization Details Last Updated DateTime 4 162.56 cm 78178.1 8 g 72 /min 18 /min 98 [degF] 98 % 98 % 125 mm[Hg] 78 mm[Hg] Zamzam Mccarthy NP [address], [address], [place], [address], [facility] 4 12:23:59 Date Recorded Body height Body weight Heart rate Respiratory rate Body temperature Oxygen saturation Oxygen saturation in Arterial blood by Pulse oximetry Systolic blood pressure Diastolic blood pressure Provider Name and Address Organization Details Last Updated DateTime 4 162.56 cm 96651.8 8 g 74 /min 18 /min 98 [degF] 98 % 98 % 122 mm[Hg] 72 mm[Hg] Zamzam Mccarthy NP [address], [address], [place], [address], [facility] 4 17:35:25 Date Recorded Body height Heart rate Respiratory rate Body temperature Oxygen saturation Oxygen saturation in Arterial blood by Pulse oximetry Systolic blood pressure Diastolic blood pressure Provider Name and Address Organization Details Last Updated DateTime 4 162.56 cm 72 /min 18 /min 98 [degF] 98 % 98 % 122 mm[Hg] 72 mm[Hg] Colette branch [facility] 4 12:22:47 Date Recorded Body height Body mass index (BMI) Body weight Heart rate Respiratory rate Body temperature Oxygen saturation Oxygen saturation in Arterial blood by Pulse oximetry Systolic blood pressure Diastolic blood pressure Provider Name and Address Organization Details Last Updated DateTime 4 162.56 cm 33.3 kg/m2 27020.9 2 g 73 /min 18 /min 98 [degF] 98 % 98 % 122 mm[Hg] 72 mm[Hg] Zamzam Mccarthy NP [address], [address], [place], [address], [facility] 4 12:03:27 Date Recorded Body height Heart rate Respiratory rate Body temperature Oxygen saturation Oxygen saturation in Arterial blood by Pulse oximetry Systolic blood pressure Diastolic blood pressure Provider Name and Address Organization Details Last Updated DateTime 4 162.56 cm 70 /min 18 /min 98 [degF] 98 % 98 % 122 mm[Hg] 72 mm[Hg] HINA ANTONIO NP [address] , [address], [place], [address], [facility] 4 11:52:50 Social History Question Answer Notes LastModified by Organizat ion Details LastModified Time Tobacco Smoking Status Former Smoker quit in her 30s Alicia Maurer MD [address], [address], [place], [address], [facility] 10/22/2023 18:54:01 Do You Have An Advance Directive? Yes Information not available 10/22/2023 What Is Your Code Status? Full Code Information not available 10/12/2023 Where Do You Live? Apartment 1st Floor Of [facility], [address] To [address], With Daughter. Information not available 10/22/2023 Legal Guardian? 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 Information not available 10/22/2023 What [...] SARS-COV-2 (COVID-19) vaccine, UNSPECIFIED 04/30/2020 [facility] 10:19:23 SARS-COV-2 (COVID-19) vaccine, UNSPECIFIED 05/21/2020 completed Fox mckenzie [facility] 10/31/2023 10:19:33 SARS-COV-2 (COVID-19) vaccine, UNSPECIFIED 12/03/2020 completed Fox [place] null, [facility] 10/31/2023 10:19:45 SARS-COV-2 (COVID-19) vaccine, UNSPECIFIED 07/01/2021 completed Fox [place] null, [facility] 10/31/2023 10:19:58 SARS-COV-2 (COVID-19) vaccine, UNSPECIFIED 12/23/2021 completed Fox [place] null, [facility] 10/31/2023 10:20:18 SARS-COV-2 (COVID-19) vaccine, UNSPECIFIED 11/17/2022 completed Fox [place] [facility] 10/31/2023 10:20:31 Past Encounters Encounter ID Performer Location Encounter Start Date Encounter Closed Date Diagnosis/Indication Diagnosis SNOMED-CT Code Diagnosis ICD10 Code Diagnosis Note [id number] Chemo_Stephanie Murrell [address] [address] 10/12/2023 12:52:46 10/23/2023 10:33:18 Carotid artery stenosis 51773548 I65.29 R carotid stenosisAS A 81mg qdsimvasta tin 40mg qdf/u vascular with Dr. Boogie outpatient in the next week Asthenia 12802872 R53.1 Admit to services PT/OT/STRm onitor and support as needed Transient cerebral ischemia 822000282 G45.9 CTH and MRI without acute strokeASA 81mg qdsimvasta tin 40mg qdmonitor neurologic al status Urinary tr act infectious disease 43238991 N39.0 urine culture negativece furoxime 250mg BID x 2 days (total 5 days) Hyperlipidemia 49633095 E78.5 simvastati n 40mg qdmonitor lipids outpatient Essential hypertension 39136778 I10 lisinopril 5mg qdfurosemi de 40mg qdmonitor labs and BP Dementia 77307794 F03.90 expect declinemon itor insight and need to invoke HCPBIMS 15see meds for mixed anxiety/de pressive d/omonitor and support as needed Mixed anxi ety and depressive disorder 036967472 F41.8 ativan 0.5mg qd prnbupropi on HCL 300mg ER qdmonitor mood and consult [facility] if needed Primary insomnia 7843647 F51.01 melatonin 10mg qHS prndiphenh ydramine 25mg qHS prnmonitor sleep [id number] HINA ANTONIO NP [address] [address] 10/17/2023 11:35:12 10/23/2023 11:16:25 Transient cerebral ischemia 820112604 G45.9 ?CTH and MRI without acute strokeCont inue:ASA 81mg qdsimvasta tin 40mg qdmonitor neurologic al status Carotid ar bita stenosis 94446074 I65.29 R carotid stenosis noted on scanContin ue:ASA 81mg qdsimvasta tin 40mg qdNeeds outpt. f/u with Vasc. Dr. Boogie Asthenia 90658331 R53.1 Admit to services PT/OT/STRm onitor and support as neededgoal is to return home Urinary tr act infectious disease 88514967 N39.0 urine culture negative, but....cef uroxime 250mg BID x 5 days now complete.M ild elevation in wbcs - repeating CBC in am.Monitor sx., VSEncourag e fluids Hyperlipidemia 08267808 E78.5 simvastati n 40mg qdmonitor lipids outpatient Essential hypertension 82872583 I10 lisinopril 5mg qdfurosemi de 40mg qdmonitor labs and BP Dementia 13228064 F03.90 expect declinemon itor insight and need to invoke HCPBIMS 15see meds for mixed anxiety/de pressive d/omonitor and support as needed Mixed anxi ety and depressive disorder 782820063 F41.8 ativan 0.5mg qd prnbupropi on HCL 300mg ER qdmonitor mood and consult [facility] if needed Primary insomnia 0292275 F51.01 melatonin 10mg qHS prndiphenh ydramine 25mg qHS prnmonitor sleep Leukocytosis 155867098 D 72.829 Mild elevation on admit.Kathy james for UTI despite neg. cx.Monitor ing VS and s/s infectionR epeat CBC in am to trend. Hypokalemia 28894947 E87 .6 K 3.1, no labs for comparison .On lasix 40 mg qd and lisinopril 5 mg qd.Added 20 meq KCL qd, repeating BMP in amMonitor [id number] HINA ANTONIO NP [place] [address] [place], [place] [address] 10/22/2023 10:13:56 10/23/2023 03:50:14 Transient cerebral ischemia 596047737 G45.9 ?CTH and MRI without acute strokeCont inue:ASA 81mg qdsimvasta tin 40mg qdmonitor neurologic al status Carotid ar bita stenosis 26490135 I65.29 R carotid stenosis noted on scanContin ue:ASA 81mg qdsimvasta tin 40mg qdNeeds outpt. f/u with Vasc. Dr. Boogie - HCP trying to get appt., will continue to call office Asthenia [id number] R53.1 Admit to services PT/OT/STRm onitor and support as neededgoal is to return home Urinary tr act infectious disease 66163460 N39.0 urine culture negative, but....cef uroxime 250mg BID x 5 days starterd in hosp., now complete.M ild leukocytos is - repeat UA C&S and CBC in am.Monitor sx., VSEncourag e fluids Hypokalemia 52556608 E87 .6 K 3.1, no labs for comparison .On lasix 40 mg qd and lisinopril 5 mg qd.Added 20 meq KCL qd, repeat BMP in amMonitor Leukocytosis 111359634 D 72.829 Mild elevation on admit.Kathy james for UTI despite neg. cx. Repeat UA C&S and CBC in am, then start keflex 500 mg qid x 5 days and probiotic as also a concern for right middle finger paronychia . Hyperlipidemia 91045296 E78.5 simvastati n 40mg qdmonitor lipids outpatient Essential hypertension 04947144 I10 lisinopril 5mg qdfurosemi de 40mg qdmonitor labs and BP Dementia 70532836 F03.90 expect declinemon itor insight and need to invoke HCPBIMS 15see meds for mixed anxiety/de pressive d/omonitor and support as needed Mixed anxi ety and depressive disorder 830783396 F41.8 ativan 0.5mg qd prn - staff says very helpful with mood and behaviors if dosed q am.bupropi on HCL 300mg ER qdmonitor mood and consult [facility] if needed Primary insomnia 8048878 F51.01 Discussed with HCPmelaton in 10mg qHS prn -> scheduledi phenhydram ine 25mg qHS prn -> schedule (also uses for allergy sx.)monito r sleep Paronychia of finger 444 186762 L03.019 Suspicion, right middle finger.Mil d leukocytos is last week.Plan -CBC, ESR, Uric Acid in am, then start keflex 500 mg qid x 5 days plus probiotic. [id number] Alicia Maurer MD [address] [address] 10/22/2023 14:42:34 10/23/2023 11:51:07 Leukocytosis 006249048 D72.828 WBC on 10/08 was 15.6, down to 11.1 on 10/13, then 12.4 on 10/17Will be rechecked in AM and U/A being rechecked. Monitor. Hypokalemia 62717139 E87 .6 K 3.1 on 10/13, upt to 3.6 on 10/17, had been 3.2 on 09/30, but otherwise has been WNL inpt.Arun nue 20 meq KCL qd.Recheck BMP in AMMonitor Urinary tr act infectious disease 71982169 N30.80 With 2 recent courses of txs for borderline U/As with neg cxs.Will recheck U/A in AM.Encoura ge fluids Primary insomnia 4752457 F51.01 Continue melatonin 10 mg qhs and diphenhydr amine 25 mg qhs.Monito r sleep patterns. Mixed anxi ety and depressive disorder 293048795 F41.8 As above.Thou ght anxiety is possible causing some sxs.Monito r. Transient cerebral ischemia 335055122 G45.8 Possible dx after recent episodes.C ontinue ASA 81mg qd and simvastati n 40 mg qdMonitor neuro sxs.F/U prn. Carotid ar bita stenosis 53505931 I65.21 No change from 2006Contin ue ASA 81 mg qd and simvastati n 40 mg qd.Needs outpt. f/u with Vasc. Dr. Boogie - HCP trying to get appt., will continue to call office Asthenia 27018592 R53.1 Is deconditio maranda due to recent poor intake at home.Needs PT/OT for strengthen ing, balance, gait training, safety and function.C ontinue fall precaution s.Monitor for safety. Hyperlipidemia 53549506 E78.49 Continue simvastati n 40 mg qdMonitor labs as outpt. Essential hypertension 06989541 I10 In good control since here.Arun nue lisinopril 5 mg qd and furosemide 40 mg qdMonitor BP and labs. Dementia 92144274 F03.90 Scored 15/15 on BIMs on admission. But hx of intermitte nt confusion. Continue buproprion 300 mg qd and lorazepam 0.5 mg qd prn.Contin ue supportive care.HCP not invoked, monitor for need to invoke.Mon itor mood and behaviors. Psych consult prn. Cellulitis of finger of right hand 1473753573 2475013 L03.011 Looks like either cellulitis or gout.Will check CBC, ESR, Uric Acid in AM, then start keflex 500 mg qid x 5 days plus probiotic. Monitor [id number] HINA ANTONIO NP [address] [address] 10/29/2023 08:25:51 10/30/2023 13:58:40 Leukocytosis 076144266 D72.829 More recent mild elevation, now resolved.R epeat UA C&S neg.Contin ues on keflex for concern of paronychia Continue to monitor Labs Hypokalemia 19695271 E87 .6 K 4.3 (10/24)Curre ntly on lasix 40 mg qd and lisinopril 5 mg qd.Continu e with KCL 20 meq qdMonitor Labs, sxs Paronychia of finger 444 891622 L03.019 ResolvedMi ld leukocytos is last week-nl this week 10.1Plan -Complete keflex on 10/30Monito r sxs Urinary tr act infectious disease 62369900 N39.0 Asymptomat icurine culture negative Monitor sx., VSEncourag e fluids Mixed anxi ety and depressive disorder 315226430 F41.8 Continue with ativan 0.5mg qd prn and bupropion HCL 300mg ER qdmonitor mood and consult [facility] prn Transient cerebral ischemia 849851500 G45.9 ?CTH and MRI without acute strokeCont inue with:ASA 81mg qdsimvasta tin 40mg qdmonitor neurologic al status, sxs Carotid ar bita stenosis 68589097 I65.29 R carotid stenosis noted on scanContin ue:ASA 81mg qdsimvasta tin 40mg qdfollow up with Vasc. Dr. Boogie in place Asthenia 27389278 R53.1 Continue with PT/OT/STRE ncourage participat ionmonitor and support as neededgoal is to return home Hyperlipidemia 71050605 E78.5 Asymptomat icsimvasta tin 40mg qdmonitor labs, VS Essential hypertension 51057037 I10 Continueli sinopril 5mg qdfurosemi de 40mg qdmonitor labs and BP Dementia 50430445 F03.90 expect declinemon itor insight and need to invoke HCPBIMS 15Continue withSuppor tive careativan 0.5mg qd prnbupropi on HCL 300mg ER qdMonitor sxs [id number] Zamzam Mccarthy NP [address] [address] 11/01/2023 11:31:16 11/05/2023 12:48:56 Leukocytosis 621819391 D72.829 resolvedMo re recent mild elevation, now resolved.R epeat UA C&S neg.Comple james bennett for concern of paronychia Continue to monitor Labs Hypokalemia 49011861 E87 .6 K 4.3 as above stableCurr ently on lasix 40 mg qd and lisinopril 5 mg qd.Continu e with KCL 20 meq qdMonitor Labs, sxs Paronychia of finger 444 283939 L03.019 ResolvedMi ld leukocytos is last week-nl this week 10.1Plan -Complete keflex on 10/30Monito r sxs Urinary tr act infectious disease 94984785 N39.0 Asymptomat iccomplete d keflexMoni tor sx., VSEncourag e fluids Mixed anxi ety and depressive disorder 700363120 F41.8 Continue withativan 0.5mg qd prnbupropi on HCL 300mg ER qdmonitor mood and consult [facility] prn Transient cerebral ischemia 801478365 G45.9 ?see hpiCTH and MRI without acute strokeCont inue with:ASA 81mg qdsimvasta tin 40mg qdmonitor neurologic al status, sxs Carotid ar bita stenosis 24098960 I65.29 R carotid stenosis noted on scanContin ue:ASA 81mg qdsimvasta tin 40mg qdfollow up with Vasc. Dr. Boogie in place outpt Asthenia 45286853 R53.1 Continue with PT/OT/STRE ncourage participat ionmonitor and support as neededgoal is to return home Hyperlipidemia 89006690 E78.5 Asymptomat icsimvasta tin 40mg qdmonitor labs, VS Essential hypertension 59671584 I10 Continueli sinopril 5mg qdfurosemi de 40mg qdmonitor labs and BP Dementia 30832585 F03.90 expect decline, currently pleasant and a x o [id number] insight and need to invoke HCPBIMS 15Continue withSuppor tive careativan 0.5mg qd prnbupropi on HCL 300mg ER qdMonitor sxs [id number] Zamzam Mccarthy NP [address] [address] 11/07/2023 08:26:43 11/11/2023 14:42:50 Dementia 47197127 F03.90 expect decline, currently pleasant and a x o b9uvazelp insight and need to invoke HCPBIMS 15Continue withSuppor tive careativan 0.5mg qd prnbupropi on HCL 300mg ER qdMonitor sxs Asthenia 46871544 R53.1 Continue with PT/OT/STRE ncourage participat ion with pt otmonitor and support as neededgoal is to return home Hypokalemia 39194177 E87 .6 K 4.3 as above stableCurr ently on lasix 40 mg qd and lisinopril 5 mg qd.Continu e with KCL 20 meq qdMonitor Labs, sxs Mixed anxi ety and depressive disorder 969255216 F41.8 Continue withativan 0.5mg qd prnbupropi on HCL 300mg ER qdmonitor mood and consult [facility] prn Transient cerebral ischemia 028570660 G45.9 per HPI not likely stroke but can follow up with neuro outpt for fuCTH and MRI without acute strokeCont inue with:ASA 81mg qdsimvasta tin 40mg qdmonitor neurologic al status, sxs Carotid ar bita stenosis 37784128 I65.29 R carotid stenosis noted on scanContin ue:ASA 81mg qdsimvasta tin 40mg qdfollow up with Vasc. Dr. Boogie in place outpt Essential hypertension 59405560 I10 Continueli sinopril 5mg qdfurosemi de 40mg qdmonitor labs and BP [id number] HINA ANTONIO NP [facility] [address] 11/12/2023 08:47:14 11/13/2023 11:39:55 Dementia 61956868 F03.90 Pleasantly confused at times, quite clear todayBIMS 15Continue withSuppor tive care- expect declineati van 0.5mg qd prnbupropi on HCL 300mg ER qdmonitor insight and need to invoke HCPMonitor sxs Asthenia 42926158 R53.1 deconditio maranda to multiple hospitaliz ationsCont inue with PT/OT - encourage participat ionmonitor and support as neededgoal is to return home Hypokalemia 85900700 E87 .6 K 4.3 on KCL 20 meq qdAsymptom aticCurren tly on lasix 40 mg qd and lisinopril 5 mg qd.Monitor Labs, sxs Mixed anxi ety and depressive disorder 117190150 F41.8 Asymptomat icContinue with bupropion HCL 300mg ER qdNo longer on prn ativanmoni tor mood and consult [facility] prn Transient cerebral ischemia 446640136 G45.9 per HPI not likely stroke but can follow up with neuro outptCTH and MRI without acute strokeCont inue with:ASA 81mg qdsimvasta tin 40mg qdmonitor neurologic al status, sxsFollow up with Neuro as planned on 11/27 Carotid ar bita stenosis 59375696 I65.29 R carotid stenosis noted on scanContin ue:ASA 81mg qdsimvasta tin 40mg qdfollow up with Vasc. Dr. Boogie in place outpt Essential hypertension 19060008 I10 BP's stable since hereContin uelisinopr il 5mg qdfurosemi de 40mg qdmonitor labs and BP [id number] Zamzam Mccarthy NP [facility] [address] 11/14/2023 11:32:35 11/18/2023 09:33:08 Dementia 69051898 F03.90 Pleasantly confused at times, quite clear todayBIMS 15Continue withSuppor tive care- expect declinebup ropion HCL 300mg ER qdmonitor insight and need to invoke HCPMonitor sxs Asthenia 80873608 R53.1 deconditio maranda to multiple hospitaliz ationsCont inue with PT/OT - encourage participat ionmonitor and support as neededgoal is to return home Hypokalemia 00751331 E87 .6 K 4.3 on KCL 20 meq qdAsymptom aticCurren tly on lasix 40 mg qd and lisinopril 5 mg qd.Monitor Labs, sxs Mixed anxi ety and depressive disorder 544247828 F41.8 Asymptomat icContinue with bupropion HCL 300mg ER qdNo longer on prn ativanmoni tor mood and consult [facility] prn Transient cerebral ischemia 298325567 G45.9 per HPI not likely stroke but can follow up with neuro outptCTH and MRI without acute strokeCont inue with:ASA 81mg qdsimvasta tin 40mg qdmonitor neurologic al status, sxsFollow up with Neuro as planned on 11/27 Carotid ar bita stenosis 67719408 I65.29 R carotid stenosis noted on scanContin ue:ASA 81mg qdsimvasta tin 40mg qdfollow up with Vasc. Dr. Boogie in place outpt Essential hypertension 28009365 I10 BP's stable since here on belowConti nuelisinop ril 5mg qdfurosemi de 40mg qdmonitor labs and BP [id number] HINA ANTONIO NP [facility] [address] [place] [address] 11/19/2023 11:51:26 11/20/2023 10:46:32 Transient cerebral ischemia 340274195 G45.8 Possible dx after recent episodes.C ontinue ASA 81mg qd and simvastati n 40 mg qdMonitor neuro sxs.F/U with neuro, vascular as outpt. Dementia 55066140 F03.90 Scored 15/15 on BIMs on admission. But hx of intermitte nt confusion. Continue buproprion 300 mg qdContinue supportive care.HCP not invoked, monitor for need to invoke.Mon itor mood and behaviors as outpt.As above, can follow up with Neuro for further assessment as outpt. Mixed anxi ety and depressive disorder 992896928 F41.8 As above.Thou ght anxiety is possible causing some sxs.Monito r. Asthenia 73478876 R53.1 Deconditio maranda due to recent poor intake at home.Has worked with PT/OT for strengthen ing, balance, gait training, safety and function.M eeting goals for d/c home tomorrow with support of services.C ontinue fall precaution s.Monitor for safety. Essential hypertension 07777322 I10 In good control since here.Arun nue lisinopril 5 mg qd and furosemide 40 mg qdMonitor BP and labs. Hypokalemia 40474930 E87 .6 K 3.1 on 10/13, now 4.3Continu e 20 meq KCL qd.Recheck BMP as outpt.Mireya tor Cellulitis of finger of right hand 0527569557 6114883 L03.011 Right middle finger - ? panonychia Resolved with KeflexMoni tor Urinary tr act infectious disease 98197088 N30.80 With 2 recent courses of txs for borderline U/As with neg cxs.Encour age fluidsMoni tor as outpt. Primary insomnia 0188173 F51.01 Continue melatonin 10 mg qhs and diphenhydr amine 25 mg qhs.Monito r sleep patterns. Carotid ar bita stenosis 35110484 I65.21 No change from 2006Contin ue ASA 81 mg qd and simvastati n 40 mg qd.Needs outpt. f/u with Vasc. Dr. Boogie - HCP to get appt. Hyperlipidemia 24385504 E78.49 Continue simvastati n 40 mg qdMonitor labs as outpt. Health Concerns Section Related Observation LastModified by Organization Detai ls LastModified Time None Recorded Concern Status LastModified by Organization Details LastModified Time None Recorded Advance Directives Directive Y: Payers Insurance Date Sequence Insurance Name Policy Number Policy Benjamin Covered Member ID Benjamin Member ID Guarantor Name 11/19/2023 1 MEDICARE [place]: Insiders@ [employer] Mary Beth R Counter [id number] Mary Beth Counter 11/19/2023 2 [employer] - UNICARE [id number] Mary Beth Counter [id number] Mary Beth Counter 11/26/2023 2 [employer] [facility] [employer] - UNICARE Mary Beth Counter Notes Date Note Type [...] 15MOLST FULL CODE Zamzam Mccarthy NP [address], [address], [place], [address], [facility] 11/01/2023 12:37:29 11/07/2023 text/html Pt is seen today for an acute rounding visit today. PMH remarkable for dementia, depression, HTN, HLD, obesity, cardiac murmur, primary insomnia, UTI, TIA, Carotid stenosis and weakness She is an 88 yo lady recently admitted here for rehab and continued care after an ED stay due to altered MS. [facility] working with therapy more and [...] 15MOLST FULL CODE Zamzam Mccarthy NP [address], [address], [place], [address], [facility] 11/07/2023 18:00:28 11/12/2023 text/html Mary Beth is seen t vilma for a routine, 30 day visit. She is an 88 yo female admitted to [facility] on 10/11/23 for rehab and continued [...] stenosis and weakness HINA ANTONIO NP [address], [address], [place], [address], [facility] - [employer] [facility] 11/12/2023 14:20:39 11/14/2023 text/html Mary Beth is seen t vilma for an acute rounding visit. PMH significant for dementia, depression, HTN, HLD, obesity, cardiac murmur, primary insomnia, UTI, TIA, Carotid stenosis and weakness Pt is an 88 yo female admitted to [facility] on 10/11/23 for rehab and continued [...] 15MOLST FULL CODE Zamzam Mccarthy, LEFTY [address], [address], [place], [address], [facility] 11/15/2023 12:08:57 11/19/2023 text/html Mary Beth is seen t vilma for discharge.She is planning to go home tomorrow 11/19 with support of family and services. She is an 88 yo woman who was admitted to [facility] for rehab after an acute hospitalization for an aphasic episode, presumed TIA.She has had several recent ED visits at [facility].09/26-for not feeling well , txed with cefpodoxime [...] possible UTI. (urine cx grew >100,000 mixed kritsofer)Improved with lorazepam. Advised to f/u with psych [...] vitamin D deficiency. HINA ANTONIO NP [address], [address], [place], [address], [facility] - [employer] 11/19/2023 12:18:31 OBGyn Episode No OBEpisode recorded.
== END 2024-07-30 15:06 | disposition home or self-care (01) ==
LOC: HO.HVS 14:07
PROVIDERS: PCP Internal Medicine; Visit Provider Surgery Vascular Surgery
DX: I65.23 Occlusion and stenosis of bilateral carotid arteries (principal)
CPT/HCPCS: 99214; G2211

== ENCOUNTER → 2024-07-30 14:07 | Outpatient (BNVA) | payer MEDICARE, OTHER, SELFPAY | PROVIDERS: PCP Internal Medicine; Visit Provider Surgery Vascular Surgery | DX: I65.23 Occlusion and stenosis of bilateral carotid arteries (principal) | CPT/HCPCS: 99212 ==

== ENCOUNTER 2024-09-17 12:49 | Outpatient (AMB) | payer MEDICARE, OTHER, SELFPAY ==
[2024-09-17 12:51] VITALS: BP 122/80; PULSE 78; O2SAT 97; BMI 33.5
--- NOTE | 2024-09-17 12:51 | A.OFFPC_ITS ---
Vital Signs 09/17/24 12:51 Height 5 ft 5 in Weight 201 lb 4.513 oz BMI 33.5 BP 122/80 Blood Pressure Location Lt brachial Position Sitting Pulse 78 Pulse Source Pulse Oximeter Pulse Oximetry (%) 97 Oxygen Delivery Method Room Air Intake Visit Reasons: PE Etcher Enameling Required: No Accompanied by: Self / Same As Patient Allergies penicillin G (Penicillin G) Allergy (Severe, Verified 09/17/24 13:20) Hives cucumber Allergy (Unknown, Verified 09/17/24 13:20) hives strawberry Allergy (Unknown, Verified 09/17/24 13:20) hives Medication List - Last Reconciled 09/17/24 by Roberto Kenney MD acetaminophen (Tylenol Extra Strength) 500 mg PO Q6H PRN ascorbic acid (vitamin C) (Vitamin C) 500 mg PO DAILY aspirin 81 mg PO DAILY bupropion HCl XL 300 mg PO DAILY cholecalciferol (vitamin D3) (Vitamin D3) 25 mcg PO DAILY cranberry 500 mg PO BID diphenhydramine HCl (Benadryl) 25 mg PO BEDTIME PRN esomeprazole magnesium 20 mg PO DAILY furosemide 40 mg PO DAILY lactobacillus combination no.9 (Adult 50 Plus Probiotic) 4,000 mmu cells PO DAILY lisinopril 5 mg PO DAILY lorazepam 0.5 mg PO DAILY PRN melatonin 10 mg PO BEDTIME PRN simvastatin 40 mg PO DAILY [Transport Wheelchair As directed] [Walker with wheels As directed] Tobacco use date assessed: 09/17/24 Fall risk assessment: 1 Fall in past year Last assessed Fall Risk: 09/17/24 Dental Screening Dental Screen Date: 09/17/24 Did you have a dental visit in the last 12 months?: Yes Did you have a dental problem in the last 6 months where you did not have access to dental care?: No Was dental information given to patient?: Patient has dentist HPI PE HPI Details Patient comes in today for her annual physical examination States that she feels okay She denies any headaches or dizziness Denies any chest pains, no increased shortness of breath No nausea/vomiting, no abdominal pain No change in bowel habits noted Denies any acute urinary symptoms She had her follow-up labs done a couple of months ago - to discuss her results At her current age, she no longer keeps up with any cancer screenings, including mammogram, Pap smear and colonoscopy PFSH Medical History Transient ischemic attack (TIA) Depression Morbid obesity with BMI of 40.0-44.9, adult Dementia Impaired fasting glucose Primary insomnia Seasonal allergic rhinitis Vitamin D deficiency Cardiac murmur Pure hypercholesterolemia Benign essential hypertension Surgical History History of cataract surgery History of nasal surgery History of lumpectomy of right breast History of tonsillectomy Family History Father Prostate cancer Mother Lung cancer Bone cancer Social History Household Members: Family Housing: House Unable to assess alcohol history related to: Unknown Alcohol intake: former Patient Tobacco Use Status: Former Tobacco user Tobacco use type: Cigarette e-Cigarette/Vaping Use: Never Used Second Hand Smoke Exposure: Yes Advance Directives Date on File: 10/07/23 service: No Current occupational status: retired Cognitive needs: No Hearing needs: No Vision needs: Yes Questionnaire PHQ-9 Over the last 2 weeks, how often have you been bothered by any of the following problems? 1. Little interest or pleasure in doing things: not at all 2. Feeling down, depressed, or hopeless: not at all 3. Trouble falling or staying asleep, or sleeping too much: not at all 4. Feeling tired or having little energy: not at all 5. Poor appetite or overeating: not at all 6. Feeling bad about yourself - or that you are a failure or have let yourself or your family down: not at all 7. Trouble concentrating on things, such as reading the newspaper or watching television: not at all 8. Moving or speaking so slowly that other people could have noticed. Or the opposite - being so fidgety or restless that you have been moving around a lot more than usual: not at all 9. Thoughts that you would be better off or of hurting yourself in some way: not at all Total score: 0 Depression Screening Interpretation: Negative Depression Screening Done: Yes 76552 - PHQ-9 Billing: Yes Source: Developed by Drs. Gregorio Wallace, Leonor Kumar, Luciano Martinez and colleagues, with an educational daniel from [employer]. Thrive Questionnaire Date Thrive assessed: 09/17/24 I am a: Patient What is your living situation today?: I have a steady place to live Within the past 12 months, did the food you bought not last and you didn't have the money to get more?: Never true Within the past 12 months, did you worry whether your food would run out before you got money to buy more?: Never true Do you have trouble paying for medicines?: No Do you have trouble getting transportation to medical appointments?: No Do you have trouble paying your heating and electricity bill?: No Do you have trouble taking care of your child, family member or friend?: No Do you have trouble with day-to-day activities such as bathing, preparing meals, shopping, managing finances, etc.?: Yes Are you currently unemployed and looking for a job?: No Are you interested in more education?: No Please select the resources that you would like help with: None Currently or been in a relationship where the following occur: I choose not to answer THRIVE Score: 0 AUDIT C Alcohol Use Questionnaire (AUDIT-C) 1. How often do you have a drink containing alcohol?: Monthly or less 2. How many drinks containing alcohol do you have on a typical day when you are drinking?: 1 or 2 3. How often do you have six or more drinks on one occasion?: Never Total Score: 1 Score Reviewed/Action Taken: Yes LISSETTE-7 AMB Questionnaire LISSETTE-7 Date LISSETTE - 7 assessed: 09/17/24 Feeling nervous, anxious, or on edge: 0 = Not at all Not being able to stop or control worryin = Not at all Worrying too much about different things: 0 = Not at all Trouble relaxin = Not at all Being so restless that it is hard to sit still: 0 = Not at all Becoming easily annoyed or irritable: 0 = Not at all Feeling afraid as if something awful might happen: 0 = Not at all Total LISSETTE-7 score (0-4 normal; 5-9 mild; 10-14 moderate; 15-21 severe): 0 Source: Developed by Leonor Villavicencio.W. José, Luciano Martinez and colleagues, with an educational daniel from [employer]. Review of Systems Const Denies chills, Denies difficulty sleeping (takes OTC Melatonin as needed), Denies fatigue, Denies fever(s) and Denies headache(s) Eyes Denies blurry vision, Denies change in vision, Denies irritation and Denies itchy eyes ENT Denies dysphagia, Denies dizziness, Denies otalgia, Denies headache(s), Denies neck pain, Denies odynophagia and Denies sore throat Card Denies chest pain, Denies palpitations and Denies dyspnea Resp Denies chest congestion, Denies cough, Denies dyspnea and Denies wheezing GI Denies abdominal pain, Denies constipation, Denies dysphagia, Denies heartburn, Denies diarrhea, Denies nausea, Denies odynophagia and Denies vomiting Denies difficulty voiding, Denies nocturia, Denies dysuria and Denies urinary urgency Musc Denies back pain, Denies arthralgias and Denies neck pain Skin/Breast Denies rash Neuro Denies dizziness and Denies headache(s) Psych Denies anxiety and Denies depression Endo Denies fatigue and Denies palpitations Jose Alejandro/Lymph Denies easy bruising Aller/Immun Denies itchy eyes and Denies wheezing Physical exam (Primary Care) Vital Signs: Last Vital Signs Pulse 78 09/17/24 12:51 BP 122/80 09/17/24 12:51 Pulse Ox 97 09/17/24 12:51 Oxygen Delivery Method Room Air 09/17/24 12:51 BMI result Body Mass Index 33.5 Tobacco/Smoking Status: Tobacco use Status Tobacco use date assessed 09/17/24 09/17/24 12:59 Patient Tobacco Use Status Former Tobacco user 09/17/24 12:59 Tobacco use type Cigarette 09/17/24 12:59 e-Cigarette/Vaping Use Never Used 09/17/24 12:59 PHQ-9: PHQ-9 Score PHQ-9: Total score 0 09/17/24 13:26 Depression Screening Interpretation: Negative Thrive Assessment: Date of Thrive Assessment Date Thrive assessed 09/17/24 09/17/24 12:59 Currently or been in a relationship where the following occur: I choose not to answer Const General: no acute distress and alert Orientation/consciousness: patient oriented x3 HENMT Head: Yes normocephalic and Yes atraumatic Ears: TM's normal bilaterally and EAC's normal General nose exam: No nasal discharge present Face and sinus: Yes normal facial exam and Yes sinuses nontender Teeth and gingiva: dentition normal Throat: Yes posterior oropharynx normal and Yes tonsils normal (no TP congestion) Eyes Eyelids: Yes eyelids normal Conjunctivae: conjunctivae normal Pupils: Equal, round and reactive pupils present EOM: EOMs intact bilaterally Neck Neck: Yes supple and No lymphadenopathy Thyroid: Thyroid normal Resp Auscultation: clear to auscultation bilaterally, no rales and no wheezes Cardio Rate: regular rate Rhythm: regular rhythm Heart sounds: Murmur heart sound present systolic II/ GI Palpation (GI): Soft to palpation and nontender Auscultation: normal bowel sounds General: Yes no CVA tenderness Back/Spine/Pelvis Back: no CVA tenderness Thoracic/Lumbar Spine: thoracic and lumbar spine normal to inspection Skin Lesions: no lesions Rashes: no rashes Neuro General: patient oriented x3, moves all extremities, no focal motor deficits and CN's II-XI intact bilaterally Cranial nerves: Yes Equal, round and reactive pupils present Cognition (Neuro): normal cognition Gait exam (Neuro): Normal gait present Extrem General: Yes no clubbing, cyanosis or edema Results Reviewed Results Reviewed: Laboratory Tests 07/11/24 07/11/24 08:30 10:15 WBC 8.5 Hgb 14.7 Hct 43.9 Plt Count 224 Sodium 135 Potassium 4.1 Creatinine 0.77 Estimated GFR > 60 Fasting Glucose 96 Hemoglobin A1c % 5.1 Calcium 9.2 AST 19 ALT 10 Triglycerides 49 Cholesterol 168 LDL Cholesterol, Calc 101 H HDL Cholesterol 58 Vitamin B12 743 25-OH Vitamin D Total 49.3 TSH 2.43 Ur Specific [place] 1.010 Urine Protein Negative Urine Glucose (UA) Negative Urine Blood Negative Urine Nitrite Negative Ur Leukocyte Esterase Trace H Coding Level of Care Code Est Pt Prev Care >65y(41050) Diagnoses Annual physical exam Z00.00 Benign essential hypertension I10 Pure hypercholesterolemia E78.00 Cardiac murmur R01.1 Transient ischemic attack (TIA) G45.9 Impaired fasting glucose R73.01 Hypochromic-microcytic anemia D50.9 Vitamin D deficiency E55.9 Seasonal allergic rhinitis, unspecified trigger J30.2 Allergic rhinitis trigger: unspecified Primary insomnia F51.01 Anxiety F41.9 Episode of recurrent major depressive disorder, unspecified depression episode severity F33.9 Depression Type: major depressive disorder Major depression recurrence: recurrent Active/Remission status: currently active Major depression episode severity: unspecified Morbid obesity with BMI of 40.0-44.9, adult E66.01; Z68.41 Additional Codes PHQ-9 - 89149 - PHQ-9 Billing: Yes ([id number]) Assessment & Plan Assessment & Plan (1) Annual physical exam: Code(s): Z00.00 - Encounter for general adult medical examination without abnormal findings Category: Medical Plan: Results of her labs done couple of months ago reviewed and discussed with patient At her current age she no longer needs to keep up with any cancer screenings, including her screening colonoscopy, yearly gynecology exam and Pap smear and annual mammography (2) Benign essential hypertension: Code(s): I10 - Essential (primary) hypertension Category: Medical Plan: Reinforced low sodium diet - goal is systolic BP of at least 140 to 150 mm or less Continue Lisinopril 5 mg QD and Furosemide 40 mg Q AM (3) Pure hypercholesterolemia: Code(s): E78.00 - Pure hypercholesterolemia, unspecified Category: Medical Plan: Reinforced low cholesterol diet Continue Simvastatin 40 mg QD Will recheck her labs and fasting lipids in 6 months for follow up (4) Cardiac murmur: Code(s): R01.1 - Cardiac murmur, unspecified Category: Medical Plan: Echocardiogram done back in 2004 showed a slight mitral annular calcification and slight sclerosis of the aortic cusps with no significant aortic stenosis. There is mild tricuspid and trace mitral regurgitation.? The right and left ventricles are normal in size with normal systolic function, with a left ventricular ejection fraction of about 65%.? No left ventricular hypertrophy is noted.? The atria are slightly enlarged, with mild pulmonary hypertension and evidence of left ventricular diastolic dysfunction.? Will consider repeat echocardiogram for follow-up, especially if cardiac murmur changes or patient becomes?symptomatic. (5) Transient ischemic attack (TIA): Code(s): G45.9 - Transient cerebral ischemic attack, unspecified Category: Medical Plan: Patient appeared to have suffered a TIA back in September 2023 when she was brought to the hospital but work ups done back then were all negative She was seen by neurology and was advised to start taking Aspirin 81 mg QD, which she is still currently on and should continue on lifetime (6) Impaired fasting glucose: Code(s): R73.01 - Impaired fasting glucose Category: Medical Plan: Her FBS was again normal at 96 mg/dl and her HgbA1c also remained normal at 5.1% on her most recent labs done back in June 2024; it was also normal at 5.0% and 5.3% when previously checked Reinforced low calorie diet - will continue to monitor regularly (7) Hypochromic-microcytic anemia: Code(s): D50.9 - Iron deficiency anemia, unspecified Category: Medical Plan: Improved - H/H was normal at 14.7/43.9 on her labs done a couple of months ago Continue FeSo4 325 mg QOD Will recheck her CBC in 6 months for follow up (8) Vitamin D deficiency: Code(s): E55.9 - Vitamin D deficiency, unspecified Category: Medical Plan: Continue Vitamin D3 1000 units QD (9) Seasonal allergic rhinitis: Code(s): J30.2 - Other seasonal allergic rhinitis Category: Medical Qualifiers: Allergic rhinitis trigger: unspecified Qualified Code(s): J30.2 - Other seasonal allergic rhinitis Plan: Continue OTC Benadryl Allergy 25 mg every 8 hours as needed (10) Primary insomnia: Code(s): F51.01 - Primary insomnia Category: Medical Plan: Sleep hygiene reinforced Continue OTC Melatonin 10 mg Q HS PRN (11) Anxiety: Code(s): F41.9 - Anxiety disorder, unspecified Category: Medical Plan: Continue Lorazepam 0.5 mg QD PRN (12) Depression: Comment: (+) Hx of suicide attempt - sees Dr. Laurent Code(s): F32.9 - Major depressive disorder, single episode, unspecified Category: Medical Qualifiers: Depression Type: major depressive disorder Major depression recurrence: recurrent Active/Remission status: currently active Major depression episode severity: unspecified Qualified Code(s): F33.9 - Major depressive disorder, recurrent, unspecified Plan: Continue Bupropion XL 300 mg QD Follow up with Dr. Laurent as scheduled (13) Morbid obesity with BMI of 40.0-44.9, adult: Code(s): E66.01 - Morbid (severe) obesity due to excess calories; Z68.41 - Body mass index [BMI] 40.0-44.9, adult Category: Medical Plan: Reinforced diet; exercise and weight loss are unrealistic given patient's age and physical (gait) issues Plan Follow up in 6 months
== END 2024-09-17 13:35 | disposition home or self-care (01) ==
LOC: HO.HMCH 12:50
PROVIDERS: PCP Internal Medicine; Visit Provider Internal Medicine
DX: Z00.00 Encounter for general adult medical examination without abnormal findings (principal); I10 Essential (primary) hypertension; E66.01 Morbid (severe) obesity due to excess calories; Z68.41 Body mass index [BMI] 40.0-44.9, adult; E78.00 Pure hypercholesterolemia, unspecified; R01.1 Cardiac murmur, unspecified; G45.9 Transient cerebral ischemic attack, unspecified; R73.01 Impaired fasting glucose; D50.9 Iron deficiency anemia, unspecified; E55.9 Vitamin D deficiency, unspecified; J30.2 Other seasonal allergic rhinitis; F51.01 Primary insomnia

== ENCOUNTER → 2024-09-17 12:49 | Outpatient (BNVA) | payer MEDICARE, OTHER, SELFPAY | PROVIDERS: PCP Internal Medicine; Visit Provider Internal Medicine | DX: Z00.00 Encounter for general adult medical examination without abnormal findings (principal); I10 Essential (primary) hypertension; E78.00 Pure hypercholesterolemia, unspecified; R01.1 Cardiac murmur, unspecified; Z87.891 Personal history of nicotine dependence; G45.9 Transient cerebral ischemic attack, unspecified; R73.01 Impaired fasting glucose; D50.9 Iron deficiency anemia, unspecified; E55.9 Vitamin D deficiency, unspecified; J30.2 Other seasonal allergic rhinitis; F41.9 Anxiety disorder, unspecified; F33.9 Major depressive disorder, recurrent, unspecified; E66.01 Morbid (severe) obesity due to excess calories; Z68.41 Body mass index [BMI] 40.0-44.9, adult; Z71.3 Dietary counseling and surveillance | CPT/HCPCS: 96127; 99397 ==

== ENCOUNTER 2024-11-03 11:02 | Outpatient (REF) | payer MEDICARE, OTHER, SELFPAY ==
--- NOTE | ~2024-11-03 | XR_ITS ---
EXAMINATION: XR KNEE, RIGHT CLINICAL INFORMATION: M17.11 - Unilateral primary osteoarthritis, right knee COMPARISON: None available. TECHNIQUE: Three views of the right knee. FINDINGS: There is moderate narrowing of the medial joint space and mild narrowing of the lateral. There is mild medial subluxation of distal femur at the joint line. There is moderate narrowing of the lateral patellofemoral joint. There are tricompartmental marginal osteophytes The suprapatellar region is obscured by overlap of the contralateral leg. There is possibly a joint effusion. XR/XR knee RT 3V IMPRESSION: Moderate osteoarthritis, possibly with a joint effusion. Electronically signed by: Juan Henley MD 11/03/2024 01:11 PM EDT
== END 2024-11-03 11:03 | disposition home or self-care (01) ==
LOC: HO.HOSX 11:02
DX: M17.0 Bilateral primary osteoarthritis of knee (principal)
CPT/HCPCS: 20610; 73562; 99202; J0665; J1100; J2003

== ENCOUNTER 2024-11-03 12:51 | Outpatient (AMB) | payer MEDICARE, OTHER, SELFPAY ==
--- NOTE | 2024-11-03 13:01 | A.OFFVIS_ITS ---
Vital Signs 11/03/24 13:02 Height 5 ft 5 in Weight 201 lb BMI 33.4 Intake Visit Reasons: DIRECTOR OF ASSESSMENT- Right knee pain Intake Note: Mary Beth is an 89 year old female who presents today as a New Patient with her daughter Ambika for evaluation of Right Knee Pain. Patient reports pain began 4-6 weeks, primarily affecting the medial aspect of the knee. She finds it difficult to walk even with the use of her walker. She uses a wheelchair when she goes out the house; Multiple falls because of it. He has tried multiple numbing cream and Tylenol with mild relieve. She is currently taking Aleve with some relief. She is interested in a cortisone injection today as she has tried them in other joints with relief. Denies ajor injuries or surgeries to the right knee. Accompanied by: Daughter Allergies penicillin G (Penicillin G) Allergy (Severe, Verified 11/03/24 13:03) Hives cucumber Allergy (Unknown, Verified 11/03/24 13:03) hives strawberry Allergy (Unknown, Verified 11/03/24 13:03) hives HPI HPI DIRECTOR OF ASSESSMENT- Right knee pain: Details: Mary Beth is an 89 year old female who presents today as a New Patient with her daughter Ambika for evaluation of Right Knee Pain. Patient reports pain began 4-6 weeks, primarily affecting the medial aspect of the knee. She finds it difficult to walk even with the use of her walker. She uses a wheelchair when she goes out the house; Multiple falls because of it. He has tried multiple numbing cream and Tylenol with mild relieve. She is currently taking Aleve with some relief. She is interested in a cortisone injection today as she has tried them in other joints with relief. Denies ajor injuries or surgeries to the right knee. [facility] Medical History (Updated 11/05/24 @ 11:12 by CARYL Kang) Transient ischemic attack (TIA) Depression Morbid obesity with BMI of 40.0-44.9, adult Dementia Impaired fasting glucose Primary insomnia Seasonal allergic rhinitis Vitamin D deficiency Cardiac murmur Pure hypercholesterolemia Benign essential hypertension Surgical History (Updated 11/03/24 @ 13:07 by DUSTIN Marin) History of bilateral tubal ligation History of cataract surgery History of nasal surgery History of lumpectomy of right breast History of tonsillectomy Family History Father Prostate cancer Mother Lung cancer Bone cancer Social History Household Members: Family Housing: House Unable to assess alcohol history related to: Unknown Alcohol intake: former Patient Tobacco Use Status: Former Tobacco user Tobacco use type: Cigarette e-Cigarette/Vaping Use: Never Used Second Hand Smoke Exposure: Yes Advance Directives Date on File: 10/07/23 service: No Current occupational status: retired Cognitive needs: No Hearing needs: No Vision needs: Yes Review of Systems Const All systems reviewed & are unremarkable except as noted in HPI and below Physical Exam Vital Signs: BMI result Body Mass Index 33.4 Extrem Other: Patient's right knee swollen to inspection No erythema, ecchymosis noted No lacerations, abrasions, open areas No evidence of infection Patient reports tenderness to palpation of the medial and lateral joint lines of the right knee No tenderness to palpation of posterior any, quad or patellar tendon, patella, or elsewhere in the right knee Patient is able to extend the right knee to approximately 10 degrees and is able to flex to approximately 100 degrees Negative Therese's Distal sensation intact Capillary refill brisk Office Procedures AMB Joint Injection/Aspiration Joint Injection/Aspiration Primary Site: right knee Prep: site was prepped using aseptic technique, ethochloride spray was applied and injection warnings given Approach Used: anterolateral Procedure: The patient tolerated the procedure well, but had some pain with the injection and there was some relief with the local anesthesia Coding 05687 - Large joint Procedure code (CPT) selection complete Results Reviewed Results Reviewed: X-rays obtained in the office today and independently reviewed by me, Ferny Tse PA-C, demonstrate moderate to severe osteoarthritis of bilateral knees, worse in the right. Assessment & Plan Assessment & Plan (1) Osteoarthritis of knees, bilateral: Code(s): M17.0 - Bilateral primary osteoarthritis of knee Category: Medical Plan 1. Right knee osteoarthritis Patient is educated about this condition Patient is educated about the typical treatment course Patient would like to proceed with steroid injection at this time The risks and benefits of a steroid injection including but not limited to risk of damage to blood vessels, nerves, tendons, infection, skin bleaching, failure to improve symptoms, increased pain, and possible need for further injections or other intervention were discussed with the patient and the patient wishes to proceed with the steroid injection. Once consent was obtained, I aseptically prepped the area over the anterolateral joint line of the [R/L] knee. I then injected the anterolateral joint space of the right knee with a combination of 80 mg of dexamethasone and 8 mL of 1% lidocaine. The patient tolerated the procedure well with no complications. If the patient continues to experience symptoms over the following few weeks or months, they can make an appointment to return and discuss alternative treatment measures, such as physical therapy. Follow-up prn Orders: Orders XR knee RT 3V 11/03/24 M17.11 - Unilateral primary osteoarthritis, right knee Coding Level of Care Code New Pt Level 3 (71947) Diagnoses Osteoarthritis of knees, bilateral M17.0 CPT Codes Coding - Large joint: 97695 - Large joint ([id number])
[2024-11-03 13:02] VITALS: BMI 33.4
== END 2024-11-03 13:51 | disposition home or self-care (01) ==
LOC: HO.HOS 12:52
PROVIDERS: PCP Internal Medicine
DX: M17.0 Bilateral primary osteoarthritis of knee (principal)
CPT/HCPCS: 20610; 99203

== ENCOUNTER → 2024-11-03 12:56 | Outpatient (BNV) | payer MEDICARE, OTHER, SELFPAY | PROVIDERS: Visit Provider Radiology Diagnostic Radiology | DX: M17.11 Unilateral primary osteoarthritis, right knee (principal) | CPT/HCPCS: 73562 ==

== ENCOUNTER 2025-01-08 10:28 | Outpatient (REF) | payer MEDICARE, OTHER, SELFPAY ==
--- OUTSIDE RECORDS SUMMARY | 2025-01-08 11:11 | XMS_ITS | Data Portability ---
Author Organization [facility], Main Office Address [address] [facility], [address] [place] [address] Care Team Providers Care Fence Erector Supervisor Name Role Phone RONNIE BROUSSARD - 2ND FLOOR OTHER Assessment Encounter Date Assessment Date Assessment LastModified by Organization Details LastModified Time 11/12/2023 11/12/2023 I have seen and examined the patient independently and confirmed the findings above with the PAPER [employer]E DRYING MACHINE OPERATOR student note. Management plan discussed with the PAPER CONE DRYING MACHINE OPERATOR student personally. [email or web address] Not available 11/12/2023 12:35:08 11/19/2023 11/19/2023 45 minutes spent on coordination of discharge. [email or web address] Not available 11/19/2023 12:18:18 Plan of Treatment [...] Organization Details Recorded Time Altered mental status 775336781 Active 2023 Nadja Cantrell [address] [facility], [address], [place], [address], [facility] 4 12:53:24 Urinary tract infectious disease 72169019 Active 2023 Nadja Cantrell [address] [facility], [address], [place], [address], [facility] 4 12:53:28 Carotid artery stenosis 60224834 Active 2023 Nadja Cantrell [address] [facility], [address], [place], [address], [facility] 4 12:53:55 Transient cerebral ischemia 377194313 Active 2023 Nadja Cantrell [address], [address], [place], [address], [facility] 4 12:54:02 Asthenia 55607022 Active 2023 AJumana Cantrell [address], [address], [place], [address], [facility] 4 12:54:07 Mixed anxiety and depressive disorder 706809772 Active 2023 AJumana Cantrell [address] [facility], [address], [place], [place], [address], [facility] 4 13:04:07 Dementia 58299897 Active 2023 ALibbyjimenalaurence Cantrell [address] [facility], [address], [place], [address], [facility] 4 13:04:08 Essential hypertension 53476235 Active 2023 AJumana Cantrell [address] [facility], [address], [place], [address], [facility] 4 13:04:09 Primary insomnia 2324458 Active 2023 AJumana Cantrell [address] [facility], [address], [place], [address], [facility] 4 13:07:11 Hyperlipidemia 56973793 Active 2023 AKiraa Tamia [address] [facility], [address], [place], [address], [facility] 4 13:39:41 Problem Notes None recorded. Procedures Surgical History Date Name Laterality Status Provider Name and Address Organization Details Recorded Time ligation of fallopian tube completed A_Fredericblay-Da vis [address] [facility], [address], [place], [address], [facility] 10/12/2023 13:35:08 lumpectomy of breast completed A_Tremblay-Da vis [address] [facility], [address], [place], [address], [facility] 10/12/2023 13:35:24 manipulation of displaced nasal septum completed A_Tremblay-Da vis [address] [facility], [address], [place], [address], [facility] 10/12/2023 13:35:41 Imaging Results None recorded. Procedure Notes None recorded. Medical Equipment None Reported. Allergies Allergen ID Allergen Name Allergen Category Reaction Reaction Severity Criticality Documentation Date Start Date Code Code System Note Provider Name and Address Organization Details Recorded Time 88531 penicilli n G Not available Not available Not available Not available 10/12/2023 7980 RxNorm AKiraa agnes-Shimon [address] [facility], [address], [place], [address], [facility] 4 12:53:04 42846 cucumber extract food Not available Not available Not available 10/12/2023 17837 19 RxNorm AKiraa agnes-Shimon [address] [facility], [address], [place], [address], [facility] 4 12:53:11 84185 strawberr y allergeni c extract food Not available Not available Not available 10/12/2023 44336 4 RxNorm AKiraa agnes-Shimon [address] [facility], [address], [place], [address], [facility] 4 12:53:17 Vitals Date Recorded Body height Body weight Heart rate Respiratory rate Body temperature Oxygen saturation Systolic And Diastolic Provider Name and Address Organization Details Last Updated DateTime 4 162.56 cm 54498.1 8 g 72 /min 18 /min 98 [degF] 98 % 125/78 mm[Hg] Zamzam Mccarthy NP [address] [facility], [address], [place], [address], [place] [facility] 4 12:23:59 Date Recorded Body height Body weight Heart rate Respiratory rate Body temperature Oxygen saturation Systolic And Diastolic Provider Name and Address Organization Details Last Updated DateTime 4 162.56 cm 81076.8 8 g 74 /min 18 /min 98 [degF] 98 % 122/72 mm[Hg] Zamzam Mccarthy NP [address] [facility], [address], [place], [address], [facility] 4 17:35:25 Date Recorded Body height Heart rate Respiratory rate Body temperature Oxygen saturation Systolic And Diastolic Provider Name and Address Organization Details Last Updated DateTime 4 162.56 cm 72 /min 18 /min 98 [degF] 98 % 122/72 mm[Hg] Colette branch [place] [facility] 4 12:22:47 Date Recorded Body height Body mass index (BMI) Body weight Heart rate Respiratory rate Body temperature Oxygen saturation Systolic And Diastolic Provider Name and Address Organization Details Last Updated DateTime 4 162.56 cm 33.3 kg/m2 84620.9 2 g 73 /min 18 /min 98 [degF] 98 % 122/72 mm[Hg] Zamzam Mccarthy NP [address] [facility], [address], [place], [address], [facility] 4 12:03:27 Date Recorded Body height Heart rate Respiratory rate Body temperature Oxygen saturation Systolic And Diastolic Provider Name and Address Organization Details Last Updated DateTime 4 162.56 cm 70 /min 18 /min 98 [degF] 98 % 122/72 mm[Hg] HINA ANTONIO NP [address] [facility], [address], [place], [address], [facility] 4 11:52:50 Social History Question Answer Notes LastModified by Organizat ion Details LastModified Time Tobacco Smoking Status Former Smoker quit in her 30s Alicia Maurer MD [address] [facility], [address], [place], [address], [facility] 10/22/2023 18:54:01 Do You Have An Advance Directive? Yes Information not available 10/22/2023 What Is Your Code Status? Full Code Information not available 10/12/2023 Where Do You Live? Apartment 1st Floor Of [facility], [address] To [address], With Daughter. Information not available 10/22/2023 Legal Guardian? No Informati on not available 10/22/2023 Do You Have A Medical Power Of Auto Radiator Specialist? Yes Information not available 10/22/2023 What Was [...] SARS-COV-2 (COVID-19) vaccine, UNSPECIFIED 04/30/2020 completed Fox Alferd [facility] 10/31/2023 10:19:23 SARS-COV-2 (COVID-19) vaccine, UNSPECIFIED 05/21/2020 margo Alfred [facility] 10/31/2023 10:19:33 SARS-COV-2 (COVID-19) vaccine, UNSPECIFIED 12/03/2020 margo Alfred [facility] 10/31/2023 10:19:45 SARS-COV-2 (COVID-19) vaccine, UNSPECIFIED 07/01/2021 completed Fox Alfred [facility] 10/31/2023 10:19:58 SARS-COV-2 (COVID-19) vaccine, UNSPECIFIED 12/23/2021 completed Fox mckenzie, [facility] 10/31/2023 10:20:18 SARS-COV-2 (COVID-19) vaccine, UNSPECIFIED 11/17/2022 completed Fox mckenzie, [facility] 10/31/2023 10:20:31 Past Encounters Encounter ID Performer Location Encounter Start Date Encounter Closed Date Diagnosis/Indication Diagnosis SNOMED-CT Code Diagnosis ICD10 Code Diagnosis IMO Codes Diagnosis Note [id number] Enrico Handy [facility] [address] [address] 10/12/2023 12:52:46 10/23/2023 10:33:18 Carotid artery stenosis 73578389 I65.29 R carotid stenosisAS A 81mg qdsimvasta tin 40mg qdf/u vascular with Dr. Boogie outpatient in the next week Asthenia 73850207 R53.1 Admit to services PT/OT/STRm onitor and support as needed Transient cerebral ischemia 993414456 G45.9 CTH and MRI without acute strokeASA 81mg qdsimvasta tin 40mg qdmonitor neurologic al status Urinary tr act infectious disease 17522818 N39.0 urine culture negativece furoxime 250mg BID x 2 days (total 5 days) Hyperlipidemia 75336561 E78.5 simvastati n 40mg qdmonitor lipids outpatient Essential hypertension 17548465 I10 lisinopril 5mg qdfurosemi de 40mg qdmonitor labs and BP Dementia 73433953 F03.90 expect declinemon itor insight and need to invoke HCPBIMS 15see meds for mixed anxiety/de pressive d/omonitor and support as needed Mixed anxi ety and depressive disorder 516181743 F41.8 ativan 0.5mg qd prnbupropi on HCL 300mg ER qdmonitor mood and consult [facility] if needed Primary insomnia 5929842 F51.01 melatonin 10mg qHS prndiphenh ydramine 25mg qHS prnmonitor sleep [id number] HINA ANTONIO NP [facility] [address] [place] [address] 10/17/2023 11:35:12 10/23/2023 11:16:25 Transient cerebral ischemia 294947599 G45.9 ?CTH and MRI without acute strokeCont inue:ASA 81mg qdsimvasta tin 40mg qdmonitor neurologic al status Carotid ar bita stenosis 34303646 I65.29 R carotid stenosis noted on scanContin ue:ASA 81mg qdsimvasta tin 40mg qdNeeds outpt. f/u with Vasc. Dr. Boogie Asthenia 63865542 R53.1 Admit to services PT/OT/STRm onitor and support as neededgoal is to return home Urinary tr act infectious disease 95606518 N39.0 urine culture negative, but....cef uroxime 250mg BID x 5 days now complete.M ild elevation in wbcs - repeating CBC in am.Monitor sx., VSEncourag e fluids Hyperlipidemia 85340241 E78.5 simvastati n 40mg qdmonitor lipids outpatient Essential hypertension 87631754 I10 lisinopril 5mg qdfurosemi de 40mg qdmonitor labs and BP Dementia 49407922 F03.90 expect declinemon itor insight and need to invoke HCPBIMS 15see meds for mixed anxiety/de pressive d/omonitor and support as needed Mixed anxi ety and depressive disorder 542467659 F41.8 ativan 0.5mg qd prnbupropi on HCL 300mg ER qdmonitor mood and consult [facility] if needed Primary insomnia 2693382 F51.01 melatonin 10mg qHS prndiphenh ydramine 25mg qHS prnmonitor sleep Leukocytosis 514332781 D 72.829 Mild elevation on admit.Kathy james for UTI despite neg. cx.Monitor ing VS and s/s infectionR epeat CBC in am to trend. Hypokalemia 19824591 E87 .6 K 3.1, no labs for comparison .On lasix 40 mg qd and lisinopril 5 mg qd.Added 20 meq KCL qd, repeating BMP in amMonitor [id number] HINA ANTONIO NP [place] [address] [place], [place] [address] 10/22/2023 10:13:56 10/23/2023 03:50:14 Transient cerebral ischemia 281017687 G45.9 ?CTH and MRI without acute strokeCont inue:ASA 81mg qdsimvasta tin 40mg qdmonitor neurologic al status Carotid ar bita stenosis 89708783 I65.29 R carotid stenosis noted on scanContin ue:ASA 81mg qdsimvasta tin 40mg qdNeeds outpt. f/u with Vasc. Dr. Boogie - HCP trying to get appt., will continue to call office Asthenia [id number] R53.1 Admit to services PT/OT/STRm onitor and support as neededgoal is to return home Urinary tr act infectious disease 23525427 N39.0 urine culture negative, but....cef uroxime 250mg BID x 5 days starterd in hosp., now complete.M ild leukocytos is - repeat UA C&S and CBC in am.Monitor sx., VSEncourag e fluids Hypokalemia 51294626 E87 .6 K 3.1, no labs for comparison .On lasix 40 mg qd and lisinopril 5 mg qd.Added 20 meq KCL qd, repeat BMP in amMonitor Leukocytosis 806579006 D 72.829 Mild elevation on admit.Kathy james for UTI despite neg. cx. Repeat UA C&S and CBC in am, then start keflex 500 mg qid x 5 days and probiotic as also a concern for right middle finger paronychia . Hyperlipidemia 99490802 E78.5 simvastati n 40mg qdmonitor lipids outpatient Essential hypertension 29011645 I10 lisinopril 5mg qdfurosemi de 40mg qdmonitor labs and BP Dementia 28434893 F03.90 expect declinemon itor insight and need to invoke HCPBIMS 15see meds for mixed anxiety/de pressive d/omonitor and support as needed Mixed anxi ety and depressive disorder 758300012 F41.8 ativan 0.5mg qd prn - staff says very helpful with mood and behaviors if dosed q am.bupropi on HCL 300mg ER qdmonitor mood and consult [facility] if needed Primary insomnia 8724705 F51.01 Discussed with HCPmelaton in 10mg qHS prn -> scheduledi phenhydram ine 25mg qHS prn -> schedule (also uses for allergy sx.)monito r sleep Paronychia of finger 444 109901 L03.019 Suspicion, right middle finger.Mil d leukocytos is last week.Plan -CBC, ESR, Uric Acid in am, then start keflex 500 mg qid x 5 days plus probiotic. [id number] Alicia Maurer MD [address] [place] [address] 10/22/2023 14:42:34 10/23/2023 11:51:07 Leukocytosis 082999338 D72.828 WBC on 10/08 was 15.6, down to 11.1 on 10/13, then 12.4 on 10/17Will be rechecked in AM and U/A being rechecked. Monitor. Hypokalemia 60496489 E87 .6 K 3.1 on 10/13, upt to 3.6 on 10/17, had been 3.2 on 09/30, but otherwise has been WNL inpt.Arun nue 20 meq KCL qd.Recheck BMP in AMMonitor Urinary tr act infectious disease 93473891 N30.80 With 2 recent courses of txs for borderline U/As with neg cxs.Will recheck U/A in AM.Encoura ge fluids Primary insomnia 5163062 F51.01 Continue melatonin 10 mg qhs and diphenhydr amine 25 mg qhs.Monito r sleep patterns. Mixed anxi ety and depressive disorder 859282534 F41.8 As above.Thou ght anxiety is possible causing some sxs.Monito r. Transient cerebral ischemia 403205202 G45.8 Possible dx after recent episodes.C ontinue ASA 81mg qd and simvastati n 40 mg qdMonitor neuro sxs.F/U prn. Carotid ar bita stenosis 21773261 I65.21 No change from 2006Contin ue ASA 81 mg qd and simvastati n 40 mg qd.Needs outpt. f/u with Vasc. Dr. Boogie - [facility] trying to get appt., will continue to call office Asthenia [id number] R53.1 Is deconditio maranda due to recent poor intake at home.Needs PT/OT for strengthen ing, balance, gait training, safety and function.C ontinue fall precaution s.Monitor for safety. Hyperlipidemia 73481966 E78.49 Continue simvastati n 40 mg qdMonitor labs as outpt. Essential hypertension 48386165 I10 In good control since here.Arun nue lisinopril 5 mg qd and furosemide 40 mg qdMonitor BP and labs. Dementia 58097647 F03.90 Scored 15/15 on BIMs on admission. But hx of intermitte nt confusion. Continue buproprion 300 mg qd and lorazepam 0.5 mg qd prn.Contin ue supportive care.HCP not invoked, monitor for need to invoke.Mon itor mood and behaviors. Psych consult prn. Cellulitis of finger of right hand 5313344295 9814679 L03.011 Looks like either cellulitis or gout.Will check CBC, ESR, Uric Acid in AM, then start keflex 500 mg qid x 5 days plus probiotic. Monitor [id number] HINA ANTONIO NP [facility] [address] 10/29/2023 08:25:51 10/30/2023 13:58:40 Leukocytosis 106022325 D72.829 More recent mild elevation, now resolved.R epeat UA C&S neg.Contin ues on keflex for concern of paronychia Continue to monitor Labs Hypokalemia 00200032 E87 .6 K 4.3 (10/24)Curre ntly on lasix 40 mg qd and lisinopril 5 mg qd.Continu e with KCL 20 meq qdMonitor Labs, sxs Paronychia of finger 444 789748 L03.019 ResolvedMi ld leukocytos is last week-nl this week 10.1Plan -Complete keflex on 10/30Monito r sxs Urinary tr act infectious disease 77258704 N39.0 Asymptomat icurine culture negative Monitor sx., VSEncourag e fluids Mixed anxi ety and depressive disorder 516969147 F41.8 Continue with ativan 0.5mg qd prn and bupropion HCL 300mg ER qdmonitor mood and consult HD prn Transient cerebral ischemia 901762121 G45.9 ?CTH and MRI without acute strokeCont inue with:ASA 81mg qdsimvasta tin 40mg qdmonitor neurologic al status, sxs Carotid ar bita stenosis 20365668 I65.29 R carotid stenosis noted on scanContin ue:ASA 81mg qdsimvasta tin 40mg qdfollow up with Vasc. Dr. Boogie in place Asthenia 17536571 R53.1 Continue with PT/OT/STRE ncourage participat ionmonitor and support as neededgoal is to return home Hyperlipidemia 29401731 E78.5 Asymptomat icsimvasta tin 40mg qdmonitor labs, VS Essential hypertension 52726457 I10 Continueli sinopril 5mg qdfurosemi de 40mg qdmonitor labs and BP Dementia 69887921 F03.90 expect declinemon itor insight and need to invoke HCPBIMS 15Continue withSuppor tive careativan 0.5mg qd prnbupropi on HCL 300mg ER qdMonitor sxs [id number] Zamzam Mccarthy NP [facility] [address] [address] 11/01/2023 11:31:16 11/05/2023 12:48:56 Leukocytosis 843451731 D72.829 resolvedMo re recent mild elevation, now resolved.R epeat UA C&S neg.Comple james guajardo for concern of paronychia Continue to monitor Labs Hypokalemia 94974523 E87 .6 K 4.3 as above stableCurr ently on lasix 40 mg qd and lisinopril 5 mg qd.Continu e with KCL 20 meq qdMonitor Labs, sxs Paronychia of finger 444 783969 L03.019 ResolvedMi ld leukocytos is last week-nl this week 10.1Plan -Complete keflex on 10/30Monito r sxs Urinary tr act infectious disease 08585684 N39.0 Asymptomat iccomplete d keflexMoni tor sx., VSEncourag e fluids Mixed anxi ety and depressive disorder 920160403 F41.8 Continue withativan 0.5mg qd prnbupropi on HCL 300mg ER qdmonitor mood and consult [facility] prn Transient cerebral ischemia 052457742 G45.9 ?see hpiCTH and MRI without acute strokeCont inue with:ASA 81mg qdsimvasta tin 40mg qdmonitor neurologic al status, sxs Carotid ar bita stenosis 43551646 I65.29 R carotid stenosis noted on scanContin ue:ASA 81mg qdsimvasta tin 40mg qdfollow up with Vasc. Dr. Boogie in place outpt Asthenia 98514378 R53.1 Continue with PT/OT/STRE ncourage participat ionmonitor and support as neededgoal is to return home Hyperlipidemia 06325358 E78.5 Asymptomat icsimvasta tin 40mg qdmonitor labs, VS Essential hypertension 03445392 I10 Continueli sinopril 5mg qdfurosemi de 40mg qdmonitor labs and BP Dementia 84475697 F03.90 expect decline, currently pleasant and a x o [id number] insight and need to invoke HCPBIMS 15Continue withSuppor tive careativan 0.5mg qd prnbupropi on HCL 300mg ER qdMonitor sxs [id number] Zamzam Mccarthy NP [facility] [address] 11/07/2023 08:26:43 11/11/2023 14:42:50 Dementia 39090219 F03.90 expect decline, currently pleasant and a x o [id number] insight and need to invoke HCPBIMS 15Continue withSuppor tive careativan 0.5mg qd prnbupropi on HCL 300mg ER qdMonitor sxs Asthenia 55146478 R53.1 Continue with PT/OT/STRE ncourage participat ion with pt otmonitor and support as neededgoal is to return home Hypokalemia 48698069 E87 .6 K 4.3 as above stableCurr ently on lasix 40 mg qd and lisinopril 5 mg qd.Continu e with KCL 20 meq qdMonitor Labs, sxs Mixed anxi ety and depressive disorder 791250991 F41.8 Continue withativan 0.5mg qd prnbupropi on HCL 300mg ER qdmonitor mood and consult [facility] prn Transient cerebral ischemia 876079341 G45.9 per HPI not likely stroke but can follow up with neuro outpt for fuCTH and MRI without acute strokeCont inue with:ASA 81mg qdsimvasta tin 40mg qdmonitor neurologic al status, sxs Carotid ar bita stenosis 05026659 I65.29 R carotid stenosis noted on scanContin ue:ASA 81mg qdsimvasta tin 40mg qdfollow up with Vasc. Dr. Boogie in place outpt Essential hypertension 37989042 I10 Continueli sinopril 5mg qdfurosemi de 40mg qdmonitor labs and BP [id number] HINA ANTONIO NP [facility] [address] [place] [address] 11/12/2023 08:47:14 11/13/2023 11:39:55 Dementia 44209550 F03.90 Pleasantly confused at times, quite clear todayBIMS 15Continue withSuppor tive care- expect declineati van 0.5mg qd prnbupropi on HCL 300mg ER qdmonitor insight and need to invoke HCPMonitor sxs Asthenia 29024005 R53.1 deconditio maranda to multiple hospitaliz ationsCont inue with PT/OT - encourage participat ionmonitor and support as neededgoal is to return home Hypokalemia 29581762 E87 .6 K 4.3 on KCL 20 meq qdAsymptom aticCurren tly on lasix 40 mg qd and lisinopril 5 mg qd.Monitor Labs, sxs Mixed anxi ety and depressive disorder 798987402 F41.8 Asymptomat icContinue with bupropion HCL 300mg ER qdNo longer on prn ativanmoni tor mood and consult [facility] prn Transient cerebral ischemia 203527121 G45.9 per HPI not likely stroke but can follow up with neuro outptCTH and MRI without acute strokeCont inue with:ASA 81mg qdsimvasta tin 40mg qdmonitor neurologic al status, sxsFollow up with Neuro as planned on 11/27 Carotid ar bita stenosis 25554515 I65.29 R carotid stenosis noted on scanContin ue:ASA 81mg qdsimvasta tin 40mg qdfollow up with Vasc. Dr. Boogie in place outpt Essential hypertension 79486905 I10 BP's stable since hereContin uelisinopr il 5mg qdfurosemi de 40mg qdmonitor labs and BP [id number] Zamzam Mccarthy NP [facility] [address] [address] 11/14/2023 11:32:35 11/18/2023 09:33:08 Dementia 76713273 F03.90 Pleasantly confused at times, quite clear todayBIMS 15Continue withSuppor tive care- expect declinebup ropion HCL 300mg ER qdmonitor insight and need to invoke HCPMonitor sxs Asthenia 54607614 R53.1 deconditio maranda to multiple hospitaliz ationsCont inue with PT/OT - encourage participat ionmonitor and support as neededgoal is to return home Hypokalemia 56436493 E87 .6 K 4.3 on KCL 20 meq qdAsymptom aticCurren tly on lasix 40 mg qd and lisinopril 5 mg qd.Monitor Labs, sxs Mixed anxi ety and depressive disorder 064197097 F41.8 Asymptomat icContinue with bupropion HCL 300mg ER qdNo longer on prn ativanmoni tor mood and consult [facility] prn Transient cerebral ischemia 455464934 G45.9 per HPI not likely stroke but can follow up with neuro outptCTH and MRI without acute strokeCont inue with:ASA 81mg qdsimvasta tin 40mg qdmonitor neurologic al status, sxsFollow up with Neuro as planned on 11/27 Carotid ar bita stenosis 12567384 I65.29 R carotid stenosis noted on scanContin ue:ASA 81mg qdsimvasta tin 40mg qdfollow up with Vasc. Dr. Boogie in place outpt Essential hypertension 45839647 I10 BP's stable since here on belowConti nuelisinop ril 5mg qdfurosemi de 40mg qdmonitor labs and BP [id number] HINA ANTONIO NP [facility] [address] [address] 11/19/2023 11:51:26 11/20/2023 10:46:32 Transient cerebral ischemia 967783123 G45.8 Possible dx after recent episodes.C ontinue ASA 81mg qd and simvastati n 40 mg qdMonitor neuro sxs.F/U with neuro, vascular as outpt. Dementia 13866067 F03.90 Scored 15/15 on BIMs on admission. But hx of intermitte nt confusion. Continue buproprion 300 mg qdContinue supportive care.HCP not invoked, monitor for need to invoke.Mon itor mood and behaviors as outpt.As above, can follow up with Neuro for further assessment as outpt. Mixed anxi ety and depressive disorder 946004921 F41.8 As above.Thou ght anxiety is possible causing some sxs.Monito r. Asthenia 27283798 R53.1 Deconditio maranda due to recent poor intake at home.Has worked with PT/OT for strengthen ing, balance, gait training, safety and function.M eeting goals for d/c home tomorrow with support of services.C ontinue fall precaution s.Monitor for safety. Essential hypertension 20796310 I10 In good control since here.Arun nue lisinopril 5 mg qd and furosemide 40 mg qdMonitor BP and labs. Hypokalemia 40497593 E87 .6 K 3.1 on 10/13, now 4.3Continu e 20 meq KCL qd.Recheck BMP as outpt.Mireya tor Cellulitis of finger of right hand [id number] 8559569 L03.011 Right middle finger - ? panonychia Resolved with KeflexMoni tor Urinary tr act infectious disease 44006262 N30.80 With 2 recent courses of txs for borderline U/As with neg cxs.Encour age fluidsMoni tor as outpt. Primary insomnia 4368387 F51.01 Continue melatonin 10 mg qhs and diphenhydr amine 25 mg qhs.Monito r sleep patterns. Carotid ar bita stenosis 61371636 I65.21 No change from 2006Contin ue ASA 81 mg qd and simvastati n 40 mg qd.Needs outpt. f/u with Vasc. Dr. Boogie - HCP to get appt. Hyperlipidemia 04030702 E78.49 Continue simvastati n 40 mg qdMonitor labs as outpt. Health Concerns Section Related Observation LastModified by Organization Detai ls LastModified Time None Recorded Concern Status LastModified by Organization Details LastModified Time None Recorded Advance Directives Directive Y: Payers Insurance Date Sequence Insurance Name Policy Number Policy Benjamin Covered Member ID Benjamin Member ID Guarantor Name 11/19/2023 1 MEDICARE B-KS: [employer] Mary Beth R Counter [id number] Mary Beth Counter 11/19/2023 2 [facility] INDEMNITY PLAN (INDEMNITY) [id number] Mary Beth Counter [id number] Mary Beth Counter 11/26/2023 2 [facility] INDEMNITY PLAN (INDEMNITY) Mary Beth Counter Notes Date Note Type [...] 15MOLST FULL CODE Zamzam Mccarthy NP [address] , [address], [place], [address], [facility] 11/01/2023 12:37:29 11/07/2023 text/html Pt is seen today for an acute rounding visit today. PMH remarkable for dementia, depression, HTN, HLD, obesity, cardiac murmur, primary insomnia, UTI, TIA, Carotid stenosis and weakness She is an 88 yo lady recently admitted here for rehab and continued care after an ED stay due to altered MS. Since here at [facility] she is working with therapy more and [...] 15MOLST FULL CODE Zamzam Mccarthy NP [address] , [address], [place], [address], [facility] 11/07/2023 18:00:28 11/12/2023 text/html Mary Beth is seen today for a routine, 30 day visit. She is an 88 yo female admitted to [facility] on 10/11/23 for rehab and continued [...] UTI, TIA, Carotid stenosis and weakness HINA ANTONIO, LEFTY [address], [address], [place], [address], [facility] 11/12/2023 14:20:39 11/14/2023 text/html Mary Beth is seen today for an acute rounding visit. PMH significant for dementia, depression, HTN, HLD, obesity, cardiac murmur, primary insomnia, UTI, TIA, Carotid stenosis and weakness Pt is an 88 yo female admitted to [facility] on 10/11/23 for rehab and continued [...] completed. NORMA [id number] 15MOLST FULL CODE Zamzam Mccarthy, LEFTY [address], [address], [place], [address], [facility] 11/15/2023 12:08:57 11/19/2023 text/html Mary Beth is seen today for discharge.She is planning to go home tomorrow 11/19 with support of family and services. She is an 88 yo woman who was admitted to [facility] for rehab after an acute hospitalization for an aphasic episode, presumed TIA.She has had several recent ED visits at [facility].09/26-for not feeling well , txed with cefpodoxime [...] D deficiency. HINA ANTONIO NP [address], [address], [place], [address], [facility] [place] 11/19/2023 12:18:31 OBGyn Episode No OBEpisode recorded.
[2025-01-08 13:16] LABS: Appearance Urine Clear; Glucose Urine UA Negative (Negative); PH 5.5 (5.0-9.0); Specific Gravity - Urine 1.015 (1.005-1.025); UMIC TRIGGER UACC YES
== END 2025-01-08 10:29 | disposition home or self-care (01) ==
LOC: HO.10HDLNP 10:28
PROVIDERS: Visit Provider Internal Medicine
DX: R39.9 Unspecified symptoms and signs involving the genitourinary system (principal)
CPT/HCPCS: 81001

== ENCOUNTER 2025-01-19 22:11 | Emergency (ER) | payer MEDICARE, OTHER, SELFPAY ==
--- NOTE | ~2025-01-19 | CT_ITS ---
CLINICAL HISTORY: ams CT head without contrast Comparison: CT/SR - CT HEAD WITHOUT IV CONTRAST STROKE - 10/07/23 09:28 EDT Findings: BRAIN: No acute infarct, hemorrhage, or mass effect. Scattered periventricular/deep white matter hypodensities, nonspecific, however may represent chronic microvascular ischemic disease. CSF SPACES: No hydrocephalus or effacement of basal cisterns. SKULL: No calvarial fracture. SINUSES: Mild bilateral maxillary sinus disease. ORBITS: Bilateral lens replacements. OTHER: Negative. IMPRESSION: 1. No acute intracranial findings. This document has been electronically signed by: Kait Lopes MD on 01/19/2025 23:43:52
--- NOTE | ~2025-01-19 | XR_ITS ---
CLINICAL HISTORY: cough, ams 1 view chest x-ray Comparison: CR/SR - XR CHEST 1 VIEW - 10/07/23 09:34 EDT Findings: Very low lung volumes. Bilateral basilar reticular lung opacities. Bibasilar opacities. There is persistent obscuration of the left costophrenic angle. Cardiomegaly. There is a large hiatal hernia again seen. No acute fracture. IMPRESSION: Bilateral basilar reticular lung opacities which may be pulmonary edema, infection or aspiration. Very low lung volumes with bibasilar atelectasis and small left pleural effusion. This document has been electronically signed by: Jarret Pop MD on 01/20/2025 20:49:23
--- NOTE | ~2025-01-19 | XR_ITS ---
CLINICAL HISTORY: pain constipation 1 view abdomen Comparison: None provided Findings: No pneumoperitoneum or pneumatosis. No abnormal calcifications. Moderate colonic stool burden. No acute fractures. IMPRESSION: Moderate colonic stool burden. This document has been electronically signed by: Kait Lopes MD on 01/19/2025 23:33:15
--- NOTE | ~2025-01-19 | CT_ITS ---
CLINICAL HISTORY: vomiting, r o SBO CT abdomen and pelvis with contrast Comparison: CR - XR KUB - 01/19/25 23:04 EST Findings: Please see same-day CT chest for discussion of lung bases and chest findings. Large hiatal hernia. Gallbladder, liver, spleen, adrenal glands, pancreas are unremarkable. No bowel obstruction, pneumoperitoneum, or pneumatosis. There are scattered colonic diverticula, however no evidence of diverticulitis. Pelvic contents unremarkable. Normal appendix in the mid right abdomen. No acute fracture. Chronic T10 vertebral body compression deformity. No acute fracture deformity of the lumbar spine. Multilevel degenerative change of the lumbar spine. Extensive arterial vascular calcifications. Normal caliber aorta. No ascites. IMPRESSION: No evidence of bowel obstruction. No acute findings in the abdomen or pelvis. This document has been electronically signed by: Jarret Pop MD on 01/21/2025 20:40:02
--- NOTE | ~2025-01-19 | CT_ITS ---
CLINICAL HISTORY: Vomiting, abn xray,elevated WBC --- Additional Notes or Special Instructions: ?pneumonia CT chest with contrast Comparison: CR - XR CHEST 1V - 01/20/25 20:26 EST Findings: Moderate cardiomegaly. Coronary artery calcifications are present. The visualized thyroid and mediastinum are unremarkable. Trace left pleural effusion present. Mild bibasilar atelectasis. Very low lung volumes. There is a large hiatal hernia. Please see same-day CT abdomen pelvis report for discussion of upper abdomen. There are age-indeterminate vertebra Plana type compression deformities at T7 and T8, new in comparison to 10/01/2023. There is a severe compression deformity of T10, unchanged. IMPRESSION: Bibasilar atelectasis. Trace left pleural effusion. Large hiatal hernia. Moderate cardiomegaly. Age-indeterminate vertebra plana at T7 and T8, new in comparison to 10/01/2023. This document has been electronically signed by: Jarret Pop MD on 01/21/2025 20:33:00
[2025-01-19 22:14] VITALS: BP 140/78; PULSE 71; O2SAT 93
[2025-01-19 22:22] VITALS: BP 192/88; PULSE 81; RESP 13; TEMP 36.6; O2SAT 91; BMI 37.9
--- NOTE | 2025-01-19 22:40 | ED_ITS ---
HPI - General Adult General Chief complaint: Altered Mental Status Stated complaint: Stroke like symptoms last well known time 8pm Time Seen by Provider: 01/19/25 22:39 Source: patient and family Limitations: other (Question dementia) History of Present Illness ED Provider: Helga Mar PA-C HPI narrative: 89-year-old female with a history of hypertension, hyperlipidemia, anxiety and depression, prior suicide ideation followed by Psychiatry, osteoarthritis, prior TIA, microcytic anemia who presents with confusion. Per the daughter who is at bedside, the patient has been having random episodes of confusion and delirium since November. She states her mother exhibits odd behaviors at times, she forgets what she is doing or trying to say. Today, the patient kept repeating the same phrase. Overall, she is progressively refusing to eat, has had ongoing poor oral intake. She also struggles with constipation. There has been no active nausea vomiting or fever. The patient does not complain of belly pain. The patient has no physical concerns or complaints at this time. The patient lives with the daughter, uses a walker to ambulate. Related Data Home Medications ?Medication ?Instructions ?Recorded ?Confirmed bupropion HCl 300 mg 24 hr tablet, 300 mg PO DAILY 11/0701/22/25 extended release melatonin 10 mg tablet 10 mg PO BEDTIME PRN Sleep 1 02/26/19 01/22/25 ascorbic acid (vitamin C) 500 mg 500 mg PO DAILY 10/0601/22/25 tablet (Vitamin C) cholecalciferol (vitamin D3) 25 25 mcg PO DAILY 01/22/25 mcg (1,000 unit) tablet (Vitamin D3) diphenhydramine HCl 25 mg capsule 25 mg PO BEDTIME PRN Sleep 10/07/23 01/22/25 (Benadryl) lactobacillus combination no.9 4 4,000 mmu cells PO Q4 8H 07/30/24 01/22/25 billion cell capsule (Adult 50 Plus Probiotic) lidocaine 5 % topical patch 1 patch topical DAILY PRN Back Pain 01/20/25 01/22/25 magnesium glycinate 100 mg (as 200 mg PO Q48H 01/20/25 01/22/25 glycinate) tablet naproxen sodium 220 mg tablet 220 mg PO Q8H PRN Back P ain 01/20/25 01/22/25 (Aleve) cranberry extract 500 mg capsule 500 mg PO DAILY 01/2201/22/25 Previous Rx's ?Medication ?Instructions ?Recorded Transport Wheelchair #1 ea 03/20/22 aspirin 81 mg capsule 81 mg PO DAILY #30 caps 09/19 05/11 Walker with wheels #1 ea 11/22/23 lisinopril 5 mg tablet 5 mg PO DAILY #90 tabs 05/24 simvastatin 40 mg tablet 40 mg PO DAILY #90 tabs 09/18 03/14 furosemide 40 mg tablet 40 mg PO DAILY #90 tabs 12/19 06/12 Allergies Allergy/AdvReac Type Severity Reaction Status Date / Time penicillin G (Penicillin G) Allergy Severe Hives Verified 01/21/25 23:34 cucumber Allergy Unknown hives Verified 01/21/25 23:34 strawberry Allergy Unknown hives Verified 01/21/25 23:34 Review of Systems 2 Review of Systems: Yes all other systems are reviewed and are negative Constitutional: Constitutional: Denies fatigue, Denies fever(s) and Reports poor appetite Cardiovascular: Cardiovascular: Denies chest pain and Denies dyspnea Respiratory: Respiratory: Denies dyspnea Gastrointestinal: Gastrointestinal: Denies abdominal pain, Reports constipation, Denies nausea and Denies vomiting Endocrine: Endocrine: Denies fatigue PMFSH Past Medical History Attestation statement: The following information was validated with the patient. Medical History Transient ischemic attack (TIA) Depression Morbid obesity with BMI of 40.0-44.9, adult Dementia Impaired fasting glucose Primary insomnia Seasonal allergic rhinitis Vitamin D deficiency Cardiac murmur Pure hypercholesterolemia Benign essential hypertension Surgical History History of bilateral tubal ligation History of cataract surgery History of nasal surgery History of lumpectomy of right breast History of tonsillectomy Family History Family History Father Prostate cancer Mother Lung cancer Bone cancer Social History Social History Household Members: Children Housing: House Do you presently have visiting nurse or other home services: No Unable to assess alcohol history related to: Unknown Alcohol intake: never Patient Tobacco Use Status: Former Tobacco user Tobacco use type: Cigarette e-Cigarette/Vaping Use: Never Used Second Hand Smoke Exposure: Yes Use of substances other than those prescribed or required for medical reasons: No Currently Displaying Signs/Symptoms of Drug Intoxication Withdrawal: No Advance Directives: Yes Advance Directives on File: Yes Advance Directives Date on File: 10/07/23 Do you have a plan to hurt others: No Plan Recently lost weight without trying: No Eating poorly because of decreased appetite: No Nutrition Risks: No Nutritional Risk Patient : No service: No Current occupational status: retired Cognitive needs: No Hearing needs: No Vision needs: Yes Physical Exam ED Vital Signs: Vital Signs - 24 hr 01/21/25 02:43 01/21/25 06:11 01/21/25 07:35 Temperature 98.2 F 98.5 F 98.6 F Pulse Rate 78 86 84 Respiratory Rate 18 18 20 Blood Pressure 174/75 H 199/46 H Pulse Oximetry 95 94 93 Oxygen Delivery Method Room Air Room Air Room Air 01/21/25 08:07 01/21/25 09:14 01/21/25 09:15 Temperature Pulse Rate 107 H Respiratory Rate Blood Pressure 199/46 H 199/46 H Pulse Oximetry 95 Oxygen Delivery Method 01/21/25 10:01 01/21/25 11:55 01/21/25 13:55 Temperature 97.8 F 97.8 F 97.8 F Pulse Rate 88 87 92 Respiratory Rate 18 18 16 Blood Pressure 198/77 H 173/80 H 166/72 H Pulse Oximetry 95 92 92 Oxygen Delivery Method Room Air Room Air Room Air BMI result Body Mass Index 37.9 Const Other: Alert Orientation/consciousness: oriented to person and oriented to place Resp Effort & Inspection: normal respiratory effort Cardio Other: Normal peripheral perfusion Skin Other: Warm dry no rash Neuro Other: Slow, antalgic gait can not give me the exact date General: oriented to person, oriented to place, no focal motor deficits and CN's II-XI intact bilaterally Psych Other: Cooperative NIH Stroke Scale Internal: Initial- Upon Arrival Level of Consciousness: Alert Level of Consciousness Questions: Answers both questions correctly Level of Consciousness Commands: Performs both tasks correctly Best Gaze: Normal Visual: No visual loss Facial Palsy: Normal Motor Arm (Right): No drift Motor Arm (Left): No drift Motor Leg (Right): No drift Motor Leg (Left): No drift Limb Ataxia: Absent Sensory: Normal Best Language: No aphasia Dysarthia: Normal Extinction and Inattention: No abnormality Score: 0 Course Reevaluation(s) Reevaluation #1: Time: 03:46 Date: 01/20/25 Provider: CARYL Steele Patient in physician observation for psychiatric evaluation.? No acute events reported overnight. No current complaints. VS stable.? Patient is in bed search status/pending CARE team evaluation. Will continue to monitor. Time: :46 Reevaluation #2: 10:22 AM 01/20/2025 (Dr. Claudy Reyez): We will provide additional potassium as potassium was quite low, we will repeat levels, reviewed workup otherwise ECG without any changes to suspect changes due to hypokalemia Time: 08:11 Date: 01/21/25 Provider: CARYL Samuel Patient in physician observation for case management needs. No acute events reported overnight.? Potassium levels WNL. Awaiting PT/CM eval, will continue to monitor. Time: 14:15 Date: 01/21/25 Provider: CARYL Samuel Patient in physician observation for case management needs. Patient was seen by Psychiatry and patient likely has underlying dementia however given difficulties with eating, psychiatry does not deem that this is psychogenic in nature. Psychiatry had ordered repeat labs. I re-evaluated patient, and spoke to the daughter in regards to her current overall presentation. Daughter reports that been December, patient did have cold-like symptoms, which eventually improved however states that since her symptoms, she has had decreased appetite. States that she gets full very quickly, and often times can not eat a full meal as she ultimately vomits. Daughter is concerned as she has not had a bowel movement since Saturday. On my evaluation, abdomen is soft, nontender however patient in liquid, brown stool, which was cleaned up by nursing staff.Labs returned, she has a leukocytosis at 22.6k, she is hyponatremic at 130. It is unclear what is causing her to have these derangements on her labs. We will repeat urinalysis, will obtain images of her chest, as well as her abdomen given decreased appetite. Given that it is unclear what is causing her to have leukocytosis, will obtain imaging of the chest as well as abdomen to rule out any other acute findings. Will also repeat UA. Patient given 1 time dose of ceftriaxone, as well as IV fluids. Vitals remained stable. She is speaking in full sentences. She has no current complaints. She states that she is feeling well. Daughter also reports that patient appears to be much better than she has been over the last several days. 6:14 PM 01/21/2025 (Soha Fuchs PA-C): We are still awaiting CT chest and abdomen. Sign-out given to my colleague, Jerald Angulo pending CT chest, abdomen, UA. Then back to PT/CM dispo if workup medically reassuring. 8:59 PM 01/21/2025 (Adele HUTSON): Patient received in sign-out at change of shift pending CT scan of the chest and abdomen as well as urinalysis. The CT scan of the chest and abdomen did not show any acute abnormalities warranting mentioned. No surgical or infectious pathology. The patient's urinalysis does appear to show a developing UTI. Her urinalysis now has 4+ bacteria, there were no epithelial cells to suggest contamination. As 11-20 white cells with some blood, positive nitrites and leukocyte esterase. This will be treated with cefuroxime. The patient is able to take p.o. Medications Administered Discontinued Medications Generic Name Dose Route Start Last Admin Trade Name Gli PRN Reason Stop Dose Admin Ascorbic Acid 500 mg 01/21/25 09:00 01/21/25 09:14 Ascorbic Acid 500 Mg Tablet PO 500 mg DAILY DIEGO Administration Aspirin 81 mg 01/21/25 09:00 01/21/25 09:14 Aspirin Enteric Coated 81 Mg Tablet. PO 81 mg DAILY DIEGO Administration Atorvastatin Calcium 20 mg 01/21/25 09:00 01/21/25 09:14 Atorvastatin Calcium 20 Mg Tablet PO 20 mg DAILY DIEGO Administration Bupropion HCl 300 mg 01/21/25 09:00 01/21/25 09:14 Bupropion Hcl Xl 300 Mg Tab.Er.24h PO 300 mg DAILY DIEGO Administration Cefuroxime Axetil 500 mg 01/21/25 21:01 01/21/25 21:38 Cefuroxime Axetil 500 Mg Tablet PO 01/21/25 21:02 500 mg ONCE ONE Administration Furosemide 40 mg 01/21/25 09:00 01/21/25 09:14 Furosemide 40 Mg Tablet PO 40 mg DAILY DIEGO Administration Protocol Potassium Chloride 10 meq in 100 mls @ 100 mls/hr 01/20/25 00:30 01/20/25 05:14 Potassium Chloride/H20 IV 01/20/25 04:29 Infused Q1H DIEGO Infusion Potassium Chloride 10 meq in 100 mls @ 100 mls/hr 01/20/25 10:21 01/20/25 12:28 Potassium Chloride/H20 IV 01/20/25 11:20 Infused ONCE ONE Infusion Ceftriaxone Sodium 1 gm/ 50 mls @ 100 mls/hr 01/21/25 14:41 01/21/25 16:19 Sodium Chloride IV 01/21/25 15:10 Infused ONCE ONE Infusion Lactated Ringer's 1,000 mls @ 999 mls/hr 01/21/25 14:45 01/21/25 19:27 Lr IV 01/21/25 15:45 Infused .Q1H1M ONE Infusion Iohexol 100 ml 01/21/25 19:42 01/21/25 19:43 Iohexol 350 Mg/Ml 100 Ml Infus..Btl IV 01/21/25 19:43 85 ml ONCE ONE Administration Lidocaine 1 patch 01/20/25 22:09 01/21/25 09:14 Lidocaine 4 % Patch Adh..Patch TRANSDERMA 1 patch DAILY PRN Administration Back Pain Lisinopril 5 mg 01/21/25 09:00 01/21/25 09:15 Lisinopril 5 Mg Tablet PO 5 mg DAILY DIEGO Administration Protocol Naproxen 500 mg 01/19/25 23:47 01/20/25 00:33 Naproxen 500 Mg Tablet PO 01/19/25 23:48 500 mg ONCE ONE Administration Naproxen 250 mg 01/20/25 22:11 01/21/25 19:57 Naproxen 250 Mg Tablet PO 250 mg Q8H PRN Administration Back Pain Potassium Chloride 40 meq 01/20/25 00:27 01/20/25 00:34 Potassium Chloride Er 20 Meq Tab.Er.Prt PO 01/20/25 00:28 40 meq ONCE ONE Administration Potassium Chloride 20 meq 01/20/25 10:21 01/20/25 10:36 Potassium Chloride Er 20 Meq Tab.Er.Prt PO 01/20/25 10:22 Not Given ONCE ONE Potassium Chloride 40 meq 01/20/25 10:21 01/20/25 10:33 Potassium Chloride Packet 20 Meq Packet PO 01/20/25 10:22 40 meq ONCE ONE Administration Vitamin D 25 mcg 01/21/25 09:00 01/21/25 09:15 Cholecalciferol (Vitamin D3) 25 Mcg Tablet PO 25 mcg DAILY DIEGO Administration Procedures Ultrasound ED POC Ultrasound: EMERGENCY ULTRASOUND REPORT?Ultrasound-Assisted ED Procedure Indication: Vein Catheterization: 20 gauge 1-3/4 inch IV placed in left upper extremity. Adequate blood return, flushes well secured with Tegaderm Performed by: Helga Mar PA-C Date: 01/19/2025 Time: 29 Medical Decision Making Medical Decision Making MDM Narrative: 89-year-old female with a history of hypertension, hyperlipidemia, anxiety and depression, prior suicide ideation followed by Psychiatry, osteoarthritis, prior TIA, microcytic anemia who presents with confusion. Per the daughter who is at bedside, the patient has been having random episodes of confusion and delirium since November. She states her mother exhibits odd behaviors at times, she forgets what she is doing or trying to say. Today, the patient kept repeating the same phrase. Overall, she is progressively refusing to eat, has had ongoing poor oral intake. She also struggles with constipation. There has been no active nausea vomiting or fever. The patient does not complain of belly pain. The patient has no physical concerns or complaints at this time. The patient lives with the daughter, uses a walker to ambulate. Problem: Question of dementia, it is listed in her chart, psychiatric illness, age History: Per patient's daughter primarily I have considered the following differential diagnoses: Progression of cognitive impairment, failure to thrive, UTI, brain mass, other unspecified delirium , CVA Plan: The patient has a diagnosis of dementia in her chart, the daughter states that the psychiatrist disagrees with this diagnosis; the patient's primary care provider documented the diagnosis of dementia. It sounds as if the patient has had a geriatric psychiatric evaluation in the past. I think the patient requires another assessment. From what the patient's daughters describing, the patient has the picture of failure to thrive, she is not wanting to eat, she has poor appetite. The patient is beginning to exhibit sundowning behaviors at night, is more confused at night. We will screen basic labs and a urinalysis, obtaining a non-con CT scan of the brain to be sure there was no acute pathology such as a mass causing her symptoms. I do not feel her symptoms are consistent with a CVA, she is neurologically intact, no deficits, her presentation is most consistent with confusion/delirium. If she can be medically cleared, she will be held over for [facility] psychiatric evaluation. I am also obtaining a KUB to assess her stool burden. This could be contributing to her lack of appetite. T he patient's daughter verified that she is a DNR DNI. I have independently reviewed the following tests: Labs: Leukocytosis of 14.8, left shift noted, not anemic, potassium critically low at 2.2, magnesium is 2, no additional electrolyte abnormalities, renal function is at baseline, urine is not infected... Adding an EKG due to her hypokalemia EKG: Sinus rhythm with PACs, known left bundle, no change from prior study no active ischemic changes, QTC 525 KUB:Findings: No pneumoperitoneum or pneumatosis. No abnormal calcifications. Moderate colonic stool burden. No acute fractures. IMPRESSION: Moderate colonic stool burden. CT brain: Findings: BRAIN: No acute infarct, hemorrhage, or mass effect. Scattered periventricular/deep white matter hypodensities, nonspecific, however may represent chronic microvascular ischemic disease. CSF SPACES: No hydrocephalus or effacement of basal cisterns. SKULL: No calvarial fracture. SINUSES: Mild bilateral maxillary sinus disease. ORBITS: Bilateral lens replacements. OTHER: Negative. IMPRESSION: 1. No acute intracranial findings. Differential Diagnosis Differential Diagnoses: The differential diagnosis associated with the presentation includes See [facility] Admission/Observation Consideration of admission/observation: Escalation of care including admission/observation considered Physician arbs for [facility] psychiatric evaluation Consult Healthcare Provider Management of the patient was discussed with: Director Meetings Geriatric psychiatric evaluation Lab Data [facility] Lab Attestation statement: I reviewed the patient's lab results. 01/21/25 13:36 01/21/25 13:36 Labs: Lab Results 01/19/25 01/19/25 01/19/25 Range/Units 22:45 23:26 23:27 WBC 14.8 H (4.8-10.8) X10*3/uL RBC 5.07 (4.20-5.50) X10*6/uL Hgb 14.1 (12.0-16.0) g/dl Hct 42.5 (37.0-47.0) % MCV 83.8 (80.0-98.0) fL MCH 27.8 (27.0-33.0) pg MCHC 33.2 (31.0-35.0) g/dl RDW 12.4 (11.0-16.0) % Plt Count 300 D (160-400) X10*3/uL MPV 10.7 (9.4-12.3) fL Immature Gran % (Auto) 0.4 (0.0-0.4) % Neut % (Auto) 74.5 H (45-73) % Lymph % (Auto) 7.9 L (20-40) % [place] % (Auto) 16.1 H (2-11) % Eos % (Auto) 0.6 (0-4) % Baso % (Auto) 0.5 (0-2) % Lymph # (Auto) 1.2 (1.2-4.9) X10*3/uL [place] # (Auto) 2.4 H (0.1-1.2) X10*3/uL Eos # (Auto) 0.1 (0.0-0.4) X10*3/uL Baso # (Auto) 0.1 (0.0-0.2) X10*3/uL Abs Immat Gran (auto) 0.06 H (0.00-0.03) X10*3/uL Absolute Neuts (auto) 11.0 H (2.0-8.3) x10*3/uL Absolute Nucleated RBC 0.000 (0.0-0.012) X10*3/uL Nucleated RBC % (auto) 0.0 (0.0-0.2) /100WBC Smear Tech's Comments VERIFIED Sodium 136 (135-145) mmol/L Potassium 2.2 L* D (3.3-5.1) mmol/L Chloride 83 L (96-108) mmol/L Carbon Dioxide 37 H (22-29) mmol/L Anion Gap 18 (12-20) BUN 8 L (9-16) mg/dL Creatinine 0.64 (0.5-1.4) mg/dL Estim Creat Clear Calc 59.9 Estimated GFR > 60 Random Glucose 109 (60-115) mg/dL Osmolality (281-305) mosm/kg Lactic Acid (0.5-2.0) mmol/L Calcium 8.8 (8.4-10.2) mg/dL Magnesium 2.0 (1.6-2.6) mg/dL Total Bilirubin (0.0-1.0) mg/dL AST (5-31) U/L ALT (0-31) U/L Alkaline Phosphatase (39-117) U/L Ammonia (13-55) umol/L Total Protein (6.5-8.0) g/dL Albumin (3.5-5.0) g/dL Urine Color Yellow Urine Appearance Clear Urine pH 6.5 (5.0-9.0) Ur Specific [place] 1.010 (1.005-1.025) Urine Protein Negative (Neg-Trace) mg/dL Urine Glucose (UA) Negative (Negative) mg/dL Urine Ketones 15 (Negative) mg/dL Urine Blood Negative (Negative) Urine Nitrite Negative (Negative) Ur Leukocyte Esterase Negative (Negative) Urine RBC (0-2) /HPF Urine WBC (0-5) /HPF Ur Squamous Epith Cells (0-2) /HPF Urine Bacteria (None Seen) Hyaline Casts (0-2) /LPF Urine Osmolality (373-1093) mosm/kg Ur Random Sodium mmol/L 01/20/25 01/21/25 01/21/25 Range/Units 15:48 13:36 15:11 WBC 22.6 H (4.8-10.8) X10*3/uL RBC 5.85 H (4.20-5.50) X10*6/uL Hgb 16.4 H (12.0-16.0) g/dl Hct 49.7 H (37.0-47.0) % MCV 85.0 (80.0-98.0) fL MCH 28.0 (27.0-33.0) pg MCHC 33.0 (31.0-35.0) g/dl RDW 12.2 (11.0-16.0) % Plt Count 314 (160-400) X10*3/uL MPV 10.0 (9.4-12.3) fL Immature Gran % (Auto) 0.7 H (0.0-0.4) % Neut % (Auto) 83.9 H (45-73) % Lymph % (Auto) 4.3 L (20-40) % [place] % (Auto) 10.7 (2-11) % Eos % (Auto) 0.0 (0-4) % Baso % (Auto) 0.4 (0-2) % Lymph # (Auto) 1.0 L (1.2-4.9) X10*3/uL [place] # (Auto) 2.4 H (0.1-1.2) X10*3/uL Eos # (Auto) 0.0 (0.0-0.4) X10*3/uL Baso # (Auto) 0.1 (0.0-0.2) X10*3/uL Abs Immat Gran (auto) 0.15 H (0.00-0.03) X10*3/uL Absolute Neuts (auto) 19.0 H (2.0-8.3) x10*3/uL Absolute Nucleated RBC 0.000 (0.0-0.012) X10*3/uL Nucleated RBC % (auto) 0.0 (0.0-0.2) /100WBC Smear Tech's Comments Sodium 131 L 130 L (135-145) mmol/L Potassium 4.1 D 3.9 (3.3-5.1) mmol/L Chloride 85 L 84 L (96-108) mmol/L Carbon Dioxide 33 H 31 H (22-29) mmol/L Anion Gap 17 19 (12-20) BUN 7 L 9 (9-16) mg/dL Creatinine 0.54 0.59 (0.5-1.4) mg/dL Estim Creat Clear Calc 71.0 65.0 Estimated GFR > 60 > 60 Random Glucose 92 83 (60-115) mg/dL Osmolality 267 L (281-305) mosm/kg Lactic Acid (0.5-2.0) mmol/L Calcium 9.0 9.5 (8.4-10.2) mg/dL Magnesium (1.6-2.6) mg/dL Total Bilirubin 0.7 (0.0-1.0) mg/dL AST 38 H (5-31) U/L ALT 8 (0-31) U/L Alkaline Phosphatase 126 H (39-117) U/L Ammonia 41 (13-55) umol/L Total Protein 7.7 (6.5-8.0) g/dL Albumin 4.0 (3.5-5.0) g/dL Urine Color Urine Appearance Urine pH (5.0-9.0) Ur Specific [place] (1.005-1.025) Urine Protein (Neg-Trace) mg/dL Urine Glucose (UA) (Negative) mg/dL Urine Ketones (Negative) mg/dL Urine Blood (Negative) Urine Nitrite (Negative) Ur Leukocyte Esterase (Negative) Urine RBC (0-2) /HPF Urine WBC (0-5) /HPF Ur Squamous Epith Cells (0-2) /HPF Urine Bacteria (None Seen) Hyaline Casts (0-2) /LPF Urine Osmolality (373-1093) mosm/kg Ur Random Sodium mmol/L 01/21/25 01/21/25 Range/Units 15:29 19:25 WBC (4.8-10.8) X10*3/uL RBC (4.20-5.50) X10*6/uL Hgb (12.0-16.0) g/dl Hct (37.0-47.0) % MCV (80.0-98.0) fL MCH (27.0-33.0) pg MCHC (31.0-35.0) g/dl RDW (11.0-16.0) % Plt Count (160-400) X10*3/uL MPV (9.4-12.3) fL Immature Gran % (Auto) (0.0-0.4) % Neut % (Auto) (45-73) % Lymph % (Auto) (20-40) % [place] % (Auto) (2-11) % Eos % (Auto) (0-4) % Baso % (Auto) (0-2) % Lymph # (Auto) (1.2-4.9) X10*3/uL [place] # (Auto) (0.1-1.2) X10*3/uL Eos # (Auto) (0.0-0.4) X10*3/uL Baso # (Auto) (0.0-0.2) X10*3/uL Abs Immat Gran (auto) (0.00-0.03) X10*3/uL Absolute Neuts (auto) (2.0-8.3) x10*3/uL Absolute Nucleated RBC (0.0-0.012) X10*3/uL Nucleated RBC % (auto) (0.0-0.2) /100WBC Smear Tech's Comments Sodium (135-145) mmol/L Potassium (3.3-5.1) mmol/L Chloride (96-108) mmol/L Carbon Dioxide (22-29) mmol/L Anion Gap (12-20) BUN (9-16) mg/dL Creatinine (0.5-1.4) mg/dL Estim Creat Clear Calc Estimated GFR Random Glucose (60-115) mg/dL Osmolality (281-305) mosm/kg Lactic Acid 1.5 (0.5-2.0) mmol/L Calcium (8.4-10.2) mg/dL Magnesium (1.6-2.6) mg/dL Total Bilirubin (0.0-1.0) mg/dL AST (5-31) U/L ALT (0-31) U/L Alkaline Phosphatase (39-117) U/L Ammonia (13-55) umol/L Total Protein (6.5-8.0) g/dL Albumin (3.5-5.0) g/dL Urine Color Yellow Urine Appearance Turbid Urine pH 8.0 (5.0-9.0) Ur Specific [place] 1.010 (1.005-1.025) Urine Protein Negative (Neg-Trace) mg/dL Urine Glucose (UA) Negative (Negative) mg/dL Urine Ketones 15 (Negative) mg/dL Urine Blood Moderate (2+) H (Negative) Urine Nitrite Positive H (Negative) Ur Leukocyte Esterase Small (1+) H (Negative) Urine RBC 3-5 H (0-2) /HPF Urine WBC 11-20 H (0-5) /HPF Ur Squamous Epith Cells 0-2 (0-2) /HPF Urine Bacteria 4+ (None Seen) Hyaline Casts 0-2 (0-2) /LPF Urine Osmolality 290 L (373-1093) mosm/kg Ur Random Sodium 62.0 mmol/L Independent Interpretation I performed an independent interpretation of an: EKG Radiology Impression Discussion of test interpretation with radiology: I have reviewed the radiologist's reading. Critical Care Time Critical Care Time Critical Care Time: Yes Total Critical Care Time: 35 Attestation: I Helga Mar PA-C have personally performed 35 minutes of critical care time not including lines and procedures; hypokalemia, need for [facility] psychiatric consult Discharge Plan Discharge Clinical Impression: Delirium, Constipation, Acute hypokalemia, Adult failure to thrive, Hiatal hernia, Opacities of both lungs present on chest x-ray Patient Disposition: Home, Self-Care Instructions: Constipation (ED), Acute Delirium (ED), Urinary Tract Infection in Older Adults (ED) Additional Instructions: You had a CT scan of your brain, chest, abdomen and no significant changes were found. You were somewhat dehydrated and this was addressed with IV fluids. The 2nd urine sample that we sent did show a urinary tract infection. I recommend taking the antibiotics as prescribed for 1 week Follow up with your primary doctor, return for new or worsening symptoms Prescriptions: No Action (DME) Transport Wheelchair See Rx Instructions .Route .MEDSUPPLY Qty: 1 0RF Rx Instructions: As directed (DME) Walker with wheels See Rx Instructions .Route .MEDSUPPLY Qty: 1 0RF Rx Instructions: As directed lisinopril 5 mg tablet 5 mg PO DAILY Qty: 90 5RF simvastatin 40 mg tablet 40 mg PO DAILY Qty: 90 1RF furosemide 40 mg tablet 40 mg PO DAILY Qty: 90 3RF ascorbic acid (vitamin C) [Vitamin C] 500 mg Tablet 500 mg PO DAILY diphenhydramine HCl [Benadryl] 25 mg Capsule 25 mg PO BEDTIME PRN (Reason: Sleep) cholecalciferol (vitamin D3) [Vitamin D3] 25 mcg (1,000 unit) Tablet 25 mcg PO DAILY aspirin 81 mg capsule 81 mg PO DAILY Qty: 30 0RF lidocaine 5 % adhesive patch,medicated 1 patch topical DAILY PRN (Reason: Back Pain) Rx Instructions: leave on most painful area for up to 12 hrs magnesium glycinate 100 mg Tablet 200 mg PO Q48H Rx Instructions: 200 mg orally every other day. Takes every other day, on alternating days from probiotic naproxen sodium [Aleve] 220 mg Tablet 220 mg PO Q8H PRN (Reason: Back Pain) cranberry extract 500 mg Capsule 500 mg PO DAILY Rx Instructions: administer with meals melatonin 10 mg tablet 10 mg PO BEDTIME PRN (Reason: Sleep) bupropion HCl 300 mg tablet extended release 24 hr 300 mg PO DAILY Adult 50 Plus Probiotic 4 billion cell capsule 4,000 mmu cells PO Q48H Rx Instructions: 4,000 mmu cells orally ;administer with a meal Takes one capsule by mouth every other day, on alternating days from magnesium glycinate supplement. Discharge Date/Time: 01/21/25 23:07 Print Language: Omani
--- NOTE | 2025-01-19 22:45 | PC.NURSE ---
daughter at bedside at this time
--- OUTSIDE RECORDS SUMMARY | 2025-01-19 23:40 | XMS_ITS | Data Portability ---
Author Organization [facility] [employer] [facility], Main Office Address [address], [address] [place] [address] Care Team Providers Care Loss Prevention/Safety District Manager Name Role Phone RONNIE BROUSSARD - 2ND FLOOR OTHER Assessment Encounter Date Assessment Date Assessment LastModified by Organization Details LastModified Time 11/12/2023 11/12/2023 I have seen and examined the patient independently and confirmed the findings above with the INSULATION MACHINE OPERATOR student note. Management plan discussed with the INSULATION MACHINE OPERATOR student personally. [email or web address] Not available 11/12/2023 12:35:08 11/19/2023 11/19/2023 45 minutes spent on coordination of discharge. [email or web address] Not available 11/19/2023 12:18:18 Plan of Treatment [...] Organization Details Recorded Time Altered mental status 154658430 Active 2023 Nadja Cantrell [address] [facility], [address], [place], [address], [facility] 4 12:53:24 Urinary tract infectious disease 41281543 Active 2023 Nadja Cantrell [address] [facility], [address], [place], [address], [facility] 4 12:53:28 Carotid artery stenosis 98071140 Active 2023 Nadja Cantrell [address] [facility], [address], [place], [address], [facility] 4 12:53:55 Transient cerebral ischemia 629419908 Active 2023 Nadja Cantrell [address], [address], [place], [address], [facility] 4 12:54:02 Asthenia 30144272 Active 2023 AJumana Cantrell [address], [address], [place], [address], [facility] 4 12:54:07 Mixed anxiety and depressive disorder 765028703 Active 2023 AJumana Cantrell [address] [facility], [address], [place], [place], [address], [facility] 4 13:04:07 Dementia 72531931 Active 2023 ALibbyjimenalaurence Cantrell [address] [facility], [address], [place], [address], [facility] 4 13:04:08 Essential hypertension 03310784 Active 2023 AJumana Cantrell [address] [facility], [address], [place], [address], [facility] 4 13:04:09 Primary insomnia 8289885 Active 2023 AJumana Cantrell [address] [facility], [address], [place], [address], [facility] 4 13:07:11 Hyperlipidemia 39772085 Active 2023 AKiraa Tamia [address] [facility], [address], [place], [address], [facility] 4 13:39:41 Problem Notes None recorded. Procedures Surgical History Date Name Laterality Status Provider Name and Address Organization Details Recorded Time ligation of fallopian tube completed A_Fredericblay-Da vis [address] [facility], [address], [place], [address], [facility] 10/12/2023 13:35:08 lumpectomy of breast completed A_Tremblay-Da vis [address] [facility], [address], [place], [address], [facility] 10/12/2023 13:35:24 manipulation of displaced nasal septum completed A_Tremblay-Da vis [address] [facility], [address], [place], [address], [facility] 10/12/2023 13:35:41 Imaging Results None recorded. Procedure Notes None recorded. Medical Equipment None Reported. Allergies Allergen ID Allergen Name Allergen Category Reaction Reaction Severity Criticality Documentation Date Start Date Code Code System Note Provider Name and Address Organization Details Recorded Time 84588 penicilli n G Not available Not available Not available Not available 10/12/2023 7980 RxNorm AKiraa agnes-Shimon [address] [facility], [address], [place], [address], [facility] 4 12:53:04 41090 cucumber extract food Not available Not available Not available 10/12/2023 04542 19 RxNorm AKiraa agnes-Shimon [address] [facility], [address], [place], [address], [facility] 4 12:53:11 82631 strawberr y allergeni c extract food Not available Not available Not available 10/12/2023 76898 4 RxNorm AKiraa agnes-Shimon [address] [facility], [address], [place], [address], [facility] 4 12:53:17 Vitals Date Recorded Body height Body weight Heart rate Respiratory rate Body temperature Oxygen saturation Systolic And Diastolic Provider Name and Address Organization Details Last Updated DateTime 4 162.56 cm 45692.1 8 g 72 /min 18 /min 98 [degF] 98 % 125/78 mm[Hg] Zamzam Mccarthy NP [address] [facility], [address], [place], [address], [place] [facility] 4 12:23:59 Date Recorded Body height Body weight Heart rate Respiratory rate Body temperature Oxygen saturation Systolic And Diastolic Provider Name and Address Organization Details Last Updated DateTime 4 162.56 cm 00418.8 8 g 74 /min 18 /min 98 [degF] 98 % 122/72 mm[Hg] Zamzam Mccarthy NP [address] [facility], [address], [place], [address], [facility] 4 17:35:25 Date Recorded Body height Heart rate Respiratory rate Body temperature Oxygen saturation Systolic And Diastolic Provider Name and Address Organization Details Last Updated DateTime 4 162.56 cm 72 /min 18 /min 98 [degF] 98 % 122/72 mm[Hg] Colette branch [place] [facility] 4 12:22:47 Date Recorded Body height Body mass index (BMI) Body weight Heart rate Respiratory rate Body temperature Oxygen saturation Systolic And Diastolic Provider Name and Address Organization Details Last Updated DateTime 4 162.56 cm 33.3 kg/m2 07214.9 2 g 73 /min 18 /min 98 [degF] 98 % 122/72 mm[Hg] Zamzam Mccarthy NP [address] [facility], [address], [place], [address], [facility] 4 12:03:27 Date Recorded Body height Heart rate Respiratory rate Body temperature Oxygen saturation Systolic And Diastolic Provider Name and Address Organization Details Last Updated DateTime 4 162.56 cm 70 /min 18 /min 98 [degF] 98 % 122/72 mm[Hg] HINA ANTONIO NP [address] [facility], [address], [place], [address], [facility] 4 11:52:50 Social History Question Answer Notes LastModified by Organizat ion Details LastModified Time Tobacco Smoking Status Former Smoker quit in her 30s Alicia Maurer MD [address] [facility], [address], [place], [address], [facility] 10/22/2023 18:54:01 Do You Have An Advance Directive? Yes Information not available 10/22/2023 What Is Your Code Status? Full Code Information not available 10/12/2023 Where Do You Live? Apartment 1st Floor Of [facility], [address] To [address], With Daughter. Information not available 10/22/2023 Legal Guardian? No Informati on not available 10/22/2023 Do You Have A Medical Power Of Director Strategic Planning? Yes Information not available 10/22/2023 What Was [...] (COVID-19) vaccine, UNSPECIFIED 04/30/2020 completed Fox Alfred [facility] 10/31/2023 10:19:23 SARS-COV-2 (COVID-19) vaccine, UNSPECIFIED 05/21/2020 margo Alfred [facility] 10/31/2023 10:19:33 SARS-COV-2 (COVID-19) vaccine, UNSPECIFIED 12/03/2020 margo Alfred [facility] 10/31/2023 10:19:45 SARS-COV-2 (COVID-19) vaccine, UNSPECIFIED 07/01/2021 completed Fox Alfred [facility] 10/31/2023 10:19:58 SARS-COV-2 (COVID-19) vaccine, UNSPECIFIED 12/23/2021 completed Fox mckenzie, [facility] 10/31/2023 10:20:18 SARS-COV-2 (COVID-19) vaccine, UNSPECIFIED 11/17/2022 completed Fox mckenzie, [facility] 10/31/2023 10:20:31 Past Encounters Encounter ID Performer Location Encounter Start Date Encounter Closed Date Diagnosis/Indication Diagnosis SNOMED-CT Code Diagnosis ICD10 Code Diagnosis IMO Codes Diagnosis Note [id number] Enrico Handy [facility] [address] [address] 10/12/2023 12:52:46 10/23/2023 10:33:18 Carotid artery stenosis 43672119 I65.29 R carotid stenosisAS A 81mg qdsimvasta tin 40mg qdf/u vascular with Dr. Boogie outpatient in the next week Asthenia 79429264 R53.1 Admit to services PT/OT/STRm onitor and support as needed Transient cerebral ischemia 004996678 G45.9 CTH and MRI without acute strokeASA 81mg qdsimvasta tin 40mg qdmonitor neurologic al status Urinary tr act infectious disease 13831115 N39.0 urine culture negativece furoxime 250mg BID x 2 days (total 5 days) Hyperlipidemia 23313793 E78.5 simvastati n 40mg qdmonitor lipids outpatient Essential hypertension 60585155 I10 lisinopril 5mg qdfurosemi de 40mg qdmonitor labs and BP Dementia 64972475 F03.90 expect declinemon itor insight and need to invoke HCPBIMS 15see meds for mixed anxiety/de pressive d/omonitor and support as needed Mixed anxi ety and depressive disorder 276817541 F41.8 ativan 0.5mg qd prnbupropi on HCL 300mg ER qdmonitor mood and consult [facility] if needed Primary insomnia 5661014 F51.01 melatonin 10mg qHS prndiphenh ydramine 25mg qHS prnmonitor sleep [id number] HINA ANTONIO NP [facility] [address] [place] [address] 10/17/2023 11:35:12 10/23/2023 11:16:25 Transient cerebral ischemia 866361662 G45.9 ?CTH and MRI without acute strokeCont inue:ASA 81mg qdsimvasta tin 40mg qdmonitor neurologic al status Carotid ar bita stenosis 67449023 I65.29 R carotid stenosis noted on scanContin ue:ASA 81mg qdsimvasta tin 40mg qdNeeds outpt. f/u with Vasc. Dr. Boogie Asthenia 55629040 R53.1 Admit to services PT/OT/STRm onitor and support as neededgoal is to return home Urinary tr act infectious disease 65472943 N39.0 urine culture negative, but....cef uroxime 250mg BID x 5 days now complete.M ild elevation in wbcs - repeating CBC in am.Monitor sx., VSEncourag e fluids Hyperlipidemia 92457169 E78.5 simvastati n 40mg qdmonitor lipids outpatient Essential hypertension 56291184 I10 lisinopril 5mg qdfurosemi de 40mg qdmonitor labs and BP Dementia 09487974 F03.90 expect declinemon itor insight and need to invoke HCPBIMS 15see meds for mixed anxiety/de pressive d/omonitor and support as needed Mixed anxi ety and depressive disorder 616542346 F41.8 ativan 0.5mg qd prnbupropi on HCL 300mg ER qdmonitor mood and consult [facility] if needed Primary insomnia 4532647 F51.01 melatonin 10mg qHS prndiphenh ydramine 25mg qHS prnmonitor sleep Leukocytosis 438413579 D 72.829 Mild elevation on admit.Kathy james for UTI despite neg. cx.Monitor ing VS and s/s infectionR epeat CBC in am to trend. Hypokalemia 67430231 E87 .6 K 3.1, no labs for comparison .On lasix 40 mg qd and lisinopril 5 mg qd.Added 20 meq KCL qd, repeating BMP in amMonitor [id number] HNIA ANTONIO NP [place] [address] [place], [place] [address] 10/22/2023 10:13:56 10/23/2023 03:50:14 Transient cerebral ischemia 440413228 G45.9 ?CTH and MRI without acute strokeCont inue:ASA 81mg qdsimvasta tin 40mg qdmonitor neurologic al status Carotid ar bita stenosis 38150586 I65.29 R carotid stenosis noted on scanContin ue:ASA 81mg qdsimvasta tin 40mg qdNeeds outpt. f/u with Vasc. Dr. Boogie - HCP trying to get appt., will continue to call office Asthenia [id number] R53.1 Admit to services PT/OT/STRm onitor and support as neededgoal is to return home Urinary tr act infectious disease 82888627 N39.0 urine culture negative, but....cef uroxime 250mg BID x 5 days starterd in hosp., now complete.M ild leukocytos is - repeat UA C&S and CBC in am.Monitor sx., VSEncourag e fluids Hypokalemia 69704127 E87 .6 K 3.1, no labs for comparison .On lasix 40 mg qd and lisinopril 5 mg qd.Added 20 meq KCL qd, repeat BMP in amMonitor Leukocytosis 208030328 D 72.829 Mild elevation on admit.Kathy james for UTI despite neg. cx. Repeat UA C&S and CBC in am, then start keflex 500 mg qid x 5 days and probiotic as also a concern for right middle finger paronychia . Hyperlipidemia 21534113 E78.5 simvastati n 40mg qdmonitor lipids outpatient Essential hypertension 32463851 I10 lisinopril 5mg qdfurosemi de 40mg qdmonitor labs and BP Dementia 91925144 F03.90 expect declinemon itor insight and need to invoke HCPBIMS 15see meds for mixed anxiety/de pressive d/omonitor and support as needed Mixed anxi ety and depressive disorder 445625319 F41.8 ativan 0.5mg qd prn - staff says very helpful with mood and behaviors if dosed q am.bupropi on HCL 300mg ER qdmonitor mood and consult [facility] if needed Primary insomnia 4857803 F51.01 Discussed with HCPmelaton in 10mg qHS prn -> scheduledi phenhydram ine 25mg qHS prn -> schedule (also uses for allergy sx.)monito r sleep Paronychia of finger 444 307245 L03.019 Suspicion, right middle finger.Mil d leukocytos is last week.Plan -CBC, ESR, Uric Acid in am, then start keflex 500 mg qid x 5 days plus probiotic. [id number] Alicia Maurer MD [address] [place] [address] 10/22/2023 14:42:34 10/23/2023 11:51:07 Leukocytosis 249820603 D72.828 WBC on 10/08 was 15.6, down to 11.1 on 10/13, then 12.4 on 10/17Will be rechecked in AM and U/A being rechecked. Monitor. Hypokalemia 40097307 E87 .6 K 3.1 on 10/13, upt to 3.6 on 10/17, had been 3.2 on 09/30, but otherwise has been WNL inpt.Arun nue 20 meq KCL qd.Recheck BMP in AMMonitor Urinary tr act infectious disease 90276494 N30.80 With 2 recent courses of txs for borderline U/As with neg cxs.Will recheck U/A in AM.Encoura ge fluids Primary insomnia 7678609 F51.01 Continue melatonin 10 mg qhs and diphenhydr amine 25 mg qhs.Monito r sleep patterns. Mixed anxi ety and depressive disorder 839787401 F41.8 As above.Thou ght anxiety is possible causing some sxs.Monito r. Transient cerebral ischemia 843514768 G45.8 Possible dx after recent episodes.C ontinue ASA 81mg qd and simvastati n 40 mg qdMonitor neuro sxs.F/U prn. Carotid ar bita stenosis 90498372 I65.21 No change from 2006Contin ue ASA 81 mg qd and simvastati n 40 mg qd.Needs outpt. f/u with Vasc. Dr. Boogie - [facility] trying to get appt., will continue to call office Asthenia [id number] R53.1 Is deconditio maranda due to recent poor intake at home.Needs PT/OT for strengthen ing, balance, gait training, safety and function.C ontinue fall precaution s.Monitor for safety. Hyperlipidemia 17809076 E78.49 Continue simvastati n 40 mg qdMonitor labs as outpt. Essential hypertension 31267846 I10 In good control since here.Arun nue lisinopril 5 mg qd and furosemide 40 mg qdMonitor BP and labs. Dementia 49354691 F03.90 Scored 15/15 on BIMs on admission. But hx of intermitte nt confusion. Continue buproprion 300 mg qd and lorazepam 0.5 mg qd prn.Contin ue supportive care.HCP not invoked, monitor for need to invoke.Mon itor mood and behaviors. Psych consult prn. Cellulitis of finger of right hand 5797141918 5000515 L03.011 Looks like either cellulitis or gout.Will check CBC, ESR, Uric Acid in AM, then start keflex 500 mg qid x 5 days plus probiotic. Monitor [id number] HINA ANTONIO NP [facility] [address] 10/29/2023 08:25:51 10/30/2023 13:58:40 Leukocytosis 358124163 D72.829 More recent mild elevation, now resolved.R epeat UA C&S neg.Contin ues on keflex for concern of paronychia Continue to monitor Labs Hypokalemia 23346809 E87 .6 K 4.3 (10/24)Curre ntly on lasix 40 mg qd and lisinopril 5 mg qd.Continu e with KCL 20 meq qdMonitor Labs, sxs Paronychia of finger 444 765894 L03.019 ResolvedMi ld leukocytos is last week-nl this week 10.1Plan -Complete keflex on 10/30Monito r sxs Urinary tr act infectious disease 49152932 N39.0 Asymptomat icurine culture negative Monitor sx., VSEncourag e fluids Mixed anxi ety and depressive disorder 580969687 F41.8 Continue with ativan 0.5mg qd prn and bupropion HCL 300mg ER qdmonitor mood and consult HD prn Transient cerebral ischemia 242025663 G45.9 ?CTH and MRI without acute strokeCont inue with:ASA 81mg qdsimvasta tin 40mg qdmonitor neurologic al status, sxs Carotid ar bita stenosis 76858693 I65.29 R carotid stenosis noted on scanContin ue:ASA 81mg qdsimvasta tin 40mg qdfollow up with Vasc. Dr. Boogie in place Asthenia 41455677 R53.1 Continue with PT/OT/STRE ncourage participat ionmonitor and support as neededgoal is to return home Hyperlipidemia 22950145 E78.5 Asymptomat icsimvasta tin 40mg qdmonitor labs, VS Essential hypertension 36076741 I10 Continueli sinopril 5mg qdfurosemi de 40mg qdmonitor labs and BP Dementia 79934778 F03.90 expect declinemon itor insight and need to invoke HCPBIMS 15Continue withSuppor tive careativan 0.5mg qd prnbupropi on HCL 300mg ER qdMonitor sxs [id number] Zamzam Mccarthy NP [facility] [address] [address] 11/01/2023 11:31:16 11/05/2023 12:48:56 Leukocytosis 297101504 D72.829 resolvedMo re recent mild elevation, now resolved.R epeat UA C&S neg.Comple james guajardo for concern of paronychia Continue to monitor Labs Hypokalemia 47555667 E87 .6 K 4.3 as above stableCurr ently on lasix 40 mg qd and lisinopril 5 mg qd.Continu e with KCL 20 meq qdMonitor Labs, sxs Paronychia of finger 444 831383 L03.019 ResolvedMi ld leukocytos is last week-nl this week 10.1Plan -Complete keflex on 10/30Monito r sxs Urinary tr act infectious disease 32861210 N39.0 Asymptomat iccomplete d keflexMoni tor sx., VSEncourag e fluids Mixed anxi ety and depressive disorder 114104343 F41.8 Continue withativan 0.5mg qd prnbupropi on HCL 300mg ER qdmonitor mood and consult [facility] prn Transient cerebral ischemia 291763082 G45.9 ?see hpiCTH and MRI without acute strokeCont inue with:ASA 81mg qdsimvasta tin 40mg qdmonitor neurologic al status, sxs Carotid ar bita stenosis 31169627 I65.29 R carotid stenosis noted on scanContin ue:ASA 81mg qdsimvasta tin 40mg qdfollow up with Vasc. Dr. Boogie in place outpt Asthenia 56101317 R53.1 Continue with PT/OT/STRE ncourage participat ionmonitor and support as neededgoal is to return home Hyperlipidemia 40296965 E78.5 Asymptomat icsimvasta tin 40mg qdmonitor labs, VS Essential hypertension 22146389 I10 Continueli sinopril 5mg qdfurosemi de 40mg qdmonitor labs and BP Dementia 30453327 F03.90 expect decline, currently pleasant and a x o [id number] insight and need to invoke HCPBIMS 15Continue withSuppor tive careativan 0.5mg qd prnbupropi on HCL 300mg ER qdMonitor sxs [id number] Zamzam Mccarthy NP [facility] [address] 11/07/2023 08:26:43 11/11/2023 14:42:50 Dementia 67630531 F03.90 expect decline, currently pleasant and a x o [id number] insight and need to invoke HCPBIMS 15Continue withSuppor tive careativan 0.5mg qd prnbupropi on HCL 300mg ER qdMonitor sxs Asthenia 82429689 R53.1 Continue with PT/OT/STRE ncourage participat ion with pt otmonitor and support as neededgoal is to return home Hypokalemia 13678741 E87 .6 K 4.3 as above stableCurr ently on lasix 40 mg qd and lisinopril 5 mg qd.Continu e with KCL 20 meq qdMonitor Labs, sxs Mixed anxi ety and depressive disorder 892014137 F41.8 Continue withativan 0.5mg qd prnbupropi on HCL 300mg ER qdmonitor mood and consult [facility] prn Transient cerebral ischemia 993870624 G45.9 per HPI not likely stroke but can follow up with neuro outpt for fuCTH and MRI without acute strokeCont inue with:ASA 81mg qdsimvasta tin 40mg qdmonitor neurologic al status, sxs Carotid ar bita stenosis 74714516 I65.29 R carotid stenosis noted on scanContin ue:ASA 81mg qdsimvasta tin 40mg qdfollow up with Vasc. Dr. Boogie in place outpt Essential hypertension 42495493 I10 Continueli sinopril 5mg qdfurosemi de 40mg qdmonitor labs and BP [id number] HINA ANTONIO NP [facility] [address] [place] [address] 11/12/2023 08:47:14 11/13/2023 11:39:55 Dementia 42718269 F03.90 Pleasantly confused at times, quite clear todayBIMS 15Continue withSuppor tive care- expect declineati van 0.5mg qd prnbupropi on HCL 300mg ER qdmonitor insight and need to invoke HCPMonitor sxs Asthenia 46468627 R53.1 deconditio maranda to multiple hospitaliz ationsCont inue with PT/OT - encourage participat ionmonitor and support as neededgoal is to return home Hypokalemia 86850807 E87 .6 K 4.3 on KCL 20 meq qdAsymptom aticCurren tly on lasix 40 mg qd and lisinopril 5 mg qd.Monitor Labs, sxs Mixed anxi ety and depressive disorder 669433923 F41.8 Asymptomat icContinue with bupropion HCL 300mg ER qdNo longer on prn ativanmoni tor mood and consult [facility] prn Transient cerebral ischemia 447863149 G45.9 per HPI not likely stroke but can follow up with neuro outptCTH and MRI without acute strokeCont inue with:ASA 81mg qdsimvasta tin 40mg qdmonitor neurologic al status, sxsFollow up with Neuro as planned on 11/27 Carotid ar bita stenosis 13061290 I65.29 R carotid stenosis noted on scanContin ue:ASA 81mg qdsimvasta tin 40mg qdfollow up with Vasc. Dr. Boogie in place outpt Essential hypertension 74190116 I10 BP's stable since hereContin uelisinopr il 5mg qdfurosemi de 40mg qdmonitor labs and BP [id number] Zamzam Mccarthy NP [facility] [address] [address] 11/14/2023 11:32:35 11/18/2023 09:33:08 Dementia 00684816 F03.90 Pleasantly confused at times, quite clear todayBIMS 15Continue withSuppor tive care- expect declinebup ropion HCL 300mg ER qdmonitor insight and need to invoke HCPMonitor sxs Asthenia 95030578 R53.1 deconditio maranda to multiple hospitaliz ationsCont inue with PT/OT - encourage participat ionmonitor and support as neededgoal is to return home Hypokalemia 69042139 E87 .6 K 4.3 on KCL 20 meq qdAsymptom aticCurren tly on lasix 40 mg qd and lisinopril 5 mg qd.Monitor Labs, sxs Mixed anxi ety and depressive disorder 928264813 F41.8 Asymptomat icContinue with bupropion HCL 300mg ER qdNo longer on prn ativanmoni tor mood and consult [facility] prn Transient cerebral ischemia 343011147 G45.9 per HPI not likely stroke but can follow up with neuro outptCTH and MRI without acute strokeCont inue with:ASA 81mg qdsimvasta tin 40mg qdmonitor neurologic al status, sxsFollow up with Neuro as planned on 11/27 Carotid ar bita stenosis 08100880 I65.29 R carotid stenosis noted on scanContin ue:ASA 81mg qdsimvasta tin 40mg qdfollow up with Vasc. Dr. Boogie in place outpt Essential hypertension 03907809 I10 BP's stable since here on belowConti nuelisinop ril 5mg qdfurosemi de 40mg qdmonitor labs and BP [id number] HINA ANTONIO NP [facility] [address] [address] 11/19/2023 11:51:26 11/20/2023 10:46:32 Transient cerebral ischemia 955962374 G45.8 Possible dx after recent episodes.C ontinue ASA 81mg qd and simvastati n 40 mg qdMonitor neuro sxs.F/U with neuro, vascular as outpt. Dementia 56636965 F03.90 Scored 15/15 on BIMs on admission. But hx of intermitte nt confusion. Continue buproprion 300 mg qdContinue supportive care.HCP not invoked, monitor for need to invoke.Mon itor mood and behaviors as outpt.As above, can follow up with Neuro for further assessment as outpt. Mixed anxi ety and depressive disorder 919571362 F41.8 As above.Thou ght anxiety is possible causing some sxs.Monito r. Asthenia 33796341 R53.1 Deconditio maranda due to recent poor intake at home.Has worked with PT/OT for strengthen ing, balance, gait training, safety and function.M eeting goals for d/c home tomorrow with support of services.C ontinue fall precaution s.Monitor for safety. Essential hypertension 62707356 I10 In good control since here.Arun nue lisinopril 5 mg qd and furosemide 40 mg qdMonitor BP and labs. Hypokalemia 77076260 E87 .6 K 3.1 on 10/13, now 4.3Continu e 20 meq KCL qd.Recheck BMP as outpt.Mireya tor Cellulitis of finger of right hand 5312777290 6102792 L03.011 Right middle finger - ? panonychia Resolved with KeflexMoni tor Urinary tr act infectious disease 37473048 N30.80 With 2 recent courses of txs for borderline U/As with neg cxs.Encour age fluidsMoni tor as outpt. Primary insomnia 6093480 F51.01 Continue melatonin 10 mg qhs and diphenhydr amine 25 mg qhs.Monito r sleep patterns. Carotid ar bita stenosis 43426137 I65.21 No change from 2006Contin ue ASA 81 mg qd and simvastati n 40 mg qd.Needs outpt. f/u with Vasc. Dr. Boogie - HCP to get appt. Hyperlipidemia 76601776 E78.49 Continue simvastati n 40 mg qdMonitor labs as outpt. Health Concerns Section Related Observation LastModified by Organization Detai ls LastModified Time None Recorded Concern Status LastModified by Organization Details LastModified Time None Recorded Advance Directives Directive Y: Payers Insurance Date Sequence Insurance Name Policy Number Policy Benjamin Covered Member ID Benjamin Member ID Guarantor Name 11/19/2023 1 MEDICARE B-[place]: [employer] Mary Beth R Counter [id number] Mary Beth Counter 11/19/2023 2 [facility] INDEMNITY PLAN (INDEMNITY) [id number] Mary Beth Counter [id number] Mary Beth Counter 11/26/2023 2 [facility] INDEMNITY PLAN (INDEMNITY) Mary Beth Counter Notes [...] 15MOLST FULL CODE Zamzam Mccarthy NP [address] , [address], [place], [address], [facility] 11/01/2023 12:37:29 11/07/2023 text/html Pt is seen today for an acute rounding visit today. PMH remarkable for dementia, depression, HTN, HLD, obesity, cardiac murmur, primary insomnia, UTI, TIA, Carotid stenosis and weakness She is an 88 yo lady recently admitted here for rehab and continued care after an ED stay due to altered MS. Since here at [facility] she is working with therapy more and [...] 15MOLST FULL CODE Zamzam Mccarthy NP [address] , [address], [place], [address], [facility] 11/07/2023 18:00:28 11/12/2023 text/html Mary Beth is [...] and weakness HINA ANTONIO, LEFTY [address] [facility], [address], [place], [address], [facility] 11/12/2023 14:20:39 11/14/2023 text/html Mary Beth [...] FULL CODE Zamzam Mccarthy, LEFTY [address] [facility], [address], [place], [address], [facility] 11/15/2023 12:08:57 11/19/2023 text/html Mary Beth is seen today for discharge.She is planning to go home tomorrow 11/19 with support of family and services. She is an 88 yo woman who was admitted to [facility] for rehab after an acute hospitalization for an aphasic episode, presumed TIA.She has had several recent ED visits at [facility].09/26-for not feeling well , [...] D deficiency. HINA ANTONIO NP [address] [facility], [address], [place], [address], [facility] [employer] 11/19/2023 12:18:31 OBGyn Episode No OBEpisode recorded.
[2025-01-19 23:52] LABS: Calcium 8.8 mg/dL (8.4-10.2); Chloride 83 mmol/L (96-108); Potassium 2.2 mmol/L (3.3-5.1); Sodium 136 mmol/L (135-145)
[2025-01-20] VITALS (8 sets, daily range): BP systolic 132–192; BP diastolic 60–100; PULSE 78–99; RESP 17–25; TEMP 36.2–36.8; O2SAT 91–95
--- NOTE | 2025-01-20 00:23 | ECG_ITS ---
Test Reason : ARRYTHMIA Blood Pressure : */* mmHG Vent. Rate : 77 BPM Atrial Rate : 77 BPM P-R Int : 176 ms QRS Dur : 154 ms QT Int : 464 ms P-R-T Axes : 25 -46 128 degrees QTcB Int : 525 ms Sinus rhythm with Premature atrial complexes Possible Left atrial enlargement Left axis deviation Left bundle branch block Abnormal ECG When compared with ECG of 07-Oct-2023 09:50, No significant change was found Referred By: Helga Mar Electronically Signed By: NICHOLAS CHASE
[2025-01-20] MEDS: Potassium Chloride ER 20 MEQ TAB.ER.PRT 40 MEQ PO (00:34)
[2025-01-20] MEDS: Potassium Chloride/H20 10 MEQ/100 ML PIGGYBACK 100 MEQ IV ×5 (00:34→10:37)
[2025-01-20] MEDS: Potassium Chloride Packet 20 MEQ PACKET 40 MEQ PO (10:33)
--- NOTE | 2025-01-20 11:29 | PC.NURSE ---
pt refuseing PO tablet potassium. agreed to drink potassium liquid form.
--- NOTE | 2025-01-20 15:09 | PC.NURSE ---
pt refusing most food and drink. can occasionally be convinced to take a few sips of juice/water. denies abd pain or nausea, states she has no appetite and does not want any
[2025-01-20 16:09] LABS: Anion Gap 17 (12-20); Blood Urea Nitrogen 7 mg/dL (9-16); Calcium 9.0 mg/dL (8.4-10.2); Carbon Dioxide 33 mmol/L (22-29); Chloride 85 mmol/L (96-108); Creatinine Clr Calc Pharmacy 71.0; Estimated Glomerular Filt Rate > 60; Potassium 4.1 mmol/L (3.3-5.1); Sodium 131 mmol/L (135-145)
--- NOTE | 2025-01-20 19:09 | MHC.EDTECH ---
patient is on a new purewick washed and changed patient nurse aware
--- NOTE | 2025-01-20 19:12 | PC.NURSE ---
med rec completed on the phone adriana Maria (daughter and HCP). pt typically takes meds whole w water, but Candace has noticed some increased difficulty swallowing larger pills. as a result she now gives the pt her mg supplement and probiotic every other day, on alternating days, to split up her larger pills onto different days. uses aleve and lidocaine patches PRN for back pain.
--- NOTE | 2025-01-20 19:30 | PC.NURSE ---
this rn assumed care of pt, pt resting in stretcher, no acute distress noted. MD Campoverde notified of med rec completion.
--- NOTE | 2025-01-20 20:28 | PC.NURSE ---
pt daughter at bedside stated to this rn that pt is presenting with similar symptoms as she has in the past when she had an infection. MD Campoverde made aware and chest xr ordered.
[2025-01-21] VITALS (9 sets, daily range): BP systolic 166–199; BP diastolic 46–80; PULSE 78–107; RESP 16–20; TEMP 36.6–37; O2SAT 92–95
--- NOTE | 2025-01-21 02:44 | PC.NURSE ---
pts daughter reported the patient felt warm and did not want her blanket anymore. PTs oral temp recorded at 98.2.
--- NOTE | 2025-01-21 07:51 | MHC.EDTECH ---
Pt and family member requested that the Pt receives soup for lunch today as she has not been able to eat in the past day. RN made aware of this request.
--- NOTE | 2025-01-21 09:05 | PC.NURSE ---
BP 199/46, per chart review BP's have been elevated. Pt has not yet received her am lisinopril or lasix. CARYL Kim made aware of elevated BP.
[2025-01-21] MEDS: Lidocaine 4 % Patch ADH..PATCH 1 PATCH TRANSDERMA (09:14)
[2025-01-21] MEDS: Aspirin Enteric Coated 81 MG TABLET.DR PO (09:14)
[2025-01-21] MEDS: buPROPion HCl XL 300 MG TAB.ER.24H PO (09:14)
--- NOTE | 2025-01-21 11:14 | PM.PSYCN ---
History of Present Illness Date of Service: 01/21/2025 Chief Complaint: Stroke like symptoms last well known time 8pm Requesting physician: Marquita Mcelroy Discussed with referring provider: Yes Sources of Information: patient interviewed, chart reviewed and crisis/core team assessment reviewed HPI Narrative: Mrs. Chavez is an 89 year-old woman who was brought by daughter who reports that pt was repeating same questions, had asked to go to the bathroom but was just staying there, and then was confused as to where she was or what was going on. In the ED, pt's daughter had also reported that patient had poor oral intake and at the time, pt had denied abdominal pain, nausea or vomiting. Pertinent labs completed in the ED include CMP which showed number of electrolyte abnormalities (K 2.3, Cl 83, although Mg 2), Co2 elevated at 37, BUN 8, Cr 0.64, creatinine clearance 59.9. UA negative for UTI. Pt received Potassium and repeat on 01/20 showed improvement of K to 4.1. Daughter reports that currently patient appear back to her usual self in terms of memory/cognition. When this typewriter repairer asked patient her understanding as to why she is here in the hospital, she looks at daughter for response. She does say she thinks she was more confused. She is not able to provide much detail. She is oriented to place, month, year, date. When asked about her medical medications, she reports she takes many medications but states she wouldn't be able to tell this typewriter repairer what medications she takes or for what. She does state I don't have diabetes. After some thought, she reports I take a water pill for HTN and another medication also for HTN. She tells this typewriter repairer she takes vitamins. Pt denies symptoms of depression. No SI/HI. No signs of psychosis or delusions. Daughter reports she does not have any concerns in terms of safety in terms of ability to care for herself as they live together and although daughter goes to work, patient seems to be safe when left alone for some periods of time during the day. Daughter denies any concerns in terms of leaving stove on or water faucets on. Daughter reports she usually will give her medications. Daughter reports patient had neuropsych testing 10 years ago but was told she did not have dementia at the time. When this typewriter repairer asked patient about how she is feeling physically, pt reports she still is not able to eat much because she reports she feels food would come back up. She reports feeling full quickly. Daughter reports not eating much is not like herself. Daughter suspect for about one month she is not eating as much. Pt denies any pain. Past Psychiatric History: OP: Dr. Neftaly Reed Past trials: wellbutrin [facility] Medical History (Updated 01/21/25 @ 14:12 by Marisa Clark, LEFTY) Transient ischemic attack (TIA) Depression Morbid obesity with BMI of 40.0-44.9, adult Dementia Impaired fasting glucose Primary insomnia Seasonal allergic rhinitis Vitamin D deficiency Cardiac murmur Pure hypercholesterolemia Benign essential hypertension Surgical History History of bilateral tubal ligation History of cataract surgery History of nasal surgery History of lumpectomy of right breast History of tonsillectomy Diagnostics Vital Signs (24Hr): Vital Signs - 24 hr 01/20/25 13:43 01/20/25 18:23 01/20/25 21:13 Temperature 98.2 F 97.1 F 97.8 F Pulse Rate 85 90 99 Respiratory Rate 25 H 22 H 20 Blood Pressure 188/68 H 165/69 H 137/60 Pulse Oximetry 92 92 95 Oxygen Delivery Method Room Air Room Air Room Air 01/21/25 02:43 01/21/25 06:11 01/21/25 07:35 Temperature 98.2 F 98.5 F 98.6 F Pulse Rate 78 86 84 Respiratory Rate 18 18 20 Blood Pressure 174/75 H 199/46 H Pulse Oximetry 95 94 93 Oxygen Delivery Method Room Air Room Air Room Air 01/21/25 08:07 01/21/25 09:14 01/21/25 09:15 Temperature Pulse Rate 107 H Respiratory Rate Blood Pressure 199/46 H 199/46 H Pulse Oximetry 95 Oxygen Delivery Method 01/21/25 10:01 Temperature 97.8 F Pulse Rate 88 Respiratory Rate 18 Blood Pressure 198/77 H Pulse Oximetry 95 Oxygen Delivery Method Room Air BMI result Body Mass Index 37.9 Labs 01/19/25 22:45 01/20/25 15:48 Labs: Laboratory Results - last 48 hr 01/19/25 01/19/25 01/19/25 22:45 23:26 23:27 WBC 14.8 H RBC 5.07 Hgb 14.1 Hct 42.5 MCV 83.8 MCH 27.8 MCHC 33.2 RDW 12.4 Plt Count 300 D MPV 10.7 Immature Gran % (Auto) 0.4 Neut % (Auto) 74.5 H Lymph % (Auto) 7.9 L [place] % (Auto) 16.1 H Eos % (Auto) 0.6 Baso % (Auto) 0.5 Lymph # (Auto) 1.2 [place] # (Auto) 2.4 H Eos # (Auto) 0.1 Baso # (Auto) 0.1 Abs Immat Gran (auto) 0.06 H Absolute Neuts (auto) 11.0 H Absolute Nucleated RBC 0.000 Nucleated RBC % (auto) 0.0 Smear Tech's Comments VERIFIED Sodium 136 Potassium 2.2 L* D Chloride 83 L Carbon Dioxide 37 H Anion Gap 18 BUN 8 L Creatinine 0.64 Estim Creat Clear Calc 59.9 Estimated GFR > 60 Random Glucose 109 Calcium 8.8 Magnesium 2.0 Urine Color Yellow Urine Appearance Clear Urine pH 6.5 Ur Specific [place] 1.010 Urine Protein Negative Urine Glucose (UA) Negative Urine Ketones 15 Urine Blood Negative Urine Nitrite Negative Ur Leukocyte Esterase Negative 01/20/25 15:48 WBC RBC Hgb Hct MCV MCH MCHC RDW Plt Count MPV Immature Gran % (Auto) Neut % (Auto) Lymph % (Auto) [place] % (Auto) Eos % (Auto) Baso % (Auto) Lymph # (Auto) [place] # (Auto) Eos # (Auto) Baso # (Auto) Abs Immat Gran (auto) Absolute Neuts (auto) Absolute Nucleated RBC Nucleated RBC % (auto) Smear Tech's Comments Sodium 131 L Potassium 4.1 D Chloride 85 L Carbon Dioxide 33 H Anion Gap 17 BUN 7 L Creatinine 0.54 Estim Creat Clear Calc 71.0 Estimated GFR > 60 Random Glucose 92 Calcium 9.0 Magnesium Urine Color Urine Appearance Urine pH Ur Specific [place] Urine Protein Urine Glucose (UA) Urine Ketones Urine Blood Urine Nitrite Ur Leukocyte Esterase Mental Status Exam Mental Status Exam Narrative: Appearance: wearing hospital gown, fair hygiene, in NAD Behavior: cooperative, friendly Psychomotor: no agitation or retardation noted Speech: clear, normal rate/rhythm/volume, spontaneous TP: mostly linear, some poverty of thought TC: feeling unwell in that she feels she can't eat Mood: good Affect: congruent SI: denies HI; denies VH/AH: none Delusions: none Insight/judgment: poor x 2 Memory/cog: alert, oriented to place, month, year and date. Her orientation to situation is very poor, including her ability to tell with more detail what is going on with her medically. Medications Medications Current Medications Ascorbic Acid (Ascorbic Acid 500 Mg Tablet) 500 mg PO DAILY [facility] Last Admin: 01/21/25 09:14 Dose: 500 mg Aspirin (Aspirin Enteric Coated 81 Mg Tablet.Dr) 81 mg PO DAILY [facility] Last Admin: 01/21/25 09:14 Dose: 81 mg Atorvastatin Calcium (Atorvastatin Calcium 20 Mg Tablet) 20 mg PO DAILY [facility] Last Admin: 01/21/25 09:14 Dose: 20 mg Bupropion HCl (Bupropion Hcl Xl 300 Mg Tab.Er.24h) 300 mg PO DAILY [facility] Last Admin: 01/21/25 09:14 Dose: 300 mg Diphenhydramine HCl (Diphenhydramine Hcl 25 Mg Capsule) 25 mg PO BEDTIME PRN PRN Reason: Sleep Furosemide (Furosemide 40 Mg Tablet) 40 mg PO DAILY [facility]; Protocol Last Admin: 01/21/25 09:14 Dose: 40 mg Lidocaine (Lidocaine 4 % Patch Adh..Patch) 1 patch TRANSDERMA DAILY PRN PRN Reason: Back Pain Last Admin: 01/21/25 09:14 Dose: 1 patch Lisinopril (Lisinopril 5 Mg Tablet) 5 mg PO DAILY [facility]; Protocol Last Admin: 01/21/25 09:15 Dose: 5 mg Melatonin (Melatonin 3 Mg Tablet) 9 mg PO BEDTIME PRN PRN Reason: Sleep Naproxen (Naproxen 250 Mg Tablet) 250 mg PO Q8H PRN PRN Reason: Back Pain Last Admin: 01/21/25 09:14 Dose: 250 mg Vitamin D (Cholecalciferol (Vitamin D3) 25 Mcg Tablet) 25 mcg PO DAILY [facility] Last Admin: 01/21/25 09:15 Dose: 25 mcg Allergies Allergies Allergy/AdvReac Type Severity Reaction Status Date / Time penicillin G (Penicillin G) Allergy Severe Hives Verified 01/19/25 22:27 cucumber Allergy Unknown hives Verified 01/19/25 22:27 strawberry Allergy Unknown hives Verified 01/19/25 22:27 Assessment & Plan Assessment & Plan (1) Cognitive impairment: Status: Acute Code(s): R41.89 - Other symptoms and signs involving cognitive functions and awareness Plan Mrs. Chavez is an 89 year-old woman who was brought by daughter as she seemed confused, repeating same question, confused as to where she was which is not her baseline. In the ED, pt had number of electrolyte abnormalities including hypokalemia (2.2), hypocloremia, elevated Co2. Potassium has been corrected. Pt currently does not present with s/s of delirium (attention is intact). Her orientation to place, month, year is also intact. But her ability to telll more about her medical conditions, medications is very poor. Moreover, even her ability to describe what is going on with her is also limited. I do suspect there is an underlying cognitive impairment but extent unknown without additional memory/cognitive assessment. Overall, there are no safety concerns in terms of her ability to care for herself with current support from her daughter. Daughter reports patient is now back to baseline. I suspect electrolyte abnormalities, ?metabolic alkalosis may have caused an acute change in mental status, but as of now patient is back to baseline. PLAN 1. No delirium when patient seen. I ordered MOCA/ ACL but if this is not timely completed while pt is in the ED, this should NOT be cause to keep patient longer in the ED as there are no safety concerns in terms of patient's living situation in the community. Daughter informed also that if not completed here, should be followed up with PCP. I do suspect there are underlying cognitive impairments based on pt difficult to provide much information about medical care and relying on daughter to provide information, despite intact orientation. 2. Discussed with attending, CARYL Morrow as although pt was given Potassium IV and it has improved, pt continues to report that she is not able to eat (not due to poor appetite but due to feeling food will come back up) and patient is also on lasix. Risk of continued hypokalemia without any other intervention once patient is discharge is high. Pt did have constipation, KUB did not show obstruction. Total time managing care of this patient today ____ minutes.
--- NOTE | 2025-01-21 12:02 | PC.NURSE ---
CARYL Fuchs made aware pt's O2 sats 88-92%.
--- NOTE | 2025-01-21 12:31 | MHC.CM.ED ---
Received case management consult overnight. Psych consult completed. Received notification from Soha HUTSON that more medical work up is necessary. CM is on hold at this time. Continue to monitor for d/c needs.
[2025-01-21 13:53] LABS: Hematocrit 49.7 % (37.0-47.0); Hemoglobin 16.4 g/dl (12.0-16.0); Imm Gran Abs Auto 0.15 X10*3/uL (0.00-0.03); Imm Gran Pct Auto 0.7 % (0.0-0.4); Lymphocytes Absolute Auto 1.0 X10*3/uL (1.2-4.9); Mean Corpuscular HGB Conc 33.0 g/dl (31.0-35.0); Mean Corpuscular Hemoglobin 28.0 pg (27.0-33.0); Mean Corpuscular Volume 85.0 fL (80.0-98.0); NRBC Abs Auto 0.000 X10*3/uL (0.0-0.012); NRBC Pct Auto 0.0 /100WBC (0.0-0.2); Platelet Count 314 X10*3/uL (160-400); Red Blood Count 5.85 X10*6/uL (4.20-5.50); SCAN SMEAR FLAG 1; White Blood Count 22.6 X10*3/uL (4.8-10.8)
[2025-01-21 14:14] LABS: Alanine Aminotransferase 8 U/L (0-31); Albumin Level 4.0 g/dL (3.5-5.0); Alkaline Phosphatase 126 U/L (39-117); Anion Gap 19 (12-20); Aspartate Amino Transferase 38 U/L (5-31); Blood Urea Nitrogen 9 mg/dL (9-16); Calcium 9.5 mg/dL (8.4-10.2); Carbon Dioxide 31 mmol/L (22-29); Chloride 84 mmol/L (96-108); Creatinine Clr Calc Pharmacy 65.0; Estimated Glomerular Filt Rate > 60; Potassium 3.9 mmol/L (3.3-5.1); Sodium 130 mmol/L (135-145); Total Protein 7.7 g/dL (6.5-8.0)
--- NOTE | 2025-01-21 14:57 | PC.NURSE ---
Pt had large liquid BM. Delia care provided/linens and purewick changed.
--- NOTE | 2025-01-21 14:59 | PHA.MEDREC ---
Addendum entered by Heber Silva PharmD 01/21/25 15:01: reviewed Original Note: Pharmacy Consult ? Medication Reconciliation Pharmacy reviewed med rec done by nursing. Claims match non OTC meds; nurse confirmed OTC meds with pt daughter.
[2025-01-21] MEDS: Lactated Ringers 1,000 ML 999 ML IV (15:01)
[2025-01-21 15:24] LABS: Ammonia 41 umol/L (13-55)
[2025-01-21 15:50] LABS: Osmolality, Serum 267 mosm/kg (281-305)
--- NOTE | 2025-01-21 16:53 | PC.NURSE ---
Awaiting CT scan to be completed. Labs drawn and sent for analysis, IV antibiotics given as ordered. CARYL Fuchs aware. Patient's daughter at bedside. Care ongoing by this RN.
[2025-01-21 19:18] LABS: MANUAL DIFF FLAG NO
[2025-01-21 19:37] LABS: Appearance Urine Turbid; Glucose Urine UA Negative (Negative); PH 8.0 (5.0-9.0); Specific Gravity - Urine 1.010 (1.005-1.025); UMIC TRIGGER UACC YES
[2025-01-21] MEDS: iohexoL 350 MG/ML 100 ML INFUS..BTL IV (19:43)
[2025-01-21 20:12] LABS: UACC Culture Trigger YES
--- NOTE | 2025-01-21 22:53 | MHC.CM.ED ---
Pt is medically cleared. Has UTI. Psych cleared for d/c home. Recommends further testing outpatient to address cognitive concerns, including MOCA and ACL. Per psych, pt need not remain in ED for these tests if discharged home. PT recommends home PT. Pt lives with her daughter. Has a walker. Has no services. HCP is on file. DaughterCandace is the HCP ([phone]). Both patient and her daughter are comfortable with discharge home. Requesting home services with [facility]. Have had them in the past for home PT. Will place referral. Pt will be discharged home. Daughter to transport.
== END 2025-01-21 23:07 | disposition home or self-care (01) ==
PROVIDERS: Clinical Nurse Specialist Psychiatric/Mental Health, Adult; Emergency Medicine; Physician Assistant Medical; Social Worker; Emergency Provider Emergency Medicine; PCP Internal Medicine
DX: R41.89 Other symptoms and signs involving cognitive functions and awareness (principal)
CPT/HCPCS: 36415; 70450; 71045; 71260; 74018; 74177; 80048; 80053; 81001; 81003; 82140; 83605; 83735; 83930; 83935; 84300; 85025; 87040; 87086; 87088; 87186; 93005; 97162; 99285; J0696; J3480; J7120; Q9967

== ENCOUNTER → 2025-01-19 22:42 | Outpatient (BNV) | payer MEDICARE, OTHER, SELFPAY | PROVIDERS: Emergency Provider Emergency Medicine; PCP Internal Medicine; Visit Provider Student in an Organized Health Care Education/Training Program | DX: R41.82 Altered mental status, unspecified (principal); K59.00 Constipation, unspecified | CPT/HCPCS: 70450; 74018 ==

== ENCOUNTER → 2025-01-19 23:34 | Outpatient (BNV) | payer MEDICARE, OTHER, SELFPAY | PROVIDERS: Emergency Provider Emergency Medicine; PCP Internal Medicine; Visit Provider Social Worker | DX: R41.89 Other symptoms and signs involving cognitive functions and awareness (principal) | CPT/HCPCS: 99223 ==

== ENCOUNTER → 2025-01-20 00:23 | Outpatient (BNV) | payer MEDICARE, OTHER, SELFPAY | PROVIDERS: Emergency Provider Emergency Medicine; PCP Internal Medicine; Visit Provider Internal Medicine | DX: I49.3 Ventricular premature depolarization (principal); I44.7 Left bundle-branch block, unspecified | CPT/HCPCS: 93010 ==

== ENCOUNTER → 2025-01-20 20:16 | Outpatient (BNV) | payer MEDICARE, OTHER, SELFPAY | PROVIDERS: Emergency Provider Emergency Medicine; PCP Internal Medicine; Visit Provider Radiology Diagnostic Radiology | DX: J98.4 Other disorders of lung (principal); K44.9 Diaphragmatic hernia without obstruction or gangrene | CPT/HCPCS: 71045 ==

== ENCOUNTER → 2025-01-21 14:45 | Outpatient (BNV) | payer MEDICARE, OTHER, SELFPAY | PROVIDERS: Emergency Provider Emergency Medicine; PCP Internal Medicine; Visit Provider Radiology Diagnostic Radiology | DX: R11.10 Vomiting, unspecified (principal); J98.11 Atelectasis; I51.7 Cardiomegaly; K44.9 Diaphragmatic hernia without obstruction or gangrene | CPT/HCPCS: 71260; 74177 ==

== ENCOUNTER 2025-01-21 23:05 | Inpatient (IN) | payer MEDICARE, OTHER, SELFPAY ==
--- NOTE | ~2025-01-21 | CT_ITS ---
CLINICAL HISTORY: leukocytosis CT head without/with contrast Comparison: 01/19/2025 Findings: No acute intracranial fluid collection or hematoma. Moderate chronic white matter disease with volume loss. No acute process in sinuses or mastoids. No acute bony abnormality. Impression: No acute intracranial process This document has been electronically signed by: Isidro Allan MD on 01/25/2025 23:18:54
--- NOTE | ~2025-01-21 | CT_ITS ---
CLINICAL HISTORY: Leukocytosis Exam: CT Abdomen and Pelvis With IV Contrast Comparison: 01/21/2025 Findings: Above the diaphragm there is bilateral posterior lower lobe pleural fluid and consolidation. The liver is enlarged. Gallbladder is mildly distended containing low-density gallstones. The spleen is normal in size No pancreatic ductal dilatation No hydronephrosis. No urinary tract calculi or obstruction Normal bowel caliber. There is a 6 x 10 cm hiatal hernia. There are numerous sigmoid colon diverticula without signs of diverticulitis. Gas-filled small bowel and colon No secondary signs of acute appendicitis. No free fluid/free air Abdominal aorta caliber is normal containing dense athero sclerotic plaque. Bladder outline is smooth No suspicious skeletal lesions. Stable T7, T8 and T10 compression fractures unchanged from previous exam. Impression : 1. Cholelithiasis. 2. Large hiatal hernia. 3. The liver is enlarged. 4. Gas-filled small and large bowel with stool and gas throughout the colon and rectum, without zone of transition most consistent with adynamic ileus. Follow-up x-ray recommended to document progression or resolution of this abnormal bowel-gas pattern. 5. Bilateral posterior gravity dependent lower lung field consolidation/pneumonia. This document has been electronically signed by: Galindo Cornell MD on 01/24/2025 17:09:23
--- NOTE | ~2025-01-21 | XR_ITS ---
CLINICAL HISTORY: trauma 1 view chest x-ray Comparison: CT/SR - CT CHEST W IV CON - 01/21/25 19:41 EST CR - XR CHEST 1V - 01/20/25 20:26 EST Findings: Very low lung volumes. Trace left pleural effusion. Bibasilar atelectasis. Cardiac silhouette is normal. Large hiatal hernia. No acute fracture. IMPRESSION: Very low lung volumes with trace left pleural effusion and bibasilar atelectasis. Large hiatal hernia. This document has been electronically signed by: Jarret Pop MD on 01/22/2025 00:44:23
--- NOTE | ~2025-01-21 | CT_ITS ---
CLINICAL HISTORY: trauma CT thoracic spine without contrast Comparison: CT/SR - CT CHEST W IV CON - 01/21/2025 07:[address] - CT CHEST W IV CON - 01/21/2025 07:27 PM EST CR/SR - XR CHEST 2 VIEWS - 10/01/23 05:54 EDT Findings: Vertebral alignment is within normal limits. There is incomplete segmentation of the T3 and T4 vertebral bodies. There is fracture of T7 resulting in severe height loss. There is fracture through the superior endplate as well as the bilateral pedicles. There is retropulsion of the posterior wall measuring 4 mm. This results in moderate canal stenosis with an AP diameter of 7 mm. There is some remodeling of the fracture margin suggesting this is a subacute fracture. Subacute appearing bilateral transverse process fractures at T8. There is a fracture of T8 with severe anterior height loss. No involvement of the posterior elements. Fracture margins appear subacute. There is mild retropulsion of the posterior wall measuring 2 mm. Subacute appearing right transverse process fracture of T9. Moderate multilevel degenerative change of the thoracic spine. There is a T10 compression deformity, unchanged from prior. IMPRESSION: 1. Subacute appearing burst fractures at T7 and T8 with severe height loss. There is moderate canal stenosis resulting at T7. 2. Subacute bilateral transverse process fractures at T8 and subacute appearing right transverse process fracture of T9. This document has been electronically signed by: Jarret Pop MD on 01/22/2025 02:52:26
--- NOTE | ~2025-01-21 | CT_ITS ---
CLINICAL HISTORY: Leukocytosis CT Chest with IV contrast: Comparison: 01/21/2025 Findings: In the lower neck there is dense calcification involving right carotid bifurcation suspicious for hemodynamically significant stenosis Heart size is enlarged, with no pericardial effusion. There is extensive coronary artery calcification Aorta diameter is normal Pulmonary artery diameter is unremarkable Lymph nodes: No adenopathy Trachea and Esophagus: Unremarkable There is a large sliding hiatal hernia Lungs: There are posterior lower lung field consolidation/pneumonia No pneumothorax. No pneumomediastinum. Pleura: Small posterior bilateral pleural effusions are present Skeletal: Stable compression fractures of T7, T8 and T10 unchanged from previous exam. There is anterior sternal fracture not present on previous exam Below the diaphragm: Multiple gallstones are present. Impression: 1. Bilateral posterior lower lung field consolidations, pneumonia and small pleural effusions were not present on the previous exam. 2. Possible hemodynamically significant stenosis of the right carotid artery. 3. Acute fracture of the anterior sternum not present on previous exam . 4. Cardiomegaly with pulmonary vascular congestion. This document has been electronically signed by: Galindo Cornell MD on 01/24/2025 17:20:49
[2025-01-21 23:15] VITALS: BP 188/100; PULSE 96; O2SAT 96
[2025-01-21 23:20] VITALS: BP 180/95; PULSE 96; RESP 15; TEMP 36.6; O2SAT 94
--- NOTE | 2025-01-21 23:30 | ECG_ITS ---
Test Reason : fall Blood Pressure : */* mmHG Vent. Rate : 88 BPM Atrial Rate : 88 BPM P-R Int : 144 ms QRS Dur : 142 ms QT Int : 402 ms P-R-T Axes : 31 -37 136 degrees QTcB Int : 486 ms Normal sinus rhythm with sinus arrhythmia Left axis deviation Left bundle branch block Abnormal ECG When compared with ECG of 20-Jan-2025 00:29, Premature atrial complexes are no longer Present Referred By: Nolan Angulo Electronically Signed By: NICHOLAS CHASE
[2025-01-21 23:34] VITALS: BP 180/95; PULSE 96; RESP 15; TEMP 36.6; O2SAT 94; BMI 37.9
--- NOTE | 2025-01-21 23:40 | ED.GENADULT ---
HPI - General Adult General Chief complaint: Fall Stated complaint: fall Time Seen by Provider: 01/21/25 23:51 Source: patient, family, EMS, RN notes reviewed and old records reviewed Mode of arrival: EMS Limitations: other (likely dementia at baseline) History of Present Illness ED Provider: Adele HPI narrative: 89-year-old female with a past medical history significant for anxiety, anemia, dementia, depression, hypertension, hyperlipidemia, obesity, murmur, primary insomnia presents for evaluation of a fall. The patient is actually discharged from this facility about an hour prior to presentation. She has been 2 days for failure to thrive and was ultimately found to have a urinary tract infection on a 2nd urinalysis. The patient had a CT scan of the brain, CT scan of the chest and abdomen that did not show any acute abnormalities. The patient offered no complaints. She has been seen by physical therapy and cleared for discharge home with services pain The patient has been up and ambulating well earlier in the day today. Unfortunately when she was discharged home, the patient reports that she ?tried to get out to fast before the wheelchair was ready and I fell. EMS to help get the patient into her house into her recliner. She then began complaining of chest pain prompting her daughter to seek re-evaluation in the hospital. The patient reports that she had chest pain that started after she fell and not prior to falling pain She denies any dizziness, shortness of breath, palpitations Denies hitting her head or losing consciousness Related Data Home Medications ?Medication ?Instructions ?Recorded ?Confirmed bupropion HCl 300 mg 24 hr tablet, 300 mg PO DAILY 12/28/19 01/20/25 extended release melatonin 10 mg tablet 10 mg PO BEDTIME PRN Sleep 12/28/19 01/20/25 ascorbic acid (vitamin C) 500 mg 500 mg PO DAILY 10/07/23 01/20/25 tablet (Vitamin C) cholecalciferol (vitamin D3) 25 25 mcg PO DAILY 10/07/23 01/20/25 mcg (1,000 unit) tablet (Vitamin D3) diphenhydramine HCl 25 mg capsule 25 mg PO BEDTIME PRN Sleep 10/07/23 01/20/25 (Benadryl) cranberry 500 mg capsule 500 mg PO DAILY 07/30/24 01/20/25 lactobacillus combination no.9 4 See Rx Instructions .Route .COMPLEX 07/30/24 01/20/25 billion cell capsule (Adult 50 Plus Probiotic) lidocaine 5 % topical patch 1 patch topical DAILY PRN Back Pain 01/20/25 01/20/25 magnesium glycinate 100 mg (as See Rx Instructions .Route .COMPLEX 01/20/25 01/20/25 glycinate) tablet naproxen sodium 220 mg tablet 220 mg PO Q8H PRN Back Pain 01/20/25 01/20/25 (Aleve) Previous Rx's ?Medication ?Instructions ?Recorded Transport Wheelchair #1 ea 03/20/22 aspirin 81 mg capsule 81 mg PO DAILY #30 caps 10/11/23 Walker with wheels #1 ea 11/22/23 lisinopril 5 mg tablet 5 mg PO DAILY #90 tabs 05/24/24 simvastatin 40 mg tablet 40 mg PO DAILY #90 tabs 09/28/24 furosemide 40 mg tablet 40 mg PO DAILY #90 tabs 01/01/25 cefuroxime axetil 500 mg tablet 500 mg PO Q12H #13 tabs 01/21/25 Allergies Allergy/AdvReac Type Severity Reaction Status Date / Time penicillin G (Penicillin G) Allergy Severe Hives Verified 01/21/25 23:34 cucumber Allergy Unknown hives Verified 01/21/25 23:34 strawberry Allergy Unknown hives Verified 01/21/25 23:34 Review of Systems Constitutional: Constitutional: Denies anorexia, Denies body ache(s), Denies chills, Denies fever(s), Reports frequent falls and Denies headache(s) Eyes: Eyes: Denies blurry vision ENT: Denies vertigo, Denies dizziness and Denies headache(s) Cardiovascular: Cardiovascular: Reports chest pain, Reports chest pain at rest, Reports chest pain with activity and Denies dyspnea on exertion Respiratory: Respiratory: Denies cough and Denies dyspnea on exertion Gastrointestinal: Gastrointestinal: Denies abdominal pain, Denies nausea and Denies vomiting Musculoskeletal: Musculoskeletal: Denies back pain Integumentary/Breasts: Skin/Breast: Denies rash and Denies wounds Neurologic: Denies vertigo, Denies dizziness, Reports frequent falls and Denies headache(s) Psychiatric: Psychiatric: Denies anxiety PMFSH Past Medical History Medical History (Updated 01/22/25 @ 03:19 by CARYL Steele) Transient ischemic attack (TIA) Depression Morbid obesity with BMI of 40.0-44.9, adult Dementia Impaired fasting glucose Primary insomnia Seasonal allergic rhinitis Vitamin D deficiency Cardiac murmur Pure hypercholesterolemia Benign essential hypertension Surgical History History of bilateral tubal ligation History of cataract surgery History of nasal surgery History of lumpectomy of right breast History of tonsillectomy Family History Family History Father Prostate cancer Mother Lung cancer Bone cancer Social History Social History Household Members: Family Housing: House Alcohol intake: never Patient Tobacco Use Status: Former Tobacco user Tobacco use type: Cigarette e-Cigarette/Vaping Use: Never Used Second Hand Smoke Exposure: Yes Advance Directives: Yes Advance Directives on File: Yes Advance Directives Date on File: 10/07/23 Do you have a plan to hurt others: No Plan service: No Current occupational status: retired Cognitive needs: No Hearing needs: No Vision needs: Yes Physical Exam ED Vital Signs: Vital Signs - 24 hr 01/21/25 23:20 01/21/25 23:34 01/22/25 02:39 Temperature 97.9 F 97.9 F 97.9 F Pulse Rate 96 96 96 Respiratory Rate 15 15 19 Blood Pressure 180/95 H 180/95 H 181/83 H Pulse Oximetry 94 94 93 Oxygen Delivery Method Room Air Room Air Room Air BMI result Body Mass Index 37.9 Const General: healthy appearing, comfortable, no acute distress, alert and awake Nutritional Appearance: well nourished [facility] Head: Yes normocephalic and Yes atraumatic Eyes Eyelids: Yes eyelids normal Conjunctivae: conjunctivae normal Sclerae: sclerae normal Corneas: corneas normal Pupils: Equal, round and reactive pupils present EOM: EOMs intact bilaterally Neck Neck: Yes full ROM Chest Other: Tenderness to the anterior chest wall over the sternum, no deformity noted, no crepitus. Chest palpation & inspection: normal inspection of the chest and no crepitus Resp Effort & Inspection: normal respiratory effort, able to speak in complete sentences and not labored Cardio Rate: regular rate Rhythm: regular rhythm GI Inspection: No distended Palpation (GI): Soft to palpation, not firm, nontender, no guarding and not rigid Skin General skin exam: elasticity normal Neuro Cranial nerves: Yes CN's II-XII intact bilaterally, Yes Equal, round and reactive pupils present and Yes Bilaterally intact EOM present Cognition (Neuro): normal cognition Extrem Other: Moving all extremities well without any obvious deformities. No tenderness with manipulation of the hips bilaterally. Course Reevaluation(s) Reevaluation #1: The patient's daughter approached me he has a nursing station reported the patient is complaining of back pain. When I went to evaluate the patient she was complaining of chest pain where she has reproducible chest pain in the midsternum. The patient denied back pain that time. The patient's daughter then approached me again reporting that the patient is complaining of back pain again. At this time in his decision to order an x-ray of the thoracic spine, after discussion with the Radiology given the patient's posture and inability to lie flat it was decided that this exam would not yield adequate results to diagnosed with compression fracture, therefore ordered a CT scan of the thoracic spine to evaluate for traumatic compression fracture or burst fracture.. The patient's repeat troponin was decreasing. That with no changes to her EKG ruled her out for ACS. Again her chest pain is reproducible on exam and likely due to her fall. Time: 01:46 Reevaluation #2: I Helga Mar PA-C have accepted care of the patient and signed out pending imaging and admission CT thoracic spine:IMPRESSION: 1. Subacute appearing burst fractures at T7 and T8 with severe height loss. There is moderate canal stenosis resulting at T7. 2. Subacute bilateral transverse process fractures at T8 and subacute appearing right transverse process fracture of T9. Medications Administered Generic Name Dose Route Start Last Admin Trade Name Freq PRN Reason Stop Dose Admin Sodium Chloride 1,000 mls @ 100 mls/hr 01/22/25 00:45 01/22/25 01:21 Ns IVCONT 100 mls/hr .Q10H DIEGO Administration Discontinued Medications Generic Name Dose Route Start Last Admin Trade Name Freq PRN Reason Stop Dose Admin Ceftriaxone Sodium 1 gm/ 50 mls @ 100 mls/hr 01/22/25 00:37 01/22/25 02:14 Sodium Chloride IV 01/22/25 01:06 Infused ONCE ONE Infusion Medical Decision Making Medical Decision Making [facility] Narrative: 89-year-old female presents for evaluation after a fall. She was just discharged from this facility after a 2 day stay. She was seen by Psychiatry, case management, physical therapy and multiple ER providers. I read through the notes. The patient was found to have a UTI and was discharged with cefuroxime. However she did have a fall while getting into her house in his now complaining of chest pain. Plan for EKG, chest x-ray and labs with a troponin. Her chest pain is reproducible on exam and most likely related to her fall and a contusion. Given that she was seen here for failure to thrive and then fell again upon discharge she may require an additional physical therapy evaluation. The fall was witnessed and there was no head strike the patient denies any headache or neck pain, additional a CT scan of the brain or cervical spine was deferred at this time Differential Diagnosis Differential Diagnoses: The differential diagnosis associated with the presentation includes Failure to thrive Chest pain ACS Chest contusion Pneumothorax Rib fracture Arrhythmia Admission/Observation Consideration of admission/observation: Escalation of care including admission/observation considered [place] [address] she was found to have a UTI used a few hours ago in his may be worsening. Plan to draw blood cultures, lactic acid discuss with the hospitalist for admission as she has a failed discharge and does have a UTI with confusion and increased weakness. The patient's vital signs are stable, she does not meet sepsis criteria Lab Data 01/22/25 00:06 01/22/25 00:06 Labs: Lab Results 01/22/25 01/22/25 01/22/25 Range/Units 00:06 00:56 01:14 WBC 28.1 H (4.8-10.8) X10*3/uL RBC 5.44 (4.20-5.50) X10*6/uL Hgb 15.1 (12.0-16.0) g/dl Hct 45.7 (37.0-47.0) % MCV 84.0 (80.0-98.0) fL MCH 27.8 (27.0-33.0) pg MCHC 33.0 (31.0-35.0) g/dl RDW 12.2 (11.0-16.0) % Plt Count 323 (160-400) X10*3/uL MPV 9.9 (9.4-12.3) fL Immature Gran % (Auto) 1.1 H (0.0-0.4) % Neut % (Auto) 83.8 H (45-73) % Lymph % (Auto) 2.8 L (20-40) % [place] % (Auto) 11.9 H (2-11) % Eos % (Auto) 0.0 (0-4) % Baso % (Auto) 0.4 (0-2) % Lymph # (Auto) 0.8 L (1.2-4.9) X10*3/uL [place] # (Auto) 3.4 H (0.1-1.2) X10*3/uL Eos # (Auto) 0.0 (0.0-0.4) X10*3/uL Baso # (Auto) 0.1 (0.0-0.2) X10*3/uL Abs Immat Gran (auto) 0.31 H (0.00-0.03) X10*3/uL Absolute Neuts (auto) 23.5 H (2.0-8.3) x10*3/uL Absolute Nucleated RBC 0.000 (0.0-0.012) X10*3/uL Nucleated RBC % (auto) 0.0 (0.0-0.2) /100WBC Smear Tech's Comments VERIFIED Sodium 128 L (135-145) mmol/L Potassium 4.1 (3.3-5.1) mmol/L Chloride 83 L (96-108) mmol/L Carbon Dioxide 28 (22-29) mmol/L Anion Gap 21 H (12-20) BUN 12 (9-16) mg/dL Creatinine 0.72 (0.5-1.4) mg/dL Estim Creat Clear Calc 53.2 Estimated GFR > 60 Random Glucose 112 (60-115) mg/dL Lactic Acid 1.7 (0.5-2.0) mmol/L Calcium 9.5 (8.4-10.2) mg/dL Troponin I High Sens 37.1 H D 32.5 H (<3.5-17.0) ng/L Independent Interpretation I performed an independent interpretation of an: EKG (Normal sinus rhythm with a rate of 88 beats minute. There is a left bundle branch block that was previously documented) Discharge Plan Discharge Clinical Impression: Chest pain, Fall, Urinary tract infection, Compression fx, thoracic spine Patient Disposition: Admitted As Inpatient Print Language: Luxembourgish
[2025-01-22] VITALS (11 sets, daily range): BP systolic 149–183; BP diastolic 57–83; PULSE 87–96; RESP 16–22; TEMP 36–36.8; O2SAT 93–100; BMI 40.3
[2025-01-22 00:11] LABS: Hematocrit 45.7 % (37.0-47.0); Hemoglobin 15.1 g/dl (12.0-16.0); Imm Gran Abs Auto 0.31 X10*3/uL (0.00-0.03); Imm Gran Pct Auto 1.1 % (0.0-0.4); Lymphocytes Absolute Auto 0.8 X10*3/uL (1.2-4.9); MANUAL DIFF FLAG SCAN; Mean Corpuscular HGB Conc 33.0 g/dl (31.0-35.0); Mean Corpuscular Hemoglobin 27.8 pg (27.0-33.0); Mean Corpuscular Volume 84.0 fL (80.0-98.0); NRBC Abs Auto 0.000 X10*3/uL (0.0-0.012); NRBC Pct Auto 0.0 /100WBC (0.0-0.2); Platelet Count 323 X10*3/uL (160-400); Red Blood Count 5.44 X10*6/uL (4.20-5.50); SCAN SMEAR FLAG 1; White Blood Count 28.1 X10*3/uL (4.8-10.8)
[2025-01-22 00:42] LABS: Troponin-I High Sensitivity 37.1 ng/L (<3.5-17.0)
[2025-01-22 00:53] LABS: Anion Gap 21 (12-20); Blood Urea Nitrogen 12 mg/dL (9-16); Calcium 9.5 mg/dL (8.4-10.2); Carbon Dioxide 28 mmol/L (22-29); Chloride 83 mmol/L (96-108); Creatinine Clr Calc Pharmacy 53.2; Estimated Glomerular Filt Rate > 60; Potassium 4.1 mmol/L (3.3-5.1); Sodium 128 mmol/L (135-145)
--- OUTSIDE RECORDS SUMMARY | 2025-01-22 01:19 | XMS_ITS | Data Portability ---
Author Organization [facility] [place] [employer] [facility], Main Office Address [address] [place] [address] Care Team Providers Care Burrer Machine Name Role Phone RONNIE BROUSSARD - 2ND FLOOR OTHER Assessment Encounter Date Assessment Date Assessment LastModified by Organization Details LastModified Time 11/12/2023 11/12/2023 I have seen and examined the patient independently and confirmed the findings above with the RUBBER MOLDER student note. Management plan discussed with the RUBBER MOLDER student personally. [email or web address] Not available 11/12/2023 12:35:08 11/19/2023 11/19/2023 45 minutes spent on coordination of discharge. [email or web address] Not available 11/19/2023 12:18:18 Plan of Treatment [...] Organization Details Recorded Time Altered mental status 763711725 Active 2023 Nadja Cantrell [address], [address], [place], [address], [employer] 4 12:53:24 Urinary tract infectious disease 61487081 Active 2023 Nadja Cantrell [address] [facility], [address], [place], [address], [facility] [employer] 4 12:53:28 Carotid artery stenosis 74644794 Active 2023 Nadja Cantrell [address], [address], [place], [address], [facility] 4 12:53:55 Transient cerebral ischemia 476088486 Active 2023 Nadja Cantrell [address], [address], [place], [address], [facility] 4 12:54:02 Asthenia 45744703 Active 2023 AJumana Cantrell [address], [address], [place], [address], [facility] 4 12:54:07 Mixed anxiety and depressive disorder 384479706 Active 2023 AJumana Cantrell [address] [facility], [address], [place], [place], [address], [facility] 4 13:04:07 Dementia 14550970 Active 2023 ALibbyjimenalaurence Cantrell [address], [address], [place], [address], [facility] 4 13:04:08 Essential hypertension 24412202 Active 2023 AJumana Cantrell [address], [address], [place], [address], [facility] 4 13:04:09 Primary insomnia 7044124 Active 2023 AJumana Cantrell [address], [address], [place], [address], [facility] 4 13:07:11 Hyperlipidemia 89145370 Active 2023 AKiraa Tamia [address], [address], [place], [address], [employer] 4 13:39:41 Problem Notes None recorded. Procedures Surgical History Date Name Laterality Status Provider Name and Address Organization Details Recorded Time ligation of fallopian tube completed A_Fredericblay-Da vis [address], [address], [place], [address], [facility] 10/12/2023 13:35:08 lumpectomy of breast completed A_Tremblay-Da vis [address], [address], [place], [address], [facility] [employer] [facility] 10/12/2023 13:35:24 manipulation of displaced nasal septum completed A_Tremblay-Da vis [address], [address], [place], [address], [facility] [employer] [facility] 10/12/2023 13:35:41 Imaging Results None recorded. Procedure Notes None recorded. Medical Equipment None Reported. Allergies Allergen ID Allergen Name Allergen Category Reaction Reaction Severity Criticality Documentation Date Start Date Code Code System Note Provider Name and Address Organization Details Recorded Time 21665 penicilli n G Not available Not available Not available Not available 10/12/2023 7980 RxNorm AKiraa agnes-Shimon [address] [facility], [address], [place], [address], [facility] [employer] [facility] 4 12:53:04 00000 cucumber extract food Not available Not available Not available 10/12/2023 12806 19 RxNorm AKiraa agnes-Shimon [address], [address], [place], [address], [facility] [employer] [facility] 4 12:53:11 29033 strawberr y allergeni c extract food Not available Not available Not available 10/12/2023 82960 4 RxNorm AKiraa ganes-Shimon [address], [address], [place], [address], [facility] [employer] [facility] 4 12:53:17 Vitals Date Recorded Body height Body weight Heart rate Respiratory rate Body temperature Oxygen saturation Systolic And Diastolic Provider Name and Address Organization Details Last Updated DateTime 4 162.56 cm 25692.1 8 g 72 /min 18 /min 98 [degF] 98 % 125/78 mm[Hg] Zamzam Mccarthy NP [address] [facility], [address], [place], [address], [place] [facility] 4 12:23:59 Date Recorded Body height Body weight Heart rate Respiratory rate Body temperature Oxygen saturation Systolic And Diastolic Provider Name and Address Organization Details Last Updated DateTime 4 162.56 cm 26987.8 8 g 74 /min 18 /min 98 [degF] 98 % 122/72 mm[Hg] Zamzam Mccarthy NP [address] [facility], [address], [place], [address], [facility] 4 17:35:25 Date Recorded Body height Heart rate Respiratory rate Body temperature Oxygen saturation Systolic And Diastolic Provider Name and Address Organization Details Last Updated DateTime 4 162.56 cm 72 /min 18 /min 98 [degF] 98 % 122/72 mm[Hg] [place] [facility] 4 12:22:47 Date Recorded Body height Body mass index (BMI) Body weight Heart rate Respiratory rate Body temperature Oxygen saturation Systolic And Diastolic Provider Name and Address Organization Details Last Updated DateTime 4 162.56 cm 33.3 kg/m2 90847.9 2 g 73 /min 18 /min 98 [degF] 98 % 122/72 mm[Hg] Zamzam Mccarthy NP [address] [facility], [address], [place], [address], [facility] 4 12:03:27 Date Recorded Body height Heart rate Respiratory rate Body temperature Oxygen saturation Systolic And Diastolic Provider Name and Address Organization Details Last Updated DateTime 4 162.56 cm 70 /min 18 /min 98 [degF] 98 % 122/72 mm[Hg] HINA ANTONIO NP [address], [address], [place], [address], [facility] 4 11:52:50 Social History Question Answer Notes LastModified by Organizat ion Details LastModified Time Tobacco Smoking Status Former Smoker quit in her 30s Alicia Maurer MD [address], [address], [place], [address], [facility] 10/22/2023 18:54:01 Do You Have An Advance Directive? Yes Information not available 10/22/2023 What Is Your Code Status? Full Code Information not available 10/12/2023 Where Do You Live? Apartment [address]st Floor Of [facility], [address] To [address], With Daughter. Information not available 10/22/2023 Legal Guardian? No Informati on not available 10/22/2023 Do You Have A Medical Power Of Computer Meteorologist? Yes Information not available 10/22/2023 What Was [...] (COVID-19) vaccine, UNSPECIFIED 04/30/2020 completed [facility] 10/31/2023 10:19:23 SARS-COV-2 (COVID-19) vaccine, UNSPECIFIED 05/21/2020 [facility] 10/31/2023 10:19:33 SARS-COV-2 (COVID-19) vaccine, UNSPECIFIED 12/03/2020 [facility] 10/31/2023 10:19:45 SARS-COV-2 (COVID-19) vaccine, UNSPECIFIED 07/01/2021 completed [facility] 10/31/2023 10:19:58 SARS-COV-2 (COVID-19) vaccine, UNSPECIFIED 12/23/2021 completed Fox mckenzie, [facility] 10/31/2023 10:20:18 SARS-COV-2 (COVID-19) vaccine, UNSPECIFIED 11/17/2022 completed Fox mckenzie, [facility] 10/31/2023 10:20:31 Past Encounters Encounter ID Performer Location Encounter Start Date Encounter Closed Date Diagnosis/Indication Diagnosis SNOMED-CT Code Diagnosis ICD10 Code Diagnosis IMO Codes Diagnosis Note [id number] Enrico Handy [facility] [address] [address] 10/12/2023 12:52:46 10/23/2023 10:33:18 Carotid artery stenosis 14646515 I65.29 R carotid stenosisAS A 81mg qdsimvasta tin 40mg qdf/u vascular with Dr. Boogie outpatient in the next week Asthenia 31342343 R53.1 Admit to services PT/OT/STRm onitor and support as needed Transient cerebral ischemia 111690028 G45.9 CTH and MRI without acute strokeASA 81mg qdsimvasta tin 40mg qdmonitor neurologic al status Urinary tr act infectious disease 95790027 N39.0 urine culture negativece furoxime 250mg BID x 2 days (total 5 days) Hyperlipidemia 90141372 E78.5 simvastati n 40mg qdmonitor lipids outpatient Essential hypertension 87270444 I10 lisinopril 5mg qdfurosemi de 40mg qdmonitor labs and BP Dementia 23830279 F03.90 expect declinemon itor insight and need to invoke HCPBIMS 15see meds for mixed anxiety/de pressive d/omonitor and support as needed Mixed anxi ety and depressive disorder 404663636 F41.8 ativan 0.5mg qd prnbupropi on HCL 300mg ER qdmonitor mood and consult [facility] if needed Primary insomnia 7441097 F51.01 melatonin 10mg qHS prndiphenh ydramine 25mg qHS prnmonitor sleep [id number] HINA ANTONIO NP [facility] [address] [place] [address] 10/17/2023 11:35:12 10/23/2023 11:16:25 Transient cerebral ischemia 348655401 G45.9 ?CTH and MRI without acute strokeCont inue:ASA 81mg qdsimvasta tin 40mg qdmonitor neurologic al status Carotid ar bita stenosis 82755863 I65.29 R carotid stenosis noted on scanContin ue:ASA 81mg qdsimvasta tin 40mg qdNeeds outpt. f/u with Vasc. Dr. Boogie Asthenia 89478786 R53.1 Admit to services PT/OT/STRm onitor and support as neededgoal is to return home Urinary tr act infectious disease 22368137 N39.0 urine culture negative, but....cef uroxime 250mg BID x 5 days now complete.M ild elevation in wbcs - repeating CBC in am.Monitor sx., VSEncourag e fluids Hyperlipidemia 69789399 E78.5 simvastati n 40mg qdmonitor lipids outpatient Essential hypertension 95515332 I10 lisinopril 5mg qdfurosemi de 40mg qdmonitor labs and BP Dementia 36997873 F03.90 expect declinemon itor insight and need to invoke HCPBIMS 15see meds for mixed anxiety/de pressive d/omonitor and support as needed Mixed anxi ety and depressive disorder 627376264 F41.8 ativan 0.5mg qd prnbupropi on HCL 300mg ER qdmonitor mood and consult [facility] if needed Primary insomnia 6437671 F51.01 melatonin 10mg qHS prndiphenh ydramine 25mg qHS prnmonitor sleep Leukocytosis 810795398 D 72.829 Mild elevation on admit.Kathy james for UTI despite neg. cx.Monitor ing VS and s/s infectionR epeat CBC in am to trend. Hypokalemia 01600556 E87 .6 K 3.1, no labs for comparison .On lasix 40 mg qd and lisinopril 5 mg qd.Added 20 meq KCL qd, repeating BMP in amMonitor [id number] HINA ANTONIO NP [place] [address] [place], [place] [address] 10/22/2023 10:13:56 10/23/2023 03:50:14 Transient cerebral ischemia 142393004 G45.9 ?CTH and MRI without acute strokeCont inue:ASA 81mg qdsimvasta tin 40mg qdmonitor neurologic al status Carotid ar bita stenosis 68462996 I65.29 R carotid stenosis noted on scanContin ue:ASA 81mg qdsimvasta tin 40mg qdNeeds outpt. f/u with Vasc. Dr. Boogie - HCP trying to get appt., will continue to call office Asthenia [id number] R53.1 Admit to services PT/OT/STRm onitor and support as neededgoal is to return home Urinary tr act infectious disease 92145897 N39.0 urine culture negative, but....cef uroxime 250mg BID x 5 days starterd in hosp., now complete.M ild leukocytos is - repeat UA C&S and CBC in am.Monitor sx., VSEncourag e fluids Hypokalemia 26208831 E87 .6 K 3.1, no labs for comparison .On lasix 40 mg qd and lisinopril 5 mg qd.Added 20 meq KCL qd, repeat BMP in amMonitor Leukocytosis 995912296 D 72.829 Mild elevation on admit.Kathy james for UTI despite neg. cx. Repeat UA C&S and CBC in am, then start keflex 500 mg qid x 5 days and probiotic as also a concern for right middle finger paronychia . Hyperlipidemia 58629749 E78.5 simvastati n 40mg qdmonitor lipids outpatient Essential hypertension 55019511 I10 lisinopril 5mg qdfurosemi de 40mg qdmonitor labs and BP Dementia 51733754 F03.90 expect declinemon itor insight and need to invoke HCPBIMS 15see meds for mixed anxiety/de pressive d/omonitor and support as needed Mixed anxi ety and depressive disorder 389980273 F41.8 ativan 0.5mg qd prn - staff says very helpful with mood and behaviors if dosed q am.bupropi on HCL 300mg ER qdmonitor mood and consult [facility] if needed Primary insomnia 8311081 F51.01 Discussed with HCPmelaton in 10mg qHS prn -> scheduledi phenhydram ine 25mg qHS prn -> schedule (also uses for allergy sx.)monito r sleep Paronychia of finger 444 573131 L03.019 Suspicion, right middle finger.Mil d leukocytos is last week.Plan -CBC, ESR, Uric Acid in am, then start keflex 500 mg qid x 5 days plus probiotic. [id number] Alicia Maurer MD [address] [place] [address] 10/22/2023 14:42:34 10/23/2023 11:51:07 Leukocytosis 100327636 D72.828 WBC on 10/08 was 15.6, down to 11.1 on 10/13, then 12.4 on 10/17Will be rechecked in AM and U/A being rechecked. Monitor. Hypokalemia 02816574 E87 .6 K 3.1 on 10/13, upt to 3.6 on 10/17, had been 3.2 on 09/30, but otherwise has been WNL inpt.Arun nue 20 meq KCL qd.Recheck BMP in AMMonitor Urinary tr act infectious disease 21866330 N30.80 With 2 recent courses of txs for borderline U/As with neg cxs.Will recheck U/A in AM.Encoura ge fluids Primary insomnia 0664203 F51.01 Continue melatonin 10 mg qhs and diphenhydr amine 25 mg qhs.Monito r sleep patterns. Mixed anxi ety and depressive disorder 568103528 F41.8 As above.Thou ght anxiety is possible causing some sxs.Monito r. Transient cerebral ischemia 301979278 G45.8 Possible dx after recent episodes.C ontinue ASA 81mg qd and simvastati n 40 mg qdMonitor neuro sxs.F/U prn. Carotid ar bita stenosis 62140062 I65.21 No change from 2006Contin ue ASA 81 mg qd and simvastati n 40 mg qd.Needs outpt. f/u with Vasc. Dr. Boogie - [facility] trying to get appt., will continue to call office Asthenia [id number] R53.1 Is deconditio maranda due to recent poor intake at home.Needs PT/OT for strengthen ing, balance, gait training, safety and function.C ontinue fall precaution s.Monitor for safety. Hyperlipidemia 91920151 E78.49 Continue simvastati n 40 mg qdMonitor labs as outpt. Essential hypertension 92993718 I10 In good control since here.Arun nue lisinopril 5 mg qd and furosemide 40 mg qdMonitor BP and labs. Dementia 80860054 F03.90 Scored 15/15 on BIMs on admission. But hx of intermitte nt confusion. Continue buproprion 300 mg qd and lorazepam 0.5 mg qd prn.Contin ue supportive care.HCP not invoked, monitor for need to invoke.Mon itor mood and behaviors. Psych consult prn. Cellulitis of finger of right hand [id number] 4845444 L03.011 Looks like either cellulitis or gout.Will check CBC, ESR, Uric Acid in AM, then start keflex 500 mg qid x 5 days plus probiotic. Monitor [id number] HINA ANTONIO NP [facility] [address] 10/29/2023 08:25:51 10/30/2023 13:58:40 Leukocytosis 613319069 D72.829 More recent mild elevation, now resolved.R epeat UA C&S neg.Contin ues on keflex for concern of paronychia Continue to monitor Labs Hypokalemia 52742121 E87 .6 K 4.3 (10/24)Curre ntly on lasix 40 mg qd and lisinopril 5 mg qd.Continu e with KCL 20 meq qdMonitor Labs, sxs Paronychia of finger 444 202973 L03.019 ResolvedMi ld leukocytos is last week-nl this week 10.1Plan -Complete keflex on 10/30Monito r sxs Urinary tr act infectious disease 96530937 N39.0 Asymptomat icurine culture negative Monitor sx., VSEncourag e fluids Mixed anxi ety and depressive disorder 198517471 F41.8 Continue with ativan 0.5mg qd prn and bupropion HCL 300mg ER qdmonitor mood and consult HD prn Transient cerebral ischemia 026427044 G45.9 ?CTH and MRI without acute strokeCont inue with:ASA 81mg qdsimvasta tin 40mg qdmonitor neurologic al status, sxs Carotid ar bita stenosis 75353311 I65.29 R carotid stenosis noted on scanContin ue:ASA 81mg qdsimvasta tin 40mg qdfollow up with Vasc. Dr. Boogie in place Asthenia 64750669 R53.1 Continue with PT/OT/STRE ncourage participat ionmonitor and support as neededgoal is to return home Hyperlipidemia 15308251 E78.5 Asymptomat icsimvasta tin 40mg qdmonitor labs, VS Essential hypertension 54548941 I10 Continueli sinopril 5mg qdfurosemi de 40mg qdmonitor labs and BP Dementia 40992667 F03.90 expect declinemon itor insight and need to invoke HCPBIMS 15Continue withSuppor tive careativan 0.5mg qd prnbupropi on HCL 300mg ER qdMonitor sxs [id number] Zamzam Mccarthy NP [facility] [address] [address] 11/01/2023 11:31:16 11/05/2023 12:48:56 Leukocytosis 134443136 D72.829 resolvedMo re recent mild elevation, now resolved.R epeat UA C&S neg.Comple james guajardo for concern of paronychia Continue to monitor Labs Hypokalemia 74270483 E87 .6 K 4.3 as above stableCurr ently on lasix 40 mg qd and lisinopril 5 mg qd.Continu e with KCL 20 meq qdMonitor Labs, sxs Paronychia of finger 444 378356 L03.019 ResolvedMi ld leukocytos is last week-nl this week 10.1Plan -Complete keflex on 10/30Monito r sxs Urinary tr act infectious disease 15831753 N39.0 Asymptomat iccomplete d keflexMoni tor sx., VSEncourag e fluids Mixed anxi ety and depressive disorder 889939154 F41.8 Continue withativan 0.5mg qd prnbupropi on HCL 300mg ER qdmonitor mood and consult [facility] prn Transient cerebral ischemia 960449487 G45.9 ?see hpiCTH and MRI without acute strokeCont inue with:ASA 81mg qdsimvasta tin 40mg qdmonitor neurologic al status, sxs Carotid ar bita stenosis 09852774 I65.29 R carotid stenosis noted on scanContin ue:ASA 81mg qdsimvasta tin 40mg qdfollow up with Vasc. Dr. Boogie in place outpt Asthenia 11222012 R53.1 Continue with PT/OT/STRE ncourage participat ionmonitor and support as neededgoal is to return home Hyperlipidemia 92754937 E78.5 Asymptomat icsimvasta tin 40mg qdmonitor labs, VS Essential hypertension 39518277 I10 Continueli sinopril 5mg qdfurosemi de 40mg qdmonitor labs and BP Dementia 65431094 F03.90 expect decline, currently pleasant and a x o [id number] insight and need to invoke HCPBIMS 15Continue withSuppor tive careativan 0.5mg qd prnbupropi on HCL 300mg ER qdMonitor sxs [id number] Zamzam Mccarthy NP [facility] [address] 11/07/2023 08:26:43 11/11/2023 14:42:50 Dementia 26537365 F03.90 expect decline, currently pleasant and a x o [id number] insight and need to invoke HCPBIMS 15Continue withSuppor tive careativan 0.5mg qd prnbupropi on HCL 300mg ER qdMonitor sxs Asthenia 82026900 R53.1 Continue with PT/OT/STRE ncourage participat ion with pt otmonitor and support as neededgoal is to return home Hypokalemia 43559149 E87 .6 K 4.3 as above stableCurr ently on lasix 40 mg qd and lisinopril 5 mg qd.Continu e with KCL 20 meq qdMonitor Labs, sxs Mixed anxi ety and depressive disorder 857727467 F41.8 Continue withativan 0.5mg qd prnbupropi on HCL 300mg ER qdmonitor mood and consult [facility] prn Transient cerebral ischemia 996078296 G45.9 per HPI not likely stroke but can follow up with neuro outpt for fuCTH and MRI without acute strokeCont inue with:ASA 81mg qdsimvasta tin 40mg qdmonitor neurologic al status, sxs Carotid ar bita stenosis 73559856 I65.29 R carotid stenosis noted on scanContin ue:ASA 81mg qdsimvasta tin 40mg qdfollow up with Vasc. Dr. Boogie in place outpt Essential hypertension 53104907 I10 Continueli sinopril 5mg qdfurosemi de 40mg qdmonitor labs and BP [id number] HINA ANTONIO NP [facility] [address] [place] [address] 11/12/2023 08:47:14 11/13/2023 11:39:55 Dementia 71121624 F03.90 Pleasantly confused at times, quite clear todayBIMS 15Continue withSuppor tive care- expect declineati van 0.5mg qd prnbupropi on HCL 300mg ER qdmonitor insight and need to invoke HCPMonitor sxs Asthenia 54840781 R53.1 deconditio maranda to multiple hospitaliz ationsCont inue with PT/OT - encourage participat ionmonitor and support as neededgoal is to return home Hypokalemia 06607233 E87 .6 K 4.3 on KCL 20 meq qdAsymptom aticCurren tly on lasix 40 mg qd and lisinopril 5 mg qd.Monitor Labs, sxs Mixed anxi ety and depressive disorder 838742862 F41.8 Asymptomat icContinue with bupropion HCL 300mg ER qdNo longer on prn ativanmoni tor mood and consult [facility] prn Transient cerebral ischemia 333477438 G45.9 per HPI not likely stroke but can follow up with neuro outptCTH and MRI without acute strokeCont inue with:ASA 81mg qdsimvasta tin 40mg qdmonitor neurologic al status, sxsFollow up with Neuro as planned on 11/27 Carotid ar bita stenosis 42088871 I65.29 R carotid stenosis noted on scanContin ue:ASA 81mg qdsimvasta tin 40mg qdfollow up with Vasc. Dr. Boogie in place outpt Essential hypertension 13649062 I10 BP's stable since hereContin uelisinopr il 5mg qdfurosemi de 40mg qdmonitor labs and BP [id number] Zamzam Mccarthy NP [facility] [address] [address] 11/14/2023 11:32:35 11/18/2023 09:33:08 Dementia 87223585 F03.90 Pleasantly confused at times, quite clear todayBIMS 15Continue withSuppor tive care- expect declinebup ropion HCL 300mg ER qdmonitor insight and need to invoke HCPMonitor sxs Asthenia 85802238 R53.1 deconditio maranda to multiple hospitaliz ationsCont inue with PT/OT - encourage participat ionmonitor and support as neededgoal is to return home Hypokalemia 83841289 E87 .6 K 4.3 on KCL 20 meq qdAsymptom aticCurren tly on lasix 40 mg qd and lisinopril 5 mg qd.Monitor Labs, sxs Mixed anxi ety and depressive disorder 826462037 F41.8 Asymptomat icContinue with bupropion HCL 300mg ER qdNo longer on prn ativanmoni tor mood and consult [facility] prn Transient cerebral ischemia 137220590 G45.9 per HPI not likely stroke but can follow up with neuro outptCTH and MRI without acute strokeCont inue with:ASA 81mg qdsimvasta tin 40mg qdmonitor neurologic al status, sxsFollow up with Neuro as planned on 11/27 Carotid ar bita stenosis 71418491 I65.29 R carotid stenosis noted on scanContin ue:ASA 81mg qdsimvasta tin 40mg qdfollow up with Vasc. Dr. Boogie in place outpt Essential hypertension 97309773 I10 BP's stable since here on belowConti nuelisinop ril 5mg qdfurosemi de 40mg qdmonitor labs and BP [id number] HINA ANTONIO NP [facility] [address] [address] 11/19/2023 11:51:26 11/20/2023 10:46:32 Transient cerebral ischemia 806438876 G45.8 Possible dx after recent episodes.C ontinue ASA 81mg qd and simvastati n 40 mg qdMonitor neuro sxs.F/U with neuro, vascular as outpt. Dementia 42854524 F03.90 Scored 15/15 on BIMs on admission. But hx of intermitte nt confusion. Continue buproprion 300 mg qdContinue supportive care.HCP not invoked, monitor for need to invoke.Mon itor mood and behaviors as outpt.As above, can follow up with Neuro for further assessment as outpt. Mixed anxi ety and depressive disorder 674470246 F41.8 As above.Thou ght anxiety is possible causing some sxs.Monito r. Asthenia 46628828 R53.1 Deconditio maranda due to recent poor intake at home.Has worked with PT/OT for strengthen ing, balance, gait training, safety and function.M eeting goals for d/c home tomorrow with support of services.C ontinue fall precaution s.Monitor for safety. Essential hypertension 07253331 I10 In good control since here.Arun nue lisinopril 5 mg qd and furosemide 40 mg qdMonitor BP and labs. Hypokalemia 15556525 E87 .6 K 3.1 on 10/13, now 4.3Continu e 20 meq KCL qd.Recheck BMP as outpt.Mireya tor Cellulitis of finger of right hand 3221297180 1963504 L03.011 Right middle finger - ? panonychia Resolved with KeflexMoni tor Urinary tr act infectious disease 06119698 N30.80 With 2 recent courses of txs for borderline U/As with neg cxs.Encour age fluidsMoni tor as outpt. Primary insomnia 7554975 F51.01 Continue melatonin 10 mg qhs and diphenhydr amine 25 mg qhs.Monito r sleep patterns. Carotid ar bita stenosis 12788180 I65.21 No change from 2006Contin ue ASA 81 mg qd and simvastati n 40 mg qd.Needs outpt. f/u with Vasc. Dr. Boogie - HCP to get appt. Hyperlipidemia 29581273 E78.49 Continue simvastati n 40 mg qdMonitor labs as outpt. Health Concerns Section Related Observation LastModified by Organization Detai ls LastModified Time None Recorded Concern Status LastModified by Organization Details LastModified Time None Recorded Advance Directives Directive Y: Payers Insurance Date Sequence Insurance Name Policy Number Policy Benjamin Covered Member ID Benjamin Member ID Guarantor Name 11/19/2023 1 [place]ICARE [place]: [employer] Mary Beth R Counter [id number] Mary Beht Counter 11/19/2023 2 [place] [facility] INDEMNITY PLAN (INDEMNITY) [id number] Mary Beth Counter [id number] Mary Beth Counter 11/26/2023 2 [facility] INDEMNITY PLAN (INDEMNITY) Mary Beth Counter Notes [...] 15MOLST FULL CODE Zamzam Mccarthy NP [address] , [address], [place], [address], [facility] [employer] 11/01/2023 12:37:29 11/07/2023 text/html Pt is seen today for an acute rounding visit today. PMH remarkable for dementia, depression, HTN, HLD, obesity, cardiac murmur, primary insomnia, UTI, TIA, Carotid stenosis and weakness She is an 88 yo lady recently admitted here for rehab and continued care after an ED stay due to altered MS. Since here at [facility] for rehabilitation she is working with therapy more and [...] 15MOLST FULL CODE Zamzam Mccarthy NP [address] , [address], [place], [address], [facility] [employer] 11/07/2023 18:00:28 11/12/2023 text/html Mary Beth is seen today for a routine, 30 day visit. She is an 88 yo female admitted to [facility] on 10/11/23 for rehab and continued [...] stenosis and weakness HINA ANTONIO, LEFTY [address], [address], [place], [address], [facility] 11/12/2023 14:20:39 11/14/2023 text/html Mary Beth is seen today for an acute rounding visit. PMH significant for dementia, depression, HTN, HLD, obesity, cardiac murmur, primary insomnia, UTI, TIA, Carotid stenosis and weakness Pt is an 88 yo female admitted to [facility] on 10/11/23 for rehab and continued [...] 15MOLST FULL CODE Zamzam Mccarthy, LEFTY [address], [address], [place], [address], [facility] - [employer] 11/15/2023 12:08:57 11/19/2023 text/html Mary Beth is seen today for discharge.She is planning to go home tomorrow 11/19 with support of family and services. She is an 88 yo woman who was admitted to [facility] for rehab after an acute hospitalization for an aphasic episode, presumed TIA.She has had several recent ED visits at [facility].09/26-for not feeling well , txed with cefpodoxime [...] vitamin D deficiency. HINA ANTONIO NP [address], [address], [place], [address], [facility] - [employer] 11/19/2023 12:18:31 OBGyn Episode No OBEpisode recorded.
[2025-01-22 01:49] LABS: Troponin-I High Sensitivity 32.5 ng/L (<3.5-17.0)
--- NOTE | 2025-01-22 04:02 | PM.IMHP ---
History of Present Illness Date of Service: 01/22/25 Attending physician on admission: Jeremy Vizcarra Chief Complaint: chest pain, weak, fall, UTI patient is an 89-year-old female with a past medical history significant for dementia, anxiety / depression, anemia, hypertension, hyperlipidemia, obesity, murmur and insomnia, who presented to the ED due to a fall. The patient was just discharged from the ED an hour prior to returning. The patient was therefore observation diagnosed with a UTI and sent home with visiting nursing services coordinated with case management. The patient reported that she was getting out of the car too quickly but further wheelchair was ready and fell. After her fall she experienced chest pain but did not experiences prior to her fall. No head strike or loss of consciousness. Chest pain is reproducible on exam. Plan to admit patient to medical service at this time due to continued acute metabolic encephalopathy with weakness secondary to UTI. Patient was also found to have subacute thoracic spine fractures. Review of Systems Review of Systems: Yes Unobtainable due to mental status [facility] Medical History Transient ischemic attack (TIA) Depression Morbid obesity with BMI of 40.0-44.9, adult Dementia Impaired fasting glucose Primary insomnia Seasonal allergic rhinitis Vitamin D deficiency Cardiac murmur Pure hypercholesterolemia Benign essential hypertension Functional capacity: wheelchair bound Family History Father Prostate cancer Mother Lung cancer Bone cancer Surgical History History of bilateral tubal ligation History of cataract surgery History of nasal surgery History of lumpectomy of right breast History of tonsillectomy Social History Household Members: Family Housing: House Unable to assess alcohol history related to: Unknown Alcohol intake: never Patient Tobacco Use Status: Former Tobacco user Tobacco use type: Cigarette e-Cigarette/Vaping Use: Never Used Second Hand Smoke Exposure: Yes Use of substances other than those prescribed or required for medical reasons: No Advance Directives: Yes Advance Directives on File: Yes Advance Directives Date on File: 10/07/23 Do you have a plan to hurt others: No Plan service: No Current occupational status: retired Cognitive needs: No Hearing needs: No Vision needs: Yes Meds Allergies Allergy/AdvReac Type Severity Reaction Status Date / Time penicillin G (Penicillin G) Allergy Severe Hives Verified 01/21/25 23:34 cucumber Allergy Unknown hives Verified 01/21/25 23:34 strawberry Allergy Unknown hives Verified 01/21/25 23:34 Active Medications: Current Medications Acetaminophen (Acetaminophen 325 Mg Tablet) 650 mg PO Q6H PRN PRN Reason: Pain, Mild 1-3,fever,headache Calcium Carbonate (Calcium Carbonate 750 Mg Tab.Chew) 750 mg PO Q4H PRN PRN Reason: Heartburn Heparin Sodium (Porcine) (Heparin Sodium,Porcine 5,000 Unit/Ml Vial) 5,000 unit SUBCUT Q12H [facility] Sodium Chloride (Ns) 1,000 mls @ 100 mls/hr IVCONT .Q10H [place] Last Admin: 01/22/25 01:21 Dose: 100 mls/hr Magnesium Hydroxide (Milk Of Magnesia 30 Ml Oral.Susp) 30 ml PO DAILY PRN PRN Reason: Constipation Melatonin (Melatonin 3 Mg Tablet) 6 mg PO BEDTIME PRN PRN Reason: Insomnia Oxycodone HCl (Oxycodone Hcl Immed Release 5 Mg Tablet) 5 mg PO Q6H PRN PRN Reason: Pain, Severe (Pain Scale 7-10) Sodium Chloride (0.9 % Sodium Chloride Flush 3 Ml Syringe) 3 ml IVFLUSH QSHIFT [place] Tramadol HCl (Tramadol Hcl 50 Mg Tablet) 50 mg PO Q6H PRN PRN Reason: Pain, Moderate(Pain Scale 4-6) Home Medications ?Medication ?Instructions ?Recorded ?Confirmed ?Last Taken ?Type bupropion HCl 300 mg 24 hr tablet, 300 mg PO DAILY 12/28/19 01/20/25 10/06/23 History extended release melatonin 10 mg tablet 10 mg PO BEDTIME PRN Sleep 12/28/19 01/20/25 Unknown History ascorbic acid (vitamin C) 500 mg 500 mg PO DAILY 10/07/23 01/20/25 10/06/23 History tablet (Vitamin C) cholecalciferol (vitamin D3) 25 25 mcg PO DAILY 10/07/23 01/20/25 10/06/23 History mcg (1,000 unit) tablet (Vitamin D3) diphenhydramine HCl 25 mg capsule 25 mg PO BEDTIME PRN Sleep 10/07/23 01/20/25 Unknown History (Benadryl) cranberry 500 mg capsule 500 mg PO DAILY 07/30/24 01/20/25 Unknown History lactobacillus combination no.9 4 See Rx Instructions .Route .COMPLEX 07/30/24 01/20/25 Unknown History billion cell capsule (Adult 50 Plus Probiotic) lidocaine 5 % topical patch 1 patch topical DAILY PRN Back Pain 01/20/25 01/20/25 Unknown History magnesium glycinate 100 mg (as See Rx Instructions .Route .COMPLEX 01/20/25 01/20/25 Unknown History glycinate) tablet naproxen sodium 220 mg tablet 220 mg PO Q8H PRN Back Pain 01/20/25 01/20/25 Unknown History (Aleve) Physical Exam Vital Signs and Narrative: Vital Signs: Last Vital Signs Temp 97.9 F 01/22/25 02:39 Pulse 96 01/22/25 02:39 Resp 19 01/22/25 02:39 BP 181/83 H 01/22/25 02:39 Pulse Ox 93 01/22/25 02:39 O2 Del Method Room Air 01/22/25 02:39 BMI result Body Mass Index 37.9 General: AOx3, no acute distress, seen with daughter bedside who reports pt is having hallucinations vs dreaming Resp: CTA bilaterally CVS: S1, S2, RRR. sternum tender to palpation GI: +BS, NT, no distention Skin: Warm, dry Neuro: Cranial nerves II-XII grossly intact bilaterally. Motor grossly intact bilaterally Extremities: No pitting edema Psych: pleasant confusion Results Labs 01/22/25 00:06 01/22/25 04:12 Labs: Laboratory Results - last 24 hr 01/22/25 01/22/25 01/22/25 00:06 00:56 01:14 MCV 84.0 MCH 27.8 MCHC 33.0 RDW 12.2 Plt Count 323 MPV 9.9 Immature Gran % (Auto) 1.1 H Neut % (Auto) 83.8 H Lymph % (Auto) 2.8 L Brooks % (Auto) 11.9 H Eos % (Auto) 0.0 Baso % (Auto) 0.4 Lymph # (Auto) 0.8 L Brooks # (Auto) 3.4 H Eos # (Auto) 0.0 Baso # (Auto) 0.1 Abs Immat Gran (auto) 0.31 H Absolute Neuts (auto) 23.5 H Absolute Nucleated RBC 0.000 Nucleated RBC % (auto) 0.0 Smear Tech's Comments VERIFIED Anion Gap 21 H Estim Creat Clear Calc 53.2 Estimated GFR > 60 Random Glucose 112 Lactic Acid 1.7 Calcium 9.5 Troponin I High Sens 37.1 H D 32.5 H Assessment and Plan (1) Acute metabolic encephalopathy: Status: Acute (2) SIRS (systemic inflammatory response syndrome): Status: Acute (3) Urinary tract infection: Status: Acute (4) Thoracic spine fracture: Status: Acute (5) Fall: Status: Acute (6) Chest pain: Status: Acute Plan patient is an 89-year-old female with a past medical history significant for dementia, anxiety / depression, anemia, hypertension, hyperlipidemia, obesity, murmur and insomnia, who presented to the ED due to a fall. Plan to admit patient to medical service at this time due to continued acute metabolic encephalopathy with weakness secondary to UTI. Patient was also found to have subacute thoracic spine fractures. acute metabolic encephalopathy, +SIRS, UTI - tachycardia, leukocytosis, UTI failed outpatient treatment - ceftriaxone pending urine culture - monitor CBC and BMP subacute thoracic spine fractures - pain management fall - PT eval chest pain, reproducible on exam - troponin slightly elevated however decreasing - EKG nonischemic - monitor on telemetry anxiety/depression - continue home meds HTN - continue home meds HLD - continue home meds class 2 obesity - weight loss encouraged med rec pending DNR/DNI VTE prophylaxis: heparin patient with acute metabolic encephalopathy, + SIRS secondary to UTI, requiring admission for at least 2 midnights stay for IV antibiotics and monitoring. Quality Stroke Does the patient have a stroke diagnosis?: No VTE Prior VTE?: No VTE Risk Level:: Medical - moderate - high VTE Device Contraindication: Treatment Not Indicated VTE Drug Contraindication: N/A - Med Ordered
[2025-01-22 04:27] LABS: Anion Gap 17 (12-20); Blood Urea Nitrogen 11 mg/dL (9-16); Calcium 8.7 mg/dL (8.4-10.2); Carbon Dioxide 30 mmol/L (22-29); Chloride 84 mmol/L (96-108); Creatinine Clr Calc Pharmacy 60.9; Estimated Glomerular Filt Rate > 60; Potassium 3.3 mmol/L (3.3-5.1); Sodium 128 mmol/L (135-145)
--- NOTE | 2025-01-22 07:02 | HO.NURTONUR ---
Addendum entered by Aura Paula RN 01/22/25 13:02: 01/22 7A- No changes in patient's status. Family at bedside. VSS. Original Note: 89 y/o Female presented to the ED s/p fall at home 1 hour after being discharged from the hospital, pt stated that she was moving to fast from the wheelchair and fell, no head-strike, no blood-thinners, no LOC, pt was seen previously for UTI, USIV in the left forearm, aaox4, nad,
--- NOTE | 2025-01-22 09:31 | PHA.MEDREC ---
Addendum entered by Heber Silva PharmD 01/22/25 09:38: reviewed Original Note: Pharmacy Consult ? Medication Reconciliation Pharmacy has completed the medication reconciliation. Spoke with pt daughter at bedside and she was able to confirm pt medications; pt just admitted with us 01/19-01/21. Pt taking her Probiotic and Magnesium Glycinate Q48 hours now; meds are to be alternating every other day, pt doesn't like to take on same day and pt was prescribed Cefuroxime upon discharge with us 01/21; pt hasn't started that and pt pharmacy confirmed they just got it filled this morning.
--- NOTE | 2025-01-22 12:48 | MHC.CM.PN ---
CM addressed IMM with Patient and her Daughter/HCP/Candace.Patient lives in a house with Candace, was referred recently to [facility], and uses a walker.Patient is s/p fall and may benefit from a PT Eval to assist with disposition. BA has initiated and will follow for dc planning. Candace will transport art dc if dc is to home and PCP is Dr. Roberto Kenney.
--- NOTE | 2025-01-22 14:32 | PM.EVENT ---
Event Note Date of Service: 01/22/25 Event Note: seen and examined this morning follow up UTI pt awake, alert; remains confused reports mid chest with palpation, hard to take deep breath patient is an 89-year-old female with a past medical history significant for dementia, anxiety / depression, anemia, hypertension, hyperlipidemia, obesity, murmur and insomnia, who presented to the ED due to a fall. Plan to admit patient to medical service at this time due to continued acute metabolic encephalopathy with weakness secondary to UTI. Patient was also found to have subacute thoracic spine fractures. Sepsis and acute toxic metabolic encephalopathy due to UTI continue IV ceftriaxone follow urine cultures/blood cultures subacute thoracic spine fractures pain management calcitonin nasal spray lidocaine patch mechanical fall likely due to above PT eval prior to d/c chest pain, reproducible on exam troponin flat EKG nonischemic acute hyponatremia na 128 urine sodium 62 - but pt on lasix at baseline appears euvolemic and bp high, bun low less likely hypovolemia ?siadh due to pain possibly due to ssri but appears acute control pain, check TSH, am cortisol stop ivf for now and recheck sodium trend BMP if no improvement, consult nephrology anxiety/depression continue home meds HTN lisinopril initially on hold for sepsis, but bp significant elevated, will resume follow bp closely HLD continue home meds class 2 obesity weight loss encouraged DNR/DNI VTE prophylaxis: heparin patient with acute metabolic encephalopathy, + SIRS secondary to UTI, requiring admission for at least 2 midnights stay for IV antibiotics and monitoring. Time Spent With Patient Time: Total time managing care of this patient today ____ minutes.
[2025-01-22] MEDS: 0.9 % Sodium Chloride Flush 3 ML SYRINGE IVFLUSH (15:23)
[2025-01-22 16:09] LABS: Sodium 127 mmol/L (135-145)
--- NOTE | 2025-01-22 19:31 | PM.CNNEP ---
History of Present Illness Reason for Consult Consult date: 01/22/25 Chief Complaint Chief complaint: Weak, UTI History of Present Illness Narrative: 89-years old lady with a PMH of dementia, anxiety / depression, anemia, HTN, HLP, obesity, murmur and insomnia, admitted due to a fall in the setting of UTI. Sodium found to be 128, urine studies showing sodium 62, urine osmol 290 Review of Systems Review of Systems Yes Unobtainable due to mental condition PMF[facility] Past Medical History Medical History Transient ischemic attack (TIA) Depression Morbid obesity with BMI of 40.0-44.9, adult Dementia Impaired fasting glucose Primary insomnia Seasonal allergic rhinitis Vitamin D deficiency Cardiac murmur Pure hypercholesterolemia Benign essential hypertension Family History Family History Father Prostate cancer Mother Lung cancer Bone cancer Surgical History Surgical History History of bilateral tubal ligation History of cataract surgery History of nasal surgery History of lumpectomy of right breast History of tonsillectomy Social History Social History Household Members: Children Housing: House Do you presently have visiting nurse or other home services: No Unable to assess alcohol history related to: Unknown Alcohol intake: never Patient Tobacco Use Status: Former Tobacco user Tobacco use type: Cigarette e-Cigarette/Vaping Use: Never Used Second Hand Smoke Exposure: Yes Use of substances other than those prescribed or required for medical reasons: No Advance Directives: Yes Advance Directives on File: Yes Advance Directives Date on File: 10/07/23 Do you have a plan to hurt others: No Plan Recently lost weight without trying: No Eating poorly because of decreased appetite: No Nutrition Risks: No Nutritional Risk Patient : No service: No Current occupational status: retired Cognitive needs: No Hearing needs: No Vision needs: Yes Meds Allergies Allergy/AdvReac Type Severity Reaction Status Date / Time penicillin G (Penicillin G) Allergy Severe Hives Verified 01/21/25 23:34 cucumber Allergy Unknown hives Verified 01/21/25 23:34 strawberry Allergy Unknown hives Verified 01/21/25 23:34 Active Medications: Current Medications Acetaminophen (Acetaminophen 325 Mg Tablet) 650 mg PO Q6H PRN PRN Reason: Pain, Mild 1-3,fever,headache Last Admin: 01/22/25 15:36 Dose: 650 mg Ascorbic Acid (Ascorbic Acid 500 Mg Tablet) 500 mg PO DAILY [facility] Aspirin (Aspirin Enteric Coated 81 Mg Tablet.Dr) 81 mg PO DAILY [facility] Atorvastatin Calcium (Atorvastatin Calcium 20 Mg Tablet) 20 mg PO DAILY [facility] Bupropion HCl (Bupropion Hcl Xl 300 Mg Tab.Er.24h) 300 mg PO DAILY [facility] Calcitonin [place] (Calcitonin,[place],Synth Nasal 3.7 Ml Bottle) 1 spray NOSTRILALT DAILY [facility] Calcium Carbonate (Calcium Carbonate 750 Mg Tab.Chew) 750 mg PO Q4H PRN PRN Reason: Heartburn Heparin Sodium (Porcine) (Heparin Sodium,Porcine 5,000 Unit/Ml Vial) 5,000 unit SUBCUT Q12H [facility] Last Admin: 01/22/25 10:00 Dose: 5,000 unit Ceftriaxone Sodium 2 gm/ (Sodium Chloride) 50 mls @ 100 mls/hr IV Q24H [facility] Acetaminophen (Ofirmev) 1,000 mg in 100 mls @ 400 mls/hr IV Q6H PRN PRN Reason: Pain, Moderate(Pain Scale 4-6) Stop: 01/23/25 02:59 Lidocaine (Lidocaine 4 % Patch Adh..Patch) 1 patch TRANSDERMA DAILY PRN PRN Reason: Back Pain Lisinopril (Lisinopril 5 Mg Tablet) 5 mg PO DAILY [facility]; Protocol Last Admin: 01/22/25 15:22 Dose: 5 mg Magnesium Hydroxide (Milk Of Magnesia 30 Ml Oral.Susp) 30 ml PO DAILY PRN PRN Reason: Constipation Melatonin (Melatonin 3 Mg Tablet) 6 mg PO BEDTIME PRN PRN Reason: Insomnia Oxycodone HCl (Oxycodone Hcl Immed Release 5 Mg Tablet) 5 mg PO Q6H PRN PRN Reason: Pain, Severe (Pain Scale 7-10) Sodium Chloride (0.9 % Sodium Chloride Flush 3 Ml Syringe) 3 ml IVFLUSH QSHIFT [facility] Last Admin: 01/22/25 15:23 Dose: 3 ml Sodium Chloride (Sodium Chloride Tab 1 Gm Tablet) 1 gm PO TID [facility] Vitamin D (Cholecalciferol (Vitamin D3) 25 Mcg Tablet) 25 mcg PO DAILY [facility] Home Medications ?Medication ?Instructions ?Recorded ?Confirmed ?Last Taken ?Type bupropion HCl 300 mg 24 hr tablet, 300 mg PO DAILY 12/28/19 01/22/25 01/19/25 History extended release melatonin 10 mg tablet 10 mg PO BEDTIME PRN Sleep 12/28/19 01/22/25 Unknown History ascorbic acid (vitamin C) 500 mg 500 mg PO DAILY 10/07/23 01/22/25 01/19/25 History tablet (Vitamin C) cholecalciferol (vitamin D3) 25 25 mcg PO DAILY 10/07/23 01/22/25 01/19/25 History mcg (1,000 unit) tablet (Vitamin D3) diphenhydramine HCl 25 mg capsule 25 mg PO BEDTIME PRN Sleep 10/07/23 01/22/25 Unknown History (Benadryl) lactobacillus combination no.9 4 4,000 mmu cells PO Q48H 07/30/24 01/22/25 3 Days Ago History billion cell capsule (Adult 50 ~01/19/25 Plus Probiotic) lidocaine 5 % topical patch 1 patch topical DAILY PRN Back Pain 01/20/25 01/22/25 Unknown History magnesium glycinate 100 mg (as 200 mg PO Q48H 01/20/25 01/22/25 3 Days Ago History glycinate) tablet ~01/19/25 naproxen sodium 220 mg tablet 220 mg PO Q8H PRN Back Pain 01/20/25 01/22/25 Unknown History (Aleve) cranberry extract 500 mg capsule 500 mg PO DAILY 01/22/25 01/22/25 01/19/25 History Physical Exam Vital Signs: Last Vital Signs Temp 97.6 F 01/22/25 16:00 Pulse 87 01/22/25 16:00 Resp 18 01/22/25 16:00 BP 172/75 H 01/22/25 18:25 Pulse Ox 97 01/22/25 16:00 O2 Del Method Nasal Cannula 01/22/25 16:00 O2 Flow Rate 1 01/22/25 16:00 BMI result Body Mass Index 40.3 General: elderly lady not in any acute distress, ill appearing Nutritional Appearance: well nourished and morbidly obese Eyes: appearance normal, both eyes and all related structures; Alignment and Position: alignment normal and position normal Neck: No lymphadenopathy, no thyromegaly Resp: bilateral air entry equal, no added sounds present Cardio: Regular rate, regular rhythm; Heart sounds: S1 normal heart sound present and S2 normal heart sound present GI: soft, nontender, no guarding, no hepatosplenomegaly : bladder normal to inspection, bladder normal to palpation, no renal angle tenderness Skin: no rashes or lesions noted and elasticity normal Neuro: confused, moves all extremities Results Lab Results 01/22/25 00:06 01/22/25 15:52 Lab results: Chemistry 01/22/25 01/22/25 01/22/25 00:06 04:12 15:52 Sodium 128 L 128 L 127 L Potassium 4.1 3.3 Carbon Dioxide 28 30 H BUN 12 11 Creatinine 0.72 0.63 Calcium 9.5 8.7 D Hematology 01/22/25 00:06 WBC 28.1 H Hgb 15.1 Plt Count 323 Assessment and Plan (1) Acute metabolic encephalopathy: Status: Acute (2) Acute hyponatremia: Status: Acute Plan Acute hyponatremia: Acute encephalopathy: Hypoosmolar hyponatremia possibly due to excessive ADH release as urine studies show sodium 63 and osmol 290 suggesting water excretion defecit Serum osmol 260, serum sodium 127 please correct underlying precipitating factors like pain/nausea Free water restriction less than 1.5litres/day will add salt tablets 1gm TID will get AM cortisol and TSH levels. sodium of 127 should not be leading to encephalopathy possibly secondary to UTI. Procedures Date of Service Date of Service: 01/22/25
[2025-01-22] MEDS: Sodium Chloride Tab 1 GM TABLET PO (21:17)
[2025-01-22 22:04] LABS: Sodium 127 mmol/L (135-145)
[2025-01-23] VITALS (7 sets, daily range): BP systolic 105–167; BP diastolic 63–82; PULSE 94–100; RESP 18; TEMP 36–36.9; O2SAT 94–95
[2025-01-23 07:28] LABS: Hematocrit 42.4 % (37.0-47.0); Hemoglobin 14.0 g/dl (12.0-16.0); Imm Gran Abs Auto 0.30 X10*3/uL (0.00-0.03); Imm Gran Pct Auto 1.0 % (0.0-0.4); Lymphocytes Absolute Auto 0.6 X10*3/uL (1.2-4.9); MANUAL DIFF FLAG SCAN; Mean Corpuscular HGB Conc 33.0 g/dl (31.0-35.0); Mean Corpuscular Hemoglobin 27.8 pg (27.0-33.0); Mean Corpuscular Volume 84.3 fL (80.0-98.0); NRBC Abs Auto 0.000 X10*3/uL (0.0-0.012); NRBC Pct Auto 0.0 /100WBC (0.0-0.2); Platelet Count 306 X10*3/uL (160-400); Red Blood Count 5.03 X10*6/uL (4.20-5.50); SCAN SMEAR FLAG 1; White Blood Count 29.4 X10*3/uL (4.8-10.8)
[2025-01-23 08:13] LABS: Anion Gap 18 (12-20); Blood Urea Nitrogen 8 mg/dL (9-16); Carbon Dioxide 31 mmol/L (22-29); Chloride 86 mmol/L (96-108); Creatinine Clr Calc Pharmacy 68.4; Estimated Glomerular Filt Rate > 60; Potassium 3.5 mmol/L (3.3-5.1); Sodium 131 mmol/L (135-145)
[2025-01-23 08:19] LABS: Calcium 9.7 mg/dL (8.4-10.2)
[2025-01-23 09:27] LABS: Uric Acid 5.9 mg/dL (2.4-5.7)
--- NOTE | 2025-01-23 10:37 | P.PNIM_ITS ---
Subjective Subjective Date of Service: 01/23/25 Interval History: Patient seen examined at bedside this morning, patient's sodium improving, mentions that she is feeling better, continues on antibiotics for UTI. Review of Systems Review of Systems: Yes all other systems are reviewed and are negative Physical Exam 2 Exam: Exam: General: AxOx3, No acute distress, ill appearing Head: AT/NC ENT: Moist mucous membranes Neck: supple CVS; RRR, S1 S2 normal Lungs: Clear bilateral breath sounds, no wheezes or crackles Abd: Soft non tender, non distended Ext: No edema and no calf tenderness MSK: moving all 4 limbs Skin: No cyanosis or edema Psych: Cooperative with exam Neurology: no focal deficit Vital Signs: Vital Signs: Last Vital Signs Temp 98.3 F 01/23/25 08:00 Pulse 96 01/23/25 08:00 Resp 18 01/23/25 08:00 BP 138/82 01/23/25 08:00 Pulse Ox 95 01/23/25 08:00 O2 Del Method Room Air 01/23/25 08:00 O2 Flow Rate 1 01/23/25 03:23 BMI result Body Mass Index 40.3 Objective Data Active Medications Acetaminophen (Acetaminophen 325 Mg Tablet) 650 mg PO Q6H PRN PRN Reason: Pain, Mild 1-3,fever,headache Last Admin: 01/22/25 15:36 Dose: 650 mg Documented By: DORA Ascorbic Acid (Ascorbic Acid 500 Mg Tablet) 500 mg PO DAILY [facility] Aspirin (Aspirin Enteric Coated 81 Mg Tablet.Dr) 81 mg PO DAILY [facility] Atorvastatin Calcium (Atorvastatin Calcium 20 Mg Tablet) 20 mg PO DAILY [facility] Bupropion HCl (Bupropion Hcl Xl 300 Mg Tab.Er.24h) 300 mg PO DAILY [facility] Calcitonin [place] (Calcitonin,[place],Synth Nasal 3.7 Ml Bottle) 1 spray NOSTRILALT DAILY [facility] Calcium Carbonate (Calcium Carbonate 750 Mg Tab.Chew) 750 mg PO Q4H PRN PRN Reason: Heartburn Heparin Sodium (Porcine) (Heparin Sodium,Porcine 5,000 Unit/Ml Vial) 5,000 unit SUBCUT Q12H [facility] Last Admin: 01/22/25 21:16 Dose: 5,000 unit Documented By: ABY Ceftriaxone Sodium 2 gm/ (Sodium Chloride) 50 mls @ 100 mls/hr IV Q24H [facility] Last Infusion: 01/22/25 21:50 Dose: Infused Documented By: ABY Lidocaine (Lidocaine 4 % Patch Adh..Patch) 1 patch TRANSDERMA DAILY PRN PRN Reason: Back Pain Lisinopril (Lisinopril 5 Mg Tablet) 5 mg PO DAILY [facility]; Protocol Last Admin: 01/22/25 15:22 Dose: 5 mg Documented By: DORA Magnesium Hydroxide (Milk Of Magnesia 30 Ml Oral.Susp) 30 ml PO DAILY PRN PRN Reason: Constipation Melatonin (Melatonin 3 Mg Tablet) 6 mg PO BEDTIME PRN PRN Reason: Insomnia Last Admin: 01/22/25 21:17 Dose: 6 mg Documented By: ABY Oxycodone HCl (Oxycodone Hcl Immed Release 5 Mg Tablet) 5 mg PO Q6H PRN PRN Reason: Pain, Severe (Pain Scale 7-10) Sodium Chloride (0.9 % Sodium Chloride Flush 3 Ml Syringe) 3 ml IVFLUSH QSHIFT [facility] Last Admin: 01/23/25 01:27 Dose: Not Given Documented By: ABY Non-Admin Reason: Previously Administered Sodium Chloride (Sodium Chloride Tab 1 Gm Tablet) 1 gm PO TID [facility] Last Admin: 01/22/25 21:17 Dose: 1 gm Documented By: ABY Vitamin D (Cholecalciferol (Vitamin D3) 25 Mcg Tablet) 25 mcg PO DAILY [facility] Labs 01/23/25 06:24 01/23/25 06:24 Labs: Laboratory Results - last 24 hr 01/23/25 06:24 MCV 84.3 MCH 27.8 MCHC 33.0 RDW 12.4 Plt Count 306 MPV 10.7 Immature Gran % (Auto) 1.0 H Neut % (Auto) 82.2 H Lymph % (Auto) 2.2 L [place] % (Auto) 14.3 H Eos % (Auto) 0.0 Baso % (Auto) 0.3 Lymph # (Auto) 0.6 L [place] # (Auto) 4.2 H Eos # (Auto) 0.0 Baso # (Auto) 0.1 Abs Immat Gran (auto) 0.30 H Absolute Neuts (auto) 24.1 H Absolute Nucleated RBC 0.000 Nucleated RBC % (auto) 0.0 Smear Tech's Comments VERIFIED Anion Gap 18 Estim Creat Clear Calc 68.4 Estimated GFR > 60 Random Glucose 104 Uric Acid 5.9 H Calcium 9.7 D TSH 1.45 Random Cortisol 35.8 Microbiology Microbiology Results: Microbiology 01/22/25 01:14 Blood Culture - Preliminary Blood - Venous No growth after 24 hours. 01/22/25 00:56 Blood Culture - Preliminary Blood - Venous No growth after 24 hours. Assessment and Plan (1) Acute metabolic encephalopathy: Status: Acute (2) Thoracic spine fracture: Status: Acute Plan 89-year-old female with a past medical history significant for dementia, anxiety / depression, anemia, hypertension, hyperlipidemia, obesity, murmur and insomnia, who presented to the ED due to a fall. Plan to admit patient to medical service at this time due to continued acute metabolic encephalopathy with weakness secondary to UTI. Patient was also found to have subacute thoracic spine fractures. Sepsis likely secondary to UTI Toxic metabolic encephalopathy, improving Urine culture growing Gram negative rods >100k, with enterococcus Will switch from ceftriaxone to meropenem to cover ESBL and pseudomonas given worsening leukocytosis Will initiate NS given improvement of sodium, and NS contains 154meq of sodium follow urine cultures/blood cultures mechanical fall subacute thoracic spine fractures likely secondary to above pain management lidocaine patch PT eval prior to d/c Acute hyponatremia, improving, likely secondary to SIADH from pain na 128->131 continue salt tablets will initiate NS 0.9% at decreased rate, continue salt tablets Cardiology following anxiety/depression continue home meds HTN continue blood pressure medications HLD continue home meds class 2 obesity weight loss encouraged DNR/DNI VTE prophylaxis: heparin Total time managing care of this patient today: 55 minutes. Quality Stroke Does the patient have a stroke diagnosis?: No VTE Prior VTE?: No VTE Risk Level:: Medical - moderate - high VTE Device Contraindication: Treatment Not Indicated VTE Drug Contraindication: N/A - Med Ordered
[2025-01-23] MEDS: oxyCODONE HCl Immed Release 5 MG TABLET PO (11:23)
[2025-01-23] MEDS: Aspirin Enteric Coated 81 MG TABLET.DR PO (11:24)
[2025-01-23] MEDS: buPROPion HCl XL 300 MG TAB.ER.24H PO (11:25)
[2025-01-23] MEDS: Sodium Chloride Tab 1 GM TABLET PO ×3 (11:25→20:41)
[2025-01-23] MEDS: 0.9 % Sodium Chloride Flush 3 ML SYRINGE IVFLUSH ×3 (11:25→21:14)
[2025-01-23] MEDS: Calcitonin,Salmon,Synth Nasal 3.7 ML BOTTLE 1 SPRAY NOSTRILALT (11:35)
--- NOTE | 2025-01-23 11:59 | P.PNNP_ITS ---
Subjective Subjective Date of Service: 01/23/25 Interval history: Was in pain this morning, improved after oxycodone Physical Exam 2 Vital Signs: Vital Signs: Last Vital Signs Temp 98.3 F 01/23/25 08:00 Pulse 96 01/23/25 08:00 Resp 18 01/23/25 08:00 BP 150/69 H 01/23/25 11:28 Pulse Ox 95 01/23/25 08:00 O2 Del Method Room Air 01/23/25 08:00 O2 Flow Rate 1 01/23/25 03:23 BMI result Body Mass Index 40.3 General: not in any acute distress, ill appearing Nutritional Appearance: well nourished and obese Eyes: appearance normal, both eyes and all related structures; Alignment and Position: alignment normal and position normal Neck: No lymphadenopathy, no thyromegaly Resp: bilateral air entry equal, no added sounds present Cardio: Regular rate, regular rhythm; Heart sounds: S1 normal heart sound present and S2 normal heart sound present GI: soft, nontender, no guarding, no hepatosplenomegaly : bladder normal to inspection, bladder normal to palpation, no renal angle tenderness Skin: no rashes or lesions noted and elasticity normal Neuro: alert, oriented x 3, moves all extremities Objective Data Labs 01/23/25 06:24 01/23/25 06:24 Labs: Laboratory Results - last 24 hr 01/22/25 01/22/25 01/23/25 15:52 21:38 06:24 WBC 29.4 H RBC 5.03 Hgb 14.0 Hct 42.4 MCV 84.3 MCH 27.8 MCHC 33.0 RDW 12.4 Plt Count 306 MPV 10.7 Immature Gran % (Auto) 1.0 H Neut % (Auto) 82.2 H Lymph % (Auto) 2.2 L [place] % (Auto) 14.3 H Eos % (Auto) 0.0 Baso % (Auto) 0.3 Lymph # (Auto) 0.6 L [place] # (Auto) 4.2 H Eos # (Auto) 0.0 Baso # (Auto) 0.1 Abs Immat Gran (auto) 0.30 H Absolute Neuts (auto) 24.1 H Absolute Nucleated RBC 0.000 Nucleated RBC % (auto) 0.0 Smear Tech's Comments VERIFIED Sodium 127 L 127 L 131 L Potassium 3.5 Chloride 86 L Carbon Dioxide 31 H Anion Gap 18 BUN 8 L Creatinine 0.58 Estim Creat Clear Calc 68.4 Estimated GFR > 60 Random Glucose 104 Uric Acid 5.9 H Calcium 9.7 D TSH 1.45 Random Cortisol 35.8 Microbiology Microbiology Results: Microbiology 01/22/25 01:14 Blood - Venous Blood Culture - Preliminary No growth after 24 hours. 01/22/25 00:56 Blood - Venous Blood Culture - Preliminary No growth after 24 hours. Procedures Date of Service Date of Service: 01/23/25 Assessment & Plan Assessment and plan (1) Acute hyponatremia: Status: Acute (2) Acute metabolic encephalopathy: Status: Acute Plan Acute hyponatremia: Acute encephalopathy: Hypoosmolar hyponatremia possibly due to excessive ADH release secondary to pain, as urine studies show sodium 63 and osmol 290 suggesting water excretion defecit Sodium improved to 131 this morning, continue salt tablets 1 g TID Recommend Better control of pain Free water restriction less than 1.5litres/day Normal AM cortisol and TSH levels. Encephalopathy has improved, patient is alert oriented this morning. Time Spent With Patient Time: Total time managing care of this patient today ____ minutes. Progress Note: Quality Stroke Does the patient have a stroke diagnosis?: No
[2025-01-24 03:38] VITALS: BP 150/66; PULSE 99; RESP 18; TEMP 36.8; O2SAT 93
[2025-01-24 07:06] VITALS: BP 130/59; PULSE 97; RESP 18; TEMP 36.4; O2SAT 94
[2025-01-24] MEDS: 0.9 % Sodium Chloride Flush 3 ML SYRINGE IVFLUSH ×3 (08:10→21:14)
[2025-01-24] MEDS: buPROPion HCl XL 300 MG TAB.ER.24H PO (08:11)
[2025-01-24] MEDS: Sodium Chloride Tab 1 GM TABLET PO ×3 (08:11→21:07)
[2025-01-24] MEDS: Aspirin Enteric Coated 81 MG TABLET.DR PO (08:11)
[2025-01-24 08:12] VITALS: BP 135/60
[2025-01-24] MEDS: oxyCODONE HCl Immed Release 5 MG TABLET PO (08:17)
[2025-01-24 09:08] LABS: Hematocrit 41.4 % (37.0-47.0); Hemoglobin 13.4 g/dl (12.0-16.0); Imm Gran Abs Auto 0.37 X10*3/uL (0.00-0.03); Imm Gran Pct Auto 1.2 % (0.0-0.4); Lymphocytes Absolute Auto 0.5 X10*3/uL (1.2-4.9); MANUAL DIFF FLAG SCAN; Mean Corpuscular HGB Conc 32.4 g/dl (31.0-35.0); Mean Corpuscular Hemoglobin 27.9 pg (27.0-33.0); Mean Corpuscular Volume 86.3 fL (80.0-98.0); NRBC Abs Auto 0.000 X10*3/uL (0.0-0.012); NRBC Pct Auto 0.0 /100WBC (0.0-0.2); Platelet Count 305 X10*3/uL (160-400); Red Blood Count 4.80 X10*6/uL (4.20-5.50); SCAN SMEAR FLAG 1
[2025-01-24 09:10] LABS: Alanine Aminotransferase 14 U/L (0-31); Albumin Level 3.2 g/dL (3.5-5.0); Alkaline Phosphatase 102 U/L (39-117); Anion Gap 16 (12-20); Aspartate Amino Transferase 31 U/L (5-31); Blood Urea Nitrogen 11 mg/dL (9-16); Calcium 9.0 mg/dL (8.4-10.2); Carbon Dioxide 29 mmol/L (22-29); Chloride 91 mmol/L (96-108); Creatinine Clr Calc Pharmacy 77.9; Estimated Glomerular Filt Rate > 60; Potassium 3.6 mmol/L (3.3-5.1); Sodium 132 mmol/L (135-145); Total Protein 6.2 g/dL (6.5-8.0)
[2025-01-24 09:26] LABS: White Blood Count 30.6 X10*3/uL (4.8-10.8)
--- NOTE | 2025-01-24 09:45 | P.PNIM_ITS ---
Subjective Subjective Date of Service: 01/24/25 Interval History: Patient seen examined at bedside this morning, patient states that she is having pain, repeat labs showing worsening leukocytosis, UA positive for Enterococcus and E coli. Review of Systems Review of Systems: Yes all other systems are reviewed and are negative Physical Exam 2 Exam: Exam: General: AxOx2, No acute distress, ill appearing Head: AT/NC ENT: Moist mucous membranes Neck: supple CVS; RRR, S1 S2 normal Lungs: Clear bilateral breath sounds, no wheezes or crackles Abd: Soft non tender, non distended Ext: No edema and no calf tenderness MSK: moving all 4 limbs Skin: No cyanosis or edema Psych: Cooperative with exam Neurology: no focal deficit Vital Signs: Vital Signs: Last Vital Signs Temp 97.5 F 01/24/25 07:06 Pulse 97 01/24/25 07:06 Resp 18 01/24/25 07:06 BP 135/60 01/24/25 08:12 Pulse Ox 94 01/24/25 07:06 O2 Del Method Nasal Cannula 01/24/25 07:06 O2 Flow Rate 2 01/24/25 07:06 BMI result Body Mass Index 40.3 General: not in any acute distress, ill appearing Nutritional Appearance: well nourished and obese Eyes: appearance normal, both eyes and all related structures; Alignment and Position: alignment normal and position normal Neck: No lymphadenopathy, no thyromegaly Resp: bilateral air entry equal, no added sounds present Cardio: Regular rate, regular rhythm; Heart sounds: S1 normal heart sound present and S2 normal heart sound present GI: soft, nontender, no guarding, no hepatosplenomegaly : bladder normal to inspection, bladder normal to palpation, no renal angle tenderness Skin: no rashes or lesions noted and elasticity normal Neuro: alert, oriented x 3, moves all extremities Objective Data Active Medications Acetaminophen (Acetaminophen 325 Mg Tablet) 650 mg PO Q6H PRN PRN Reason: Pain, Mild 1-3,fever,headache Last Admin: 01/22/25 15:36 Dose: 650 mg Documented By: DORA Ascorbic Acid (Ascorbic Acid 500 Mg Tablet) 500 mg PO DAILY [facility] [place] Last Admin: 01/24/25 08:11 Dose: 500 mg Documented By: ZAINAB Aspirin (Aspirin Enteric Coated 81 Mg Tablet.) 81 mg PO DAILY [facility] [place] Last Admin: 01/24/25 08:11 Dose: 81 mg Documented By: ZAINAB Atorvastatin Calcium (Atorvastatin Calcium 20 Mg Tablet) 20 mg PO DAILY [facility] [place] Last Admin: 01/24/25 08:11 Dose: 20 mg Documented By: ZAINAB Bupropion HCl (Bupropion Hcl Xl 300 Mg Tab.Er.24h) 300 mg PO DAILY [facility] [place] Last Admin: 01/24/25 08:11 Dose: 300 mg Documented By: ZAINAB Calcitonin [place] (Calcitonin,[place],Synth Nasal 3.7 Ml Bottle) 1 spray NOSTRILALT DAILY [facility] [place] Last Admin: 01/23/25 11:35 Dose: 1 spray Documented By: CAROLYN Calcium Carbonate (Calcium Carbonate 750 Mg Tab.Chew) 750 mg PO Q4H PRN PRN Reason: Heartburn Heparin Sodium (Porcine) (Heparin Sodium,Porcine 5,000 Unit/Ml Vial) 5,000 unit SUBCUT Q12H [facility] [place] Last Admin: 01/24/25 08:10 Dose: 5,000 unit Documented By: ZAINAB Sodium Chloride (Ns) 1,000 mls @ 80 mls/hr IVCONT .[id number] [facility] [place] Last Admin: 01/24/25 03:08 Dose: 80 mls/hr Documented By: AALIYAH Lidocaine (Lidocaine 4 % Patch Adh..Patch) 1 patch TRANSDERMA DAILY PRN PRN Reason: Back Pain Lisinopril (Lisinopril 5 Mg Tablet) 5 mg PO DAILY [facility] [place]; Protocol Last Admin: 01/24/25 08:12 Dose: 5 mg Documented By: ZAINAB Magnesium Hydroxide (Milk Of Magnesia 30 Ml Oral.Susp) 30 ml PO DAILY PRN PRN Reason: Constipation Melatonin (Melatonin 3 Mg Tablet) 6 mg PO BEDTIME PRN PRN Reason: Insomnia Last Admin: 01/22/25 21:17 Dose: 6 mg Documented By: ABY Meropenem (Meropenem 1 Gm Vial) 1 gm IVPUSH Q8H [facility] Last Admin: 01/24/25 05:35 Dose: 1 gm Documented By: RAYMON Oxycodone HCl (Oxycodone Hcl Immed Release 5 Mg Tablet) 5 mg PO Q6H PRN PRN Reason: Pain, Severe (Pain Scale 7-10) Last Admin: 01/24/25 08:17 Dose: 5 mg Documented By: ZAINAB Sodium Chloride (0.9 % Sodium Chloride Flush 3 Ml Syringe) 3 ml IVFLUSH QSHIFT [facility] [place] Last Admin: 01/24/25 08:10 Dose: 3 ml Documented By: ZAINAB Sodium Chloride (Sodium Chloride Tab 1 Gm Tablet) 1 gm PO TID [facility] Last Admin: 01/24/25 08:11 Dose: 1 gm Documented By: ZAINAB Vitamin D (Cholecalciferol (Vitamin D3) 25 Mcg Tablet) 25 mcg PO DAILY [facility] [place] Last Admin: 01/24/25 08:11 Dose: 25 mcg Documented By: ZAINAB Labs 01/24/25 08:21 01/24/25 08:21 Labs: Laboratory Results - last 24 hr 01/24/25 08:21 MCV 86.3 MCH 27.9 MCHC 32.4 RDW 12.6 Plt Count 305 MPV 10.6 Immature Gran % (Auto) 1.2 H Neut % (Auto) 80.6 H Lymph % (Auto) 1.7 L [place] % (Auto) 16.2 H Eos % (Auto) 0.0 Baso % (Auto) 0.3 Lymph # (Auto) 0.5 L [place] # (Auto) 5.0 H Eos # (Auto) 0.0 Baso # (Auto) 0.1 Abs Immat Gran (auto) 0.37 H Absolute Neuts (auto) 24.6 H Absolute Nucleated RBC 0.000 Nucleated RBC % (auto) 0.0 Smear Tech's Comments VERIFIED Anion Gap 16 Estim Creat Clear Calc 77.9 Estimated GFR > 60 Random Glucose 108 Calcium 9.0 D Total Bilirubin 0.4 AST 31 ALT 14 Alkaline Phosphatase 102 Total Protein 6.2 L Albumin 3.2 L Microbiology Microbiology Results: Microbiology 01/22/25 01:14 Blood Culture - Preliminary Blood - Venous No growth after 48 hours. 01/22/25 00:56 Blood Culture - Preliminary Blood - Venous No growth after 48 hours. Assessment and Plan (1) Acute metabolic encephalopathy: Status: Acute (2) Thoracic spine fracture: Status: Acute Plan 89-year-old female with a past medical history significant for dementia, anxiety / depression, anemia, hypertension, hyperlipidemia, obesity, murmur and insomnia, who presented to the ED due to a fall. Plan to admit patient to medical service at this time due to continued acute metabolic encephalopathy with weakness secondary to UTI. Patient was also found to have subacute thoracic spine fractures. developed worsening leukocytosis despite being on antibiotics Sepsis likely secondary to UTI Toxic metabolic encephalopathy, improving Leukocytosis, worsening Urine culture positive for enterococcus and E coli Continue meropenem, will initiate vancomycin for enterococcus. 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 Quality Stroke Does the patient have a stroke diagnosis?: No VTE Prior VTE?: No VTE Risk Level:: Medical - moderate - high VTE Device Contraindication: Treatment Not Indicated VTE Drug Contraindication: N/A - Med Ordered
[2025-01-24 10:53] LABS: Magnesium 1.9 mg/dL (1.6-2.6)
[2025-01-24 11:01] LABS: Procalcitonin 0.06 ng/mL
[2025-01-24 11:24] VITALS: BP 149/66; PULSE 100; RESP 18; TEMP 36.4; O2SAT 96
[2025-01-24] MEDS: Calcitonin,Salmon,Synth Nasal 3.7 ML BOTTLE 1 SPRAY NOSTRILALT (11:49)
[2025-01-24] MEDS: vancomycin/NS 2,000 MG/500 ML PLAST..BAG 250 MG IV (11:54)
--- NOTE | 2025-01-24 12:05 | PHA.PROG ---
Admission Date/Time: January 22, 2025 03:30 Indication: other with comment of enterococcus UTI with PCN allergy Weight in k.5 kg Adjusted body weight in Kg: [place] body weight in Kg: Obesity Dosing Indication % IBW: Serum Creatinine - Last 168 Hours 01/22/25 01/22/25 01/23/25 00:06 04:12 06:24 Creatinine 0.72 0.63 0.58 01/24/25 08:21 Creatinine 0.51 Estimated CrCl and GFR - Last 168 Hours 01/22/25 01/22/25 01/23/25 00:06 04:12 06:24 Estim Creat Clear Calc 53.2 60.9 68.4 Estimated GFR > 60 > 60 > 60 01/24/25 08:21 Estim Creat Clear Calc 77.9 Estimated GFR > 60 Vancomycin Loading Dose: 2000 Current Vancomycin Dosing Regimen: 1500 Q24H Vancomycin Monitoring using AUC goal of 400 - 600 range with trough as surrogate marker: 486 Date and Time for next Vancomycin Level to be drawn: 01/26 @0900 Pharmacist Comments on Vancomycin Plan: Vancomycin dosing will take advantage of [employer] as a clinical decision support tool that uses Bayesian modeling to calculate individual patient's pharmacokinetic parameters and forecast the patient's drug concentration time course with the target goal AUC 24 range of 400 - 600 mg/L/hr.
[2025-01-24] MEDS: iohexoL 350 MG/ML 100 ML INFUS..BTL IV (15:54)
[2025-01-24 16:00] VITALS: BP 148/89; PULSE 68; RESP 18; TEMP 36.3; O2SAT 96
[2025-01-24 20:00] VITALS: BP 121/56; PULSE 108; RESP 20; TEMP 36.9; O2SAT 96
[2025-01-25] VITALS (9 sets, daily range): BP systolic 105–154; BP diastolic 51–74; PULSE 86–109; RESP 14–26; TEMP 35.9–36.8; O2SAT 92–98
[2025-01-25 07:43] LABS: Creatinine Clr Calc Pharmacy 58.4; Estimated Glomerular Filt Rate > 60
[2025-01-25] MEDS: buPROPion HCl XL 300 MG TAB.ER.24H PO (08:47)
[2025-01-25] MEDS: Aspirin Enteric Coated 81 MG TABLET.DR PO (08:47)
[2025-01-25] MEDS: Sodium Chloride Tab 1 GM TABLET PO (08:47)
[2025-01-25] MEDS: 0.9 % Sodium Chloride Flush 3 ML SYRINGE IVFLUSH (08:48)
[2025-01-25] MEDS: Calcitonin,Salmon,Synth Nasal 3.7 ML BOTTLE 1 SPRAY NOSTRILALT (09:23)
--- NOTE | 2025-01-25 09:28 | HO.PM.IMPN ---
Subjective Subjective Date of Service: 01/25/25 Interval History: Patient seen and examined at bedside this morning, patient more somnolent, with recent CT scan show anterior sternal fracture, pneumonia, awaiting labs. Review of Systems Review of Systems: Yes all other systems are reviewed and are negative Physical Exam Exam: Exam: General: Somnolent, ill appearing Head: AT/NC ENT: Moist mucous membranes Neck: supple CVS; RRR, S1 S2 normal Lungs: Clear bilateral breath sounds, no wheezes or crackles Abd: Soft non tender, non distended Ext: No edema and no calf tenderness MSK: moving all 4 limbs, tender to superficial palpation on chest Skin: No cyanosis or edema Psych: Cooperative with exam Neurology: no focal deficit Vital Signs: Vital Signs: Last Vital Signs Temp 97.7 F 01/25/25 07:47 Pulse 86 01/25/25 07:47 Resp 16 01/25/25 07:47 BP 108/51 L 01/25/25 07:47 Pulse Ox 98 01/25/25 07:47 O2 Del Method Nasal Cannula 01/25/25 07:47 O2 Flow Rate 3 01/25/25 07:47 BMI result Body Mass Index 40.3 Objective Data Active Medications Acetaminophen (Acetaminophen 325 Mg Tablet) 650 mg PO Q6H PRN PRN Reason: Pain, Mild 1-3,fever,headache Last Admin: 01/22/25 15:36 Dose: 650 mg Documented By: DORA Ascorbic Acid (Ascorbic Acid 500 Mg Tablet) 500 mg PO DAILY [facility] Last Admin: 01/25/25 08:47 Dose: 500 mg Documented By: CAT Aspirin (Aspirin Enteric Coated 81 Mg Tablet.) 81 mg PO DAILY [facility] Last Admin: 01/25/25 08:47 Dose: 81 mg Documented By: CAT Atorvastatin Calcium (Atorvastatin Calcium 20 Mg Tablet) 20 mg PO DAILY [facility] Last Admin: 01/25/25 08:47 Dose: 20 mg Documented By: CAT Bupropion HCl (Bupropion Hcl Xl 300 Mg Tab.Er.24h) 300 mg PO DAILY [facility] Last Admin: 01/25/25 08:47 Dose: 300 mg Documented By: CAT Calcitonin [place] (Calcitonin,[place],Synth Nasal 3.7 Ml Bottle) 1 spray NOSTRILALT DAILY [facility] Last Admin: 01/25/25 09:23 Dose: 1 spray Documented By: CAT Calcium Carbonate (Calcium Carbonate 750 Mg Tab.Chew) 750 mg PO Q4H PRN PRN Reason: Heartburn Heparin Sodium (Porcine) (Heparin Sodium,Porcine 5,000 Unit/Ml Vial) 5,000 unit SUBCUT Q12H [facility] Last Admin: 01/25/25 08:47 Dose: 5,000 unit Documented By: CAT Sodium Chloride (Ns) 1,000 mls @ 80 mls/hr IVCONT .[id number] [facility] Last Admin: 01/25/25 02:16 Dose: 80 mls/hr Documented By: CATARINO Vancomycin HCl 1,500 mg/ (Sodium Chloride) 500 mls @ 333.333 mls/hr IV Q24H [facility] Lidocaine (Lidocaine 4 % Patch Adh..Patch) 1 patch TRANSDERMA DAILY PRN PRN Reason: Back Pain Lisinopril (Lisinopril 5 Mg Tablet) 5 mg PO DAILY [facility]; Protocol Last Admin: 01/25/25 08:47 Dose: 5 mg Documented By: CAT Magnesium Hydroxide (Milk Of Magnesia 30 Ml Oral.Susp) 30 ml PO DAILY PRN PRN Reason: Constipation Melatonin (Melatonin 3 Mg Tablet) 6 mg PO BEDTIME PRN PRN Reason: Insomnia Last Admin: 01/22/25 21:17 Dose: 6 mg Documented By: ABY Meropenem (Meropenem 1 Gm Vial) 1 gm IVPUSH Q8H [facility] Last Admin: 01/25/25 05:28 Dose: 1 gm Documented By: CATARINO Oxycodone HCl (Oxycodone Hcl Immed Release 5 Mg Tablet) 5 mg PO Q6H PRN PRN Reason: Pain, Severe (Pain Scale 7-10) Last Admin: 01/24/25 08:17 Dose: 5 mg Documented By: ZAINAB Pharmacy Consult (Consult Rx Vancomycin Dosing) 1 each MISCELLANE DAILY PRN PRN Reason: Consult order Sodium Chloride (0.9 % Sodium Chloride Flush 3 Ml Syringe) 3 ml IVFLUSH QSHIFT [facility] Last Admin: 01/25/25 08:48 Dose: 3 ml Documented By: CAT Sodium Chloride (Sodium Chloride Tab 1 Gm Tablet) 1 gm PO TID [facility] Last Admin: 01/25/25 08:47 Dose: 1 gm Documented By: CAT Vitamin D (Cholecalciferol (Vitamin D3) 25 Mcg Tablet) 25 mcg PO DAILY [facility] Last Admin: 01/25/25 08:47 Dose: 25 mcg Documented By: CAT Labs 01/25/25 08:57 01/25/25 08:56 Labs: Laboratory Results - last 24 hr 01/24/25 01/24/25 01/25/25 08:21 10:04 07:13 MCV 86.3 MCH 27.9 MCHC 32.4 RDW 12.6 Plt Count 305 MPV 10.6 Immature Gran % (Auto) 1.2 H Neut % (Auto) 80.6 H Lymph % (Auto) 1.7 L [place] % (Auto) 16.2 H Eos % (Auto) 0.0 Baso % (Auto) 0.3 Lymph # (Auto) 0.5 L [place] # (Auto) 5.0 H Eos # (Auto) 0.0 Baso # (Auto) 0.1 Abs Immat Gran (auto) 0.37 H Absolute Neuts (auto) 24.6 H Absolute Nucleated RBC 0.000 Nucleated RBC % (auto) 0.0 Smear Tech's Comments VERIFIED Hold Purple Top SEE NOTE Estim Creat Clear Calc 58.4 Estimated GFR > 60 Magnesium 1.9 Procalcitonin 0.06 Assessment and Plan (1) Acute metabolic encephalopathy: Status: Acute (2) Thoracic spine fracture: Status: Acute Plan 89-year-old female with a past medical history significant for dementia, anxiety / depression, anemia, hypertension, hyperlipidemia, obesity, murmur and insomnia, who presented to the ED due to a fall. Plan to admit patient to medical service at this time due to continued acute metabolic encephalopathy with weakness secondary to UTI. Patient was also found to have subacute thoracic spine fractures. developed worsening leukocytosis despite being on antibiotics Sepsis, multiactorial in the setting of UTI and Pneumonia Toxic metabolic encephalopathy, worsened Leukocytosis, worsening Pneumonia Urine culture positive for enterococcus and E coli Chest CT on 01/24 showing bilateral posterior lower lung field consolidation, pneumonia. Acute fracture of the anterior sternum, cardiomegaly with pulmonary vascular congestion, abdominal CT with cholelithiasis, hepatomegaly Continue meropenem and vancomycin for enterococcus. Continue NS given improvement of sodium, and NS contains 154meq of sodium Repeat blood cultures ordered, procal ordered CT chest,abdomen and pelvis with contrast ordered, given worsening leukycotosis ID and Hematology/oncology consulted mechanical fall subacute thoracic spine fractures likely secondary to above Anterior sternum fracture pain management lidocaine patch Spine surgery consulted Acute hyponatremia, improving, likely secondary to SIADH from pain na 128->131-132 continue salt tablets continue NS 0.9% at decreased rate, continue salt tablets Nephrology following anxiety/depression continue home meds HTN continue blood pressure medications HLD continue home meds class 2 obesity weight loss encouraged DNR/DNI VTE prophylaxis: heparin Total time managing care of this patient today: 55 minutes. Quality Stroke Does the patient have a stroke diagnosis?: No VTE Prior VTE?: No VTE Risk Level:: Medical - moderate - high VTE Device Contraindication: Treatment Not Indicated VTE Drug Contraindication: N/A - Med Ordered
[2025-01-25 09:34] LABS: Hematocrit 43.0 % (37.0-47.0); Hemoglobin 13.2 g/dl (12.0-16.0); Mean Corpuscular HGB Conc 30.7 g/dl (31.0-35.0); Mean Corpuscular Hemoglobin 27.7 pg (27.0-33.0); Mean Corpuscular Volume 90.1 fL (80.0-98.0); NRBC Abs Auto 0.000 X10*3/uL (0.0-0.012); NRBC Pct Auto 0.0 /100WBC (0.0-0.2); Platelet Count 310 X10*3/uL (160-400); Red Blood Count 4.77 X10*6/uL (4.20-5.50)
[2025-01-25 09:40] LABS: White Blood Count 39.6 X10*3/uL (4.8-10.8)
[2025-01-25 09:44] LABS: Anion Gap 14 (12-20); Blood Urea Nitrogen 16 mg/dL (9-16); Calcium 9.4 mg/dL (8.4-10.2); Carbon Dioxide 28 mmol/L (22-29); Chloride 96 mmol/L (96-108); Creatinine Clr Calc Pharmacy 61.0; Estimated Glomerular Filt Rate > 60; Potassium 4.2 mmol/L (3.3-5.1); Sodium 134 mmol/L (135-145)
--- NOTE | 2025-01-25 11:08 | MHC.CM.PN ---
Per ROUNDS, Patient is not yet medically cleared for dc (2 IV ABX).
--- NOTE | 2025-01-25 16:26 | P.CNHO_ITS ---
Subjective - Subjective Chief complaint: Consult for: Leukocytosis. Patient: new to practice Consult date: 01/25/25 Requesting Physician: Val Easley. Primary Care Provider: Roberto Kenney MD Family Provider: Roberto Kenney MD Medical Summary: DIAGNOSIS: LEUKOCYTOSIS. Audio Visual Aids Director Utilized?: No - Setswana Speaking HPI - Consult Narrative Reason for consult: Consult for: Leukocytosis. Narrative: Mary Beth Chaevz is a 89 year old lady admitted on 01/22 after a fall. The patient was just discharged from the ED an hour prior to returning. The patient was therefore observation diagnosed with a UTI and sent home with visiting nursing services coordinated with case management. The patient reported that she was getting out of the car too quickly but further wheelchair was ready and fell. After her fall she experienced chest pain but did not experiences prior to her fall. No head strike or loss of consciousness. Chest pain is reproducible on exam. She was also found to have subacute thoracic spine fractures. She was admitted due to continued acute metabolic encephalopathy with weakness secondary to UTI. She has also been noted to have pneumonia. Patient is unable to provide much history on account of dementia. Medical History: Dementia, Anxiety / depression, Anemia, hypertension, hyperlipidemia, obesity, murmur and insomnia. Transient ischemic attack (TIA) Depression Morbid obesity with BMI of 40.0-44.9, adult Dementia Impaired fasting glucose Primary insomnia Seasonal allergic rhinitis Vitamin D deficiency Cardiac murmur Pure hypercholesterolemia Benign essential hypertension Functional capacity: wheelchair bound Surgical History: History of bilateral tubal ligation History of cataract surgery History of nasal surgery History of lumpectomy of right breast History of tonsillectomy Family History: Father Prostate cancer Mother Lung cancer Bone cancer Social History;) Household Members: Family Housing: House Unable to assess alcohol history related to: Unknown Alcohol intake: never Patient Tobacco Use Status: Former Tobacco user Tobacco use type: Cigarette e-Cigarette/Vaping Use: Never Used Second Hand Smoke Exposure: Yes Medical history significant for: Review of Systems - Constitutional Reports system reviewed and no additional complaints, except as documented - Eyes Reports system reviewed and no additional complaints, except as documented - ENT Reports system reviewed and no additional complaints, except as documented - Cardiovascular Reports system reviewed and no additional complaints, except as documented - Respiratory Reports no additional respiratory complaints - Gastrointestinal Reports system reviewed and no additional complaints, except as documented - Genitourinary Reports no additional female genitourinary complaints - Musculoskeletal Reports system reviewed and no additional complaints, except as documented - Integumentary/Breasts Skin/Breast: Reports no additional skin complaints - Neurologic Reports frequent falls, Denies vertigo, Denies dizziness, Denies headache(s) - Psychiatric Reports system reviewed and no additional complaints, except as documented - Endocrine Reports no additional endocrine complaints - Hematologic/Lymphatic Reports system reviewed and no additional complaints, except as documented - Allergic/Immunologic Reports system reviewed and no additional complaints, except as documented Oncology Screenings - ECOG Performance Status ECOG Performance Status: 2 [facility] Medical History: Medical History (Last Reviewed 01/23/25 @ 20:51 by Scarlett Mcleod RN) Benign essential hypertension Cardiac murmur Dementia Depression Impaired fasting glucose Morbid obesity with BMI of 40.0-44.9, adult Primary insomnia Pure hypercholesterolemia Seasonal allergic rhinitis Transient ischemic attack (TIA) Vitamin D deficiency Functional capacity: wheelchair bound Family History: Family History (Last Reviewed 01/23/25 @ 20:51 by Scarlett Mcleod RN) Father Prostate cancer Mother Lung cancer Bone cancer Surgical History: Surgical History (Last Reviewed 01/23/25 @ 20:51 by Scarlett Mcleod RN) History of bilateral tubal ligation History of cataract surgery History of lumpectomy of right breast History of nasal surgery History of tonsillectomy Social History: Social History (Last Reviewed 01/22/25 @ 05:06 by Andreina Craft PA-C) Living Situation History: Household Members: Children Housing: House Do you presently have visiting nurse or other home services: No Tobacco History: Patient Tobacco Use Status: Former Tobacco user Tobacco use type: Cigarette e-Cigarette/Vaping Use: Never Used Second Hand Smoke Exposure: Yes Advance Directives: Advance Directives Date on File: 10/07/23 Occupation Assessmet: service: No Current occupational status: retired Home Medications and Allergies Current Medications: Current Medications Acetaminophen (Acetaminophen 325 Mg Tablet) 650 mg PO Q6H PRN PRN Reason: Pain, Mild 1-3,fever,headache Last Admin: 01/22/25 15:36 Dose: 650 mg Ascorbic Acid (Ascorbic Acid 500 Mg Tablet) 500 mg PO DAILY [facility] Last Admin: 01/25/25 08:47 Dose: 500 mg Aspirin (Aspirin Enteric Coated 81 Mg Tablet.Dr) 81 mg PO DAILY [facility] Last Admin: 01/25/25 08:47 Dose: 81 mg Atorvastatin Calcium (Atorvastatin Calcium 20 Mg Tablet) 20 mg PO DAILY [facility] Last Admin: 01/25/25 08:47 Dose: 20 mg Bupropion HCl (Bupropion Hcl Xl 300 Mg Tab.Er.24h) 300 mg PO DAILY [facility] Last Admin: 01/25/25 08:47 Dose: 300 mg Calcitonin Brent (Calcitonin,Brent,Synth Nasal 3.7 Ml Bottle) 1 spray NOSTRILALT DAILY [facility] Last Admin: 01/25/25 09:23 Dose: 1 spray Calcium Carbonate (Calcium Carbonate 750 Mg Tab.Chew) 750 mg PO Q4H PRN PRN Reason: Heartburn Heparin Sodium (Porcine) (Heparin Sodium,Porcine 5,000 Unit/Ml Vial) 5,000 unit SUBCUT Q12H [facility] Last Admin: 01/25/25 08:47 Dose: 5,000 unit Vancomycin HCl 1,500 mg/ (Sodium Chloride) 500 mls @ 333.333 mls/hr IV Q24H [facility] Last Infusion: 01/25/25 12:38 Dose: Infused Sodium Chloride (Ns) 1,000 mls @ 80 mls/hr IVCONT .[id number] [facility] Last Admin: 01/25/25 14:10 Dose: 80 mls/hr Fluconazole 100 mg/ IV (Miscellaneous Supplies) 50 mls @ 50 mls/hr IV Q24H [facility] Lidocaine (Lidocaine 4 % Patch Adh..Patch) 1 patch TRANSDERMA DAILY PRN PRN Reason: Back Pain Lisinopril (Lisinopril 5 Mg Tablet) 5 mg PO DAILY [facility]; Protocol Last Admin: 01/25/25 08:47 Dose: 5 mg Magnesium Hydroxide (Milk Of Magnesia 30 Ml Oral.Susp) 30 ml PO DAILY PRN PRN Reason: Constipation Melatonin (Melatonin 3 Mg Tablet) 6 mg PO BEDTIME PRN PRN Reason: Insomnia Last Admin: 01/22/25 21:17 Dose: 6 mg Meropenem (Meropenem 1 Gm Vial) 1 gm IVPUSH Q8H [facility] Last Admin: 01/25/25 13:45 Dose: 1 gm Oxycodone HCl (Oxycodone Hcl Immed Release 5 Mg Tablet) 5 mg PO Q6H PRN PRN Reason: Pain, Severe (Pain Scale 7-10) Last Admin: 01/24/25 08:17 Dose: 5 mg Pharmacy Consult (Consult Rx Vancomycin Dosing) 1 each MISCELLANE DAILY PRN PRN Reason: Consult order Sodium Chloride (0.9 % Sodium Chloride Flush 3 Ml Syringe) 3 ml IVFLUSH QSHIFT [facility] Last Admin: 01/25/25 15:04 Dose: Not Given Sodium Chloride (Sodium Chloride Tab 1 Gm Tablet) 1 gm PO TID [facility] Last Admin: 01/25/25 15:01 Dose: Not Given Vitamin D (Cholecalciferol (Vitamin D3) 25 Mcg Tablet) 25 mcg PO DAILY [facility] Last Admin: 01/25/25 08:47 Dose: 25 mcg Home Medications ?Medication ?Instructions ?Recorded ?Confirmed ?Type bupropion HCl 300 mg 24 hr tablet, 300 mg PO DAILY 12/28/19 01/22/25 Histor y extended release melatonin 10 mg tablet 10 mg PO BEDTIME PRN Sleep 12/28/1907/12 History ascorbic acid (vitamin C) 500 mg 500 mg PO DAILY 10/07/23 01/22/25 Histor y tablet (Vitamin C) cholecalciferol (vitamin D3) 25 25 mcg PO DAILY 10/07/23 01/22/25 Histor y mcg (1,000 unit) tablet (Vitamin D3) diphenhydramine HCl 25 mg capsule 25 mg PO BEDTIME PRN Sleep 10/07/2307/12 History (Benadryl) lactobacillus combination no.9 4 4,000 mmu cells PO Q48H 07/30/24 5 History billion cell capsule (Adult 50 Plus Probiotic) lidocaine 5 % topical patch 1 patch topical DAILY PRN Back Pain 05/1201/22/25 History magnesium glycinate 100 mg (as 200 mg PO Q48H 01/20/25 01/22/25 History glycinate) tablet naproxen sodium 220 mg tablet 220 mg PO Q8H PRN Back Pain 01/20/2507/12 History (Aleve) cranberry extract 500 mg capsule 500 mg PO DAILY 01/22/25 01/22/25 Histor y Allergies Allergy/AdvReac Type Severity Reaction Status Date / Time penicillin G (Penicillin G) Allergy Severe Hives Verified 01/21/25 23:34 cucumber Allergy Unknown hives Verified 01/21/25 23:34 strawberry Allergy Unknown hives Verified 01/21/25 23:34 Physical Exam Vital signs: Vital Signs Temp 98.3 F 01/25/25 15:43 Pulse 92 01/25/25 15:45 Resp 20 01/25/25 15:43 BP 130/59 L 01/25/25 15:45 Pulse Ox 98 01/25/25 15:45 O2 Del Method Nasal Cannula 01/25/25 15:43 O2 Flow Rate 3 01/25/25 15:43 Intake & Output 01/24/25 01/25/25 01/25/25 18:59 06:59 18:59 Intake Total 1700 / 2871.667 1171.667 / 2871.667 1510 / 1510 Output Total 300 / 1000 700 / 1000 300 / 300 Balance 1400 / 1871.667 471.667 / 9413.932 9822 / 1210 Urine Output (Average ml/kg/hr) 0.27 0.62 0.27 Intake: Intake, Oral Amount 200 / 520 320 / 520 60 / 60 Intake, Oral Supplement Amount 1 / 1 Intake, IV Amount 1500 / 2350.667 850.667 / 2350.667 1450 / 1450 vancomycin HCL 1,500 mg In 0.9 500 / 500 % Sodium Chloride 500 ml @ 333. 333 mls/hr IV Q24H [facility] Rx#: [id number] vancomycin/NS 2,000 mg In 500 500 / 500 ml @ 250 mls/hr IV ONCE ONE Rx# :[id number] 0.9 % Sodium Chloride 1,000 ml 1000 / 1850.667 850.667 / 1850.667 950 / 950 @ 80 mls/hr IVCONT .[id number] [facility] Rx#:[id number] Output: Output, Urine Amount 100 / 800 700 / 800 Output, Urine Amount (Catheter) 200 / 200 300 / 300 Female External 200 / 200 300 / 300 Other: Meal Refused Yes Breakfast % Eaten 0% 25% Lunch % Eaten 0% 0% Eating (Feeding) Ability 1:1 Feed Number of Incontinent Voids 1 Number of Bowel Movements 0 Urine purewick Urinal Urine Color Yellow Concentrated Weight 93.5 kg - Constitutional Present: mild distress - Routine HEENT Exam Head: Present: atraumatic, normocephalic ENT: Present: mucous membranes moist - Routine Neck Exam Present: supple Hem/Onc Consult Result - Labs CBC & Chem 7: 01/26/25 05:23 01/26/25 05:23 Labs: Short CBC 01/25/25 Range/Units 08:57 WBC 39.6 H* (4.8-10.8) X10*3/uL Hgb 13.2 (12.0-16.0) g/dl Hct 43.0 (37.0-47.0) % Plt Count 310 (160-400) X10*3/uL BMP 01/25/25 01/25/25 07:13 08:56 Sodium 134 L Potassium 4.2 Chloride 96 Carbon Dioxide 28 BUN 16 Creatinine 0.68 0.65 Calcium 9.4 Assessment and Plan Patient Active problem list reviewed?: Yes (1) Leukocytosis Status: Acute Assessment and plan: This is an unfortunate 89-year-old lady who has presented after a fall. She has been noted to have spinal fractures. She is being treated for UTI/ urosepsis, and pneumonia. She has been noted to have leukocytosis. DATABASE: CAT scan of the chest abdomen pelvis from 01/24: 1. Bilateral posterior lower lung field consolidations, pneumonia and small pleural effusions were not present on the previous exam. 2. Possible hemodynamically significant stenosis of the right carotid artery. 3. Acute fracture of the anterior sternum not present on previous exam . 4. Cardiomegaly with pulmonary vascular congestion. 1. Cholelithiasis. 2. Large hiatal hernia. 3. The liver is enlarged. 4. Gas-filled small and large bowel with stool and gas throughout the colon and rectum, without zone of transition most consistent with adynamic ileus. Follow-up x-ray recommended to document progression or resolution of this abnormal bowel-gas pattern. 5. Bilateral posterior gravity dependent lower lung field consolidation/pneumonia. Serial WBC counts: 01/19:14. 01/22: 28. 01/23: 29. 01/24: 30. 01/25: 39.6. DIFFERENTIAL DIAGNOSIS: 1. LEUKAMOID REACTION: This is most likely. She is suffering from a UTI/SIRS, and pneumonia. 2. 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 PLAN: I will proceed with further evaluation. Check BCR-ABL gene transcript. Check flow cytometry on the peripheral blood. Meanwhile continue to treat her infection as you are doing. Will monitor her white count carefully over time. Thank you for the consult, I will follow along with you, CC: Dr. Roberto Kenney. - Time Spent With Patient Time Spent with Patient (in minutes): 30
[2025-01-25] MEDS: Fluconazole in NaCl,Iso-Osm 100 MG in Container,Empty 0 ML 50 MG IV (17:15)
[2025-01-25] MEDS: iohexoL 350 MG/ML 100 ML INFUS..BTL 85 ML IV (21:53)
--- NOTE | 2025-01-25 22:28 | P.CNID_ITS ---
History of Present Illness Data of Consult Service Date: 01/25/25 Requesting physician: Kulwant Fitzpatrick Primary Care Provider: MD MAXINE Stack Reason for consult: profound leukocytosis She has some nausea and weakness for three days She is on Merem and Vancomyin Review of Systems 2 Review of Systems: Yes all other systems are reviewed and are negative PMFSH Past Medical History Medical History Transient ischemic attack (TIA) Depression Morbid obesity with BMI of 40.0-44.9, adult Dementia Impaired fasting glucose Primary insomnia Seasonal allergic rhinitis Vitamin D deficiency Cardiac murmur Pure hypercholesterolemia Benign essential hypertension Family History Family History Father Prostate cancer Mother Lung cancer Bone cancer Surgical History Surgical History History of bilateral tubal ligation History of cataract surgery History of nasal surgery History of lumpectomy of right breast History of tonsillectomy Social History Social History Household Members: Children Housing: House Do you presently have visiting nurse or other home services: No Unable to assess alcohol history related to: Unknown Alcohol intake: never Patient Tobacco Use Status: Former Tobacco user Tobacco use type: Cigarette e-Cigarette/Vaping Use: Never Used Second Hand Smoke Exposure: Yes Use of substances other than those prescribed or required for medical reasons: No Currently Displaying Signs/Symptoms of Drug Intoxication Withdrawal: No Advance Directives: Yes Advance Directives on File: Yes Advance Directives Date on File: 10/07/23 Do you have a plan to hurt others: No Plan Recently lost weight without trying: No Eating poorly because of decreased appetite: No Nutrition Risks: No Nutritional Risk Patient : No service: No Current occupational status: retired Cognitive needs: No Hearing needs: No Vision needs: Yes Meds Allergies Allergy/AdvReac Type Severity Reaction Status Date / Time penicillin G (Penicillin G) Allergy Severe Hives Verified 01/21/25 23:34 cucumber Allergy Unknown hives Verified 01/21/25 23:34 strawberry Allergy Unknown hives Verified 01/21/25 23:34 Active Medications: Current Medications Acetaminophen (Acetaminophen 325 Mg Tablet) 650 mg PO Q6H PRN PRN Reason: Pain, Mild 1-3,fever,headache Last Admin: 01/22/25 15:36 Dose: 650 mg Ascorbic Acid (Ascorbic Acid 500 Mg Tablet) 500 mg PO DAILY [facility] Last Admin: 01/25/25 08:47 Dose: 500 mg Aspirin (Aspirin Enteric Coated 81 Mg Tablet.Dr) 81 mg PO DAILY [facility] Last Admin: 01/25/25 08:47 Dose: 81 mg Atorvastatin Calcium (Atorvastatin Calcium 20 Mg Tablet) 20 mg PO DAILY [facility] Last Admin: 01/25/25 08:47 Dose: 20 mg Bupropion HCl (Bupropion Hcl Xl 300 Mg Tab.Er.24h) 300 mg PO DAILY [facility] Last Admin: 01/25/25 08:47 Dose: 300 mg Calcitonin [place] (Calcitonin,[place],Synth Nasal 3.7 Ml Bottle) 1 spray NOSTRILALT DAILY [facility] Last Admin: 01/25/25 09:23 Dose: 1 spray Calcium Carbonate (Calcium Carbonate 750 Mg Tab.Chew) 750 mg PO Q4H PRN PRN Reason: Heartburn Heparin Sodium (Porcine) (Heparin Sodium,Porcine 5,000 Unit/Ml Vial) 5,000 unit SUBCUT Q12H [facility] Last Admin: 01/25/25 20:37 Dose: 5,000 unit Vancomycin HCl 1,500 mg/ (Sodium Chloride) 500 mls @ 333.333 mls/hr IV Q24H [facility] Last Infusion: 01/25/25 12:38 Dose: Infused Sodium Chloride (Ns) 1,000 mls @ 80 mls/hr IVCONT .[id number] [facility] Last Admin: 01/25/25 14:10 Dose: 80 mls/hr Fluconazole 100 mg/ IV (Miscellaneous Supplies) 50 mls @ 50 mls/hr IV Q24H [facility] Last Infusion: 01/25/25 18:16 Dose: Infused Lidocaine (Lidocaine 4 % Patch Adh..Patch) 1 patch TRANSDERMA DAILY PRN PRN Reason: Back Pain Lisinopril (Lisinopril 5 Mg Tablet) 5 mg PO DAILY [facility]; Protocol Last Admin: 01/25/25 08:47 Dose: 5 mg Magnesium Hydroxide (Milk Of Magnesia 30 Ml Oral.Susp) 30 ml PO DAILY PRN PRN Reason: Constipation Melatonin (Melatonin 3 Mg Tablet) 6 mg PO BEDTIME PRN PRN Reason: Insomnia Last Admin: 01/22/25 21:17 Dose: 6 mg Meropenem (Meropenem 1 Gm Vial) 1 gm IVPUSH Q8H [facility] Last Admin: 01/25/25 20:37 Dose: 1 gm Oxycodone HCl (Oxycodone Hcl Immed Release 5 Mg Tablet) 5 mg PO Q6H PRN PRN Reason: Pain, Severe (Pain Scale 7-10) Last Admin: 01/24/25 08:17 Dose: 5 mg Pharmacy Consult (Consult Rx Vancomycin Dosing) 1 each MISCELLANE DAILY PRN PRN Reason: Consult order Sodium Chloride (0.9 % Sodium Chloride Flush 3 Ml Syringe) 3 ml IVFLUSH QSHIFT [facility] Last Admin: 01/25/25 15:04 Dose: Not Given Sodium Chloride (Sodium Chloride Tab 1 Gm Tablet) 1 gm PO TID [facility] Last Admin: 01/25/25 20:48 Dose: Not Given Vitamin D (Cholecalciferol (Vitamin D3) 25 Mcg Tablet) 25 mcg PO DAILY [facility] Last Admin: 01/25/25 08:47 Dose: 25 mcg Home Medications ?Medication ?Instructions ?Recorded ?Confirmed ?Last Taken ?Type bupropion HCl 300 mg 24 hr tablet, 300 mg PO DAILY 11/0701/22/25 01/19/25 History extended release melatonin 10 mg tablet 10 mg PO BEDTIME PRN Sleep 1 02/26/19 01/22/25 Unknown History ascorbic acid (vitamin C) 500 mg 500 mg PO DAILY 10/0601/22/25 01/19/25 History tablet (Vitamin C) cholecalciferol (vitamin D3) 25 25 mcg PO DAILY 01/22/25 01/19/25 History mcg (1,000 unit) tablet (Vitamin D3) diphenhydramine HCl 25 mg capsule 25 mg PO BEDTIME PRN Sleep 10/07/23 01/22/25 Unknown History (Benadryl) lactobacillus combination no.9 4 4,000 mmu cells PO Q4 8H 07/30/24 01/22/25 3 Days Ago History billion cell capsule (Adult 50 ~01/19 Plus Probiotic) lidocaine 5 % topical patch 1 patch topical DAILY PRN Back Pain 01/20/25 01/22/25 Unknown History magnesium glycinate 100 mg (as 200 mg PO Q48H 01/20/25 01/22/25 3 Days Ago History glycinate) tablet ~01/19/25 naproxen sodium 220 mg tablet 220 mg PO Q8H PRN Back P ain 01/20/25 01/22/25 Unknown History (Aleve) cranberry extract 500 mg capsule 500 mg PO DAILY 01/2201/22/25 01/19/25 History Physical Exam 2 Vital Signs: Vital Signs: Last Vital Signs Temp 97.6 F 01/25/25 20:00 Pulse 109 H 01/25/25 20:00 Resp 18 01/25/25 20:00 BP 154/68 H 01/25/25 20:00 Pulse Ox 92 01/25/25 20:00 O2 Del Method Nasal Cannula 01/25/25 20:00 O2 Flow Rate 3 01/25/25 20:00 BMI result Body Mass Index 40.3 Const: General: cooperative HEENT: Head: Yes normal to inspection Face and sinus: Yes normal facial exam Mouth: Normal oral and palatal mucosa present Teeth and gingiva: d entition normal Eyes: General: appearance normal, both eyes and all related structures P upils: Equal, round and reactive pupils present Resp: Effort & Inspection: normal respiratory effort Cardio: Rate: regular rate Rhythm: regular rhythm GI: Palpation (GI): Soft to palpation and nontender : General: Yes no CVA tenderness Back/Spine/Pelvis: Back: no CVA tenderness Skin: General skin exam: no rashes or lesions noted Neuro: General: moves all extremities Cranial nerves: Yes Equal, round and reactive pupils present Extrem: General: Yes normal to inspection Psych: Appearance: grossly normal Results Labs 01/25/25 08:57 01/25/25 08:56 Labs: Short CBC 01/25/25 Range/Units 08:57 WBC 39.6 H* (4.8-10.8) X10*3/uL Hgb 13.2 (12.0-16.0) g/dl Hct 43.0 (37.0-47.0) % Plt Count 310 (160-400) X10*3/uL BMP 01/25/25 01/25/25 07:13 08:56 Sodium 134 L Potassium 4.2 Chloride 96 Carbon Dioxide 28 BUN 16 Creatinine 0.68 0.65 Calcium 9.4 Microbiology Microbiology Results: Microbiology 01/24/25 10:12 Blood - Venous Blood Culture - Preliminary No growth after 24 hours. 01/24/25 10:04 Blood - Venous Blood Culture - Preliminary No growth after 24 hours. 01/22/25 01:14 Blood - Venous Blood Culture - Preliminary No growth after 48 hours. 01/22/25 00:56 Blood - Venous Blood Culture - Preliminary No growth after 48 hours. Assessment and Plan (1) Depression: Qualifiers: Depression Type: major depressive disorder Major depression recurrence: recurrent Active/Remission status: currently active Major depression episode severity: unspecified Qualified Code(s): F33.9 - Major depressive disorder, recurrent, unspecified Status: Acute (2) Leukocytosis: Status: Acute Plan Symptoms likely due to leukemoid reaction Chek head CT evaluate abscess Add Diflucan 100 mg daily alexander daily See Hemto;ogy
[2025-01-25 22:53] LABS: Venous Blood Gas Refer to POC result
[2025-01-25 22:57] LABS: VBG HCO3 28 mmol/L (22-26); VBG O2 % Saturation 100.0 %
[2025-01-25 22:58] LABS: Ammonia 69 umol/L (13-55)
--- NOTE | 2025-01-25 23:32 | PM.EVENT ---
Event Note Date of Service: 01/25/25 Event Note: wrosening mentals status, cth unremarkable, vbg with acute hypercapneic respiratory failure, will give trial of bipap Time Spent With Patient Time: Total time managing care of this patient today ____ minutes.
[2025-01-26] VITALS (27 sets, daily range): BP systolic 100–145; BP diastolic 35–61; PULSE 84–141; RESP 0–32; TEMP 36.3–36.9; O2SAT 87–99; BMI 40.9
[2025-01-26 01:43] LABS: Venous Blood Gas Refer to POC result
[2025-01-26 01:44] LABS: VBG HCO3 29 mmol/L (22-26); VBG O2 % Saturation 100.0 %
[2025-01-26 03:40] LABS: Glucose, Whole Blood 121 mg/dL (60-115)
--- NOTE | 2025-01-26 04:29 | P.ACPN_ITS ---
Advanced Care Planning Note Advanced Care Planning Note Discussed with: family member(s) Time spent (in minutes): 30 Narrative: I spoke with [facility] proxy, Candace Chavez [phone] by phone to provide a clinical update and notification of transfer to the ICU. Events of the evening were discussed. All questions and concerns were addressed. Candace opted to come to the hospital to be with her mother. I introduced myself to Candace and offered updates and clarifications; we re-discussed code status, after which Ms. Navass daughter re-stated that Deborah Chavez is DNR/DNI. She expressed understanding of the gravity of Stephanies illness and acknowledged that she was likely in the final stages of life. I briefly spoke about comfort- focused care, but given that Ms. Chavez has only been in the ICU a short time, it is reasonable to continue medical management at this time.? Problems Discussed (1) Depression: (2) Leukocytosis:
--- NOTE | 2025-01-26 05:07 | PC.NURSE ---
On assessment patient somnolent and unresponsive. Hospitalist notified and came to patient's bedside. Vital signs T 96.7, BP 105/52, RR 26 O2 sat 94%on O2 3L NC. Following patient went for head CT and lab work done as ordered. VBG results indicating patient in need of bipap. RT place pt on bipap ,1:1 sitter at bedside . VBG's repeated a few hours later with only slight improvement. Minimal improvement in patient's MS. ICU consulted and decision made to transfer to ICU for rescue bipap. Report given to CONDOMINI[employer] MANAGER.
[2025-01-26 05:29] LABS: VBG HCO3 30 mmol/L (22-26); VBG O2 % Saturation 62.0 %
[2025-01-26 05:29] LABS: Venous Blood Gas Refer to POC result
[2025-01-26 05:32] LABS: Hematocrit 43.7 % (37.0-47.0); Hemoglobin 13.1 g/dl (12.0-16.0); Mean Corpuscular HGB Conc 30.0 g/dl (31.0-35.0); Mean Corpuscular Hemoglobin 27.4 pg (27.0-33.0); Mean Corpuscular Volume 91.4 fL (80.0-98.0); NRBC Abs Auto 0.000 X10*3/uL (0.0-0.012); NRBC Pct Auto 0.0 /100WBC (0.0-0.2); Platelet Count 344 X10*3/uL (160-400); Red Blood Count 4.78 X10*6/uL (4.20-5.50)
[2025-01-26 05:36] LABS: White Blood Count 37.9 X10*3/uL (4.8-10.8)
[2025-01-26 05:47] LABS: Alanine Aminotransferase 13 U/L (0-31); Albumin Level 3.2 g/dL (3.5-5.0); Alkaline Phosphatase 107 U/L (39-117); Anion Gap 14 (12-20); Aspartate Amino Transferase 26 U/L (5-31); Blood Urea Nitrogen 25 mg/dL (9-16); Calcium 9.4 mg/dL (8.4-10.2); Carbon Dioxide 29 mmol/L (22-29); Chloride 99 mmol/L (96-108); Creatinine Clr Calc Pharmacy 31.3; Estimated Glomerular Filt Rate 39; Magnesium 2.2 mg/dL (1.6-2.6); Potassium 4.6 mmol/L (3.3-5.1); Sodium 137 mmol/L (135-145); Total Protein 6.3 g/dL (6.5-8.0)
--- NOTE | 2025-01-26 07:10 | HO.SKINPHOTO ---
Location: Coccyx Category:?PI Foam applied Location: Right thigh Category: Bruising
--- NOTE | 2025-01-26 07:44 | P.PNCC_ITS ---
Subjective Subjective Date of Service: 01/26/25 Interval History: admitted 01/26 AM d/t persistent somnolence, likely d/t hypercapnea necessitating non-invasive ventilation Critical Care Time (minutes): 60 Physical Exam 2 Vital Signs: Vital Signs: Last Vital Signs Temp 97.4 F 01/26/25 03:40 Pulse 87 01/26/25 07:00 Resp 25 H 01/26/25 07:00 BP 139/45 L 01/26/25 07:00 Pulse Ox 95 01/26/25 07:00 O2 Del Method BiPAP 01/26/25 07:00 O2 Flow Rate 3 01/25/25 23:25 FiO2 30 01/26/25 07:00 BMI result Body Mass Index 40.9 Const: Other: somnolent General: no acute distress HEENT: Head: Yes normal to inspection, Yes normocephalic and Yes atraumatic Eyes: General: appearance normal, both eyes and all related structures Neck: Neck: Yes normal visual inspection, Yes full ROM, Yes no meningeal signs, Yes trachea midline and Yes supple Chest: Chest palpation & inspection: normal inspection of the chest Resp: Other: diminished breath sounds bilateral; no appreciable overt rales, rhonchi, wheezing Cardio: Rate: regular rate Rhythm: regular rhythm GI: Inspection: Yes normal to inspection, No Abdominal wall edema and No distended Palpation (GI): Soft to palpation, not firm, nontender, no guarding and not rigid Skin: General skin exam: no rashes or lesions noted Neuro: General: tone normal and no meningeal signs Extrem: Other: appreciable 1+ pitting edema to bilateral shins General: Yes normal to inspection, Yes full ROM and Yes capillary refill normal Psych: Appearance: grossly normal Objective Data Labs 01/26/25 05:23 01/26/25 05:23 Labs: Laboratory Results - last 24 hr 01/25/25 01/25/25 01/25/25 07:13 08:56 08:57 WBC 39.6 H* RBC 4.77 Hgb 13.2 Hct 43.0 MCV 90.1 MCH 27.7 MCHC 30.7 L RDW 13.0 Plt Count 310 MPV 10.8 Absolute Nucleated RBC 0.000 Nucleated RBC % (auto) 0.0 VBG pH VBG pCO2 VBG pO2 VBG HCO3 VBG O2 Saturation VBG Base Excess Sodium 134 L Potassium 4.2 Chloride 96 Carbon Dioxide 28 Anion Gap 14 BUN 16 Creatinine 0.68 0.65 Estim Creat Clear Calc 58.4 61.0 Estimated GFR > 60 > 60 POC Glucose Random Glucose 121 H Lactic Acid Calcium 9.4 Phosphorus Magnesium Total Bilirubin AST ALT Alkaline Phosphatase Ammonia Total Protein Albumin 01/25/25 01/25/25 01/26/25 22:43 22:51 01:38 WBC RBC Hgb Hct MCV MCH MCHC RDW Plt Count MPV Absolute Nucleated RBC Nucleated RBC % (auto) VBG pH 7.26 L 7.27 L VBG pCO2 62 63 VBG pO2 187 195 VBG HCO3 28 H 29 H VBG O2 Saturation 100.0 100.0 VBG Base Excess 0.1 1.2 Sodium Potassium Chloride Carbon Dioxide Anion Gap BUN Creatinine Estim Creat Clear Calc Estimated GFR POC Glucose Random Glucose Lactic Acid 1.0 Calcium Phosphorus Magnesium Total Bilirubin AST ALT Alkaline Phosphatase Ammonia 69 H Total Protein Albumin 01/26/25 01/26/25 01/26/25 03:36 05:23 05:24 WBC 37.9 H* RBC 4.78 Hgb 13.1 Hct 43.7 MCV 91.4 MCH 27.4 MCHC 30.0 L RDW 13.1 Plt Count 344 MPV 9.6 Absolute Nucleated RBC 0.000 Nucleated RBC % (auto) 0.0 VBG pH 7.27 L VBG pCO2 65 VBG pO2 40 VBG HCO3 30 H VBG O2 Saturation 62.0 VBG Base Excess 1.6 Sodium 137 Potassium 4.6 Chloride 99 Carbon Dioxide 29 Anion Gap 14 BUN 25 H Creatinine 1.28 Estim Creat Clear Calc 31.3 Estimated GFR 39 POC Glucose 121 H Random Glucose 116 H Lactic Acid Calcium 9.4 Phosphorus 4.2 Magnesium 2.2 Total Bilirubin 0.3 AST 26 ALT 13 Alkaline Phosphatase 107 Ammonia Total Protein 6.3 L Albumin 3.2 L Microbiology Microbiology Results: Microbiology 01/24/25 10:12 Blood - Venous Blood Culture - Preliminary No growth after 24 hours. 01/24/25 10:04 Blood - Venous Blood Culture - Preliminary No growth after 24 hours. 01/22/25 01:14 Blood - Venous Blood Culture - Preliminary No growth after 48 hours. 01/22/25 00:56 Blood - Venous Blood Culture - Preliminary No growth after 48 hours. Progress Note: A&P Assessment and plan (1) Acute hypercapnic respiratory failure: Status: Acute (2) Pneumonia: Status: Acute Plan Patient is a 89 Y F w/ hypertension, hyperlipidemia, dementia, and recent diagnosis UTI, presenting to ED on 01/22 s/p mechanical fall, found to have spinal and sternal fractures, admitted medicine; hospital course c/b pneumonia; of note, patient reportedly somnolent 01/25, found to have hypercapneic respiratory failure, necessitating non-invasive ventilation N: encephalopathy, likely toxic-metabolic, to closely monitor CV: hypotension, c/f vasodilatory shock, norepinephrine gtt, wean as tolerated R: hypercapneic respiratory failure, BiPAP, wean as tolerated GI: NPO while encephalopathic/on non-invasive ventilation : acute renal insufficiency, to monitor renal indices/electrolytes H: no acute issues; chemical DVT prophylaxis ID: UTI, pneumonia on empiric vanc/diana E: no acute issues; to monitor hypo-/hyper-glycemia P: no acute issues S: DNR/DNI, daily updates given to daughter Quality Stroke Does the patient have a stroke diagnosis?: No VTE Prior VTE?: No VTE Risk Level:: Medical - moderate - high VTE Device Contraindication: N/A - Device Ordered VTE Drug Contraindication: N/A - Med Ordered
[2025-01-26] MEDS: Albumin Human 25 % 50 ML 100 ML IV (08:52)
[2025-01-26] MEDS: 0.9 % Sodium Chloride Flush 3 ML SYRINGE IVFLUSH ×2 (08:53→15:12)
[2025-01-26 09:17] LABS: VBG HCO3 28 mmol/L (22-26); VBG O2 % Saturation 79.0 %
[2025-01-26 09:20] LABS: Venous Blood Gas Refer to POC result
--- NOTE | 2025-01-26 09:48 | MHC.CM.PN ---
Pt on Bipap with multiple comorbid conditions: Family aware of pt's poor prognosis and are opting for a comfort focused care plan. Family expected to arrive this afternoon - MD aware. CM to follow for finalization of d/c planning
--- NOTE | 2025-01-26 10:35 | HE.PHANOTE ---
RE: VANCO DOSING Trough came back as 14.6 mg/L, renal function has worsened. Decrease dose to 750 mg q24h, next trough is scheduled for 01/27/25 @0900.
--- NOTE | 2025-01-26 13:17 | PM.CCN ---
Critical Care Event Note Summary Narrative: This case had a high probability of a clinically significant, sudden, or life threatening deterioration of this patient's condition which required my full and direct attention, intervention and personal management.
--- NOTE | 2025-01-26 13:51 | HO.WOUND ---
Wound Consult: Initial 89yr old?female admitted to [facility] on 01/22/25 - See progress notes and H&P for detailed history.? Wound consult placed for Coccyx concern for PI.? 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 All topical interventions should maintain patient comfort and dignity. Patient skin not assessed in person chart review and photo review completed. 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 Coccyx - Gluteal Fold Etiology: ??MASD (Moisture Associated Skin Damage - Intertrigo) Wound Bed: linear area along base of fold with red moist partial thickness tissue loss - red pink hyperpigmented tissue remains intact Drainage / Odor: none noted Edges: ? linear and irregular Delia wound: Mirrored pink Intact tissue Goals of Treatment: ? Provide comfort and maintain dignity - Foam dressing or Triad cream Recommendations: 1. Turn and Reposition every 2 hours and as needed for patient comfort.? Use pillows or wedges to support off loading positions. 2. Off Load all bony prominences with use of pillows and heel boots if needed.? Apply Preventative foams where needed. ? 3. Monitor for incontinence and moisture control, use barrier creams when needed for prevention and treatment. 4. Provide adequate and supplemental nutrition.? 5. Order low air loss mattress. 6. When applicable maintain blood glucose levels per Providers order. 7. Sacrum and Gluteal Fold - Off Load Pressure? - Cleanse with PH balance spray or wipes, pat dry. ?Apply thin layer of Triad to wound bed. Do not remove all of paste between applications as this may cause further skin damage.? Reapply thin layer PRN after each episode of incontinence. May apply foam dressing instead and change q3 days. Re-consult wound care Nurse for wound deterioration or wound changes.
[2025-01-26] MEDS: Morphine Sulfate/NS 100 MG/100 ML PLAST..BAG IVCONT (15:50)
--- NOTE | 2025-01-26 18:56 | PM.DDS ---
Discharge Sum: Prov Provider Primary care physician: Roberto Kenney MD Pronouncing clinician: Toyin Rai Discharge Sum: Diag Contributing Factors (1) Acute hypercapnic respiratory failure: (2) Pneumonia: Discharge Sum: Summary Date and Time Date of admission: 01/22/25 03:30 Date of : 01/26/25 Time of : 16:44 Summary Details: Ms. Chavez is a 89 year-old female with hypertension, hyperlipidemia, dementia, and recent diagnosis of urinary tract infection who presented to the emergency department on 01/22 following a mechanical fall; in the emergency department, Ms. Chavez was found to have spinal and sternal fractures, and subsequently admitted to medicine; Ms. Chavez's hospital course was complicated by pneumonia and hypercarbic respiratory failure on 01/25 PM necessitating non-invasive ventilation; on 01/26 AM, a goals of care conversation was had with Ms. Chavez's daughter, after which it was decided to transition Ms. Chavez to comfort-focused care; Ms. Chavez at 18:44 with her family at bedside; the physician in charge of Ms. Chavez's care is Dr. Carballo; the pronouncing physician is Dr. Rai Additional Data Confirmation of as documented by pronouncing clinician: no pulse, no respirations, no heart sounds and pupils fixed and dilated Family: at bedside Attending physician: Daisy Carballo MD
--- NOTE | 2025-01-28 08:43 | P.CDIM_ITS ---
PROVIDER RESPONSE TEXT: To clarify, the appropriate diagnosis supported by the clinical indicators: Sepsis is/was present QUERY TEXT: PHYSICIAN'S DOCUMENTATION REQUEST Date of Query: 01/28/2025 08:24 AM EST Patient Name: Mary Beth Chavez Admit Date: 01/22/2025 Dear Daisy Carballo MD, RETROSPECTIVE QUERY A review of the medical record indicates additional documentation may be needed. Please review below and update the documentation accordingly. H&P 01/22/25 - Acute metabolic encephalopathy, +SIRS, UTI. Event note 01/22/25 - Sepsis and acute toxic metabolic encephalopathy due to UTI. Continue IV Ceftriaxone, follow cultures /blood cultures. WBC 29.4 LA 1.5 Temp 97.9 HR 90 RR 22 Progress notes 01/22-01/25/25: Sepsis, multifactorial in the setting of UTI and Pneumonia. Urine culture positive for Enterococcus and E coli. ID 01/25/25 - Symptoms likely due to leukemoid reaction. Summary 01/26/25 - Acute hypercapnic respiratory failure/pneumonia. Sepsis Systemic manifestations of infection, with 2 or more SIRS criteria which include: Fever > 100.4?F or hypothermia < 96.8?F Leukocytosis - WBC > 12,000 or leukopenia, WBC < 4,000, or > 10% bands Tachycardia- > 90 beats/minute Tachypnea- RR > 20 breaths/minute or PaCO2 < 32mmHg Consistency of a diagnosis for this admission: Sepsis is/was present SIRS After study Sepsis has been ruled out for this admission Other (explain) Clinically unable to determine (explain) Thank you, Mila Santana, CCS, CDIS Use of terms such as suspected, likely, concern for, or probable (associated with a specific diagnosis that is being evaluated, monitored, or treated as if it exists) are acceptable and can be coded in the inpatient setting, when documented at the time of discharge. Please use your independent medical judgment in providing your response. THIS QUERY IS PART OF THE PERMANENT MEDICAL RECORD
[2025-01-29 18:28] LABS: Fungitell 1,3 beta glucan Negative
== END 2025-01-26 21:45 | disposition expired | DRG 871 ==
LOC: HO.ED 01-22 03:19 → HO.EDOVER 01-22 04:46 → HO.IMC 01-22 13:01 → HO.ICU 01-26 03:17
PROVIDERS: Internal Medicine; Internal Medicine Critical Care Medicine; Internal Medicine Medical Oncology; Nurse Practitioner Family; Physician Assistant; Physician Assistant Medical; Student in an Organized Health Care Education/Training Program; Admitting Provider Physician Assistant; Emergency Provider Emergency Medicine; PCP Internal Medicine; Visit Provider Internal Medicine Critical Care Medicine
DX: A41.9 Sepsis, unspecified organism (principal); G92.8 Other toxic encephalopathy; J18.9 Pneumonia, unspecified organism; J96.02 Acute respiratory failure with hypercapnia; J96.01 Acute respiratory failure with hypoxia; S22.20XA Unspecified fracture of sternum, initial encounter for closed fracture; S22.069A Unspecified fracture of T7-T8 vertebra, initial encounter for closed fracture; N39.0 Urinary tract infection, site not specified; E22.2 Syndrome of inappropriate secretion of antidiuretic hormone; F03.90 Unspecified dementia, unspecified severity, without behavioral disturbance, psychotic disturbance, mood disturbance, and anxiety; F41.9 Anxiety disorder, unspecified; F32.A Depression, unspecified; B95.2 Enterococcus as the cause of diseases classified elsewhere; E78.5 Hyperlipidemia, unspecified; I10 Essential (primary) hypertension; Z66 Do not resuscitate; Z51.5 Encounter for palliative care; E66.812 Obesity, class 2; R57.8 Other shock; B96.20 Unspecified Escherichia coli [E. coli] as the cause of diseases classified elsewhere; W19.XXXA Unspecified fall, initial encounter; Z68.37 Body mass index [BMI] 37.0-37.9, adult; Z87.891 Personal history of nicotine dependence; Z79.82 Long term (current) use of aspirin; Z79.899 Other long term (current) drug therapy
CPT/HCPCS: 36415; 70450; 70470; 71045; 71260; 72128; 74018; 74177; 80048; 80053; 80202; 81001; 81003; 81206; 81207; 82140; 82533; 82565; 82803; 82947; 83605; 83735; 83930; 83935; 84100; 84145; 84295; 84300; 84443; 84484; 84550; 85025; 85027; 87040; 87086; 87088; 87186; 87449; 88184; 88185; 93005; 94660; 97162; 99285; J0696; J1450; J1644; J1650; J2185; J2270; J3373; J3374; J3480; J7120; P9047; Q9967

== ENCOUNTER → 2025-01-21 23:30 | Outpatient (BNV) | payer MEDICARE, OTHER, SELFPAY | PROVIDERS: Admitting Provider Physician Assistant; Emergency Provider Emergency Medicine; PCP Internal Medicine; Visit Provider Internal Medicine | DX: I49.9 Cardiac arrhythmia, unspecified (principal); I44.7 Left bundle-branch block, unspecified | CPT/HCPCS: 93010 ==

== ENCOUNTER 2025-01-22 03:30 | Outpatient (BNV) | payer MEDICARE, OTHER, SELFPAY | END 2025-01-24 15:52 | PROVIDERS: Admitting Provider Physician Assistant; Emergency Provider Emergency Medicine; PCP Internal Medicine; Visit Provider Radiology Diagnostic Radiology | DX: D72.829 Elevated white blood cell count, unspecified (principal); K80.20 Calculus of gallbladder without cholecystitis without obstruction; K44.9 Diaphragmatic hernia without obstruction or gangrene; R16.0 Hepatomegaly, not elsewhere classified; R14.0 Abdominal distension (gaseous); I51.7 Cardiomegaly; J81.0 Acute pulmonary edema | CPT/HCPCS: 71260; 74177 ==

== ENCOUNTER 2025-01-22 03:30 | Outpatient (BNV) | payer MEDICARE, OTHER, SELFPAY | END 2025-01-25 21:42 | PROVIDERS: Admitting Provider Physician Assistant; Emergency Provider Emergency Medicine; PCP Internal Medicine; Visit Provider Radiology Diagnostic Radiology | DX: D72.829 Elevated white blood cell count, unspecified (principal) | CPT/HCPCS: 70470 ==

== ENCOUNTER → 2025-01-22 03:30 | Outpatient (BNV) | payer MEDICARE, OTHER, SELFPAY | PROVIDERS: Admitting Provider Physician Assistant; Emergency Provider Emergency Medicine; PCP Internal Medicine; Visit Provider Physician Assistant Medical | DX: G93.41 Metabolic encephalopathy (principal); S22.009A Unspecified fracture of unspecified thoracic vertebra, initial encounter for closed fracture | CPT/HCPCS: 99223; 99233; 99499 ==

== ENCOUNTER → 2025-01-22 03:30 | Outpatient (BNV) | payer MEDICARE, OTHER, SELFPAY | PROVIDERS: Admitting Provider Physician Assistant; Emergency Provider Emergency Medicine; PCP Internal Medicine; Visit Provider Internal Medicine Critical Care Medicine | DX: E87.1 Hypo-osmolality and hyponatremia (principal); G93.41 Metabolic encephalopathy | CPT/HCPCS: 99232 ==

== ENCOUNTER → 2025-01-22 03:30 | Outpatient (BNV) | payer MEDICARE, OTHER, SELFPAY | PROVIDERS: Admitting Provider Physician Assistant; Emergency Provider Emergency Medicine; PCP Internal Medicine; Visit Provider Internal Medicine Medical Oncology | DX: D72.829 Elevated white blood cell count, unspecified (principal) | CPT/HCPCS: 99232 ==

== ENCOUNTER → 2025-01-22 | Outpatient (BNV) | payer MEDICARE, OTHER, SELFPAY | PROVIDERS: Emergency Provider Emergency Medicine; Visit Provider Radiology Diagnostic Radiology | DX: S22.069A Unspecified fracture of T7-T8 vertebra, initial encounter for closed fracture (principal); M48.04 Spinal stenosis, thoracic region; J98.4 Other disorders of lung; J98.11 Atelectasis; K44.9 Diaphragmatic hernia without obstruction or gangrene; Z04.3 Encounter for examination and observation following other accident | CPT/HCPCS: 71045; 72128 ==